=== PATIENT | male | born 1950 | race Caucasian/White ===

== ENCOUNTER 2016-06-14 17:30 | Emergency (ER) | payer OTHER, MEDICARE ==
[~2016-06-14] VITALS: Ht 185.4 cm; Wt 118.6 kg
[~2016-06-14 17:30] MED LIST: ALLO100T PO; AMIO200T7 PO; CARV6.252 PO; CETI10TA10 PO; CLC100X PO; CLC6 PO; ERGO1CAP35 PO; FLUT0.0529 NAE; FOLI1TAB7 PO; INSU1INJ15 SQ; INSU1INJ2 SC; LISI10TA PO; MAGN400T25 PO; NVLGI/PEN SC; NYST100016 TOP; PRAV40TA2 PO; SPIR50TA2 PO; SYN137 PO; TAMS0.4C59 PO; TORS20TA2 PO; VENL150T33 PO; WARF-281 PO
[2016-06-14 17:47] VITALS: Ht 185.4 cm; Wt 118.6 kg
[2016-06-14] MEDS ORDERED: SODIUM CHLORIDE 0.9% 1000ML 1,000 ML IV STA (18:00)
[2016-06-14 18:03] VITALS: O2SAT 97
[2016-06-14] MEDS ORDERED: WARF10TA4 PO (18:04)
[2016-06-14] MEDS ORDERED: POTA10CA28 PO (18:04)
[2016-06-14] MEDS ORDERED: NRV/5 PO (18:04)
[2016-06-14] MEDS ORDERED: RIFA300C34 PO (18:04)
[2016-06-14] MEDS ORDERED: FERR1TAB13 PO (18:04)
[2016-06-14] MEDS ORDERED: DOXY-300 PO (18:04)
[2016-06-14] MEDS ORDERED: APR50 PO (18:04)
[2016-06-14] MEDS ORDERED: NRN100 PO (18:04)
[2016-06-14] MEDS ORDERED: OMEP20CA9 PO (18:04)
[2016-06-14] MEDS ORDERED: MoRPHine SULFATE 4 MG/ML 1 ML CARP\\VIAL IV STA ×2 (18:13→20:55)
--- NOTE | 2016-06-14 18:34 | DIAGNOSTIC IMAGING REPORT ---
SINGLE VIEW CHEST CLINICAL HISTORY: Fever. Sepsis. FINDINGS: An AP, portable, upright chest radiograph is compared to study dated 01/09/2016. The examination is degraded by portable technique and patient rotation. A left ventricular assist device is noted. A 3-lead cardiac AICD is unchanged in position and partially obscures the left upper chest. The patient is status post midline sternotomy. The heart is enlarged. The pulmonary vasculature is noncongested. There is no airspace consolidation, large pleural effusion, or pneumothorax. The skeletal structures appear osteopenic. The bony thorax is grossly intact. IMPRESSION: 1. The lungs are clear. 2. Cardiomegaly with AICD and left ventricular assist device is above. There is no radiographic evidence of congestive failure. Electronically signed by: Juaquin Neff M.D. 06/14/2016 6:33 PM Dictated Date/Time: 06/14/2016 6:31 PM
[2016-06-14 19:34] LABS: BASO % 0.3 %; BASO ABS # 0.03 K/uL (0-0.2); COMPLETE YES; EOS % 2.7 %; HEMATOCRIT 39.8 % (42-52); IG% 0.3 %; LYMPH % 19.9 %; LYMPH ABS # 1.74 K/uL (1.2-3.4); MEAN CELL VOLUME 91.1 fL (80-100); MEAN CORPUSCULAR HEMOGLOBIN 31.6 pg (25-34); MEAN CORPUSCULAR HGB CONC 34.7 g/dl (32-36); MEAN PLATELET VOLUME 10.9 fL (7.4-10.4); MONO % 7.9 %; NEUT % 68.9 %; PLATELET COUNT 173 K/uL (130-400); RED BLOOD COUNT 4.37 M/uL (4.7-6.1); WHITE BLOOD COUNT 8.76 K/uL (4.8-10.8)
[2016-06-14] MEDS ORDERED: MoRPHine SULFATE 2 MG/ML CARP ONE (19:46)
[2016-06-14 19:52] LABS: INR 1.6 (0.9-1.1); PARTIAL THROMBOPLASTIN RATIO 1.5; PROTHROMBIN TIME (PATIENT) 17.4 SECONDS (9.0-12.0)
[2016-06-14 19:55] LABS: BUN/CREATININE RATIO 16.4 (10-20); CALCIUM 8.8 mg/dl (8.5-10.1); CREATININE 1.3 mg/dl (0.60-1.40); POTASSIUM 3.4 mmol/L (3.5-5.1); URIC ACID 6.1 mg/dl (2.6-7.2)
[2016-06-14 19:56] LABS: C-REACTIVE PROTEIN 2.67 mg/dl (0-0.29)
[2016-06-14 20:01] LABS: CKMB/CK RATIO 2.4 (0-3.0)
--- NOTE | 2016-06-14 20:18 | DIAGNOSTIC IMAGING REPORT ---
CT SCAN OF THE BRAIN WITHOUT IV CONTRAST CLINICAL HISTORY: Change in mental status. Lethargy. COMPARISON STUDY: CT of the brain dated 06/11/2014. TECHNIQUE: Unenhanced axial CT scan of the brain is performed from the vertex to the skull base. FINDINGS: Brain parenchyma: There are age-related involutional changes noting mild subcortical and periventricular microangiopathic change. There is no hemorrhage, mass effect, or evidence of acute territorial ischemia by CT criteria. White-white matter is preserved. No extra-axial fluid collection is seen. Ventricles, sulci, cisterns: Prominent secondary to involutional change. Intracranial vasculature: There is atherosclerotic calcification of the cavernous carotid arteries. Calvarium: Unremarkable. Soft tissues: There is a large lipoma partially imaged in the right upper neck. Sinuses and mastoids: The visualized paranasal sinuses are clear. The mastoid air cells are well pneumatized. Orbits: The bony orbits are grossly intact. IMPRESSION: There is no hemorrhage, mass effect, or evidence of acute territorial ischemia by CT criteria. Electronically signed by: Juaquin Neff M.D. 06/14/2016 8:17 PM Dictated Date/Time: 06/14/2016 8:11 PM
[2016-06-14] MEDS ORDERED: PIPERACILLIN/TAZOBACTAM 3.375 GM/100ML D5W IV STA (20:40)
--- NOTE | 2016-06-14 20:47 | DIAGNOSTIC IMAGING REPORT ---
CT SCAN OF THE ABDOMEN AND PELVIS WITHOUT IV CONTRAST CLINICAL HISTORY: Generalized abdominal pain. Abdominal wall infection. Fever. COMPARISON STUDY: Abdominal CT dated 06/11/2014. TECHNIQUE: CT scan of the abdomen and pelvis is performed from the lung bases to the proximal femora. Images are reviewed in the axial, sagittal, and coronal planes. IV contrast was not administered for this examination as per the front clinician. Note that the examination was performed in suboptimal fashion for the reported clinical history without IV contrast. Automated dose control exposure was utilized. CT DOSE: 2795.65 mGy.cm FINDINGS: Lung bases: The heart is enlarged and without pericardial effusion. A left ventricular assist device is in place. Pacemaker leads are noted. The coronary arteries are densely calcified. The lung bases are clear noting dependent atelectasis. There is a small hiatal hernia. Liver: The unenhanced liver is enlarged, measuring 21.2 cm in length. The liver is otherwise normal in contour and attenuation. There is no intrahepatic biliary ductal dilatation. Gallbladder: Unremarkable. Spleen: Normal in size and attenuation. A 3.6 cm cyst is identified in the spleen. This has increased in size as compared to 2015. Pancreas: Moderately atrophic and grossly unremarkable. Adrenal glands: A 1.8 cm left adrenal nodule is unchanged and meets CT criteria for a fat-containing adenoma. The right adrenal gland is unremarkable. Kidneys: The unenhanced kidneys demonstrate cortical atrophy and are without hydronephrosis. There are no renal calculi identified. There is no evidence of contour deforming renal mass lesion. Abdominal vasculature: The abdominal aorta is normal in course and caliber noting moderate atherosclerotic calcification. Bowel: The small bowel and colon are normal in course and caliber. There is mild to moderate colonic fecal retention. A metallic foreign body is present within the cecum, best seen on axial image #270. The appendix is well-visualized and normal. Peritoneum: There is no intraperitoneal free air or abdominal ascites. Lymphadenopathy: None. Pelvic viscera: There is a posteriorly oriented bladder diverticulum seen near the dome. The bladder wall is mildly thickened and trabeculated suggesting chronic outlet obstruction. The prostate gland is mildly enlarged and heterogeneous. There is a fat-containing left inguinal hernia. Skeletal structures: The skeletal structures are osteopenic. No lytic or blastic lesions are seen. There are bilateral pars defects at L5 with 10 mm of anterolisthesis as well as advanced degenerative disc disease narrowing and endplate sclerosis seen at L5-S1. There is an acute appearing oblique fracture seen through the right posterior body and pedicle of L5. This is best seen on axial image #321. Fracture does not extend through the posterior elements. Fracture extends to the superior endplate and to the posterior cortex. No additional fracture is identified. Soft tissues: There is mild induration of the ventral abdominal wall, likely related to subcutaneous injections. IMPRESSION: 1. Suboptimal examination without oral and IV contrast. 2. There are no acute infectious or inflammatory findings in the abdomen or pelvis. 3. Cardiomegaly and left ventricular cyst device. 4. There is an acute appearing oblique fracture through the right body of L5 as detailed above. Clinical correlation will be required. No additional fracture is seen. 5. Hepatomegaly. 6. There is evidence of chronic bladder outlet obstruction. 7. Additional findings as above. Electronically signed by: Juaquin Neff M.D. 06/14/2016 8:46 PM Dictated Date/Time: 06/14/2016 8:28 PM
--- NOTE | 2016-06-14 20:59 | EMERGENCY ROOM VISIT NOTE ---
History Report prepared by Spencer: Mirela Joe Under the Supervision of: Dr. Adeel Acevedo D.O. First contact with patient: 17:52 Chief Complaint: FEVER Stated Complaint: FEVER, GENERALIZED PAIN History of Present Illness The patient is a 65 year old male who presents to the Emergency Room with complaints of a persistent fever that began yesterday. He currently rates his discomfort as an 8/10 in severity. Per nursing staff the patient was recently discharged from [facility]. They note that the patient has an LVAD. The patient states that he has the LVAD because his heart stopped functioning. The patient states that he was referred to the emergency department by his Infectious Disease due to a possible worsening infection in his LVAD. Today the patient complains of a headache, fever, and generalized body aches. Nursing staff reports that the patient has also been intermittently lethargic. Per the patient's , the patient has an infection in his LVAD that has been followed by infectious disease. She states that the patient is on Coumadin. Source of History: patient, nursing staff Onset: yesterday Position: other (global) Symptom Intensity: 8/10 Quality: other (fever) Timing: other (persistent) Associated Symptoms: + headache Note: Associated Symptoms: generalized body aches, intermittently lethargic. Review of Systems See HPI for pertinent positives & negatives. A total of 10 systems reviewed and were otherwise negative. 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 (2) Benign hypertension (3) Cardiomyopathy (4) CHRONIC SYSTOLIC HRT FAILURE (5) Diabetes mellitus (6) Diabetes mellitus type 2 (7) Elevated cardiac enzymes (8) Gout (9) Heart disease (10) Heart failure (11) Hyperlipidemia (12) Hypothyroidism (13) Pneumonia (14) Prolonged QT interval (15) TIA (transient ischemic attack) Surgical Problems: (1) Implantation of automatic cardioverter/defibrillator, total system (2) Implantation of cardiac pacemaker (3) LVAD placement Family History Diabetes mellitus FH: heart disease Stroke Social History Smoking Status: Unknown if Ever Smoked Alcohol Use: none Drug Use: none Marital Status: Housing Status: lives with family Occupation Status: disabled Current/Historical Medications Scheduled Allopurinol (Zyloprim), 100 MG PO DAILY Amiodarone Hcl (Pacerone), 200 MG PO DAILY Amlodipine Besylate (Amlodipine Besylate), 5 MG PO DAILY Carvedilol (Coreg), 12.5 MG PO QD@0900 Carvedilol (Coreg), 12.5 MG PO QD@1700 Cetirizine Hcl (Zyrtec), 10 MG PO HS Docusate Sodium (Colace), 100 MG PO BID Doxycycline (Monohydrate) (Doxycycline), 100 MG PO BID Ergocalciferol (Vitamin D Cap), 50,000 INTER.UNIT PO 2xmonthly Ferrous Sulfate (Kp Ferrous Sulfate), 325 MG PO DAILY Folic Acid (Folvite), 1 MG PO DAILY Gabapentin (Gabapentin), 200 MG PO TID Hydralazine HCl (Hydralazine HCl), 50 MG PO QID Insulin Aspart (Novolog Flexpen), 7 UNITS SC WM Insulin Detemir (Levemir), 35 UNITS SQ BID Levothyroxine Sodium (Levothyroxine Sodium), 137 MCG PO DAILY Lisinopril (Prinivil), 40 MG PO QAM Magnesium Oxide (Magnesium-Oxide), 400 MG PO TID Omeprazole (Prilosec), 20 MG PO DAILY Potassium Chloride (Micro-K Ext Rel), 20 MEQ PO BID Pravastatin Sodium (Pravastatin Sodium), 40 MG PO HS Rifampin (Rifadin), 300 MG PO BID Spironolactone (Aldactone), 50 MG PO QAM Tamsulosin Hcl (Flomax), 0.4 MG PO HS Torsemide (Demadex), 50 MG PO DAILY Venlafaxine Hcl (Venlafaxine Hcl Er), 150 MG PO HS Warfarin Sod (Jantoven), 30 MG PO DIRECTED Warfarin Sodium (Warfarin Sodium), 40 MG PO DIRECTED Scheduled PRN Colchicine (Colcrys), 0.6 MG PO DAILY PRN for Gout Fluticasone Propionate (Nasal) (Flonase), 2 SPRAYS SULEMA HS PRN for Allergies Insulin Aspart (Novolog Penfill), SC WM PRN for hyperglycemia Nystatin (Topical) (Nyamyc), 1 APPLN TOP UD PRN for Affected Skin Folds Allergies Coded Allergies: Heparin (Verified Adverse Reaction, Severe, HIT, 06/14/16) Physical Exam Vital Signs Date Time Temp Pulse Resp B/P Pulse Ox O2 Delivery O2 Flow Rate FiO2 06/14/16 19:44 74 16 96 Room Air 06/14/16 18:03 97 Nasal Cannula 2.0 06/14/16 17:50 70 06/14/16 17:47 36.8 73 18 93 Room Air Physical Exam CONSTITUTIONAL/VITAL SIGNS: Reviewed / noted above. GENERAL: Non-toxic in appearance. INTEGUMENTARY: Warm, dry, and [place]. HEAD: Normocephalic. EYES: without scleral icterus or trauma. ENT/OROPHARYNX: clear and moist. LYMPHADENOPATHY/NECK: Is supple without lymphadenopathy or meningismus. RESPIRATORY: Lungs clear and equal. CARDIOVASCULAR: Continuous function of LVAD preventing adequate auscultation of heart sounds. GI/ABDOMEN: Mild erythema over superior aspect of the LVAD incision site. Soft and nontender. No organomegaly or pulsatile mass. No rebound or guarding. Normal bowel sounds. EXTREMITIES: Warm and well perfused. BACK: No CVA tenderness. NEUROLOGICAL: Intact without focal deficits. PSYCHIATRIC: normal affect. MUSCULOSKELETAL: Normally developed with good muscle tone. Medical Decision & Procedures ER Provider Diagnostic Interpretation: Radiology results as stated below per my review and radiologist interpretation: CT SCAN OF THE BRAIN WITHOUT IV CONTRAST CLINICAL HISTORY: Change in mental status. Lethargy. COMPARISON STUDY: CT of the brain dated 06/11/2014. TECHNIQUE: Unenhanced axial CT scan of the brain is performed from the vertex to the skull base. FINDINGS: Brain parenchyma: There are age-related involutional changes noting mild subcortical and periventricular microangiopathic change. There is no hemorrhage, mass effect, or evidence of acute territorial ischemia by CT criteria. White-white matter is preserved. No extra-axial fluid collection is seen. Ventricles, sulci, cisterns: Prominent secondary to involutional change. Intracranial vasculature: There is atherosclerotic calcification of the cavernous carotid arteries. Calvarium: Unremarkable. Soft tissues: There is a large lipoma partially imaged in the right upper neck. Sinuses and mastoids: The visualized paranasal sinuses are clear. The mastoid air cells are well pneumatized. Orbits: The bony orbits are grossly intact. IMPRESSION: There is no hemorrhage, mass effect, or evidence of acute territorial ischemia by CT criteria. Electronically signed by: Juaquin Neff M.D. 06/14/2016 8:17 PM Dictated Date/Time: 06/14/2016 8:11 PM SINGLE VIEW CHEST CLINICAL HISTORY: Fever. Sepsis. FINDINGS: An AP, portable, upright chest radiograph is compared to study dated 01/09/2016. The examination is degraded by portable technique and patient rotation. A left ventricular assist device is noted. A 3-lead cardiac AICD is unchanged in position and partially obscures the left upper chest. The patient is status post midline sternotomy. The heart is enlarged. The pulmonary vasculature is noncongested. There is no airspace consolidation, large pleural effusion, or pneumothorax. The skeletal structures appear osteopenic. The bony thorax is grossly intact. IMPRESSION: 1. The lungs are clear. 2. Cardiomegaly with AICD and left ventricular assist device is above. There is no radiographic evidence of congestive failure. Electronically signed by: Juaquin Neff M.D. 06/14/2016 6:33 PM Dictated Date/Time: 06/14/2016 6:31 PM Laboratory Results 06/14/16 19:15 Red Blood Count 4.37, Mean Corpuscular Volume 91.1, Mean Corpuscular Hemoglobin 31.6, Mean Corpuscular Hemoglobin Concent 34.7, Mean Platelet Volume 10.9, Neutrophils (%) (Auto) 68.9, Lymphocytes (%) (Auto) 19.9, Monocytes (%) (Auto) 7.9, Eosinophils (%) (Auto) 2.7, Basophils (%) (Auto) 0.3, Neutrophils # (Auto) 6.03, Lymphocytes # (Auto) 1.74, Monocytes # (Auto) 0.69, Eosinophils # (Auto) 0.24, Basophils # (Auto) 0.03 06/14/16 19:15 Test 06/14/16 18:30 06/14/16 19:15 Influenza Type A Antigen Neg for Influ A (NEG) Influenza Type B Antigen Neg for Influ B (NEG) White Blood Count 8.76 K/uL (4.8-10.8) Red Blood Count 4.37 M/uL (4.7-6.1) Hemoglobin 13.8 g/dL (14.0-18.0) Hematocrit 39.8 % (42-52) Mean Corpuscular Volume 91.1 fL (80-100) Mean Corpuscular Hemoglobin 31.6 pg (25-34) Mean Corpuscular Hemoglobin Concent 34.7 g/dl (32-36) Platelet Count 173 K/uL (130-400) Mean Platelet Volume 10.9 fL (7.4-10.4) Neutrophils (%) (Auto) 68.9 % Lymphocytes (%) (Auto) 19.9 % Monocytes (%) (Auto) 7.9 % Eosinophils (%) (Auto) 2.7 % Basophils (%) (Auto) 0.3 % Neutrophils # (Auto) 6.03 K/uL (1.4-6.5) Lymphocytes # (Auto) 1.74 K/uL (1.2-3.4) Monocytes # (Auto) 0.69 K/uL (0.11-0.59) Eosinophils # (Auto) 0.24 K/uL (0-0.5) Basophils # (Auto) 0.03 K/uL (0-0.2) RDW Standard Deviation 53.0 fL (36.4-46.3) RDW Coefficient of Variation 16.0 % (11.5-14.5) Immature Granulocyte % (Auto) 0.3 % Immature Granulocyte # (Auto) 0.03 K/uL (0.00-0.02) Erythrocyte Sedimentation Rate 22 mm/hr (0-14) Prothrombin Time 17.4 SECONDS (9.0-12.0) Prothromb Time International Ratio 1.6 (0.9-1.1) Activated Partial Thromboplast Time 37.9 SECONDS (21.0-31.0) Partial Thromboplastin Ratio 1.5 Anion Gap 6.0 mmol/L (3-11) Est Creatinine Clear Calc Drug Dose 75.4 ml/min Estimated GFR () 65.9 Estimated GFR (Non- 56.9 BUN/Creatinine Ratio 16.4 (10-20) Uric Acid 6.1 mg/dl (2.6-7.2) Calcium Level 8.8 mg/dl (8.5-10.1) Total Bilirubin 0.4 mg/dl (0.2-1) Direct Bilirubin 0.1 mg/dl (0-0.2) Aspartate Amino Transf (AST/SGOT) 22 U/L (15-37) Alanine Aminotransferase (ALT/SGPT) 23 U/L (12-78) Alkaline Phosphatase 78 U/L (45-117) Total Creatine Kinase 99 U/L (39-308) Creatine Kinase MB 2.4 ng/ml (0.5-3.6) Creatine Kinase MB Ratio 2.4 (0-3.0) Troponin I 0.078 ng/ml (0-0.045) C-Reactive Protein 2.67 mg/dl (0-0.29) Total Protein 7.7 gm/dl (6.4-8.2) Albumin 3.6 gm/dl (3.4-5.0) Lipase 260 U/L (73-393) Laboratory results as stated above per my review. Medications Administered Medications (Trade) Dose Ordered Sig/Jose Route Start Time Stop Time Status Last Admin Dose Admin Sodium Chloride (Nss 1000ml) 1,000 ml @ 200 mls/hr Q5H STAT IV 06/14/16 18:00 06/14/16 22:59 06/14/16 19:43 200 MLS/HR Morphine Sulfate (MoRPHine SULFATE INJ) 2 mg STK-MED ONCE .ROUTE 06/14/16 19:46 06/14/16 19:47 DC 06/14/16 19:42 2 MG ECG Indication: other (history of LVAD) Rate (beats per minute): 66 Rhythm: other (ventricular paced) Findings: no acute ischemic change, paced rhythm, no ectopy ED Course 1753: Previous medical records were reviewed. The patient was evaluated in room B12B. A complete history and physical examination was performed. 1800: Ordered Sodium Chloride 1000 ml @ 200 mls/hr IV. 1812: Ordered Morphine Sulfate 2 mg IV. 2015: I reevaluated the patient and he is resting comfortably. I discussed the exam findings with the patient and his and I discussed the treatment plan. They verbalized complete understanding and agreement. The patient will be transferred to [facility] for further treatment. 2030: I discussed the patients case with Dr. Manzano, Cardiovascular Disease. She accepted the patient for transfer to their facility. 2100: IV Zosyn. Medical Decision Differential diagnosis: Etiologies such as sepsis, UTI, pneumonia, metabolic, electrolyte abnormalities , cardiac sources, intracerebral event, toxicologic, neurologic, as well as others were entertained. This is a 65-year-old male who presents to the ED with a chief complaint of the above. The patient was sent here by the infectious disease specialist for evaluation. History of LVAD. The patient's blood work includes a unremarkable CBC. Sedimentation rate was 22, CRP is 2.67. INR is 1.6. Troponin is slightly elevated at 0.078. Flu swab was negative. A chest x-ray was negative for acute disease. Complete metabolic panel was unremarkable. Lipase is negative. The patient's exam reveals some mild erythema overlying the incision site of the LVAD. EKG showed a paced rhythm. The patient was given IV Zosyn. He was given some IV morphine for discomfort. Blood cultures have been taken. I [place] Manz[place] [facility] [place] patient has been accepted at [facility]. IV Zosyn given. There is a bed available. The patient be transported by ambulance. Consults Time Called: 2021 Consulting Physician: Dr. Manzano, Cardiovascular Disease Returned Call: 2030 I discussed the patients case with Dr. Manzano, Cardiovascular Disease. She accepted the patient for transfer to their facility. Impression Primary Impression: Elevated troponin Additional Impression: Abdominal wall cellulitis Scribe Attestation The scribe's documentation has been prepared under my direction and personally reviewed by me in its entirety. I confirm that the note above accurately reflects all work, treatment, procedures, and medical decision making performed by me. Departure Information Dispostion Transfer Acute Care Facility Referrals Graham Rojas MD (PCP) Problem Qualifiers
[2016-06-14 22:31] VITALS: PULSE 78; TEMP 36.8; O2SAT 98
[2016-07-31] MEDS ORDERED: ERGO1CAP41 PO (18:26)
[2016-08-24] MEDS ORDERED: OXYC-164 PO (16:45)
[2016-08-24] MEDS ORDERED: TEDI1TAB PO (16:45)
[2016-08-24] MEDS ORDERED: LEVO150T PO (16:45)
[2016-11-18] MEDS ORDERED: CLIN300C2 PO (08:38)
== END 2016-06-14 22:33 | disposition short-term general hospital (02) ==
LOC: EDBD 17:30 → C.EDB 17:31
DX: L03.311 Cellulitis of abdominal wall (principal); G51.0 Bell's palsy; I10 Essential (primary) hypertension; I50.22 Chronic systolic (congestive) heart failure; E11.9 Type 2 diabetes mellitus without complications; M10.9 Gout, unspecified; E03.9 Hypothyroidism, unspecified; E78.5 Hyperlipidemia, unspecified; Z86.73 Personal history of transient ischemic attack (TIA), and cerebral infarction without residual deficits; Z95.810 Presence of automatic (implantable) cardiac defibrillator; Z82.49 Family history of ischemic heart disease and other diseases of the circulatory system; Z83.3 Family history of diabetes mellitus; Z82.0 Family history of epilepsy and other diseases of the nervous system; Z79.899 Other long term (current) drug therapy; Z79.01 Long term (current) use of anticoagulants; Z79.4 Long term (current) use of insulin

== ENCOUNTER 2016-07-11 16:59 | Emergency (ER) | payer OTHER, MEDICARE ==
[~2016-07-11] VITALS: Ht 185.4 cm; Wt 119.7 kg
[~2016-07-11 16:59] MED LIST changes: +APR50 PO; +DOXY-300 PO; +FERR1TAB13 PO; +NRN100 PO; +NRV/5 PO; +OMEP20CA9 PO; +POTA10CA28 PO; +RIFA300C34 PO; +WARF10TA4 PO
[2016-07-11 17:03] VITALS: TEMP 36.7; Ht 185.4 cm; Wt 119.7 kg
--- NOTE | 2016-07-11 17:12 | EMERGENCY ROOM VISIT NOTE ---
History Report prepared by Spencer: Rey Leon Under the Supervision of: Dr. Russ Jones M.D. First contact with patient: 17:01 Chief Complaint: ILLNESS Stated Complaint: CHEST PAIN History of Present Illness The patient is a 65 year old male who presents to the Emergency Room with complaints of constant fatigue for the past few days. The EMS states that the patient has not been feeling well the past few days, and has been fatigued and unable to eat or drink. The patient states that his legs have been swollen for the past 10 days, and he is currently on antibiotics. He states that he has been fighting an infection for the past year. The patient has been additionally having low back pain due to the bumps on the road. The patient has chronic lumbar issues, and he was given 8mg of Morphine en route Source of History: patient, EMS Onset: past few days Position: other (global) Quality: other (fatigue) Timing: constant Associated Symptoms: + back pain Note: Associated symptoms: Back pain Review of Systems See HPI for pertinent positives & negatives. A total of 10 systems reviewed and were otherwise negative. 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 (2) Benign hypertension (3) Cardiomyopathy (4) CHRONIC SYSTOLIC HRT FAILURE (5) Diabetes mellitus (6) Diabetes mellitus type 2 (7) Elevated cardiac enzymes (8) Gout (9) Heart disease (10) Heart failure (11) Hyperlipidemia (12) Hypothyroidism (13) Pneumonia (14) Prolonged QT interval (15) TIA (transient ischemic attack) Surgical Problems: (1) Implantation of automatic cardioverter/defibrillator, total system (2) Implantation of cardiac pacemaker (3) LVAD placement Family History Diabetes mellitus FH: heart disease Stroke Social History Smoking Status: Never Smoker Alcohol Use: none Drug Use: none Marital Status: Housing Status: lives with family Occupation Status: disabled Current/Historical Medications Scheduled Allopurinol (Zyloprim), 100 MG PO DAILY Amiodarone Hcl (Pacerone), 200 MG PO DAILY Amlodipine Besylate (Amlodipine Besylate), 5 MG PO DAILY Carvedilol (Coreg), 12.5 MG PO QD@0900 Carvedilol (Coreg), 12.5 MG PO QD@1700 Cetirizine Hcl (Zyrtec), 10 MG PO HS Docusate Sodium (Docusate Sodium), 100 MG PO BID Ergocalciferol (Vitamin D), 50,000 INTERUNIT PO UD Ferrous Sulfate (Kp Ferrous Sulfate), 325 MG PO DAILY Folic Acid (Folvite), 1 MG PO DAILY Gabapentin (Gabapentin), 600 MG PO TID Hydralazine HCl (Hydralazine HCl), 50 MG PO QID Insulin Aspart (Novolog Flexpen), 7 UNITS SC AC Insulin Detemir (Levemir), 35 UNITS SC BID Levothyroxine Sodium (Synthroid), 150 MCG PO QAM Linezolid (Zyvox), 600 MG PO BID Lisinopril (Prinivil), 40 MG PO QAM Magnesium Oxide (mg Supplement (Magnesium Oxide), 400 MG PO TID Potassium Chloride (Micro-K Ext Rel), 20 MEQ PO BID Pravastatin Sodium (Pravastatin Sodium), 40 MG PO HS Spironolactone (Aldactone), 50 MG PO QAM Tamsulosin HCl (Tamsulosin HCl), 0.4 MG PO HS Torsemide (Demadex), 50 MG PO DAILY Warfarin Sod (Jantoven), MG PO DIRECTED Scheduled PRN Colchicine (Colcrys), 0.6 MG PO DAILY PRN for Gout Insulin Aspart (Novolog Penfill), SC AC PRN for hyperglycemia Nystatin (Topical) ([facility]), 1 APPLN TOP UD PRN for Affected Skin Folds Allergies Coded Allergies: Heparin (Verified Adverse Reaction, Severe, HIT, 07/11/16) Physical Exam Vital Signs Date Time Temp Pulse Resp B/P Pulse Ox O2 Delivery O2 Flow Rate FiO2 07/11/16 19:44 74 20 90 Room Air 07/11/16 19:06 77 18 96 Room Air 07/11/16 17:19 70 07/11/16 17:03 36.7 70 20 97 Room Air Physical Exam GENERAL: Patient is uncomfortable appearing and in mild distress. HEENT: No acute trauma, normocephalic atraumatic, mucous membranes moist, no nasal congestion, no scleral icterus. NECK: No stridor, no adenopathy, no meningismus, trachea is midline. LUNGS: No dyspnea. Clear to auscultation and equal bilaterally. No wheeze, no rhonchi. HEART: There is a continuous hum ABDOMEN: LVAD entry point in the right upper abdomen. Soft, nontender, bowel sounds positive, no masses appreciated, no peritonitis. BACK: No midline tenderness, no CVA tenderness EXTREMITIES: Weak pulses in all extremities. Normal motion all extremities, no cyanosis, no edema. NEUROLOGIC: Alert and oriented, no acute motor or sensory deficits, no focal weakness, cranial nerves grossly intact. SKIN: No rash, no jaundice, no diaphoresis. Medical Decision & Procedures ER Provider Diagnostic Interpretation: Radiology results and stated below per my review and radiologist interpretation: CHEST ONE VIEW PORTABLE HISTORY: fatigue COMPARISON: Chest 06/14/2016. FINDINGS: The lungs remain clear. Mild cardiomegaly, unchanged. Poststernotomy changes and a left-sided pacemaker/defibrillator. No pleural effusions. No pneumothorax. A left ventricular assist device is partially visualized. IMPRESSION: No significant change compared to the prior study. No acute process. Electronically signed by: Adolfo Brown M.D. 07/11/2016 5:18 PM Dictated Date/Time: 07/11/2016 5:17 PM Laboratory Results 07/11/16 16:24 Red Blood Count 3.83, Mean Corpuscular Volume 90.3, Mean Corpuscular Hemoglobin 30.0, Mean Corpuscular Hemoglobin Concent 33.2, Mean Platelet Volume 11.1, Neutrophils (%) (Auto) 72.5, Lymphocytes (%) (Auto) 16.4, Monocytes (%) (Auto) 8.0, Eosinophils (%) (Auto) 2.6, Basophils (%) (Auto) 0.4, Neutrophils # (Auto) 4.97, Lymphocytes # (Auto) 1.13, Monocytes # (Auto) 0.55, Eosinophils # (Auto) 0.18, Basophils # (Auto) 0.03 07/11/16 16:24 Test 07/11/16 16:24 07/11/16 17:19 White Blood Count 6.87 K/uL (4.8-10.8) Red Blood Count 3.83 M/uL (4.7-6.1) Hemoglobin 11.5 g/dL (14.0-18.0) Hematocrit 34.6 % (42-52) Mean Corpuscular Volume 90.3 fL (80-100) Mean Corpuscular Hemoglobin 30.0 pg (25-34) Mean Corpuscular Hemoglobin Concent 33.2 g/dl (32-36) Platelet Count 93 K/uL (130-400) Mean Platelet Volume 11.1 fL (7.4-10.4) Neutrophils (%) (Auto) 72.5 % Lymphocytes (%) (Auto) 16.4 % Monocytes (%) (Auto) 8.0 % Eosinophils (%) (Auto) 2.6 % Basophils (%) (Auto) 0.4 % Neutrophils # (Auto) 4.97 K/uL (1.4-6.5) Lymphocytes # (Auto) 1.13 K/uL (1.2-3.4) Monocytes # (Auto) 0.55 K/uL (0.11-0.59) Eosinophils # (Auto) 0.18 K/uL (0-0.5) Basophils # (Auto) 0.03 K/uL (0-0.2) RDW Standard Deviation 46.6 fL (36.4-46.3) RDW Coefficient of Variation 14.2 % (11.5-14.5) Immature Granulocyte % (Auto) 0.1 % Immature Granulocyte # (Auto) 0.01 K/uL (0.00-0.02) Platelet Estimate DECREASED Prothrombin Time 28.2 SECONDS (9.0-12.0) Prothromb Time International Ratio 2.5 (0.9-1.1) Activated Partial Thromboplast Time 40.2 SECONDS (21.0-31.0) Partial Thromboplastin Ratio 1.5 Anion Gap 4.0 mmol/L (3-11) Est Creatinine Clear Calc Drug Dose 70.3 ml/min Estimated GFR () 60.3 Estimated GFR (Non- 52.0 BUN/Creatinine Ratio 19.8 (10-20) Calcium Level 8.3 mg/dl (8.5-10.1) Magnesium Level 2.4 mg/dl (1.8-2.4) Total Bilirubin 0.4 mg/dl (0.2-1) Direct Bilirubin 0.1 mg/dl (0-0.2) Aspartate Amino Transf (AST/SGOT) 21 U/L (15-37) Alanine Aminotransferase (ALT/SGPT) 30 U/L (12-78) Alkaline Phosphatase 65 U/L (45-117) Troponin I 0.027 ng/ml (0-0.045) C-Reactive Protein 0.54 mg/dl (0-0.29) Total Protein 6.8 gm/dl (6.4-8.2) Albumin 3.3 gm/dl (3.4-5.0) Procalcitonin < 0.05 ng/ml (0-0.5) Bedside Lactic Acid Venous 2.87 mmol/L (0.90-1.70) Laboratory results as reviewed by me. Medications Administered Medications (Trade) Dose Ordered Sig/Jose Route Start Time Stop Time Status Last Admin Dose Admin Vancomycin HCl/ Sodium Chloride (Vancomycin Inj/ Nss 500ml) 556 ml @ 200 mls/hr ONE STAT IV 07/11/16 18:06 07/11/16 20:52 DC 07/11/16 18:06 200 MLS/HR Morphine Sulfate (MoRPHine SULFATE INJ) 6 mg NOW STAT IV 07/11/16 18:17 07/11/16 18:18 DC 07/11/16 18:17 6 MG ECG Indication: other (fatigue) Rate (beats per minute): 70 Rhythm: other (AV paced) Findings: no acute ischemic change, no ectopy ED Course 1700: The patient was evaluated in room A1. A complete history and physical exam was performed. 1801: I discussed the patient's case with Dr. Barillas, Cardiology [facility], and Dr. Acuna, Emergency Physician [facility], and they are going to evaluate the patient for further treatment. 180: Vancomycin HCl 2800mg/ Sodium Chloride IV 556 @ 200mls/hr 1816: Morphine Sulfate 6mg IV 1920: I reevaluated the patient, and he states that he was still having some discomfort. Medical Decision Differential: Sepsis, Infectious (UTI/Pneumonia/Meningitis/etc), Metabolic/ Electrolyte Abnormality, Cardiac, Hepatic, Endocrine, Toxicologic, Neurologic, amongst other pathologies entertained. 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 Arrives via EMS for evaluation of fatigue, weakness, sweats and concern of bacteremia which is similar to previous episodes of bacteremia. Sat-ing OK with light pulse. Mild lactic acidosis of uncertain etiology though he has negative procalcitonin, minimal elevated CRP and normal WBC. Of concern is his acute thrombocytopenia which could be Zyvox related or sepsis. He is stable for transfer. Will transfer to [place] as this is where his cardiac team is and we do not have capabilities to care for him. With assumption there is underlying Bacteremia will given IV Vanco. Given this is large volume of fluid will avoid further resus for lactic acid as it could easily send him in to pulm edema. Morphine for chronic back pain which he notes has already been ruled out as source of infection by MRI. Stable throughout ED stay. Consults Time Called: 1800 Consulting Physician: Dr. Barillas, Cardiology [facility], and Dr. Acuna, Emergency Phy Returned Call: 1802 I discussed the patient's case with Dr. Barillas, Cardiology [facility], and Dr. Acuna, Emergency Physician [facility], and they are going to evaluate the patient for further treatment. Impression Primary Impression: Bacteremia Additional Impressions: Lactic acidosis Acute exacerbation of chronic low back pain Thrombocytopenia Scribe Attestation The scribe's documentation has been prepared under my direction and personally reviewed by me in its entirety. I confirm that the note above accurately reflects all work, treatment, procedures, and medical decision making performed by me. Departure Information Dispostion Transfer Acute Care Facility Referrals Graham Rojas MD (PCP) Problem Qualifiers
[2016-07-11 17:14] LABS: HEMATOCRIT 34.6 % (42-52); MEAN CELL VOLUME 90.3 fL (80-100); MEAN CORPUSCULAR HGB CONC 33.2 g/dl (32-36); RED BLOOD COUNT 3.83 M/uL (4.7-6.1); WHITE BLOOD COUNT 6.87 K/uL (4.8-10.8)
--- NOTE | 2016-07-11 17:20 | DIAGNOSTIC IMAGING REPORT ---
CHEST ONE VIEW PORTABLE HISTORY: fatigue COMPARISON: Chest 06/14/2016. FINDINGS: The lungs remain clear. Mild cardiomegaly, unchanged. Poststernotomy changes and a left-sided pacemaker/defibrillator. No pleural effusions. No pneumothorax. A left ventricular assist device is partially visualized. IMPRESSION: No significant change compared to the prior study. No acute process. Electronically signed by: Adolfo Brown M.D. 07/11/2016 5:18 PM Dictated Date/Time: 07/11/2016 5:17 PM
[2016-07-11 17:35] LABS: MEAN PLATELET VOLUME 11.1 fL (7.4-10.4); PLATELET COUNT 93 K/uL (130-400)
[2016-07-11 17:36] LABS: BASO % 0.4 %; BASO ABS # 0.03 K/uL (0-0.2); COMPLETE YES; EOS % 2.6 %; IG% 0.1 %; LYMPH % 16.4 %; LYMPH ABS # 1.13 K/uL (1.2-3.4); NEUT % 72.5 %; PLT ESTIMATE DECREASED
[2016-07-11 17:39] LABS: BUN/CREATININE RATIO 19.8 (10-20); CALCIUM 8.3 mg/dl (8.5-10.1); CREATININE 1.4 mg/dl (0.60-1.40); MAGNESIUM 2.4 mg/dl (1.8-2.4); POTASSIUM 4.3 mmol/L (3.5-5.1)
[2016-07-11 17:43] LABS: C-REACTIVE PROTEIN 0.54 mg/dl (0-0.29)
[2016-07-11] MEDS ORDERED: VANCOMYCIN INJ 2,800 MG in SODIUM CHLORIDE 0.9% 500ML 500 ML IV STA (18:06)
[2016-07-11 18:08] LABS: INR 2.5 (0.9-1.1); PARTIAL THROMBOPLASTIN RATIO 1.5; PROTHROMBIN TIME (PATIENT) 28.2 SECONDS (9.0-12.0)
[2016-07-11] MEDS ORDERED: MoRPHine SULFATE 10 MG/ML CARP/VIAL IV STA (18:17)
[2016-07-11] MEDS ORDERED: LVMI SC (18:36)
[2016-07-11] MEDS ORDERED: NRN600 PO (18:36)
[2016-07-11] MEDS ORDERED: SYN150 PO (18:36)
[2016-07-11] MEDS ORDERED: LINE1TAB6 PO (18:36)
[2016-07-11] MEDS ORDERED: CLC100 PO (18:36)
[2016-07-11] MEDS ORDERED: VTMD PO (18:36)
[2016-07-11] MEDS ORDERED: MAGN400C3 PO (18:36)
[2016-07-11] MEDS ORDERED: FLM4 PO (18:36)
[2016-07-11 19:44] VITALS: PULSE 74; O2SAT 90
[2016-08-24] MEDS ORDERED: OXYC-164 PO (16:45)
[2016-08-24] MEDS ORDERED: TEDI1TAB PO (16:45)
[2016-08-24] MEDS ORDERED: LEVO150T PO (16:45)
[2016-11-18] MEDS ORDERED: CLIN300C2 PO (08:38)
[2017-01-31] MEDS ORDERED: ASPI81TA28 PO (08:20)
== END 2016-07-11 20:10 | disposition short-term general hospital (02) ==
LOC: EDBD 16:59 → C.ED 17:02
DX: R78.81 Bacteremia (principal); E87.2 Acidosis; G89.29 Other chronic pain; M54.5 Low back pain; D69.6 Thrombocytopenia, unspecified; R53.83 Other fatigue; M79.89 Other specified soft tissue disorders; G51.0 Bell's palsy; E11.9 Type 2 diabetes mellitus without complications; I10 Essential (primary) hypertension; E78.5 Hyperlipidemia, unspecified; E03.9 Hypothyroidism, unspecified; Z95.810 Presence of automatic (implantable) cardiac defibrillator; Z86.79 Personal history of other diseases of the circulatory system; Z86.73 Personal history of transient ischemic attack (TIA), and cerebral infarction without residual deficits; Z79.01 Long term (current) use of anticoagulants; Z79.4 Long term (current) use of insulin; Z79.899 Other long term (current) drug therapy

== ENCOUNTER 2016-07-31 17:00 | Emergency (ER) | payer OTHER, MEDICARE ==
[~2016-07-31] VITALS: Ht 185.4 cm; Wt 114.5 kg
[~2016-07-31 17:00] MED LIST changes: +CLC100 PO; -CLC100X PO; -DOXY-300 PO; -ERGO1CAP35 PO; +FLM4 PO; -FLUT0.0529 NAE; -INSU1INJ15 SQ; +LINE1TAB6 PO; +LVMI SC; +MAGN400C3 PO; -MAGN400T25 PO; -NRN100 PO; +NRN600 PO; -OMEP20CA9 PO; -RIFA300C34 PO; -SYN137 PO; +SYN150 PO; -TAMS0.4C59 PO; -VENL150T33 PO; +VTMD PO; -WARF-281 PO
[2016-07-31 17:10] VITALS: Ht 185.4 cm; Wt 114.5 kg
[2016-07-31 17:18] VITALS: O2SAT 92
[2016-07-31 18:01] LABS: BASO % 0.3 %; BASO ABS # 0.03 K/uL (0-0.2); COMPLETE YES; EOS % 1.7 %; HEMATOCRIT 40.5 % (42-52); IG% 0.4 %; LYMPH % 10.8 %; LYMPH ABS # 1.23 K/uL (1.2-3.4); MEAN CELL VOLUME 94.2 fL (80-100); MEAN CORPUSCULAR HEMOGLOBIN 31.4 pg (25-34); MEAN CORPUSCULAR HGB CONC 33.3 g/dl (32-36); MEAN PLATELET VOLUME 11.2 fL (7.4-10.4); MONO % 6.6 %; NEUT % 80.2 %; PLATELET COUNT 243 K/uL (130-400); WHITE BLOOD COUNT 11.35 K/uL (4.8-10.8)
[2016-07-31] MEDS: MoRPHine SULFATE 4 MG/ML 1 ML CARP\\VIAL IV PRN ×2 (18:02→21:16)
[2016-07-31 18:15] LABS: INR 2.5 (0.9-1.1); PARTIAL THROMBOPLASTIN RATIO 1.4; PROTHROMBIN TIME (PATIENT) 27.6 SECONDS (9.0-12.0)
[2016-07-31 18:19] LABS: BUN/CREATININE RATIO 14.2 (10-20); CALCIUM 8.6 mg/dl (8.5-10.1); CREATININE 1.8 mg/dl (0.60-1.40); POTASSIUM 4.4 mmol/L (3.5-5.1)
[2016-07-31 18:24] LABS: CKMB/CK RATIO 2.8 (0-3.0)
[2016-07-31] MEDS ORDERED: ERGO500011 PO (18:26)
[2016-07-31] MEDS ORDERED: EFFSR150 PO (18:26)
[2016-07-31] MEDS ORDERED: LEVO137T3 PO (18:26)
--- NOTE | 2016-07-31 19:29 | DIAGNOSTIC IMAGING REPORT ---
CHEST 1 VW FRONT-NOT PORTABLE HISTORY: EVALUATE FEVER/ SEPSIS, FALL COMPARISON: Chest 07/11/2016. FINDINGS: The lungs are clear. The heart remains mildly enlarged. Poststernotomy changes and a left-sided pacemaker/defibrillator. No pleural effusions. No pneumothorax. A left ventricular assist device is again noted. IMPRESSION: No significant change compared to the prior study. No acute process. Electronically signed by: Adolfo Brown M.D. 07/31/2016 7:27 PM Dictated Date/Time: 07/31/2016 7:26 PM
--- NOTE | 2016-07-31 19:30 | DIAGNOSTIC IMAGING REPORT ---
RIGHT KNEE 2 VIEWS HISTORY: Right knee pain after fall Right COMPARISON: None. FINDINGS: There is no fracture or dislocation. Moderate knee effusion. No radiopaque foreign bodies. IMPRESSION: No fractures. Moderate knee effusion. Electronically signed by: Adolfo Brown M.D. 07/31/2016 7:28 PM Dictated Date/Time: 07/31/2016 7:28 PM
--- NOTE | 2016-07-31 19:31 | DIAGNOSTIC IMAGING REPORT ---
RIGHT ANKLE 3 VIEWS HISTORY: Right ankle pain. fall Right COMPARISON: None. FINDINGS: There is no fracture or dislocation. Soft tissues are unremarkable. No radiopaque foreign bodies. IMPRESSION: No fractures. Electronically signed by: Adolfo Brown M.D. 07/31/2016 7:30 PM Dictated Date/Time: 07/31/2016 7:28 PM
--- NOTE | 2016-07-31 19:32 | DIAGNOSTIC IMAGING REPORT ---
PELVIS ONE VIEW HISTORY: Fall with right-sided hip pain. COMPARISON: None. FINDINGS: There is no fracture or dislocation. Soft tissues are unremarkable. The sacrum is intact. There is a surgical clip within the right lower quadrant. IMPRESSION: No fracture or dislocation within the pelvis or hips. Electronically signed by: Adolfo Brown M.D. 07/31/2016 7:31 PM Dictated Date/Time: 07/31/2016 7:30 PM
--- NOTE | 2016-07-31 19:42 | DIAGNOSTIC IMAGING REPORT ---
HEAD CT NONCONTRAST CT DOSE: 712.55 mGy.cm HISTORY: Weakness. fall on coumadin TECHNIQUE: Multiaxial CT images of the head were performed without the use of intravenous contrast. Automated exposure control was utilized for this study. Comparison: Head CT 06/14/2016. Findings: The paranasal sinuses and mastoid air cells are clear. The calvarium and skull base are intact. The ventricles and sulci are within normal limits. There is no mass, hematoma, midline shift, or acute infarct. 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 Impression: No significant change compared to the prior study. No acute intracranial abnormality. Electronically signed by: Adolfo Brown M.D. 07/31/2016 7:41 PM Dictated Date/Time: 07/31/2016 7:36 PM
--- NOTE | 2016-07-31 20:10 | EMERGENCY ROOM VISIT NOTE ---
History Report prepared by Spencer: Mirela Joe Under the Supervision of: Dr. Adeel Acevedo D.O. First contact with patient: 17:29 Chief Complaint: WEAKNESS Stated Complaint: LETHARGIC/KNEE PAIN/POSS. INFECTION W/LVAD History of Present Illness The patient is a 65 year old male who presents to the Emergency Room with complaints of persistent weakness for the past week. He currently rates his discomfort as a 5/10 in severity. The patient's states that the patient has had a persistent infection to his LVAD. She states that originally the patient was on Doxycycline, but states that the infection became resistant to the antibiotic. The patient's states that the patient was on Rifampin for 3 weeks, but notes that the infection became resistant. She states that the patient was then switched to Zyvox and was again on that for three weeks, but again the infection became resistant. The patient's states that for the past nine days the patient has been placed on a new antibiotic called Tedizolid. She notes that the patient came home one week ago and since then has appeared lethargic. The patient's notes that the patient has had low energy, dizziness, and lightheadedness. She notes that today the patient had a 30 minute loss of consciousness at home. The patient's states that the patient fell onto the hardwood floor. The patient notes right knee pain and right hip pain. The patient's states that she called infectious disease at [facility] and LVAD team and was told to have the patient transferred to [facility] for further evaluation and treatment. She notes that the patient's typical body temperature is 97.7, but had a fever of 99 degrees Fahrenheit. Source of History: patient, spouse/significant other () Onset: past week Position: other (global) Symptom Intensity: 5/10 Quality: other (weakness) Timing: other (persistent) Associated Symptoms: + LOC, + fevers Note: Associated Symptoms: dizzy, lightheadedness, low energy, lethargic Review of Systems See HPI for pertinent positives & negatives. A total of 10 systems reviewed and were otherwise negative. 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 (2) Benign hypertension (3) Cardiomyopathy (4) CHRONIC SYSTOLIC HRT FAILURE (5) Diabetes mellitus (6) Diabetes mellitus type 2 (7) Elevated cardiac enzymes (8) Gout (9) Heart disease (10) Heart failure (11) Hyperlipidemia (12) Hypothyroidism (13) Pneumonia (14) Prolonged QT interval (15) TIA (transient ischemic attack) Surgical Problems: (1) Implantation of automatic cardioverter/defibrillator, total system (2) Implantation of cardiac pacemaker (3) LVAD placement Family History Diabetes mellitus FH: heart disease Stroke Social History Smoking Status: Former Smoker Alcohol Use: none Drug Use: none Marital Status: Housing Status: lives with family Occupation Status: disabled Current/Historical Medications Scheduled Allopurinol (Zyloprim), 100 MG PO DAILY Amiodarone Hcl (Pacerone), 200 MG PO DAILY Amlodipine Besylate (Amlodipine Besylate), 5 MG PO DAILY Carvedilol (Coreg), 12.5 MG PO QD@0900 Carvedilol (Coreg), 12.5 MG PO QD@1700 Cetirizine Hcl (Zyrtec), 10 MG PO HS Docusate Sodium (Docusate Sodium), 100 MG PO BID Ergocalciferol (Vitamin D 66668 Unit), 1 TAB PO [id number] Ferrous Sulfate (Kp Ferrous Sulfate), 325 MG PO BID Folic Acid (Folvite), 1 MG PO DAILY Gabapentin (Gabapentin), 600 MG PO TID Hydralazine HCl (Hydralazine HCl), 50 MG PO QID Insulin Aspart (Novolog Flexpen), 7 UNITS SC AC Insulin Detemir (Levemir), 35 UNITS SC BID Levothyroxine Sodium (Levothyroxine Sodium), 1 TAB PO DAILY Lisinopril (Prinivil), 40 MG PO QAM Magnesium Oxide (mg Supplement (Magnesium Oxide), 400 MG PO TID Potassium Chloride (Micro-K Ext Rel), 20 MEQ PO BID Pravastatin Sodium (Pravastatin Sodium), 40 MG PO HS Spironolactone (Aldactone), 50 MG PO QAM Tamsulosin HCl (Tamsulosin HCl), 0.4 MG PO HS Torsemide (Demadex), 50 MG PO DAILY Venlafaxine Hcl (Effexor Extended Rel), 1 CAP PO HS Warfarin Sod (Jantoven), MG PO DIRECTED Scheduled PRN Colchicine (Colcrys), 0.6 MG PO DAILY PRN for Gout Insulin Aspart (Novolog Penfill), SC AC PRN for hyperglycemia Nystatin (Topical) (Nyamyc), 1 APPLN TOP UD PRN for Affected Skin Folds Allergies Coded Allergies: Heparin (Verified Adverse Reaction, Severe, HIT, 07/31/16) Physical Exam Vital Signs Date Time Temp Pulse Resp B/P Pulse Ox O2 Delivery O2 Flow Rate FiO2 07/31/16 19:05 70 16 68/ 89 Room Air 07/31/16 17:18 92 Room Air 07/31/16 17:10 36.9 70 20 76/ 95 Room Air 07/31/16 17:08 70 Physical Exam CONSTITUTIONAL/VITAL SIGNS: Reviewed / noted above. GENERAL: Non-toxic in appearance. INTEGUMENTARY: Warm, dry, and [place]. HEAD: Normocephalic. EYES: without scleral icterus or trauma. ENT/OROPHARYNX: clear and moist. LYMPHADENOPATHY/NECK: Is supple without lymphadenopathy or meningismus. RESPIRATORY: Lungs clear and equal. CARDIOVASCULAR: Continuous hum of LVAD. GI/ABDOMEN: LVAD incision site without obvious erythema or infection. Feeding tube in place in the right abdomen. Soft and nontender. No organomegaly or pulsatile mass. No rebound or guarding. Normal bowel sounds. EXTREMITIES: Right knee is tender laterally without obvious bruising, minimall swelling. Mild discomfort of right hip with movement. Warm and well perfused. BACK: No CVA tenderness. NEUROLOGICAL: Intact without focal deficits. PSYCHIATRIC: normal affect. MUSCULOSKELETAL: Normally developed with good muscle tone. Medical Decision & Procedures ER Provider Diagnostic Interpretation: Radiology results as stated below per my review and radiologist interpretation: PELVIS ONE VIEW HISTORY: Fall with right-sided hip pain. COMPARISON: None. FINDINGS: There is no fracture or dislocation. Soft tissues are unremarkable. The sacrum is intact. There is a surgical clip within the right lower quadrant. IMPRESSION: No fracture or dislocation within the pelvis or hips. Electronically signed by: Adolfo Brown M.D. 07/31/2016 7:31 PM Dictated Date/Time: 07/31/2016 7:30 PM RIGHT KNEE 2 VIEWS HISTORY: Right knee pain after fall Right COMPARISON: None. FINDINGS: There is no fracture or dislocation. Moderate knee effusion. No radiopaque foreign bodies. IMPRESSION: No fractures. Moderate knee effusion. Electronically signed by: Adolfo Brown M.D. 07/31/2016 7:28 PM Dictated Date/Time: 07/31/2016 7:[address] NONCONTRAST CT DOSE: 712.55 mGy.cm HISTORY: Weakness. fall on coumadin TECHNIQUE: Multiaxial CT images of the head were performed without the use of intravenous contrast. Automated exposure control was utilized for this study. Comparison: Head CT 06/14/2016. Findings: The paranasal sinuses and mastoid air cells are clear. The calvarium and skull base are intact. The ventricles and sulci are within normal limits. There is no mass, hematoma, midline shift, or acute infarct. 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 Impression: No significant change compared to the prior study. No acute intracranial abnormality. Electronically signed by: Adolfo Brown M.D. 07/31/2016 7:41 PM Dictated Date/Time: 07/31/2016 7:36 PM RIGHT ANKLE 3 VIEWS HISTORY: Right ankle pain. fall Right COMPARISON: None. FINDINGS: There is no fracture or dislocation. Soft tissues are unremarkable. No radiopaque foreign bodies. IMPRESSION: No fractures. Electronically signed by: Adolfo Brown M.D. 07/31/2016 7:30 PM Dictated Date/Time: 07/31/2016 7:28 PM CHEST 1 VW FRONT-NOT PORTABLE HISTORY: EVALUATE FEVER/ SEPSIS, FALL COMPARISON: Chest 07/11/2016. FINDINGS: The lungs are clear. The heart remains mildly enlarged. Poststernotomy changes and a left-sided pacemaker/defibrillator. No pleural effusions. No pneumothorax. A left ventricular assist device is again noted. IMPRESSION: No significant change compared to the prior study. No acute process. Electronically signed by: Adolfo Brown M.D. 07/31/2016 7:27 PM Dictated Date/Time: 07/31/2016 7:26 PM Laboratory Results 07/31/16 17:36 Red Blood Count 4.30, Mean Corpuscular Volume 94.2, Mean Corpuscular Hemoglobin 31.4, Mean Corpuscular Hemoglobin Concent 33.3, Mean Platelet Volume 11.2, Neutrophils (%) (Auto) 80.2, Lymphocytes (%) (Auto) 10.8, Monocytes (%) (Auto) 6.6, Eosinophils (%) (Auto) 1.7, Basophils (%) (Auto) 0.3, Neutrophils # (Auto) 9.11, Lymphocytes # (Auto) 1.23, Monocytes # (Auto) 0.75, Eosinophils # (Auto) 0.19, Basophils # (Auto) 0.03 07/31/16 17:36 Test 07/31/16 17:36 07/31/16 17:46 White Blood Count 11.35 K/uL (4.8-10.8) Red Blood Count 4.30 M/uL (4.7-6.1) Hemoglobin 13.5 g/dL (14.0-18.0) Hematocrit 40.5 % (42-52) Mean Corpuscular Volume 94.2 fL (80-100) Mean Corpuscular Hemoglobin 31.4 pg (25-34) Mean Corpuscular Hemoglobin Concent 33.3 g/dl (32-36) Platelet Count 243 K/uL (130-400) Mean Platelet Volume 11.2 fL (7.4-10.4) Neutrophils (%) (Auto) 80.2 % Lymphocytes (%) (Auto) 10.8 % Monocytes (%) (Auto) 6.6 % Eosinophils (%) (Auto) 1.7 % Basophils (%) (Auto) 0.3 % Neutrophils # (Auto) 9.11 K/uL (1.4-6.5) Lymphocytes # (Auto) 1.23 K/uL (1.2-3.4) Monocytes # (Auto) 0.75 K/uL (0.11-0.59) Eosinophils # (Auto) 0.19 K/uL (0-0.5) Basophils # (Auto) 0.03 K/uL (0-0.2) RDW Standard Deviation 57.5 fL (36.4-46.3) RDW Coefficient of Variation 16.7 % (11.5-14.5) Immature Granulocyte % (Auto) 0.4 % Immature Granulocyte # (Auto) 0.04 K/uL (0.00-0.02) Prothrombin Time 27.6 SECONDS (9.0-12.0) Prothromb Time International Ratio 2.5 (0.9-1.1) Activated Partial Thromboplast Time 36.2 SECONDS (21.0-31.0) Partial Thromboplastin Ratio 1.4 Anion Gap 7.0 mmol/L (3-11) Est Creatinine Clear Calc Drug Dose 53.5 ml/min Estimated GFR () 44.5 Estimated GFR (Non- 38.4 BUN/Creatinine Ratio 14.2 (10-20) Calcium Level 8.6 mg/dl (8.5-10.1) Total Bilirubin 0.5 mg/dl (0.2-1) Direct Bilirubin 0.1 mg/dl (0-0.2) Aspartate Amino Transf (AST/SGOT) 33 U/L (15-37) Alanine Aminotransferase (ALT/SGPT) 44 U/L (12-78) Alkaline Phosphatase 78 U/L (45-117) Total Creatine Kinase 104 U/L (39-308) Creatine Kinase MB 2.9 ng/ml (0.5-3.6) Creatine Kinase MB Ratio 2.8 (0-3.0) Troponin I 0.036 ng/ml (0-0.045) Total Protein 7.5 gm/dl (6.4-8.2) Albumin 3.8 gm/dl (3.4-5.0) Lipase 271 U/L (73-393) Bedside Lactic Acid Venous 2.39 mmol/L (0.90-1.70) Laboratory results as stated above per my review. Medications Administered Medications (Trade) Dose Ordered Sig/Jose Route Start Time Stop Time Status Last Admin Dose Admin Morphine Sulfate (MoRPHine SULFATE INJ) 4 mg Q1H PRN IV 07/31/16 18:00 08/14/16 17:59 07/31/16 18:02 4 MG ECG Indication: weakness Rate (beats per minute): 70 Rhythm: other (paced ventricular rhythm) Findings: no acute ischemic change, paced rhythm, no ectopy ED Course 1730: Previous medical records were reviewed. The patient was evaluated in room C6. A complete history and physical examination was performed. 1800: Ordered Morphine Sulfate 4 mg IV. 8: I discussed the patients case with Dr. Mendoza, Cardiology. He accepted the patient as a transfer to [place] for further evaluation and treatment. 1944: I reevaluated the patient and he is resting. I discussed all the exam findings with him and his and I discussed the treatment plan. They verbalized complete understanding and agreement. The patient will be transferred to [place] for further treatment and evaluation. Medical Decision Differential includes acute coronary syndrome, myocardial infarction, CVA, TIA, anemia, infection, pneumonia, UTI, pyelonephritis, poor nutrition, dehydration, electrolyte disturbance,hypoglycemia. This is a 65-year-old male who presents to the ED with a chief complaint of possible syncope. The patient was alone and the found him on the floor. He had been on the floor for about 30 minutes. He thinks he may have passed out. He complains of pain in his right knee, right hip and right ankle. His states that he has been not very active for the last week. The patient had a temperature of 99 this past Monday. He is currently on antibiotics. His exam was noted above. No obvious injuries visually. There is some discomfort on exam is noted above. CT scan of brain did not show acute process. X-ray of the right ankle and right knee as well as pelvis were without fracture or dislocation. Chest x-ray was negative for acute disease. Blood work did not show significant anemia or electrolyte abnormality. Troponin was negative. EKG shows a paced rhythm. I spoke with Dr. Fernandez from [facility]. The patient will be sent down there for further evaluation of his LVAD. Ambulance transport will be arranged. Consults Time Called: 1923 Consulting Physician: Dr. Mendoza, Cardiology Returned Call: 1937 I discussed the patients case with Dr. Mendoza, Cardiology. He accepted the patient as a transfer to [place] for further evaluation and treatment. Impression Primary Impression: Syncope Additional Impressions: LVAD (left ventricular assist device) present Fall Multiple contusions Scribe Attestation The scribe's documentation has been prepared under my direction and personally reviewed by me in its entirety. I confirm that the note above accurately reflects all work, treatment, procedures, and medical decision making performed by me. Departure Information Dispostion Transfer Acute Care Facility Referrals Graham Rojas MD (PCP) Problem Qualifiers
[2016-07-31 21:44] VITALS: BP_SYST 68; PULSE 68; TEMP 36.4; O2SAT 94
[2016-08-01] MEDS ORDERED: MoRPHine SULFATE 10 MG/ML CARP/VIAL ONE (02:12)
[2016-08-24] MEDS ORDERED: OXYC-164 PO (16:45)
[2016-08-24] MEDS ORDERED: LEVO150T PO (16:45)
[2016-08-24] MEDS ORDERED: TEDI1TAB PO (16:45)
[2016-11-18] MEDS ORDERED: CLIN300C2 PO (08:38)
[2017-01-31] MEDS ORDERED: ASPI81TA28 PO (08:20)
== END 2016-07-31 20:30 | disposition short-term general hospital (02) ==
LOC: EDBD 17:00 → C.EDC 17:01
DX: R55 Syncope and collapse (principal); I10 Essential (primary) hypertension; E78.5 Hyperlipidemia, unspecified; E03.9 Hypothyroidism, unspecified; E11.9 Type 2 diabetes mellitus without complications; I50.20 Unspecified systolic (congestive) heart failure; M10.9 Gout, unspecified; G51.0 Bell's palsy; Z86.73 Personal history of transient ischemic attack (TIA), and cerebral infarction without residual deficits; Z95.0 Presence of cardiac pacemaker; Z79.01 Long term (current) use of anticoagulants; Z79.4 Long term (current) use of insulin; Z79.899 Other long term (current) drug therapy; Z88.8 Allergy status to other drugs, medicaments and biological substances

== ENCOUNTER 2016-08-25 19:33 | Emergency (ER) | payer OTHER, MEDICARE ==
[~2016-08-25] VITALS: Ht 185.4 cm; Wt 113.2 kg
[~2016-08-25 19:33] MED LIST changes: +EFFSR150 PO; +ERGO500011 PO; +LEVO150T PO; -LINE1TAB6 PO; +OXYC-164 PO; -SYN150 PO; +TEDI1TAB PO; -VTMD PO
[2016-08-25 19:49] LABS: BASO % 0.2 %; BASO ABS # 0.03 K/uL (0-0.2); COMPLETE YES; EOS % 0.6 %; HEMATOCRIT 36.5 % (42-52); IG% 0.3 %; LYMPH % 6.8 %; LYMPH ABS # 1.35 K/uL (1.2-3.4); MEAN CELL VOLUME 91.7 fL (80-100); MEAN CORPUSCULAR HEMOGLOBIN 29.9 pg (25-34); MEAN CORPUSCULAR HGB CONC 32.6 g/dl (32-36); MEAN PLATELET VOLUME 9.9 fL (7.4-10.4); MONO % 6.5 %; NEUT % 85.6 %; PLATELET COUNT 297 K/uL (130-400); RED BLOOD COUNT 3.98 M/uL (4.7-6.1); WHITE BLOOD COUNT 19.99 K/uL (4.8-10.8)
[2016-08-25 20:02] LABS: INR 2.3 (0.9-1.1); PARTIAL THROMBOPLASTIN RATIO 1.7; PROTHROMBIN TIME (PATIENT) 25.6 SECONDS (9.0-12.0)
[2016-08-25 20:03] VITALS: TEMP 37.1; Ht 185.4 cm; Wt 113.2 kg
[2016-08-25 20:07] LABS: ALT/SGPT 30 U/L (12-78); AST/SGOT 29 U/L (15-37); BLOOD UREA NITROGEN 21 mg/dl (7-18); BUN/CREATININE RATIO 14.8 (10-20); CALCIUM 8.4 mg/dl (8.5-10.1); CARBON DIOXIDE 29 mmol/L (21-32); CHLORIDE 99 mmol/L (98-107); GLUCOSE 134 mg/dl (70-99); POTASSIUM 4.6 mmol/L (3.5-5.1); SODIUM 137 mmol/L (136-145)
[2016-08-25 20:10] LABS: ALB/GLOB RATIO 0.9 (0.9-2); ALKALINE PHOSPHATASE 89 U/L (45-117)
[2016-08-25 20:14] VITALS: O2SAT 93
[2016-08-25] MEDS ORDERED: PIPERACILLIN/TAZOBACTAM 4.5 GM/100ML D5W IV STA (20:27)
[2016-08-25] MEDS ORDERED: VANCOMYCIN INJ 1,000 MG in SODIUM CHLORIDE 0.9% 250ML 250 ML IV STA (20:27)
--- NOTE | 2016-08-25 20:43 | DIAGNOSTIC IMAGING REPORT ---
CHEST ONE VIEW PORTABLE CLINICAL HISTORY: Sepsis dyspnea COMPARISON STUDY: 08/24/2016 FINDINGS: Moderate cardiomegaly. Mild increase in prominence of the pulmonary vasculature. Prior median sternotomy. IMPRESSION: Early and or developing congestive failure Electronically signed by: Chele Barreto M.D. 08/25/2016 8:42 PM Dictated Date/Time: 08/25/2016 8:41 PM
[2016-08-25 20:57] LABS: LYME DISEASE AB IGG NEG (NEG); LYME DISEASE AB IGM NEG (NEG)
[2016-08-25] MEDS ORDERED: MoRPHine SULFATE 2 MG/ML CARP IV STA (21:24)
[2016-08-25 21:39] LABS: URINE APPEARANCE CLEAR (CLEAR); URINE BILIRUBIN NEG (NEG); URINE COLOR YELLOW; URINE EPITHELIAL CELL AUTO 0-5 /lpf (0-5); URINE NITRITE NEG (NEG); URINE PH 5.5 (4.5-7.5); URINE SPECIFIC GRAVITY 1.016 (1.000-1.030); UROBILINOGEN NEG (NEG); ZZUR CULT IF INDIC CLEAN CATCH YES
[2016-08-25 21:56] LABS: MANUAL MICROSCOPIC REQUIRED? NO; REVIEW REQ? NO
[2016-08-25 22:02] VITALS: PULSE 83; O2SAT 93
--- NOTE | 2016-08-26 00:03 | EMERGENCY ROOM VISIT NOTE ---
History Report prepared by Spencer: Gloria Perez Under the Supervision of: Dr. Erwin James M.D. First contact with patient: 19:35 Stated Complaint: FEVER, History of Present Illness The patient is a 65 year old male who presents to the Emergency Room with complaints of worsening lethargy since yesterday. He is an LVAD patient that was evaluated in the ED yesterday for syncope. The patient fell and hit his head yesterday. He has been lethargic since then. His reports a fever today with a temperature of 101.8. He has had two episodes of copious watery, green diarrhea today. The patient states that he feels generally achy all over. He has not been eating or drinking much. The patient denies any LOC today. He denies chest pain, shortness of breath, cough, rhinorrhea, urinary symptoms, headache, and abdominal pain. He states that his LVAD has been functioning normally and he denies any drainage from the LVAD site. The patient was brought to the ED by ambulance and received a 500 ml bolus en route. He is on Coumadin. states that the patient is on Sivextro and has a prior history of MRSE. Source of History: patient Onset: yesterday Position: other (global) Symptom Intensity: temp of 101.8 Quality: other (lethargy) Timing: worsening Associated Symptoms: + fevers, + diarrhea, No LOC, No headache, No cough, No chest pain, No SOB, No abdominal pain, No urinary symptoms Note: Pt notes generalized body aches. Review of Systems See HPI for pertinent positives & negatives. A total of 10 systems reviewed and were otherwise negative. 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 (2) Benign hypertension (3) Cardiomyopathy (4) CHRONIC SYSTOLIC HRT FAILURE (5) Diabetes mellitus (6) Diabetes mellitus type 2 (7) Elevated cardiac enzymes (8) Gout (9) Heart disease (10) Heart failure (11) Hyperlipidemia (12) Hypothyroidism (13) Pneumonia (14) Prolonged QT interval (15) TIA (transient ischemic attack) Surgical Problems: (1) Implantation of automatic cardioverter/defibrillator, total system (2) Implantation of cardiac pacemaker (3) LVAD placement Family History Diabetes mellitus FH: heart disease Stroke Social History Smoking Status: Former Smoker Alcohol Use: none Drug Use: none Marital Status: Housing Status: lives with family Occupation Status: disabled Current/Historical Medications Scheduled Allopurinol (Zyloprim), 100 MG PO DAILY Amiodarone Hcl (Pacerone), 200 MG PO DAILY Amlodipine Besylate (Amlodipine Besylate), 5 MG PO DAILY Carvedilol (Coreg), 12.5 MG PO QD@0900 Carvedilol (Coreg), 12.5 MG PO QD@1700 Cetirizine Hcl (Zyrtec), 10 MG PO HS Docusate Sodium (Docusate Sodium), 100 MG PO BID Ergocalciferol (Vitamin D 53811 Unit), 1 TAB PO [id number] Ferrous Sulfate (Kp Ferrous Sulfate), 325 MG PO BID Folic Acid (Folvite), 1 MG PO DAILY Gabapentin (Gabapentin), 600 MG PO TID Hydralazine HCl (Hydralazine HCl), 50 MG PO QID Insulin Aspart (Novolog Flexpen), 7 UNITS SC AC Insulin Detemir (Levemir), 35 UNITS SC BID Levothyroxine Sodium (Synthroid), 150 MCG PO DAILY Lisinopril (Prinivil), 40 MG PO QAM Magnesium Oxide (mg Supplement (Magnesium Oxide), 400 MG PO TID Potassium Chloride (Micro-K Ext Rel), 20 MEQ PO BID Pravastatin Sodium (Pravastatin Sodium), 40 MG PO HS Spironolactone (Aldactone), 50 MG PO QAM Tamsulosin HCl (Tamsulosin HCl), 0.4 MG PO HS Tedizolid Phosphate (Sivextro), 1 TAB PO QAM Torsemide (Demadex), 1 TAB PO DAILY Venlafaxine Hcl (Effexor Extended Rel), 1 CAP PO HS Warfarin Sod (Jantoven), MG PO DIRECTED Scheduled PRN Colchicine (Colcrys), 0.6 MG PO DAILY PRN for Gout Insulin Aspart (Novolog Penfill), SC AC PRN for hyperglycemia Nystatin (Topical) (Nyamyc), 1 APPLN TOP UD PRN for Affected Skin Folds Oxycodone Hcl (Oxycodone Hcl), 1 TAB PO Q6H PRN for Pain Allergies Coded Allergies: Heparin (Verified Adverse Reaction, Severe, HIT, 08/24/16) Physical Exam Vital Signs Date Time Temp Pulse Resp B/P (MAP) Pulse Ox O2 Delivery O2 Flow Rate FiO2 08/25/16 22:02 83 22 93 08/25/16 21:33 165 23 86 Room Air 08/25/16 21:28 91 18 08/25/16 21:23 101 21 84 Room Air 08/25/16 21:18 91 19 93 Room Air 08/25/16 21:13 98 19 89 Room Air 08/25/16 21:08 88 19 91 08/25/16 21:03 99 20 92 08/25/16 20:58 88 18 93 08/25/16 20:53 79 19 95 08/25/16 20:48 84 18 92 08/25/16 20:43 177 23 86 08/25/16 20:38 123 17 91 08/25/16 20:33 96 14 87 08/25/16 20:28 83 10 08/25/16 20:23 108 18 87 08/25/16 20:18 108 16 91 08/25/16 20:14 93 Room Air 08/25/16 20:13 86 14 92 08/25/16 20:12 85 08/25/16 20:03 37.1 83 18 93 Room Air Physical Exam Constitutional: Vital signs reviewed. Head: Healing laceration above the left brow, no signs of infection. Eyes: Pupils are equal round reactive to light. Conjunctiva are noninjected. ENT: Pharynx is clear without erythema or exudate. Mucous membranes are moist. Neck supple without meningeal signs. Respiratory: Clear to auscultation bilaterally. Breath sounds are equal bilaterally. Cardiovascular: LVAD motor audible. GI: Soft, nondistended and nontender. Bowel sounds are present. LVAD insertion site right abdomen without drainage, tenderness, or erythema. Musculoskeletal: No peripheral edema. No lower extremity tenderness. Integumentary: No cyanosis. Neurological: The patient is awake and alert. No focal deficits. Psychiatric: Normal affect. Medical Decision & Procedures ER Provider Diagnostic Interpretation: Radiology results as stated below per my review and the radiologist's interpretation: CHEST ONE VIEW PORTABLE CLINICAL HISTORY: Sepsis dyspnea COMPARISON STUDY: 08/24/2016 FINDINGS: Moderate cardiomegaly. Mild increase in prominence of the pulmonary vasculature. Prior median sternotomy. IMPRESSION: Early and or developing congestive failure Electronically signed by: Chele Barreto M.D. 08/25/2016 8:42 PM Dictated Date/Time: 08/25/2016 8:41 PM Laboratory Results 08/25/16 19:10 Red Blood Count 3.98, Mean Corpuscular Volume 91.7, Mean Corpuscular Hemoglobin 29.9, Mean Corpuscular Hemoglobin Concent 32.6, Mean Platelet Volume 9.9, Neutrophils (%) (Auto) 85.6, Lymphocytes (%) (Auto) 6.8, Monocytes (%) (Auto) 6.5, Eosinophils (%) (Auto) 0.6, Basophils (%) (Auto) 0.2, Neutrophils # (Auto) 17.13, Lymphocytes # (Auto) 1.35, Monocytes # (Auto) 1.30, Eosinophils # (Auto) 0.12, Basophils # (Auto) 0.03 08/25/16 19:10 Test 08/25/16 19:10 08/25/16 20:13 08/25/16 20:15 08/25/16 21:25 White Blood Count 19.99 K/uL (4.8-10.8) Red Blood Count 3.98 M/uL (4.7-6.1) Hemoglobin 11.9 g/dL (14.0-18.0) Hematocrit 36.5 % (42-52) Mean Corpuscular Volume 91.7 fL (80-100) Mean Corpuscular Hemoglobin 29.9 pg (25-34) Mean Corpuscular Hemoglobin Concent 32.6 g/dl (32-36) Platelet Count 297 K/uL (130-400) Mean Platelet Volume 9.9 fL (7.4-10.4) Neutrophils (%) (Auto) 85.6 % Lymphocytes (%) (Auto) 6.8 % Monocytes (%) (Auto) 6.5 % Eosinophils (%) (Auto) 0.6 % Basophils (%) (Auto) 0.2 % Neutrophils # (Auto) 17.13 K/uL (1.4-6.5) Lymphocytes # (Auto) 1.35 K/uL (1.2-3.4) Monocytes # (Auto) 1.30 K/uL (0.11-0.59) Eosinophils # (Auto) 0.12 K/uL (0-0.5) Basophils # (Auto) 0.03 K/uL (0-0.2) RDW Standard Deviation 50.8 fL (36.4-46.3) RDW Coefficient of Variation 14.9 % (11.5-14.5) Immature Granulocyte % (Auto) 0.3 % Immature Granulocyte # (Auto) 0.06 K/uL (0.00-0.02) Prothrombin Time 25.6 SECONDS (9.0-12.0) Prothromb Time International Ratio 2.3 (0.9-1.1) Activated Partial Thromboplast Time 42.9 SECONDS (21.0-31.0) Partial Thromboplastin Ratio 1.7 Anion Gap 9.0 mmol/L (3-11) Estimated GFR () 60.3 Estimated GFR (Non- 52.0 BUN/Creatinine Ratio 14.8 (10-20) Calcium Level 8.4 mg/dl (8.5-10.1) Total Bilirubin 0.6 mg/dl (0.2-1) Aspartate Amino Transf (AST/SGOT) 29 U/L (15-37) Alanine Aminotransferase (ALT/SGPT) 30 U/L (12-78) Alkaline Phosphatase 89 U/L (45-117) Total Protein 7.5 gm/dl (6.4-8.2) Albumin 3.5 gm/dl (3.4-5.0) Globulin 4.0 gm/dl (2.5-4.0) Albumin/Globulin Ratio 0.9 (0.9-2) Lyme Disease IgG Antibody NEG (NEG) Lyme Disease IgM Antibody NEG (NEG) Bedside Lactic Acid Venous 0.83 mmol/L (0.90-1.70) Influenza Type A Antigen Neg for Influ A (NEG) Influenza Type B Antigen Neg for Influ B (NEG) Urine Color YELLOW Urine Appearance CLEAR (CLEAR) Urine pH 5.5 (4.5-7.5) Urine Specific [place] 1.016 (1.000-1.030) Urine Protein NEG (NEG) Urine Glucose (UA) NEG (NEG) Urine Ketones NEG (NEG) Urine Occult Blood NEG (NEG) Urine Nitrite NEG (NEG) Urine Bilirubin NEG (NEG) Urine Urobilinogen NEG (NEG) Urine Leukocyte Esterase MODERATE (NEG) Urine WBC (Auto) >30 /hpf (0-5) Urine RBC (Auto) 0-4 /hpf (0-4) Urine Hyaline Casts (Auto) 5-10 /lpf (0-5) Urine Epithelial Cells (Auto) 0-5 /lpf (0-5) Urine Bacteria (Auto) 4+ (NEG) Laboratory results as reviewed by me. Medications Administered Medications (Trade) Dose Ordered Sig/Jose Route Start Time Stop Time Status Last Admin Dose Admin Piperacillin Sod/ Tazobactam Sod (Zosyn Iv) 4.5 gm NOW STAT IV 08/25/16 20:27 08/25/16 20:28 DC 08/25/16 20:36 4.5 GM Vancomycin HCl 1000 mg/Sodium Chloride 270 ml @ 125 mls/hr NOW STAT IV 08/25/16 20:27 08/25/16 22:36 DC 08/25/16 20:51 125 MLS/HR Morphine Sulfate (MoRPHine SULFATE INJ) 2 mg NOW STAT IV 08/25/16 21:24 08/25/16 21:25 DC 08/25/16 21:37 2 MG ED Course 1934: The patient was evaluated in room A12B. A complete history and physical exam was performed. 1948: The patient's arrived in the ED and was at the patient's bedside. I obtained additional history from her. 2026: Vancomycin HCl 1000 mg/Sodium Chloride 270 ml @ 125 mls/hr IV, Zosyn 4.5 gm IV 2010: I spoke with Dr. Bhanu Tomlinson of cardiology at [facility]. We discussed the patient's case and he has accepted the patient for transfer to their facility. 2023: I reassessed the patient at this time. I discussed the results and treatment plan with the patient and his . I answered all pertaining questions that they had. They expressed understanding and verbalized agreement. The patient will be transferred by [facility] ground transportation. 2123: Morphine sulfate 2 mg IV Medical Decision This is a 65-year-old male who presents with fever. Differential diagnosis includes sepsis, pneumonia, UTI, SIRS, LVAD infection. I did perform a limited focused review of portions of the patient's old chart on the electronic medical record. The patient was here yesterday for syncope. He is on Coumadin. He had a head CT of the brain and a left knee x-ray and chest x-ray. He was given IV fluids here. The case was discussed with [place] and he was discharged home. His suture was repaired by the PA. Medication Reconciliation: I attest that I have personally reviewed the patient' s current medication list. Blood pressure screening: LVAD in place, normal pressure for patient. I did evaluate the patient as noted above. He is presenting with a fever today. He was given normal saline prior to arrival. I did continue to given normal saline here. He got a total of a liter. He does state that he is feeling better. His noted that he has not been drinking very much today. The patient was placed on a continuous case monitor. I did order and personally review the patient's chest x-ray as described above. I did order and review the patient's blood work as noted in the electronic medical record. His white blood cell count is almost 20,000. Blood cultures were obtained. Lactic acid was is not elevated. I did treat the patient with broad-spectrum antibiotics including Zosyn and vancomycin. He is currently on antibiotics and has a history of MSSE. I did discuss the case with Dr. Tomlinson at [facility] who accepted the patient for transfer. I did discuss the test results with the patient and his . He was given a dose of IV morphine prior to discharge transfer at the request of the patient who states that he has problems with his back in the transport give some pain. He was transferred via ALS ambulance. Consults Time Called: 2007 Consulting Physician: Dr. Bhanu Tomlinson Returned Call: [address] Bhanu Tomlinson of cardiology at [facility]. We discussed the patient's case and he has accepted the patient for transfer to their facility. Impression Primary Impression: Febrile illness Additional Impression: LVAD (left ventricular assist device) present Scribe Attestation The scribe's documentation has been prepared under my direct and personally reviewed by me in its entirety. I confirm that the note above accurately reflects all work, treatment, procedures, and medical decision making performed by me. Departure Information Dispostion Transfer Acute Care Facility Referrals Graham Rojas MD (PCP) Problem Qualifiers
[2016-11-18] MEDS ORDERED: CLIN300C2 PO (08:38)
[2017-01-31] MEDS ORDERED: ASPI81TA28 PO (08:20)
== END 2016-08-25 22:04 | disposition short-term general hospital (02) ==
LOC: EDBD 19:33 → C.EDA 19:33
DX: R50.9 Fever, unspecified (principal); Z95.811 Presence of heart assist device; R53.83 Other fatigue; R19.7 Diarrhea, unspecified; I10 Essential (primary) hypertension; E11.9 Type 2 diabetes mellitus without complications; E78.5 Hyperlipidemia, unspecified; E03.9 Hypothyroidism, unspecified; Z79.01 Long term (current) use of anticoagulants; Z79.4 Long term (current) use of insulin; Z79.899 Other long term (current) drug therapy; Z86.73 Personal history of transient ischemic attack (TIA), and cerebral infarction without residual deficits; Z86.79 Personal history of other diseases of the circulatory system; Z87.01 Personal history of pneumonia (recurrent); Z87.891 Personal history of nicotine dependence

== ENCOUNTER 2016-09-09 16:24 | Emergency (ER) | payer OTHER, MEDICARE ==
[~2016-09-09] VITALS: Ht 185.4 cm; Wt 117.3 kg
[2016-09-09 16:48] VITALS: O2SAT 95
[2016-09-09] MEDS ORDERED: SODIUM CHLORIDE 0.9% 1000ML 1,000 ML IV STA ×2 (16:51)
[2016-09-09] MEDS ORDERED: DAPTOmycin IV 600 MG in SODIUM CHLORIDE 0.9% 50ML 50 ML IV STA (16:51)
[2016-09-09] MEDS ORDERED: PIPERACILLIN/TAZOBACTAM 4.5 GM/100ML D5W IV STA (16:51)
[2016-09-09] MEDS ORDERED: ACETAMINOPHEN 500 MG TAB PO STA (16:51)
[2016-09-09 16:59] VITALS: Ht 185.4 cm; Wt 117.3 kg
[2016-09-09] MEDS ORDERED: CARV12.5 PO (17:06)
[2016-09-09] MEDS ORDERED: OXYC-609 PO (17:06)
--- NOTE | 2016-09-09 17:08 | DIAGNOSTIC IMAGING REPORT ---
CHEST ONE VIEW PORTABLE CLINICAL HISTORY: EVALUATE WEAKNESS weakness and dyspnea. COMPARISON STUDY: 08/25/2016 FINDINGS: Moderate stable cardiomegaly. Diaphragms smooth. Lungs are clear. IMPRESSION: Stable cardiomegaly. No acute process. Electronically signed by: Chele Barreto M.D. 09/09/2016 5:07 PM Dictated Date/Time: 09/09/2016 5:07 PM
[2016-09-09 17:13] LABS: HEMATOCRIT 36.8 % (42-52); MEAN CELL VOLUME 91.1 fL (80-100); MEAN CORPUSCULAR HEMOGLOBIN 30.7 pg (25-34); MEAN CORPUSCULAR HGB CONC 33.7 g/dl (32-36); MEAN PLATELET VOLUME 10.4 fL (7.4-10.4); PLATELET COUNT 224 K/uL (130-400); RED BLOOD COUNT 4.04 M/uL (4.7-6.1); WHITE BLOOD COUNT 33.74 K/uL (4.8-10.8)
[2016-09-09 17:19] LABS: BUN/CREATININE RATIO 15.2 (10-20); CALCIUM 8.3 mg/dl (8.5-10.1); CREATININE 1.6 mg/dl (0.60-1.40); MAGNESIUM 2.4 mg/dl (1.8-2.4); POTASSIUM 4.8 mmol/L (3.5-5.1)
[2016-09-09 17:21] LABS: INR 1.9 (0.9-1.1); PARTIAL THROMBOPLASTIN RATIO 1.6; PROTHROMBIN TIME (PATIENT) 20.7 SECONDS (9.0-12.0)
[2016-09-09 17:30] LABS: THYROID STIMULATING HORMONE 3.63 uIu/ml (0.300-4.500)
[2016-09-09 17:36] LABS: BASO % 0.1 %; BASO ABS # 0.04 K/uL (0-0.2); COMPLETE YES; EOS % 0.4 %; IG% 0.5 %; LYMPH % 4.7 %; LYMPH ABS # 1.59 K/uL (1.2-3.4); MONO % 6.5 %; NEUT % 87.8 %
[2016-09-09 18:05] VITALS: TEMP 37.7
[2016-09-09 18:54] VITALS: O2SAT 96
[2016-09-09] MEDS ORDERED: MoRPHine SULFATE 4 MG/ML 1 ML CARP\\VIAL IV STA (19:23)
[2016-09-09 19:32] VITALS: BP 66/41
[2016-09-09 19:39] VITALS: PULSE 78
[2016-09-09 20:19] LABS: URINE APPEARANCE CLOUDY (CLEAR); URINE BILIRUBIN NEG (NEG); URINE COLOR YELLOW; URINE EPITHELIAL CELL AUTO 0-5 /lpf (0-5); URINE NITRITE NEG (NEG); URINE PH 6.5 (4.5-7.5); URINE SPECIFIC GRAVITY 1.015 (1.000-1.030); UROBILINOGEN NEG (NEG)
[2016-09-09 20:21] LABS: MANUAL MICROSCOPIC REQUIRED? NO; REVIEW REQ? YES
--- NOTE | 2016-09-09 20:29 | EMERGENCY ROOM VISIT NOTE ---
History Report prepared by Spencer: Rodney Hale Under the Supervision of: Dr. Bhanu Luna M.D. First contact with patient: 16:32 Stated Complaint: SEPTIC History of Present Illness The patient is a 65 year old male who presents to the Emergency Room with complaints of a worsening infection that started last night. The patient has an LVAD device in his right upper quadrant. Per the patient's , the patient was recently hospitalized in [place] for an infection, and was getting better with Cipro. However, last night the patient got worse again. The patient's temperature normally runs around 97.5, but had a temperature of 99.4 last night , 100.4 this morning, and 100.5 when being seen by Dr. Rojas ([facility] administrative services coordinator) for a follow-up this morning. The patient was given Tylenol last night, but nothing this morning. Dr. Rojas felt that the patient was septic this morning, so he called [facility] infectious disease, and after talking to the patient's family, the patient was sent here for initiation of treatment. The patient states that he has been feeling tired with some generalized body aches. The patient takes Sivextro. Pt denies LOC, headache, chills, diaphoresis, visual changes, neck pain, chest pain, breathing difficulties, nausea, vomiting, abdominal pain, back pain, melena, hematochezia , urinary symptoms, numbness, lymphadenopathy, rash, or other complaints. Source of History: patient, spouse/significant other Onset: Last night Position: other (global - infection) Timing: worsening Associated Symptoms: + fevers, + fatigue Note: Associated symptoms: Generalized body aches. Review of Systems See HPI for pertinent positives and negatives. A total of ten systems were reviewed and were otherwise negative. 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 (2) Benign hypertension (3) Cardiomyopathy (4) CHRONIC SYSTOLIC HRT FAILURE (5) Diabetes mellitus (6) Diabetes mellitus type 2 (7) Elevated cardiac enzymes (8) Gout (9) Heart disease (10) Heart failure (11) Hyperlipidemia (12) Hypothyroidism (13) Pneumonia (14) Prolonged QT interval (15) TIA (transient ischemic attack) Surgical Problems: (1) Implantation of automatic cardioverter/defibrillator, total system (2) Implantation of cardiac pacemaker (3) LVAD placement Family History Diabetes mellitus FH: heart disease Stroke Social History Smoking Status: Former Smoker Alcohol Use: none Drug Use: none Marital Status: Housing Status: lives with family Occupation Status: disabled Current/Historical Medications Scheduled Allopurinol (Zyloprim), 100 MG PO DAILY Amlodipine Besylate (Amlodipine Besylate), 5 MG PO DAILY Carvedilol (Coreg), 12.5 MG PO BIDM Cetirizine Hcl (Zyrtec), 10 MG PO HS Docusate Sodium (Docusate Sodium), 100 MG PO BID Ergocalciferol (Vitamin D 77260 Unit), 1 TAB PO [id number] Ferrous Sulfate (Kp Ferrous Sulfate), 325 MG PO BID Folic Acid (Folvite), 1 MG PO DAILY Gabapentin (Gabapentin), 600 MG PO TID Insulin Aspart (Novolog Flexpen), 7 UNITS SC AC Insulin Detemir (Levemir), 20 UNITS SC BID Levothyroxine Sodium (Synthroid), 150 MCG PO DAILY Lisinopril (Prinivil), 40 MG PO QAM Magnesium Oxide (mg Supplement (Magnesium Oxide), 400 MG PO TID Potassium Chloride (Micro-K Ext Rel), 20 MEQ PO BID Pravastatin Sodium (Pravastatin Sodium), 40 MG PO HS Spironolactone (Aldactone), 50 MG PO QAM Tamsulosin HCl (Tamsulosin HCl), 0.4 MG PO HS Tedizolid Phosphate (Sivextro), 1 TAB PO QAM Torsemide (Demadex), 1 TAB PO DAILY Warfarin Sod (Jantoven), MG PO DIRECTED Scheduled PRN Colchicine (Colcrys), 0.6 MG PO DAILY PRN for Gout Insulin Aspart (Novolog Penfill), SC AC PRN for hyperglycemia Nystatin (Topical) (Nyamyc), 1 APPLN TOP UD PRN for Affected Skin Folds Oxycodone HCl (Oxycodone HCl), 5 MG PO Q4 PRN for Pain Allergies Coded Allergies: Heparin (Verified Adverse Reaction, Severe, HIT, 09/09/16) Physical Exam Vital Signs Date Time Temp Pulse Resp B/P (MAP) Pulse Ox O2 Delivery O2 Flow Rate FiO2 09/09/16 19:39 78 13 09/09/16 19:32 66/41 09/09/16 19:24 77 16 09/09/16 19:20 6/23/17 19:09 76 16 09/09/16 19:02 09/09/16 18:54 81 15 96 09/09/16 18:39 79 15 97 09/09/16 18:32 125/ 09/09/16 18:24 97 17 97 09/09/16 18:09 19 100 09/09/16 18:05 37.7 09/09/16 18:02 92/68 09/09/16 18:01 76 20 92/68 98 Nasal Cannula 3.0 09/09/16 18:00 91/63 09/09/16 17:54 78 18 97 09/09/16 17:39 78 17 98 09/09/16 17:31 74/60 09/09/16 17:30 78 18 74/60 97 Nasal Cannula 3.0 09/09/16 17:24 125 18 96 09/09/16 17:18 84/65 09/09/16 17:09 82 17 98 09/09/16 16:54 83 15 09/09/16 16:48 95 Nasal Cannula 3.0 09/09/16 16:47 95 Nasal Cannula 3.0 09/09/16 16:41 38.0 82 20 84/54 91 Room Air 09/09/16 16:40 82 09/09/16 16:33 84/74 Physical Exam GENERAL: Awake, alert, tired-appearing, in no distress HENT: Normocephalic, atraumatic. Oropharynx unremarkable. EYES: Normal conjunctiva. Sclera non-icteric. NECK: Supple. No nuchal rigidity. FROM. No JVD. RESPIRATORY: Clear to auscultation. CARDIAC: Regular rate. Extremities warm and well perfused. Pulses equal. Audible hum of LVAD device present. ABDOMEN: Soft, non-distended. LVAD site in right upper quadrant with no appearance of infection. No tenderness to palpation. No rebound or guarding. No masses. RECTAL: Deferred. MUSCULOSKELETAL: Chest examination reveals no tenderness. The back is symmetrical on inspection without obvious abnormality. There is no CVA tenderness to palpation. No joint edema. LOWER EXTREMITIES: Calves are equal size bilaterally and non-tender. No edema. No discoloration. NEURO: Normal sensorium. No sensory or motor deficits noted. SKIN: No rash or jaundice noted. Medical Decision & Procedures ER Provider Diagnostic Interpretation: X-ray: Per my interpretation, radiologist review. CHEST ONE VIEW PORTABLE CLINICAL HISTORY: EVALUATE WEAKNESS weakness and dyspnea. COMPARISON STUDY: 08/25/2016 FINDINGS: Moderate stable cardiomegaly. Diaphragms smooth. Lungs are clear. IMPRESSION: Stable cardiomegaly. No acute process. Electronically signed by: Chele Barreto M.D. 09/09/2016 5:07 PM Dictated Date/Time: 09/09/2016 5:07 PM Laboratory Results 09/09/16 16:45 Red Blood Count 4.04, Mean Corpuscular Volume 91.1, Mean Corpuscular Hemoglobin 30.7, Mean Corpuscular Hemoglobin Concent 33.7, Mean Platelet Volume 10.4, Neutrophils (%) (Auto) 87.8, Lymphocytes (%) (Auto) 4.7, Monocytes (%) (Auto) 6.5, Eosinophils (%) (Auto) 0.4, Basophils (%) (Auto) 0.1, Neutrophils # (Auto) 29.64, Lymphocytes # (Auto) 1.59, Monocytes # (Auto) 2.18, Eosinophils # (Auto) 0.12, Basophils # (Auto) 0.04 09/09/16 16:45 Test 09/09/16 00:00 09/09/16 16:45 09/09/16 16:56 Urine Color YELLOW Urine Appearance CLOUDY (CLEAR) Urine pH 6.5 (4.5-7.5) Urine Specific [place] 1.015 (1.000-1.030) Urine Protein NEG (NEG) Urine Glucose (UA) NEG (NEG) Urine Ketones NEG (NEG) Urine Occult Blood NEG (NEG) Urine Nitrite NEG (NEG) Urine Bilirubin NEG (NEG) Urine Urobilinogen NEG (NEG) Urine Leukocyte Esterase MODERATE (NEG) White Blood Count 33.74 K/uL (4.8-10.8) Red Blood Count 4.04 M/uL (4.7-6.1) Hemoglobin 12.4 g/dL (14.0-18.0) Hematocrit 36.8 % (42-52) Mean Corpuscular Volume 91.1 fL (80-100) Mean Corpuscular Hemoglobin 30.7 pg (25-34) Mean Corpuscular Hemoglobin Concent 33.7 g/dl (32-36) Platelet Count 224 K/uL (130-400) Mean Platelet Volume 10.4 fL (7.4-10.4) Neutrophils (%) (Auto) 87.8 % Lymphocytes (%) (Auto) 4.7 % Monocytes (%) (Auto) 6.5 % Eosinophils (%) (Auto) 0.4 % Basophils (%) (Auto) 0.1 % Neutrophils # (Auto) 29.64 K/uL (1.4-6.5) Lymphocytes # (Auto) 1.59 K/uL (1.2-3.4) Monocytes # (Auto) 2.18 K/uL (0.11-0.59) Eosinophils # (Auto) 0.12 K/uL (0-0.5) Basophils # (Auto) 0.04 K/uL (0-0.2) RDW Standard Deviation 51.7 fL (36.4-46.3) RDW Coefficient of Variation 15.5 % (11.5-14.5) Immature Granulocyte % (Auto) 0.5 % Immature Granulocyte # (Auto) 0.17 K/uL (0.00-0.02) Prothrombin Time 20.7 SECONDS (9.0-12.0) Prothromb Time International Ratio 1.9 (0.9-1.1) Activated Partial Thromboplast Time 42.5 SECONDS (21.0-31.0) Partial Thromboplastin Ratio 1.6 Anion Gap 9.0 mmol/L (3-11) Est Creatinine Clear Calc Drug Dose 60.9 ml/min Estimated GFR () 51.3 Estimated GFR (Non- 44.2 BUN/Creatinine Ratio 15.2 (10-20) Calcium Level 8.3 mg/dl (8.5-10.1) Magnesium Level 2.4 mg/dl (1.8-2.4) Total Bilirubin 0.7 mg/dl (0.2-1) Direct Bilirubin 0.2 mg/dl (0-0.2) Aspartate Amino Transf (AST/SGOT) 27 U/L (15-37) Alanine Aminotransferase (ALT/SGPT) 36 U/L (12-78) Alkaline Phosphatase 80 U/L (45-117) Total Protein 7.5 gm/dl (6.4-8.2) Albumin 3.3 gm/dl (3.4-5.0) Lipase 118 U/L (73-393) Thyroid Stimulating Hormone (TSH) 3.630 uIu/ml (0.300-4.500) Bedside Lactic Acid Venous 1.10 mmol/L (0.90-1.70) Laboratory results reviewed by me Medications Administered Medications (Trade) Dose Ordered Sig/Jose Route Start Time Stop Time Status Last Admin Dose Admin Sodium Chloride 1,000 ml @ 125 mls/hr Q8H STAT IV 09/09/16 16:51 09/10/16 00:50 09/09/16 17:57 125 MLS/HR Sodium Chloride 1,000 ml @ 999 mls/hr Q1H1M STAT IV 09/09/16 16:51 09/09/16 17:51 DC 09/09/16 17:10 999 MLS/HR Daptomycin 600 mg/ Sodium Chloride 62 ml @ 100 mls/hr NOW STAT IV 09/09/16 16:51 09/09/16 17:28 DC 09/09/16 17:58 100 MLS/HR Piperacillin Sod/ Tazobactam Sod (Zosyn Iv) 4.5 gm NOW STAT IV 09/09/16 16:51 09/09/16 16:55 DC 09/09/16 17:09 4.5 GM Acetaminophen (Tylenol Tab) 1,000 mg NOW STAT PO 09/09/16 16:51 09/09/16 16:55 DC 09/09/16 17:09 1,000 MG Morphine Sulfate (MoRPHine SULFATE INJ) 4 mg NOW STAT IV 09/09/16 19:23 09/09/16 19:24 DC 09/09/16 19:39 4 MG ED Course 1642: The patient was evaluated in room C5. A complete history and physical exam was performed. 1651: Ordered Tylenol Tab 1000 mg PO, Zosyn Iv 4.5 gm IV, Daptomycin 600 mg/ Sodium Chloride 62 ml @ 100 mls/hr IV, NSS 1000 ml @ 999 mls/hr IV, NSS 1000 ml @ 125 mls/hr IV. 1705: I discussed the patient with Dr. Duffy of [place] [facility] - he says that he will accept the patient in transfer to [facility]. 1755: I reevaluated the patient and he is stable. The patient verbally expressed understanding and agreement of the treatment plan. The patient will be transferred to [facility]. 1922: Ordered Morphine Sulfate Inj 4 mg IV. 1925: I reevaluated the patient before he leaves for transfer. Medical Decision Medication Reconciliation: I attest that I have personally reviewed the patient' s current medication list Patient was found to have a low blood pressure. I do not believe that the patient requires hypotension monitoring. Triage Nursing notes reviewed. The patient's presentation and history were concerning for fever and possible sepsis. Etiologies such as sepsis, bacteremia, viral syndrome, otitis, pharyngitis, pneumonia, urinary tract infection, meningitis, as well as others were entertained. The patient was evaluated. He was uncomfortable appearing but stable. He did have a temperature. IVs were established. The patient had cultures obtained. Cath urinalysis was performed. He was given Tylenol. Fluid hydration was performed. He was started on Zosyn and daptomycin. He has significant leukocytosis of 33,000 on CBC. Hemoglobin was relatively stable. INR was slightly subtherapeutic at 1.9. Creatinine 1.6. Lactate was unremarkable. LFTs, lipase and TSH were unremarkable. Chest imaging did not reveal any abnormalities. Leukocyte esterase is noted on cath urinalysis. Microscopy is pending. I did discuss the case with [place] [facility]. The patient was accepted in transfer. Medical command was done by me. Patient and his felt comfortable. The patient was given a dose of morphine for pain control. He is reassessed prior to transfer and was doing well. Patient was transferred. Consults Time Called: 1700 Consulting Physician: Dr. Duffy of [place] [facility] Returned Call: 1705 I discussed the patient with Dr. Duffy of [place] [facility] - he says that he will accept the patient in transfer to [facility]. Impression Primary Impression: Sepsis Scribe Attestation The scribe's documentation has been prepared under my direction and personally reviewed by me in its entirety. I confirm that the note above accurately reflects all work, treatment, procedures, and medical decision making performed by me. Departure Information Dispostion Transfer Acute Care Facility (to [facility]) Referrals Graham Rojas MD (PCP)
[2016-11-18] MEDS ORDERED: CLIN300C2 PO (08:38)
[2017-01-31] MEDS ORDERED: ASPI81TA28 PO (08:20)
== END 2016-09-09 19:45 | disposition short-term general hospital (02) ==
LOC: EDBD 16:24 → C.EDC 16:25
DX: A41.9 Sepsis, unspecified organism (principal); I10 Essential (primary) hypertension; I42.9 Cardiomyopathy, unspecified; E11.9 Type 2 diabetes mellitus without complications; I50.22 Chronic systolic (congestive) heart failure; M10.9 Gout, unspecified; E03.9 Hypothyroidism, unspecified; E78.5 Hyperlipidemia, unspecified; Z86.73 Personal history of transient ischemic attack (TIA), and cerebral infarction without residual deficits; Z87.01 Personal history of pneumonia (recurrent); Z95.810 Presence of automatic (implantable) cardiac defibrillator; Z95.818 Presence of other cardiac implants and grafts; Z83.3 Family history of diabetes mellitus; Z82.3 Family history of stroke; Z79.01 Long term (current) use of anticoagulants; Z79.4 Long term (current) use of insulin; Z79.899 Other long term (current) drug therapy

== ENCOUNTER 2016-11-20 09:11 | Emergency (ER) | payer OTHER, MEDICARE ==
[~2016-11-20 09:11] MED LIST changes: -AMIO200T7 PO; -APR50 PO; +CARV12.5 PO; -CARV6.252 PO; +CLIN300C2 PO; -EFFSR150 PO; +ERGO1CAP41 PO; -ERGO500011 PO; -OXYC-164 PO; +OXYC-609 PO
[2016-11-20 09:15] VITALS: TEMP 36.6; Ht 185.4 cm
[2016-11-20] MEDS ORDERED: EFFSR150 PO (09:44)
[2016-11-20] MEDS ORDERED: NRV/10 PO (09:44)
--- NOTE | 2016-11-20 09:47 | EMERGENCY ROOM VISIT NOTE ---
History Report prepared by Spencer: Kim Samuel Under the Supervision of: Dr. Adam Nash M.D. First contact with patient: 09:31 Chief Complaint: REFERRED BY DOCTOR Stated Complaint: PACER/DEFIB. BEEPING-SENT BY 'S OFFICE History of Present Illness The patient is a 66 year old white male with a past medical history of LVAD, diabetes, CAD, and HTN who presents to the ED with a cc of defibrillator malfunction beginning 2 weeks ago. The patient states that he was seen at [place] at the end of September and since he got home he has been having intermittent issues with his defibrillator. He reports that the defibrillator beeps about once a week and he notes that he has been seen by his cardiovascular surgeon who told them not to worry about it. He reports that he has been changing his site daily and has not had any drainage from the site. Negative chest pain, SOB, fever, chills, cough, and shocks from the defibrillator. The patient's states that the patient has been getting Ceftriaxone and Daptomycin daily. She notes that he is on Coumadin and his levels are good. Source of History: patient, spouse/significant other Onset: 2 weeks ago Position: other (defibrillator) Quality: other (beeping) Timing: intermittent Associated Symptoms: No fevers, No chills, No cough, No SOB Note: Pt denies drainage from the site and shocks. Review of Systems See HPI for pertinent positives and negatives. A total of ten systems were reviewed and were otherwise negative. 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 (2) Benign hypertension (3) Cardiomyopathy (4) CHRONIC SYSTOLIC HRT FAILURE (5) Diabetes mellitus (6) Diabetes mellitus type 2 (7) Elevated cardiac enzymes (8) Gout (9) Heart disease (10) Heart failure (11) Hyperlipidemia (12) Hypothyroidism (13) Pneumonia (14) Prolonged QT interval (15) TIA (transient ischemic attack) Surgical Problems: (1) Implantation of automatic cardioverter/defibrillator, total system (2) Implantation of cardiac pacemaker (3) LVAD placement Family History Diabetes mellitus FH: heart disease Stroke Social History Smoking Status: Never Smoker Alcohol Use: none Drug Use: none Marital Status: Housing Status: lives with family Occupation Status: disabled Current/Historical Medications Scheduled Allopurinol (Zyloprim), 100 MG PO DAILY Amlodipine Besylate (Amlodipine Besylate), 10 MG PO DAILY Carvedilol (Coreg), 12.5 MG PO BIDM Ceftriaxone Sod (Rocephin), 2 GM IV QAM Cetirizine Hcl (Zyrtec), 10 MG PO HS Clindamycin Hcl (Cleocin), 1 CAP PO TID Daptomycin (Daptomycin), 1,000 MG IV QAM Docusate Sodium (Docusate Sodium), 100 MG PO BID Ergocalciferol (Vitamin D 64059 Unit), 1 TAB PO [id number] Ferrous Sulfate (Kp Ferrous Sulfate), 325 MG PO BID Folic Acid (Folvite), 1 MG PO DAILY Gabapentin (Gabapentin), 600 MG PO TID Insulin Aspart (Novolog Flexpen), 10 UNITS SC AC Insulin Detemir (Levemir), 30 UNITS SC BID Levothyroxine Sodium (Synthroid), 150 MCG PO DAILY Lisinopril (Prinivil), 40 MG PO QAM Magnesium Oxide (mg Supplement (Magnesium Oxide), 400 MG PO TID Potassium Chloride (Micro-K Ext Rel), 20 MEQ PO BID Pravastatin Sodium (Pravastatin Sodium), 40 MG PO HS Spironolactone (Aldactone), 50 MG PO QAM Tamsulosin HCl (Tamsulosin HCl), 0.4 MG PO HS Torsemide (Demadex), 1 TAB PO DAILY Venlafaxine Hcl (Effexor Extended Rel), 150 MG PO DAILY Warfarin Sod (Jantoven), 5 MG PO 2XWK Warfarin Sod (Jantoven), 10 MG PO [id number] Scheduled PRN Colchicine (Colcrys), 0.6 MG PO DAILY PRN for Gout Insulin Aspart (Novolog Penfill), SC AC PRN for hyperglycemia Nystatin (Topical) (Nyamyc), 1 APPLN TOP UD PRN for Affected Skin Folds Oxycodone HCl (Oxycodone HCl), 5 MG PO Q4 PRN for Pain Allergies Coded Allergies: Heparin (Verified Adverse Reaction, Severe, HIT, 11/20/16) Physical Exam Vital Signs Date Time Temp Pulse Resp B/P (MAP) Pulse Ox O2 Delivery O2 Flow Rate FiO2 11/20/16 11:08 70 16 94 Room Air 11/20/16 09:15 36.6 90 20 92 Room Air Physical Exam GENERAL: Awake, alert, well-appearing, NAD HENT: Normocephalic, atraumatic. EYES: Normal conjunctiva. Sclera non-icteric. NECK: Supple. No nuchal rigidity. FROM. RESPIRATORY: CTAB, no rhonchi, wheezing, crackles CHEST: Constant whirring over anterior chest, left chest AICD in place. CARDIAC: RRR, no MRG ABDOMEN: Soft, NTND, BS+, over the right abdomen he has a drive line in place with dressing, no erythema, drainage, or calor. MSK: No chest wall TTP, no LE edema, RUE picc line with catheter in place without any swelling, tenderness, or erythema. NEURO: GCS 15, CN 2-12 intact, moves all 4s on command SKIN: No rash or jaundice noted. Medical Decision & Procedures ER Provider Diagnostic Interpretation: X-ray: Per my interpretation, radiologist review. CHEST ONE VIEW PORTABLE FINDINGS: A left ventricular assist device and left ventricular pacer/AICD are in place. A right PICC is noted. Tip is within the SVC. Moderate cardiomegaly is unchanged. There is no evidence of pulmonary edema. No consolidation is identified to suggest pneumonia. The appearance of the chest is unchanged. IMPRESSION: No acute findings. Stable cardiomegaly. Electronically signed by: Gary Almeida M.D. 11/20/2016 10:13 AM Dictated Date/Time: 11/20/2016 10:13 AM Laboratory Results 11/20/16 10:25 Red Blood Count 4.24, Mean Corpuscular Volume 90.8, Mean Corpuscular Hemoglobin 30.9, Mean Corpuscular Hemoglobin Concent 34.0, Mean Platelet Volume 10.7, Neutrophils (%) (Auto) 66.8, Lymphocytes (%) (Auto) 18.6, Monocytes (%) (Auto) 10.2, Eosinophils (%) (Auto) 3.4, Basophils (%) (Auto) 0.5, Neutrophils # (Auto ) 6.07, Lymphocytes # (Auto) 1.69, Monocytes # (Auto) 0.93, Eosinophils # (Auto ) 0.31, Basophils # (Auto) 0.05 11/20/16 10:25 Test 11/20/16 10:25 White Blood Count 9.10 K/uL (4.8-10.8) Red Blood Count 4.24 M/uL (4.7-6.1) Hemoglobin 13.1 g/dL (14.0-18.0) Hematocrit 38.5 % (42-52) Mean Corpuscular Volume 90.8 fL (80-100) Mean Corpuscular Hemoglobin 30.9 pg (25-34) Mean Corpuscular Hemoglobin Concent 34.0 g/dl (32-36) Platelet Count 260 K/uL (130-400) Mean Platelet Volume 10.7 fL (7.4-10.4) Neutrophils (%) (Auto) 66.8 % Lymphocytes (%) (Auto) 18.6 % Monocytes (%) (Auto) 10.2 % Eosinophils (%) (Auto) 3.4 % Basophils (%) (Auto) 0.5 % Neutrophils # (Auto) 6.07 K/uL (1.4-6.5) Lymphocytes # (Auto) 1.69 K/uL (1.2-3.4) Monocytes # (Auto) 0.93 K/uL (0.11-0.59) Eosinophils # (Auto) 0.31 K/uL (0-0.5) Basophils # (Auto) 0.05 K/uL (0-0.2) RDW Standard Deviation 50.1 fL (36.4-46.3) RDW Coefficient of Variation 15.1 % (11.5-14.5) Immature Granulocyte % (Auto) 0.5 % Immature Granulocyte # (Auto) 0.05 K/uL (0.00-0.02) Prothrombin Time 25.9 SECONDS (9.0-12.0) Prothromb Time International Ratio 2.3 (0.9-1.1) Activated Partial Thromboplast Time 42.9 SECONDS (21.0-31.0) Partial Thromboplastin Ratio 1.7 Anion Gap 7.0 mmol/L (3-11) Estimated GFR () 80.1 Estimated GFR (Non- 69.1 BUN/Creatinine Ratio 16.9 (10-20) Calcium Level 8.9 mg/dl (8.5-10.1) Laboratory results reviewed by me ECG Indication: other Rate (beats per minute): 70 Rhythm: other (ventricular rate, AV paced) Findings: LBBB, Q waves, other (Widened QRS, no scgarbossa criteria) Comparison ECG Date: August 2016 Change: no significant change ED Course 0931: The patient was evaluated in room B11. A complete history and physical exam was performed. 0950: I spoke to [employer]. They note that the report says that everything is fine but he needs the device replaced due to battery. He will have the report sent and will call Dr. Izaguirre office on Monday. 1033: I reevaluated the patient and updated him. 1056: I reevaluated the patient. 1132: Discussed the patient's case with Dr. Alvarado of Cardiology. He agrees that the patient should follow up with him and he will coordinate care for battery replacement. 1147: I reevaluated the patient. Discussed results and discharge instructions: He verbalized understanding and agreement. The patient is ready for discharge. Medical Decision The patient is a 66 year old white male with a past medical history of LVAD, diabetes, CAD, and HTN who presents to the ED with a cc of defibrillator malfunction beginning 2 weeks ago. Differential diagnosis includes AICD interrogation, AICD malfunction. Patient was seen and evaluated at the bedside. Patient's AICD was interrogated. I spoke with the [employer] rep who stated that the patient's device needed to be replaced secondary to battery. Patient did not have any chest pain. Patient had an EKG that showed he was atrially and ventricularly paced and had no changes on EKG. Patient was therapeutic with his INR. Patient 's junk chest pain or shortness of breath. Patient had a negative chest x-ray. I spoke with cardiology who agreed the patient could follow-up. I spoke with the patient and his and stated that the patient must also contact his director of cardiopulmonary services at [place] in order to coordinate care. Patient was given strict follow-up discharge, and return precautions. Patient's family agreed with plan of care patient was safely discharged home. Medication Reconcilliation Current Medication List: was personally reviewed by me Consults Time Called: 941 Consulting Physician: [employer] Returned Call: 0950 I spoke to [employer]. They note that the report says that everything is fine but he needs the device replaced due to battery. He will have the report sent and will call Dr. Izaguirre office on Monday. Additional Consults: Time Called: 1129 Consulted Physician: Dr. Alvarado - Cardiology Returned Call: 1132 Additional Comments: Discussed the patient's case with Dr. Alvarado of Cardiology. He agrees that the patient should follow up with him and he will coordinate care for battery replacement. Impression Primary Impression: Anticoagulated on Coumadin Additional Impression: AICD problem Scribe Attestation The scribe's documentation has been prepared under my direction and personally reviewed by me in its entirety. I confirm that the note above accurately reflects all work, treatment, procedures, and medical decision making performed by me. Departure Information Dispostion Home / Self-Care Referrals Og Villalobos M.D. (PCP) Forms HOME CARE DOCUMENTATION FORM, IMPORTANT VISIT INFORMATION, WORK / SCHOOL INSTRUCTIONS Patient Instructions Coumadin, My [email or web address] Additional Instructions Please return to the emergency department if you have worsening or recurrent symptoms not amenable to at-home treatment. Please call for a follow-up appointment with her primary care physician. Please take your medications as prescribed. If you have other concerns and/or complaints please feel free to also call your primary care physician's office or return the ED for further evaluation, management, and treatment. Please call your primary director of cardiopulmonary services at [place] and at [facility] to ensure good follow up care and plan for AICD replacement. Problem Qualifiers
[2016-11-20] MEDS ORDERED: WARF5TAB7 PO (09:50)
[2016-11-20] MEDS ORDERED: CEFT1INJ57 IV (09:50)
[2016-11-20] MEDS ORDERED: WARF10TA4 PO (09:50)
[2016-11-20] MEDS ORDERED: DAPT500I IV (09:50)
--- NOTE | 2016-11-20 10:15 | DIAGNOSTIC IMAGING REPORT ---
CHEST ONE VIEW PORTABLE CLINICAL HISTORY: LVAD COMPARISON STUDY: Chest radiograph September 09, 2016. FINDINGS: A left ventricular assist device and left ventricular pacer/AICD are in place. A right PICC is noted. Tip is within the SVC. Moderate cardiomegaly is unchanged. There is no evidence of pulmonary edema. No consolidation is identified to suggest pneumonia. The appearance of the chest is unchanged. IMPRESSION: No acute findings. Stable cardiomegaly. Electronically signed by: Gary Almeida M.D. 11/20/2016 10:13 AM Dictated Date/Time: 11/20/2016 10:13 AM
[2016-11-20 10:44] LABS: BASO % 0.5 %; BASO ABS # 0.05 K/uL (0-0.2); COMPLETE YES; EOS % 3.4 %; HEMATOCRIT 38.5 % (42-52); IG% 0.5 %; LYMPH % 18.6 %; LYMPH ABS # 1.69 K/uL (1.2-3.4); MEAN CELL VOLUME 90.8 fL (80-100); MEAN CORPUSCULAR HEMOGLOBIN 30.9 pg (25-34); MEAN PLATELET VOLUME 10.7 fL (7.4-10.4); MONO % 10.2 %; NEUT % 66.8 %; PLATELET COUNT 260 K/uL (130-400); RED BLOOD COUNT 4.24 M/uL (4.7-6.1)
[2016-11-20 11:02] LABS: INR 2.3 (0.9-1.1); PARTIAL THROMBOPLASTIN RATIO 1.7; PROTHROMBIN TIME (PATIENT) 25.9 SECONDS (9.0-12.0)
[2016-11-20 11:08] VITALS: PULSE 70; O2SAT 94
[2016-11-20 11:10] LABS: BLOOD UREA NITROGEN 19 mg/dl (7-18); BUN/CREATININE RATIO 16.9 (10-20); CALCIUM 8.9 mg/dl (8.5-10.1); CARBON DIOXIDE 28 mmol/L (21-32); CHLORIDE 103 mmol/L (98-107); GLUCOSE 170 mg/dl (70-99); POTASSIUM 4.7 mmol/L (3.5-5.1); SODIUM 138 mmol/L (136-145)
== END 2016-11-20 12:12 | disposition home or self-care (01) ==
LOC: C.EDB 09:12
DX: T82.198A Other mechanical complication of other cardiac electronic device, initial encounter (principal); Y83.1 Surgical operation with implant of artificial internal device as the cause of abnormal reaction of the patient, or of later complication, without mention of misadventure at the time of the procedure; E11.9 Type 2 diabetes mellitus without complications; I25.10 Atherosclerotic heart disease of native coronary artery without angina pectoris; I11.0 Hypertensive heart disease with heart failure; Z79.01 Long term (current) use of anticoagulants; Z79.2 Long term (current) use of antibiotics; I42.9 Cardiomyopathy, unspecified; I50.22 Chronic systolic (congestive) heart failure; M10.9 Gout, unspecified; E78.5 Hyperlipidemia, unspecified; E03.9 Hypothyroidism, unspecified; Z87.01 Personal history of pneumonia (recurrent); Z86.73 Personal history of transient ischemic attack (TIA), and cerebral infarction without residual deficits; Z83.3 Family history of diabetes mellitus; Z82.3 Family history of stroke; Z79.899 Other long term (current) drug therapy; M00.9 Pyogenic arthritis, unspecified

== ENCOUNTER 2016-12-25 09:58 | Emergency (ER) | payer OTHER, MEDICARE ==
[~2016-12-25] VITALS: Ht 185.4 cm; Wt 115.0 kg
[~2016-12-25 09:58] MED LIST changes: +CEFT1INJ57 IV; -CLIN300C2 PO; +DAPT500I IV; +EFFSR150 PO; +NRV/10 PO; -NRV/5 PO; -TEDI1TAB PO; +WARF5TAB7 PO
[2016-12-25 10:13] VITALS: TEMP 36.9; Ht 185.4 cm; Wt 115.0 kg
--- NOTE | 2016-12-25 10:51 | EMERGENCY ROOM VISIT NOTE ---
ED Visit Note First contact with patient: 10:21 Chief Complaint: "Cut on right hand from wheelchair, here in same-day surgery". History of Present Illness: This patient is a 66-year-old male who presents to the Emergency Department via private vehicle for evaluation of their right hand laceration. Patient sustained the laceration while operating a wheelchair at the same-day surgery clinic. They report a minimal amount of bleeding initially. They deny any numbness or tingling into the distal extremity. The patient points to 3 small superficial abrasions to the right palm. He is concerned because of his underlying comorbidities that should be washed out thoroughly. Patient's Tetanus status is currently up-to-date. Medications: As noted below Allergies: Heparin PMH: ECMO, LVAD, diabetes, heart disease, high blood pressure, blood clots SHx: Patient lives locally with spouse. ROS: All pertinent positive and negative review of systems are appropriately documented in the History of Present Illness. Physical Exam: VITAL SIGNS - Vital signs and nursing notes were reviewed. Stable. GENERAL -66-year-old male appearing his stated age who is in no acute distress. Communicates well with provider and answers questions appropriately. SKIN - There are 3, subcentimeter superficial abrasions to the patient's right palm. The edges do not gape apart with traction. No foreign bodies appreciated. Upon further examination there are no deep structures including vessel, tendon, or bony structures appreciated. There is no active bleeding noted. MUSCULOSKELETAL -full range of motion of the right hand. NEUROLOGIC - Spinothalamic tract was found to be intact with ability to discriminate sharp versus dull sensation. No sensory defects of the dorsal column were appreciated utilizing light touch for evaluation. VASCULAR - Capillary refill was brisk. ED Course: Patient was seen and evaluated by myself. Risks and benefits of performing primary wound closure versus no repair were discussed with the patient who verbalizes understanding. Verbal consent was obtained prior to performing the procedure. The abrasions are superficial, and do not require closure. These were thoroughly irrigated with Betadine, normal saline and dressed with a bacitracin dressing and gauze. He was educated upon management. He is oriented on antibiotics. He is to return if worsening. He was discharged home in good condition. In evaluation treatment this patient following differential diagnoses were entertained: Laceration, abrasion, among others. Problem List Medical Problems: (1) SHAW'S PALSY Status: Resolved (2) Benign hypertension Status: Chronic (3) Cardiomyopathy Status: Chronic (4) CHRONIC SYSTOLIC HRT FAILURE Status: Chronic (5) Diabetes mellitus Status: Chronic (6) Diabetes mellitus type 2 Status: Chronic (7) Gout Status: Chronic (8) Heart disease Status: Chronic (9) Heart failure Status: Chronic (10) Hyperlipidemia Status: Chronic (11) Hypothyroidism Status: Chronic (12) Pneumonia Status: Chronic (13) Prolonged QT interval Status: Chronic (14) TIA (transient ischemic attack) Status: Resolved Surgical Problems: (1) Implantation of automatic cardioverter/defibrillator, total system Status: Resolved (2) Implantation of cardiac pacemaker Status: Resolved (3) LVAD placement Status: Resolved Current/Historical Medications Scheduled Allopurinol (Zyloprim), 100 MG PO DAILY Amiodarone HCl (Amiodarone HCl), 200 MG PO DAILY Amlodipine Besylate (Amlodipine Besylate), 10 MG PO DAILY Carvedilol (Coreg), 12.5 MG PO BIDM Ceftriaxone Sod (Rocephin), 2 GM IV QAM Cetirizine Hcl (Zyrtec), 10 MG PO HS Daptomycin (Daptomycin), 1,000 MG IV QAM Ergocalciferol (Vitamin D 77428 Unit), 1 TAB PO [id number] Ferrous Sulfate (Kp Ferrous Sulfate), 325 MG PO BID Folic Acid (Folvite), 1 MG PO DAILY Gabapentin (Gabapentin), 600 MG PO TID Insulin Aspart (Novolog Flexpen), 10 UNITS SC AC Insulin Detemir (Levemir), 30 UNITS SC BID Levothyroxine Sodium (Synthroid), 150 MCG PO DAILY Magnesium Oxide (mg Supplement (Magnesium Oxide), 400 MG PO TID Potassium Chloride (Micro-K Ext Rel), 20 MEQ PO BID Pravastatin Sodium (Pravastatin Sodium), 40 MG PO HS Spironolactone (Aldactone), 50 MG PO QAM Tamsulosin HCl (Tamsulosin HCl), 0.4 MG PO HS Venlafaxine Hcl (Effexor Extended Rel), 150 MG PO DAILY Warfarin Sod (Jantoven), 10 MG PO DAILY Scheduled PRN Colchicine (Colcrys), 0.6 MG PO DAILY PRN for Gout Insulin Aspart (Novolog Penfill), SC AC PRN for hyperglycemia Nystatin (Topical) (Nyamy), 1 APPLN TOP UD PRN for Affected Skin Folds Oxycodone HCl (Oxycodone HCl), 5 MG PO Q4 PRN for Pain Torsemide (Demadex), 20 MG PO DAILY PRN for Allergies Coded Allergies: Heparin (Verified Adverse Reaction, Severe, HIT, 12/25/16) Vital Signs Date Time Temp Pulse Resp B/P (MAP) Pulse Ox O2 Delivery O2 Flow Rate FiO2 12/25/16 11:10 62 18 111/69 98 12/25/16 10:13 36.9 64 18 104/67 97 Room Air Departure Information Impression Primary Impression: Laceration Dispostion Home / Self-Care Condition GOOD Referrals Graham Rojas MD (PCP) Patient Instructions My [facility] Additional Instructions Proper wound care is essential for adequate wound healing and infection prevention. You can shower and clean the wound with soap and water. Do not scour over the wound, pat dry with a towel. You can use an antibiotic ointment with a dressing over the wound for the next 3-4 days. After this time you may leave the wound dry and open to the air. If crust develops over the wound you can use a Q-tip to apply a 1:1 peroxide:water solution to clean the wound. Look for signs of infection of the wound including: increased pain, swelling, foul discharge, streaking, or increased temperature. If any of these are noticed you should return to the Emergency Department for further assessment and treatment. As with any laceration you may have received nerve damage to the surrounding tissues. This damage may or may not be permanent. You should keep the area covered with sunscreen for the first 6 months to 1 year when at risk for exposure to help minimize scarring. Return to the emergency department if your symptoms worsen despite treatment course outlined above.
[2016-12-25] MEDS ORDERED: CRD200 PO (11:05)
[2016-12-25 11:10] VITALS: BP 111/69; PULSE 62; O2SAT 98
== END 2016-12-25 11:11 | disposition home or self-care (01) ==
LOC: C.EDB 10:00
DX: S61.411A Laceration without foreign body of right hand, initial encounter (principal); W45.8XXA Other foreign body or object entering through skin, initial encounter; Y92.89 Other specified places as the place of occurrence of the external cause; I10 Essential (primary) hypertension; E78.5 Hyperlipidemia, unspecified; E11.9 Type 2 diabetes mellitus without complications; E03.9 Hypothyroidism, unspecified; I50.22 Chronic systolic (congestive) heart failure; M10.9 Gout, unspecified; Z86.2 Personal history of diseases of the blood and blood-forming organs and certain disorders involving the immune mechanism; Z86.73 Personal history of transient ischemic attack (TIA), and cerebral infarction without residual deficits; Z95.810 Presence of automatic (implantable) cardiac defibrillator; Z79.01 Long term (current) use of anticoagulants; Z79.4 Long term (current) use of insulin; Z79.899 Other long term (current) drug therapy; Z88.8 Allergy status to other drugs, medicaments and biological substances

== ENCOUNTER → 2017-02-17 | Outpatient (CLI) | payer OTHER, MEDICARE ==
[~2017-02-17] MED LIST changes: +ASPI81TA28 PO; -CLC100 PO; +CRD200 PO; -ERGO1CAP41 PO; +ERGO500011 PO; -LISI10TA PO; -WARF5TAB7 PO
== END | disposition home or self-care (01) ==
LOC: C.LAB 08:21
PROVIDERS: ATTEND Internal Medicine
DX: E55.9 Vitamin D deficiency, unspecified (principal)

== ENCOUNTER → 2017-03-24 | Outpatient (CLI) | payer OTHER, MEDICARE ==
[~2017-03-24] MED LIST changes: -FOLI1TAB7 PO; +FOLI1TAB8 PO
[2017-03-24 09:50] LABS: HEMOGLOBIN A1C 6.9 % (4.5-5.6)
--- NOTE | 2017-04-11 09:14 | CODING QUERY NO DIAGNOSIS ---
: 1950 (TREATMENT RENDERED WITHOUT A DIAGNOSIS To promote full compliance with coding requirements relating to patient care, physician participation is requested in all cases of cuff setter overlock uncertainty. Please assist us with providing a diagnosis/symptom for the test(s) below: A diagnosis/symptom was not documented on your Order. A valid diagnosis/symptom is required to bill all insurances. Please remember that we are unable to code a diagnosis of rule out, probable, possible, questionable, or suspected. Please provide original physician order. Tests that require a diagnosis: Date of Service: 03/24/17 * Hemoglobin A1C DIAGNOSIS: Provider Signature: Date: Thank you Daisy Hilliard Health Information Management Once completed, please kindly fax back to [phone] For questions please call [phone]
== END | disposition home or self-care (01) ==
LOC: C.LAB 10:30
PROVIDERS: ATTEND Internal Medicine
DX: E11.9 Type 2 diabetes mellitus without complications (principal)

== ENCOUNTER → 2017-05-23 | Outpatient (CLI) | payer OTHER, MEDICARE ==
--- NOTE | 2017-05-23 11:32 | DIAGNOSTIC IMAGING REPORT ---
R VENOUS DOPPLER UPR EXT UNIL HISTORY: 66 years-old Male 729.2,M79.2 acute pain and swelling of the right upper extremity COMPARISON: Chest radiograph 04/21/2017 TECHNIQUE: Multiple real-time sonogram images of the right upper extremity deep venous structures were obtained assessing grayscale appearance, color and spectral flow. FINDINGS: PICC within the right upper extremity is noted within the basilic, subclavian and axillary veins. The distal portion of the subclavian vein is not well seen secondary to patient respirations. There is normal flow, phasicity and compressibility of the right upper extremity deep venous structures without evidence of thrombus. IMPRESSION: No sonographic evidence of deep venous thrombosis. The above report was generated using voice recognition software. It may contain grammatical, syntax or spelling errors. Electronically signed by: Johnathan Pastor M.D. 05/23/2017 11:31 AM Dictated Date/Time: 05/23/2017 11:27 AM
== END | disposition home or self-care (01) ==
LOC: C.ULTR 10:32
PROVIDERS: ATTEND Internal Medicine Infectious Disease
DX: M79.2 Neuralgia and neuritis, unspecified (principal)

== ENCOUNTER 2017-06-06 23:57 | Inpatient (IN) | payer OTHER, MEDICARE ==
[~2017-06-06] VITALS: Ht 182.9 cm; Wt 119.8 kg
--- NOTE | 2017-06-06 23:56 | EMERGENCY ROOM VISIT NOTE ---
History Report prepared by Spencer: Ryan Castañeda Under the Supervision of: Dr. Aminta Pearson D.O. First contact with patient: 23:55 Chief Complaint: FEVER Stated Complaint: FEVER/BACK PAIN History of Present Illness The patient is a 66 year old male who presents to the Emergency Room with complaints of a constant, fever beginning this evening. EMS states the patient has a history of a chronic staph infection, and he receives antibiotics daily. They report the patient developed a fever and AMS prior to arrival. EMS notes the patient was complaining of back discomfort from the stretcher. They state the patient's O2Sat was in the low 90s, and his temperature was 97 degrees which is considered high for him per his . The patient reports he is being treated for his staph infection in his blood stream. He notes is right leg is experiencing discomfort. The patient denies coughing, trouble defecating, and trouble urinating. The patient's states he has a history of sciatica. She reports he has been receiving daptomycin and Rocephin for the past 9 months for bacteremia. The notes the patient has not had a fever before while being treated, and his last WBC was taken yesterday. She states he has been having trouble voiding, right lower tooth pain beginning the morning, and a wet cough that began 24 hours ago. Source of History: patient, spouse/significant other, EMS Onset: this evening Symptom Intensity: 97 degrees Quality: other (fever) Timing: constant Associated Symptoms: + cough (wet for 24 hours - per ), + back pain, + urinary symptoms (trouble voiding - per ) Note: Associated symptoms: AMS, right lower tooth pain Denies: trouble defecating Review of Systems See HPI for pertinent positives & negatives. A total of 10 systems reviewed and were otherwise negative. 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 (2) Benign hypertension (3) Cardiomyopathy (4) CHRONIC SYSTOLIC HRT FAILURE (5) Diabetes mellitus (6) Diabetes mellitus type 2 (7) Elevated cardiac enzymes (8) Gout (9) Heart disease (10) Heart failure (11) Hyperlipidemia (12) Hypothyroidism (13) Pneumonia (14) Prolonged QT interval (15) TIA (transient ischemic attack) Surgical Problems: (1) Implantation of automatic cardioverter/defibrillator, total system (2) Implantation of cardiac pacemaker (3) LVAD placement Family History Cancer Diabetes mellitus FH: heart disease Seizures Stroke Social History Marital Status: Housing Status: lives with significant other Occupation Status: retired Current/Historical Medications Scheduled Allopurinol (Zyloprim), 100 MG PO DAILY Amiodarone HCl (Amiodarone HCl), 200 MG PO DAILY Amlodipine Besylate (Amlodipine Besylate), 10 MG PO DAILY Aspirin (Aspirin Ec), 81 MG PO DAILY Carvedilol (Coreg), 12.5 MG PO BIDM Ceftriaxone Sod (Rocephin), 2 GM IV QAM Cetirizine Hcl (Zyrtec), 10 MG PO HS Daptomycin (Daptomycin), 1,000 MG IV QAM Ergocalciferol (Vitamin D 92622 Unit), 1 TAB PO [id number] Ferrous Sulfate (Kp Ferrous Sulfate), 325 MG PO BID Folic Acid (Folvite), 1 MG PO DAILY Gabapentin (Gabapentin), 600 MG PO TID Insulin Aspart (Novolog Flexpen), 7 UNITS SC AC Insulin Detemir (Levemir), 30 UNITS SC BID Levothyroxine Sodium (Synthroid), 150 MCG PO DAILY Magnesium Oxide (mg Supplement (Magnesium Oxide), 400 MG PO TID Potassium Chloride (Micro-K Ext Rel), 20 MEQ PO BID Pravastatin Sodium (Pravastatin Sodium), 40 MG PO HS Spironolactone (Aldactone), 50 MG PO QAM Tamsulosin HCl (Tamsulosin HCl), 0.4 MG PO HS Venlafaxine Hcl (Effexor Extended Rel), 150 MG PO DAILY Warfarin Sod (Jantoven), 10 MG PO DAILY Scheduled PRN Colchicine (Colcrys), 0.6 MG PO DAILY PRN for Gout Insulin Aspart (Novolog Penfill), SC AC PRN for hyperglycemia Nystatin (Topical) (Nyamyc), 1 APPLN TOP UD PRN for Affected Skin Folds Oxycodone HCl (Oxycodone HCl), 5 MG PO Q4 PRN for Pain Torsemide (Demadex), 20 MG PO DAILY PRN for Allergies Coded Allergies: Heparin (Verified Adverse Reaction, Severe, HIT, 06/07/17) Physical Exam Vital Signs Date Time Temp Pulse Resp B/P (MAP) Pulse Ox O2 Delivery O2 Flow Rate FiO2 06/07/17 03:45 84 17 95 06/07/17 03:15 86 16 95 Nasal Cannula 2.0 06/07/17 02:45 87 19 96 06/07/17 02:35 37.0 89 18 94 Nasal Cannula 2.0 06/07/17 02:20 37.0 06/07/17 00:14 38.9 94 15 85 Room Air 06/07/17 00:03 94 06/07/17 00:00 85 Room Air Physical Exam HEENT: Head - normocephalic and atraumatic Pupils are equal, round, and reactive to light. Extraocular eye muscles are intact, and sclera are anicteric. Nose - moist nasal mucosa without discharge. Mouth - moist buccal mucosa. Extremely poor dentition with a fracture right lower tooth that appears to be abscessed. Oropharynx is nonerythematous and there is no tonsillar exudate or edema noted. Neck: Supple; no JVD, nuchal rigidity, cervical lymphadenopathy. Lungs: Clear to auscultation bilaterally with no wheezes, rales, or rhonchi. Abdomen: Soft, completely nontender, nondistended, with good bowel sounds. There are no palpable pulsatile masses or hepatosplenomegaly. There is no guarding, rigidity, or rebound noted. Extremities: No evidence of cyanosis or clubbing. Trace edema. There are easily palpable peripheral pulses. Skin: warm and dry with good turgor and no rashes. Medical Decision & Procedures ER Provider Diagnostic Interpretation: X-ray results as stated below per interpretation by me: Portable Chest x-ray One View per my interpretation: cardiomegaly, mild pulmonary vascular congestion, concerning for early right lower lobe pneumonia. Laboratory Results 06/07/17 00:05 Red Blood Count 4.08, Mean Corpuscular Volume 94.4, Mean Corpuscular Hemoglobin 32.8, Mean Corpuscular Hemoglobin Concent 34.8, Mean Platelet Volume 11.3, Neutrophils (%) (Auto) 84.0, Lymphocytes (%) (Auto) 7.5, Monocytes (%) (Auto) 6.7, Eosinophils (%) (Auto) 1.1, Basophils (%) (Auto) 0.3, Neutrophils # (Auto) 11.00, Lymphocytes # (Auto) 0.98, Monocytes # (Auto) 0.88, Eosinophils # (Auto) 0.14, Basophils # (Auto) 0.04 06/07/17 00:05 Test 06/07/17 00:05 06/07/17 00:09 06/07/17 00:46 White Blood Count 13.09 K/uL (4.8-10.8) Red Blood Count 4.08 M/uL (4.7-6.1) Hemoglobin 13.4 g/dL (14.0-18.0) Hematocrit 38.5 % (42-52) Mean Corpuscular Volume 94.4 fL (80-100) Mean Corpuscular Hemoglobin 32.8 pg (25-34) Mean Corpuscular Hemoglobin Concent 34.8 g/dl (32-36) Platelet Count 175 K/uL (130-400) Mean Platelet Volume 11.3 fL (7.4-10.4) Neutrophils (%) (Auto) 84.0 % Lymphocytes (%) (Auto) 7.5 % Monocytes (%) (Auto) 6.7 % Eosinophils (%) (Auto) 1.1 % Basophils (%) (Auto) 0.3 % Neutrophils # (Auto) 11.00 K/uL (1.4-6.5) Lymphocytes # (Auto) 0.98 K/uL (1.2-3.4) Monocytes # (Auto) 0.88 K/uL (0.11-0.59) Eosinophils # (Auto) 0.14 K/uL (0-0.5) Basophils # (Auto) 0.04 K/uL (0-0.2) RDW Standard Deviation 49.9 fL (36.4-46.3) RDW Coefficient of Variation 14.7 % (11.5-14.5) Immature Granulocyte % (Auto) 0.4 % Immature Granulocyte # (Auto) 0.05 K/uL (0.00-0.02) Erythrocyte Sedimentation Rate 15 mm/hr (0-14) Prothrombin Time 22.2 SECONDS (9.0-12.0) Prothromb Time International Ratio 2.1 (0.9-1.1) Activated Partial Thromboplast Time 39.9 SECONDS (21.0-31.0) Partial Thromboplastin Ratio 1.5 Anion Gap 7.0 mmol/L (3-11) Est Creatinine Clear Calc Drug Dose 84.5 ml/min Estimated GFR () 72.8 Estimated GFR (Non- 62.8 BUN/Creatinine Ratio 12.7 (10-20) Calcium Level 8.3 mg/dl (8.5-10.1) Total Bilirubin 0.9 mg/dl (0.2-1) Aspartate Amino Transf (AST/SGOT) 34 U/L (15-37) Alanine Aminotransferase (ALT/SGPT) 38 U/L (12-78) Alkaline Phosphatase 55 U/L (45-117) Total Protein 7.4 gm/dl (6.4-8.2) Albumin 3.6 gm/dl (3.4-5.0) Globulin 3.8 gm/dl (2.5-4.0) Albumin/Globulin Ratio 0.9 (0.9-2) Bedside Lactic Acid Venous 0.70 mmol/L (0.90-1.70) Urine Color YELLOW Urine Appearance CLEAR (CLEAR) Urine pH 5.0 (4.5-7.5) Urine Specific [place] 1.018 (1.000-1.030) Urine Protein NEG (NEG) Urine Glucose (UA) 2+ (NEG) Urine Ketones 1+ (NEG) Urine Occult Blood NEG (NEG) Urine Nitrite NEG (NEG) Urine Bilirubin NEG (NEG) Urine Urobilinogen NEG (NEG) Urine Leukocyte Esterase NEG (NEG) Urine WBC (Auto) 0 /hpf (0-5) Urine RBC (Auto) 0-4 /hpf (0-4) Urine Hyaline Casts (Auto) 0 /lpf (0-5) Urine Epithelial Cells (Auto) 5-10 /lpf (0-5) Urine Bacteria (Auto) NEG (NEG) Laboratory results per my review. Medications Administered Medications (Trade) Dose Ordered Sig/Jose Route Start Time Stop Time Status Last Admin Dose Admin Acetaminophen (Tylenol Tab) 1,000 mg STK-MED ONCE PO 06/07/17 02:17 06/07/17 02:18 DC 06/07/17 02:20 1,000 MG Procedure 0217: Ordered Acetaminophen 1000mg PO ECG Per My Interpretation Indication: other (sepsis) Rate (beats per minute): 96 Rhythm: other (Paced rhythm) Findings: no acute ischemic change, no ectopy ED Course 2356: Past medical records reviewed. The patient was evaluated in room A02. A complete history and physical exam was performed. EMR states the patient's WBC was 6.9 on 06/05/2017. 0024: Reviewed EMR from [facility]. The patient has had LVAD since 2012. He developed bacteremia in December 2015. This was thought to be a pump infection. The patient also has a history of urosepsis. 0134: I reevaluated the patient and discussed his laboratory findings. The patient's states he started complaining of right lower tooth pain today and a wet cough for the past 24 hours. 0201: I discussed the patient's case with Dr. Barillas, [facility]. He suggests the patient's antibiotics should not be changed. His situation is not curable. Dr. Barillas recommends giving the patient Tylenol and send him to [facility]. 0212: Upon reevaluation, I discussed findings, consult, and results with the patient and his . They verbalized agreement of the treatment plan. The patient will be evaluated for further management and care. 0217: Ordered Acetaminophen 1000mg PO 0249: I [facility] the [facility] The patient will be evaluated for further management and care. Medical Decision The patient is a 66 year old male who presents to the ED with a fever. Differential diagnosis includes sepsis, bacteremia, drive line infection, pump pock infection, pneumonia, UTI. Lab results show: WBC of 13 with 84% neutrophils, stable H&H, SED rate of 15, lactic acid of 0.7, glucose of 242, normal renal function and LFTs, INR is 2.1, urine has 1+ ketones. This is a 66-year-old male patient with a history of LVAD on a daily antibiotics through a PICC line in the [facility]. He is receiving Rocephin and daptomycin. Patient suddenly developed a fever tonight. Possible source obviously is the LVAD as well as his lungs and his poor dentition. The patient has had multiple drug-resistant bacteria. Dr. Barillas is quite familiar with this patient and recommended that his bacteremia is not curable and suggested no additional antibiotics, given the patient some Tylenol and transferring him to [facility] when possible. Medication Reconcilliation Current Medication List: was personally reviewed by me Blood Pressure Screening Unable to obtain a blood pressure secondary to the patient's LVAD. Consults Time Called: 015 Consulting Physician: Dr. Shabnam Barillas [facility] Returned Call: 0201 I discussed the patient's case with Shabnam [facility]. He suggests the patient's antibiotics should not be changed. His situation is not curable. Dr. Barillas recommends giving the patient Tylenol and send him to [facility]. Additional Consults: Time Called: 0247 Consulted Physician: Ramirez Concepcion Hospitalist Returned Call: 0249 Additional Comments: I discussed the patient's case with [facility]. The patient will be evaluated for further management and care. Impression Primary Impression: Fever Scribe Attestation The scribe's documentation has been prepared under my direction and personally reviewed by me in its entirety. I confirm that the note above accurately reflects all work, treatment, procedures, and medical decision making performed by me. Departure Information Dispostion Being Evaluated By Hospitalist Patient Instructions My [facility] Problem Qualifiers Primary Impression: Fever Fever type: unspecified Qualified Codes: R50.9 - Fever, unspecified
[2017-06-07] VITALS (13 sets, daily range): BP systolic 85–112; BP diastolic 68–84; PULSE 70–75; TEMP 36.4–37.2; O2SAT 90–99; Ht 182.9 cm; Wt 119.8 kg
[2017-06-07 00:29] LABS: BASO % 0.3 %; BASO ABS # 0.04 K/uL (0-0.2); EOS % 1.1 %; EOS ABS # 0.14 K/uL (0-0.5); HEMATOCRIT 38.5 % (42-52); HEMOGLOBIN 13.4 g/dL (14.0-18.0); IG# 0.05 K/uL (0.00-0.02); LYMPH % 7.5 %; LYMPH ABS # 0.98 K/uL (1.2-3.4); MEAN CELL VOLUME 94.4 fL (80-100); MEAN CORPUSCULAR HEMOGLOBIN 32.8 pg (25-34); MEAN CORPUSCULAR HGB CONC 34.8 g/dl (32-36); MEAN PLATELET VOLUME 11.3 fL (7.4-10.4); MONO % 6.7 %; MONO ABS # 0.88 K/uL (0.11-0.59); PLATELET COUNT 175 K/uL (130-400); RED CELL DISTRIBUTION WIDTH CV 14.7 % (11.5-14.5); RED CELL DISTRIBUTION WIDTH SD 49.9 fL (36.4-46.3); WHITE BLOOD COUNT 13.09 K/uL (4.8-10.8)
[2017-06-07 00:38] LABS: INR 2.1 (0.9-1.1); PTT PATIENT 39.9 SECONDS (21.0-31.0)
[2017-06-07 00:48] LABS: ALBUMIN 3.6 gm/dl (3.4-5.0); CALCIUM 8.3 mg/dl (8.5-10.1); CREATININE 1.19 mg/dl (0.60-1.40); POTASSIUM 4.7 mmol/L (3.5-5.1)
[2017-06-07 00:51] LABS: TOTAL PROTEIN 7.4 gm/dl (6.4-8.2)
[2017-06-07] MEDS ORDERED: ACETAMINOPHEN 500 MG TAB PO ONE (02:17)
[2017-06-07] MEDS ORDERED: COLCHICINE 0.6 MG TAB PO PRN (04:15)
--- NOTE | 2017-06-07 05:20 | History and Physical ---
History & Physical Date & Time of Service: Jun 07, 2017 at 05:20 Chief Complaint: Fever/Back Pain Primary Care Physician: Graham Rojas MD History of Present Illness This is a 66 year old M with complicated cardiovascular history including the presence of Left Ventricular Assist Device for which patient follows primarily with [facility] and has been on 9 months of chronic antibiotics of daptomycin and ceftriaxone since September 2016 because of 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 Patient's symptoms appears to coincide with recent tooth pain of right lower jaw which started to be present several days ago. 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 Barillas about having patient transferred there for further evaluation given history of LVAD care at [facility] however patient could not be transferred there due to inclement weather Patient admitted to hospitalist service at [facility] for fever workup and treatment Past Medical/Surgical History Medical Problems: (1) Abdominal wall cellulitis (2) Acute exacerbation of chronic low back pain (3) Acute exacerbation of chronic low back pain (4) Acute prostatitis (5) AICD problem (6) Anemia (7) Anemia (8) Anemia (9) Anemia (10) Anticoagulated on Coumadin (11) Bacteremia (12) Bacteremia (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 (14) Benign hypertension (15) Cardiomyopathy (16) Chest pain (17) CHRONIC SYSTOLIC HRT FAILURE (18) Dehydration (19) Diabetes mellitus (20) Diabetes mellitus type 2 (21) Elevated cardiac enzymes (22) Elevated troponin (23) Eyelid laceration, left (24) Fall (25) Febrile illness (26) Fever (27) Gout (28) Heart disease (29) Heart failure (30) Hyperkalemia (31) Hyperlipidemia (32) Hypothyroidism (33) Laceration (34) Lactic acidosis (35) Lactic acidosis (36) LVAD (left ventricular assist device) present (37) LVAD (left ventricular assist device) present (38) LVAD (left ventricular assist device) present (39) LVAD (left ventricular assist device) present (40) Multiple contusions (41) Pneumonia (42) Prolonged QT interval (43) Sepsis (44) SHORTNESS OF BREATH (45) Stroke (46) Stroke (47) Syncope (48) Syncope (49) Thrombocytopenia (50) TIA (transient ischemic attack) (51) TIA (transient ischemic attack) (52) Upper GI bleed (53) UTI (urinary tract infection) (54) Weakness Surgical Problems: (1) Implantation of automatic cardioverter/defibrillator, total system (2) Implantation of cardiac pacemaker (3) LVAD placement Family History Cancer Diabetes mellitus FH: heart disease Seizures Stroke Social History Smoking Status: Never Smoker Drug Use: none Marital Status: Housing status: lives with family Occupational Status: retired Immunizations History of Influenza Vaccine: Yes Influenza Vaccine Date: Dec 17, 2011 History of Tetanus Vaccine?: Yes Tetanus Immunization Date: Dec 17, 2011 History of Pneumococcal: Yes Pneumococcal Date: Dec 16, 2009 History of Hepatitis B Vaccine: Yes Allergies Coded Allergies: Heparin (Verified Adverse Reaction, Severe, HIT, 06/07/17) Home Medications Scheduled Allopurinol (Zyloprim), 100 MG PO DAILY Amiodarone HCl (Amiodarone HCl), 200 MG PO DAILY Amlodipine Besylate (Amlodipine Besylate), 10 MG PO DAILY Aspirin (Aspirin Ec), 81 MG PO DAILY Carvedilol (Coreg), 12.5 MG PO BIDM Ceftriaxone Sod (Rocephin), 2 GM IV QAM Cetirizine Hcl (Zyrtec), 10 MG PO HS Daptomycin (Daptomycin), 1,000 MG IV QAM Ergocalciferol (Vitamin D 63096 Unit), 1 TAB PO [id number] Ferrous Sulfate (Kp Ferrous Sulfate), 325 MG PO BID Folic Acid (Folvite), 1 MG PO DAILY Gabapentin (Gabapentin), 600 MG PO TID Insulin Aspart (Novolog Flexpen), 7 UNITS SC AC Insulin Detemir (Levemir), 30 UNITS SC BID Levothyroxine Sodium (Synthroid), 150 MCG PO DAILY Magnesium Oxide (mg Supplement (Magnesium Oxide), 400 MG PO TID Potassium Chloride (Micro-K Ext Rel), 20 MEQ PO BID Pravastatin Sodium (Pravastatin Sodium), 40 MG PO HS Spironolactone (Aldactone), 50 MG PO QAM Tamsulosin HCl (Tamsulosin HCl), 0.4 MG PO HS Venlafaxine Hcl (Effexor Extended Rel), 150 MG PO DAILY Warfarin Sod (Jantoven), 10 MG PO DAILY Scheduled PRN Colchicine (Colcrys), 0.6 MG PO DAILY PRN for Gout Insulin Aspart (Novolog Penfill), SC AC PRN for hyperglycemia Nystatin (Topical) (Nyamyc), 1 APPLN TOP UD PRN for Affected Skin Folds Oxycodone HCl (Oxycodone HCl), 5 MG PO Q4 PRN for Pain Torsemide (Demadex), 20 MG PO DAILY PRN for Review of Systems Constitutional: + fever Eyes: No worsening of vision ENT: No hearing loss Respiratory: No cough, No sputum, No shortness of breath Cardiovascular: No chest pain, No palpitations Abdomen: No pain Musculoskeletal: No joint pain Genitourinary - Male: No dysuria Neurologic: No numbness/tingling Psychiatric: No substance abuse Hematologic / Lymphatic: No abnormal bleeding/bruising Integumentary: No rash Physical Exam Vital Signs Date Time Temp Pulse Resp B/P (MAP) Pulse Ox O2 Delivery O2 Flow Rate FiO2 06/07/17 04:46 37.0 80 16 95 06/07/17 04:15 80 16 95 Nasal Cannula 2.0 06/07/17 04:15 81 06/07/17 03:45 84 17 95 06/07/17 03:15 86 16 95 Nasal Cannula 2.0 06/07/17 02:45 87 19 96 06/07/17 02:35 37.0 89 18 94 Nasal Cannula 2.0 06/07/17 02:20 37.0 06/07/17 00:14 38.9 94 15 85 Room Air 06/07/17 00:03 94 06/07/17 00:00 85 Room Air General Appearance: no apparent distress Head: normocephalic, atraumatic Eyes: normal inspection, EOMI, sclerae normal ENT: hearing grossly normal, + pertinent finding (poor dentition with multiple missing teeth and cavities in remaining teeth) Neck: supple, no JVD, trachea midline Respiratory/Chest: chest non-tender, lungs clear, normal breath sounds, no respiratory distress, no accessory muscle use Cardiovascular: no JVD, normal peripheral pulses, + pertinent finding (paced rate, has pacemaker/defibrillator, LVAD) Abdomen/GI: normal bowel sounds, non tender, soft, no organomegaly, + pertinent finding (presence of LVAD) Back: normal inspection, no CVA tenderness, no muscle spasm, normal range of motion Extremities/Musculoskelatal: normal inspection, no calf tenderness, no pedal edema, normal range of motion Neurologic/Psych: supervisor chemical II-XII nml as tested, alert, + pertinent finding (a) Skin: normal color, warm/dry Diagnostics Laboratory Results Results Past 24 Hours Test 06/07/17 00:05 06/07/17 00:09 06/07/17 00:46 Range/Units White Blood Count 13.09 4.8-10.8 K/uL Red Blood Count 4.08 4.7-6.1 M/uL Hemoglobin 13.4 14.0-18.0 g/dL Hematocrit 38.5 42-52 % Mean Corpuscular Volume 94.4 80-100 fL Mean Corpuscular Hemoglobin 32.8 25-34 pg Mean Corpuscular Hemoglobin Concent 34.8 32-36 g/dl Platelet Count 175 130-400 K/uL Mean Platelet Volume 11.3 7.4-10.4 fL Neutrophils (%) (Auto) 84.0 % Lymphocytes (%) (Auto) 7.5 % Monocytes (%) (Auto) 6.7 % Eosinophils (%) (Auto) 1.1 % Basophils (%) (Auto) 0.3 % Neutrophils # (Auto) 11.00 1.4-6.5 K/uL Lymphocytes # (Auto) 0.98 1.2-3.4 K/uL Monocytes # (Auto) 0.88 0.11-0.59 K/uL Eosinophils # (Auto) 0.14 0-0.5 K/uL Basophils # (Auto) 0.04 0-0.2 K/uL RDW Standard Deviation 49.9 36.4-46.3 fL RDW Coefficient of Variation 14.7 11.5-14.5 % Immature Granulocyte % (Auto) 0.4 % Immature Granulocyte # (Auto) 0.05 0.00-0.02 K/uL Erythrocyte Sedimentation Rate 15 0-14 mm/hr Prothrombin Time 22.2 9.0-12.0 SECONDS Prothromb Time International Ratio 2.1 0.9-1.1 Activated Partial Thromboplast Time 39.9 21.0-31.0 SECONDS Partial Thromboplastin Ratio 1.5 Sodium Level 134 136-145 mmol/L Potassium Level 4.7 3.5-5.1 mmol/L Chloride Level 99 98-107 mmol/L Carbon Dioxide Level 28 21-32 mmol/L Anion Gap 7.0 3-11 mmol/L Blood Urea Nitrogen 15 7-18 mg/dl Creatinine 1.19 0.60-1.40 mg/dl Est Creatinine Clear Calc Drug Dose 84.5 ml/min Estimated GFR () 72.8 Estimated GFR (Non- 62.8 BUN/Creatinine Ratio 12.7 10-20 Random Glucose 242 70-99 mg/dl Calcium Level 8.3 8.5-10.1 mg/dl Total Bilirubin 0.9 0.2-1 mg/dl Aspartate Amino Transf (AST/SGOT) 34 15-37 U/L Alanine Aminotransferase (ALT/SGPT) 38 12-78 U/L Alkaline Phosphatase 55 45-117 U/L Total Protein 7.4 6.4-8.2 gm/dl Albumin 3.6 3.4-5.0 gm/dl Globulin 3.8 2.5-4.0 gm/dl Albumin/Globulin Ratio 0.9 0.9-2 Bedside Lactic Acid Venous 0.70 0.90-1.70 mmol/L Urine Color YELLOW Urine Appearance CLEAR CLEAR Urine pH 5.0 4.5-7.5 Urine Specific [place] 1.018 1.000-1.030 Urine Protein NEG NEG Urine Glucose (UA) 2+ NEG Urine Ketones 1+ NEG Urine Occult Blood NEG NEG Urine Nitrite NEG NEG Urine Bilirubin NEG NEG Urine Urobilinogen NEG NEG Urine Leukocyte Esterase NEG NEG Urine WBC (Auto) 0 0-5 /hpf Urine RBC (Auto) 0-4 0-4 /hpf Urine Hyaline Casts (Auto) 0 0-5 /lpf Urine Epithelial Cells (Auto) 5-10 0-5 /lpf Urine Bacteria (Auto) NEG NEG Microbiology Results 06/07/17 Blood Culture, Received Pending 06/07/17 Blood Culture, Received Pending Impression Assessment and Plan Fever in the context of Left Ventricular Assist Device -On presentation to [facility] emergency room, the emergency room provider contacted [facility] with coal crusher operator Dr. Barillas about having patient transferred there for further evaluation given history of LVAD care at [facility] however patient could not be transferred there due to inclement weather -As per patient's , patient had LVAD initially placed in 2012 at [facility] and then replaced in 2015 by [facility] and then subsequently had staph infection and has been on chronic antibiotic therapy of daptomycin and ceftriaxone since September 2016 because of subsequent coag negative staph bacteremia with multi drug resistance -While patient is currently at [facility] while awaiting possible transfer to [facility], will have [facility] evaluate patient since he used to see Dr. Villalobos as per patient's and also ask Infectious Disease consult physician on antibiotic recommendations -Blood cultures 06/07/17 drawn in the ED, follow results -Will Continue daily Daptomycin 1000 mg IV daily and Ceftriaxone 2 gram IV daily for now Presences of Pacemaker/Defibrillator -monitor cardiac rhythm on telemetry -defer to [facility] group whether any further need for device interrogation -Chest X ray does not appear to show any fluid around pacemaker but this is an alternative hardware besides the LVAD Medical management for chronic CHF and cardiomyopathy and blood pressure -continue aspirin, statin, coumadin, amiodarone, amlodipine, carvedilol -patient receives torsemide 20 mg when fluid overloaded but only takes torsemide several days out of a week and this is not a daily medication; will need diuretic needs to be re-evaluated -continue potassium and magnesium supplements - avoid deficiencies or excess, monitor with labs Poor dentition and recent lower jaw/tooth pain -possible infectious source -consider starting clindamycin, will defer to Infectious Disease consult whether this is appropriate given already broad spectrum coverage with daptomycin and ceftriaxone -Pain control Presence of PICC line Diabetes on insulin -will use sliding scale insulin after fingerstick glucose and when patient has meals will continue 7 units aspart TID -however given uncertainty of possible future cardiology interventions, will keep NPO except ice/sips/meds and hold long acting insulin for now (Patient usually takes Levemir 35 units BID at home with the TID Novolog and sliding scale) Hypothyroidism -Continue home dose levothyroxine No gout flare - hold allopurinol and colchicine DVT ppx: History of HIT in 2011 - no heparin SCDs for DVT ppx Full Code Patient's [phone] Resuscitation Status VTE Prophylaxis Will order VTE Prophylaxis: Yes
[2017-06-07] MEDS: LEVOTHYROXINE 150 MCG TAB PO SCH (06:34)
[2017-06-07] MEDS ORDERED: DEXTROSE 50% 50 ML SYR IV PRN ×2 (06:45→12:45)
[2017-06-07] MEDS ORDERED: GLUCAGON FOR INJ 1 MG VIAL SQ PRN ×2 (06:45→12:45)
[2017-06-07] MEDS ORDERED: GLUCOSE 40% GEL 15 GM TUBE PO PRN ×2 (06:45→12:45)
[2017-06-07] MEDS ORDERED: GLUCOSE 10 TABS/TUBE PO PRN ×2 (06:45→12:45)
--- NOTE | 2017-06-07 06:57 | DIAGNOSTIC IMAGING REPORT ---
CHEST ONE VIEW PORTABLE CLINICAL HISTORY: Sepsis dyspnea COMPARISON STUDY: 04/21/2017 FINDINGS: Moderate cardiomegaly. Increased pulmonary vasculature. Diaphragms smooth. Permanent bipolar cardiac pacemaker/the bladder. Prior median sternotomy. PICC catheter ends. Cava. IMPRESSION: Mild congestive heart failure. The above report was generated using voice recognition software. It may contain grammatical, syntax or spelling errors. Electronically signed by: Chele Barreto M.D. 06/07/2017 6:56 AM Dictated Date/Time: 06/07/2017 6:55 AM
[2017-06-07] MEDS ORDERED: INSULIN ASPART 100 UNITS/ML 3 ML PEN SC SCH (07:00)
[2017-06-07] MEDS: AMLODIPINE BESYLATE 5 MG TAB PO SCH (08:15)
[2017-06-07] MEDS: MAGNESIUM OXIDE 400 MG TAB PO SCH ×3 (08:15→20:52)
[2017-06-07] MEDS: ASPIRIN 81 MG ECTAB PO SCH (08:16)
[2017-06-07] MEDS: AMIODARONE 200 MG TAB PO SCH (08:17)
[2017-06-07] MEDS: FERROUS SULFATE 325 MG TAB PO SCH ×2 (08:17→17:33)
[2017-06-07] MEDS: CARVEDILOL 12.5 MG TAB PO SCH ×2 (08:17→16:45)
[2017-06-07] MEDS: SPIRONOLACTONE 25 MG TAB PO SCH (08:17)
[2017-06-07] MEDS: POTASSIUM CHLORIDE 20 MEQ TABCR PO SCH ×2 (08:18→20:52)
[2017-06-07] MEDS: VENLAFAXINE HCL XR 150 MG CAPXR PO SCH (08:18)
[2017-06-07] MEDS: WARFARIN SOD 10 MG TAB PO SCH (08:19)
[2017-06-07] MEDS ORDERED: CEFTRIAXONE SOD INJ 2000 MG in DEXTROSE 5% 50ML IV SCH (09:00)
[2017-06-07] MEDS ORDERED: CEFTRIAXONE SOD 1 GM VIAL IV SCH (09:00)
[2017-06-07] MEDS ORDERED: DAPTOmycin 500 MG VIAL IV SCH (09:00)
[2017-06-07] MEDS: DAPTOMYCIN IV SCH (09:35)
[2017-06-07 10:10] LABS: INFLUENZA A PCR Neg for Influ A (NEG); INFLUENZA B PCR Neg for Influ B (NEG)
[2017-06-07 10:17] LABS: BASO % 0.3 %; BASO ABS # 0.03 K/uL (0-0.2); EOS % 1.1 %; EOS ABS # 0.11 K/uL (0-0.5); HEMATOCRIT 37.9 % (42-52); HEMOGLOBIN 12.5 g/dL (14.0-18.0); IG# 0.04 K/uL (0.00-0.02); LYMPH % 8.4 %; LYMPH ABS # 0.83 K/uL (1.2-3.4); MEAN CELL VOLUME 94.3 fL (80-100); MEAN CORPUSCULAR HEMOGLOBIN 31.1 pg (25-34); MEAN PLATELET VOLUME 10.8 fL (7.4-10.4); MONO ABS # 0.99 K/uL (0.11-0.59); NEUT % 79.8 %; NEUT ABS # 7.87 K/uL (1.4-6.5); PLATELET COUNT 160 K/uL (130-400); RED CELL DISTRIBUTION WIDTH CV 14.7 % (11.5-14.5); WHITE BLOOD COUNT 9.87 K/uL (4.8-10.8)
--- NOTE | 2017-06-07 10:36 | CARDIOLOGY CONSULTATION REPORT ---
DATE OF CONSULTATION: 06/07/2017 REASON FOR CONSULTATION: 1. Nonischemic Dilated Cardiomyopathy s/p LVAD. 2. History of Bi-V AICD. 3. Chronic Systolic CHF. HISTORY OF PRESENT ILLNESS: Mr. Claros is a 66-year-old white male with a history of a longstanding Nonischemic, Dilated Cardiomyopathy s/p LVAD in 2012, Chronic LBBB, s/p Bi-V AICD (implanted on 05/24/2011), Chronic Systolic CHF, Mitral Regurgitation, Hypertension, Dyslipidemia, Hypothyroidism, insulin- requiring Type 2 Diabetes Mellitus, Obstructive Sleep Apnea, obesity, Cerebral Atherosclerosis, history of Paroxysmal Ventricular Tachycardia, and Gout -- who is followed by Dr. Barillas at [facility]. Please note that the patient is on chronic IV Ceftriaxone and IV Daptomycin since September 2016 for a coag-negative Staph bacteremia. The patient presented to the ER last evening at approximately midnight-- with complaints of feeling very shaky, tremulous, febrile, and some mental status changes leading up to presentation. His temperature was 101 degrees Fahrenheit at home and when arrived at the Emergency Room, his temperature was up to 102 degrees Fahrenheit. The patient has recently developed a right lower molar toothache, but he also has several bad teeth at his right upper teeth as well. His dentition is in very poor repair. The patient is waiting to be transferred to [facility] at the present time. He has not been seen by infectious diseases yet. The patient states that he has been relatively stable from the cardiac standpoint. His body weight may be up slightly over baseline, but his breathing status is at baseline. He has not had any shortness of breath, unusual dyspnea on exertion, orthopnea, or PND. He still has intermittent leg swelling, although they are not swollen at the present time. The patient denies any chest pain, heaviness, tightness, pressure, or discomfort. He denies any neck, jaw, arm, or shoulder pain. He denies any palpitations, tachypalpitations, syncope, or near syncope. He has not had any discharges from the defibrillator. The patient did complain of some back pain while lying on the stretcher in the ER, but that does not seem to be an issue at the present time. He denies any urinary frequency, urgency, or dysuria. He denies any abdominal pain, nausea, vomiting, or diarrhea. He denies any headache or stiff neck. MEDICATIONS: 1. Pravachol 40 mg at bedtime. 2. Flomax 0.4 mg at bedtime. 3. Daptomycin 1 g IV daily. 4. Amiodarone 200 mg daily. 5. Aspirin 81 mg daily. 6. Folic acid 1 mg daily. 7. Potassium chloride 20 mEq b.i.d. 8. Venlafaxine 150 mg daily. 9. Coumadin 10 mg daily. 10. Norvasc 10 mg q.a.m. 11. Mag ox 400 mg t.i.d. 12. Spironolactone 50 mg daily. 13. Ceftriaxone 2 g IV daily. 14. Coreg 12.5 mg b.i.d. 15. Feosol 325 mg b.i.d. 16. Levothyroxine 150 mcg daily. 17. Colchicine 0.6 mg daily as needed. ALLERGIES: HEPARIN. PAST MEDICAL HISTORY: 1. Dilated, nonischemic cardiomyopathy, status post LVAD in 2012. 2. History of cardiogenic shock prior to LVAD placement. 3. Status post Bi-V AICD in 2011. 4. Chronic systolic CHF. 5. Paroxysmal ventricular tachycardia. 6. Chronic LBBB. 7. Hypertension. 8. Dyslipidemia. 9. Type 2 diabetes mellitus. 10. Mitral regurgitation. 11. History of coag-negative Staph bacteremia in September 2016. 12. History of an abdominal wall cellulitis. 13. History of gout. 14. History of depression, on chronic treatment. 15. Hypothyroidism. 16. Obstructive sleep apnea. 17. History of Aguilera's palsy. SOCIAL HISTORY: The patient is and lives with his . 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 He has been disability for at least the past 5 years. The patient does not use tobacco or tobacco products. FAMILY HISTORY: Noncontributory. PHYSICAL EXAMINATION: VITAL SIGNS: Temperature 36.9. Pulse 70 beats per minute on telemetry. Respiratory rate is 15 and nonlabored. Systolic blood pressure is 101 mmHg per Doppler. SpO2 is 99% on 2 L oxygen via nasal cannula. I's and O's -350 mL total. GENERAL: The patient is in no acute distress. HEAD, EYES, EARS, NOSE, AND THROAT: Head is atraumatic and normocephalic. EOMs intact. Sclera anicteric. Faces symmetric. Mucous membranes moist. Dentition is in very poor repair. Multiple missing and broken teeth. There is tenderness to palpation in the right submaxillary lymph node. NECK: No cervical adenopathy. Neck is without JVD. Jugular venous pressure is just above the clavicle lying at a 30-degree angle. CHEST AND LUNGS: Clear to auscultation throughout all lung raya. No wheezes, rales, or rhonchi. CARDIOVASCULAR SYSTEM: S1 and S2 are regular. No obvious murmur, gallop, or rub. Continuous whirr of LVAD is audible across the entire precordium. PMI is nonpalpable. No abdominal aortic or renal bruits. ABDOMINAL EXAMINATION: Significant for the presence of a LVAD. Bowel sounds are present. No masses, organomegaly, or tenderness. EXTREMITIES: Without clubbing, cyanosis, or edema. NEUROLOGIC EXAMINATION: The patient is awake, alert and oriented. Pleasant and cooperative. Answers questions appropriately. Speech is clear. Normal movement in all 4 extremities. Gait pattern not assessed. Telemetry monitoring reveals a sinus rhythm with biventricular pacing for the most part. LABORATORY DATA: White blood cell count is 13.09, hemoglobin 13.4 g/dL, hematocrit 38.5%, and platelet count is 175,000. Sedimentation rate is slightly elevated at 15 mmHg. INR is therapeutic at 2.1. Sodium is 134 mmol/L, potassium 4.3 mmol/L, BUN 15 mg/dL, creatinine 1.19 mg/dL and random glucose 169 mg/dL. LFTs are unremarkable. Urine is significant for +2 glucose, +1 ketone, and 5-10 urine epithelial cells per high powered field. Influenza A and influenza B are pending. Blood cultures x 2 pending. ASSESSMENT: 1. Fevers and chills, currently with a right lower molar toothache and submaxillary adenopathy. Suspect this might be the source of his infection. 2. History of multi-drug resistant coag-negative Staphylococcus bacteremia in September 2016, on chronic IV daptomycin and ceftriaxone. 3. Dilated, nonischemic Cardiomyopathy s/p LVAD. 4. History of paroxysmal ventricular tachycardia. 5. Status post Bi-V AICD. 6. Chronic systolic congestive heart failure. 7. Hypertension. 8. Hypothyroidism. 9. Dyslipidemia. 10. Insulin-requiring type 2 diabetes mellitus. 11. Obstructive sleep apnea. 12. Depression. 13. Diagnoses as mentioned above. PLAN: 1. The patient appears to be stable from the cardiac standpoint. He does not have any overt evidence of CHF nor has he experienced any angina or anginal equivalent symptoms. 2. Continue to closely monitor daily I and O's and body weights. 3. Continue Amiodarone 200 mg daily. 4. Continue Aspirin 81 mg daily. 5. Continue Coumadin with a goal INR of 2.0 to 3.0. 6. Continue Amlodipine 10 mg daily. 7. Continue Spironolactone 50 mg daily. 8. Continue Coreg 12.5 mg b.i.d. 9. If any loop diuretics are necessary, recommend Torsemide orally or if necessary - IV. 10. Await blood culture results. 11. Consider getting an oral surgeon involved if his source of infection is indeed his right lower molar. He will likely need to have his tooth or several teeth extracted. 12. Continue to follow daily INRs, PRP, and blood count. 13. The patient is awaiting transfer to [facility]. He is stable for transfer from a cardiac standpoint. The patient was seen and examined by me this morning. The above assessment and recommendations were discussed by me with Mr. Brito. The patient has a severe cardiomyopathy and severe left ventricular systolic dysfunction which is now successfully managed with an LVAD. He also has a biventricular pacemaker AICD. From a cardiac standpoint the patient has recently been doing very well. He currently has no evidence of pulmonary vascular congestion on exam. No evidence of any significant arrhythmias at this time. However, he is now receiving long-term daily intravenous antibiotic treatment for a history of bacteremia. He was admitted with a fever. Since admission to the telemetry unit his temperature is normal. His only current localizing symptom of an infection is dental pain. He has very poor dentition. From a cardiac standpoint agree of above recommendations. Continue his usual cardiac medications. Management of his infectious disease process by ID erp consultant here and by his infectious disease consultants at [facility]. gO Villalobos MD [facility]
[2017-06-07 10:54] LABS: CALCIUM 8.2 mg/dl (8.5-10.1); CREATININE 1.11 mg/dl (0.60-1.40); POTASSIUM 4.3 mmol/L (3.5-5.1)
--- NOTE | 2017-06-07 10:58 | Medical Consult ---
Consultation Date of Consultation: Jun 07, 2017. Attending Physician: Edu Kaplan MD Reason for Consultation: History of chronic antibiotics, LVAD, fever History of Present Illness 66-year-old male with complicated medical history including diabetes mellitus, dilated cardiomyopathy, status post left ventricular assist device 2012, status post AICD 2015, history of recurrent staphylococcal infections, currently on long-term antibiotic therapy with daptomycin and ceftriaxone with indwelling right upper extremity PICC line. He now presents with 1 day history of fever to 102 degrees, shakes and tremors, and pain in the right molar area. Patient also has been complaining of chronic low back pain which has worsened more recently. Currently now 1/10 in intensity. He has been continued on daptomycin and ceftriaxone, cultures are pending. Chest x-ray shows no evidence [place] [address]+, [place] down to 9000+ Past Medical/Surgical History Medical Problems: (1) Abdominal wall cellulitis Status: Acute (2) Acute exacerbation of chronic low back pain Status: Acute (3) AICD problem Status: Acute (4) Anticoagulated on Coumadin Status: Acute (5) Bacteremia Status: Acute (6) Dehydration Status: Acute (7) Elevated troponin Status: Acute (8) Eyelid laceration, left Status: Acute (9) Fall Status: Acute (10) Fever Status: Acute (11) Fever Status: Acute (12) Laceration Status: Acute (13) Lactic acidosis Status: Acute (14) Multiple contusions Status: Acute (15) Stroke Status: Acute (16) Syncope Status: Acute (17) Syncope Status: Acute Medical Problems: (1) [place]S [place] (2) Benign hypertension (3) Cardiomyopathy (4) CHRONIC SYSTOLIC HRT FAILURE (5) Diabetes mellitus (6) Diabetes mellitus type 2 (7) Elevated cardiac enzymes (8) Gout (9) Heart disease (10) Heart failure (11) Hyperlipidemia (12) Hypothyroidism (13) Pneumonia (14) Prolonged QT interval (15) TIA (transient ischemic attack) Surgical Problems: (1) Implantation of automatic cardioverter/defibrillator, total system (2) Implantation of cardiac pacemaker (3) LVAD placement Family History Cancer Diabetes mellitus FH: heart disease Seizures Stroke Social History Smoking Status: Unknown if Ever Smoked Drug Use: none Marital Status: Housing Status: lives with significant other Occupation Status: retired Allergies Coded Allergies: Heparin (Verified Adverse Reaction, Severe, HIT, 06/07/17) Current Inpatient Medications Current Inpatient Medications Medications (Trade) Dose Ordered Sig/Jose Route Start Time Stop Time Status Last Admin Dose Admin Amiodarone HCl (Cordarone Tab) 200 mg DAILY PO 06/07/17 09:00 07/07/17 08:59 06/07/17 08:17 200 MG Aspirin (Ecotrin Tab) 81 mg DAILY PO 06/07/17 09:00 07/07/17 08:59 06/07/17 08:16 81 MG Carvedilol (Coreg Tab) 12.5 mg BIDM PO 06/07/17 07:30 07/07/17 07:59 06/07/17 08:17 12.5 MG Colchicine (Colchicine Tab) 0.6 mg DAILY PRN PO 06/07/17 04:15 07/07/17 04:14 Folic Acid (Folvite Tab) 1 mg DAILY PO 06/07/17 09:00 07/07/17 08:59 06/07/17 08:18 1 MG Levothyroxine Sodium (Synthroid Tab) 150 mcg DAILYBB PO 06/07/17 06:00 07/07/17 05:59 Potassium Chloride (Klor-Con Tab) 20 meq BID PO 06/07/17 09:00 07/07/17 08:59 06/07/17 08:18 20 MEQ Pravastatin Sodium (Pravachol Tab) 40 mg HS PO 06/07/17 21:00 07/07/17 20:59 Tamsulosin HCl (Flomax Cap) 0.4 mg HS PO 06/07/17 21:00 07/07/17 20:59 Venlafaxine HCl (effeXOR EXTENDED REL CAP) 150 mg DAILY PO 06/07/17 09:00 07/07/17 08:59 06/07/17 08:18 150 MG Warfarin Sodium (Coumadin Tab) 10 mg DAILY PO 06/07/17 09:00 07/07/17 08:59 06/07/17 08:19 10 MG Amlodipine Besylate (Norvasc Tab) 10 mg QAM PO 06/07/17 09:00 07/07/17 08:59 06/07/17 08:15 10 MG Ferrous Sulfate (Feosol Tab) 325 mg BIDM PO 06/07/17 07:30 07/07/17 07:29 06/07/17 08:17 325 MG Magnesium Oxide (Mag-Ox Tab) 400 mg TID PO 06/07/17 09:00 07/07/17 08:59 06/07/17 08:15 400 MG Spironolactone (Aldactone Tab) 50 mg DAILY PO 06/07/17 09:00 07/07/17 08:59 06/07/17 08:17 50 MG Daptomycin 1000 mg/Syringe 20 ml @ 10 mls/min DAILY@1000 IV 06/07/17 10:00 06/21/17 09:59 06/07/17 09:35 10 MLS/MIN Glucose (Glucose 40% Gel) 15-30 GRAMS 15 GRAMS... UD PRN PO 06/07/17 06:45 07/07/17 06:44 Glucose (Glucose Chew Tab) 4-8 Tablets 4 Tabl... UD PRN PO 06/07/17 06:45 07/07/17 06:44 Dextrose (Dextrose 50% 50ML Syringe) 25-50ML OF 50% DW IV FOR... UD PRN IV 06/07/17 06:45 07/07/17 06:44 Glucagon (Glucagon Inj) 1 mg UD PRN SQ 06/07/17 06:45 07/07/17 06:44 Miscellaneous Information (Pharmacy Consult) 1 ea NOW STAT N/A 06/07/17 10:48 06/07/17 10:49 UNV Review of Systems Constitutional: + fever, + chills, + sweats, + weakness, + fatigue Eyes: No problem reported ENT: + problem reported (Right molar pain) Respiratory: No problem reported Cardiovascular: No problem reported Abdomen: No problem reported Musculoskeletal: + problem reported (Low back pain) Genitourinary - Male: No problem reported Neurologic: + weakness, + problem reported (Tremors) Psychiatric: No problem reported Endocrine: No problem reported Hematologic / Lymphatic: No problem reported Integumentary: No problem reported Allergic / Immunologic: No problem reported Physical Exam Date Time Temp Pulse Resp B/P (MAP) Pulse Ox O2 Delivery O2 Flow Rate FiO2 06/07/17 08:10 101/ (33) 06/07/17 08:00 99 Nasal Cannula 2.0 06/07/17 07:21 36.9 71 16 99 2.0 06/07/17 05:39 37.2 70 15 94 Nasal Cannula 2.0 06/07/17 05:09 96 Nasal Cannula 2.0 06/07/17 04:46 37.0 80 16 95 06/07/17 04:15 80 16 95 Nasal Cannula 2.0 06/07/17 04:15 81 06/07/17 03:45 84 17 95 06/07/17 03:15 86 16 95 Nasal Cannula 2.0 06/07/17 02:45 87 19 96 06/07/17 02:35 37.0 89 18 94 Nasal Cannula 2.0 06/07/17 02:20 37.0 06/07/17 00:14 38.9 94 15 85 Room Air 06/07/17 00:03 94 06/07/17 00:00 85 Room Air General Appearance: WD/WN, no apparent distress, + obese Head: normocephalic, atraumatic Eyes: normal inspection, EOMI, sclerae normal ENT: hearing grossly normal, pharynx normal, + pertinent finding (Poor dentition) Neck: supple, no adenopathy, thyroid normal, trachea midline Respiratory/Chest: chest non-tender, lungs clear, normal breath sounds, no respiratory distress Cardiovascular: regular rate, rhythm, no gallop, no murmur, + pertinent finding (Lab sounds from LVAD) Abdomen/GI: normal bowel sounds, non tender, soft, no organomegaly Back: normal inspection, no CVA tenderness Extremities/Musculoskelatal: normal inspection, no calf tenderness, non-tender Neurologic/Psych: alert, normal mood/affect, oriented x 3 Skin: normal color, warm/dry, no rash Lymphatic: no adenopathy Laboratory Results Date/Time Source Procedure Growth Status 06/07/17 10:48 Blood Blood Culture Pending Ordered 06/07/17 10:48 Blood Blood Culture Pending Ordered 06/07/17 00:09 Blood Blood Culture Pending Received 06/07/17 00:05 Blood Blood Culture Pending Received Last 24 Hours Test 06/07/17 00:05 06/07/17 00:08 06/07/17 00:09 06/07/17 00:46 White Blood Count 13.09 K/uL Red Blood Count 4.08 M/uL Hemoglobin 13.4 g/dL Hematocrit 38.5 % Mean Corpuscular Volume 94.4 fL Mean Corpuscular Hemoglobin 32.8 pg Mean Corpuscular Hemoglobin Concent 34.8 g/dl Platelet Count 175 K/uL Mean Platelet Volume 11.3 fL Neutrophils (%) (Auto) 84.0 % Lymphocytes (%) (Auto) 7.5 % Monocytes (%) (Auto) 6.7 % Eosinophils (%) (Auto) 1.1 % Basophils (%) (Auto) 0.3 % Neutrophils # (Auto) 11.00 K/uL Lymphocytes # (Auto) 0.98 K/uL Monocytes # (Auto) 0.88 K/uL Eosinophils # (Auto) 0.14 K/uL Basophils # (Auto) 0.04 K/uL RDW Standard Deviation 49.9 fL RDW Coefficient of Variation 14.7 % Immature Granulocyte % (Auto) 0.4 % Immature Granulocyte # (Auto) 0.05 K/uL Erythrocyte Sedimentation Rate 15 mm/hr Prothrombin Time 22.2 SECONDS Prothromb Time International Ratio 2.1 Activated Partial Thromboplast Time 39.9 SECONDS Partial Thromboplastin Ratio 1.5 Sodium Level 134 mmol/L Potassium Level 4.7 mmol/L Chloride Level 99 mmol/L Carbon Dioxide Level 28 mmol/L Anion Gap 7.0 mmol/L Blood Urea Nitrogen 15 mg/dl Creatinine 1.19 mg/dl Est Creatinine Clear Calc Drug Dose 84.5 ml/min Estimated GFR () 72.8 Estimated GFR (Non- 62.8 BUN/Creatinine Ratio 12.7 Random Glucose 242 mg/dl Calcium Level 8.3 mg/dl Total Bilirubin 0.9 mg/dl Aspartate Amino Transf (AST/SGOT) 34 U/L Alanine Aminotransferase (ALT/SGPT) 38 U/L Alkaline Phosphatase 55 U/L Total Protein 7.4 gm/dl Albumin 3.6 gm/dl Globulin 3.8 gm/dl Albumin/Globulin Ratio 0.9 Influenza Type A (RT-PCR) Neg for Influ A Influenza Type B (RT-PCR) Neg for Influ B Bedside Lactic Acid Venous 0.70 mmol/L Urine Color YELLOW Urine Appearance CLEAR Urine pH 5.0 Urine Specific [place] 1.018 Urine Protein NEG Urine Glucose (UA) 2+ Urine Ketones 1+ Urine Occult Blood NEG Urine Nitrite NEG Urine Bilirubin NEG Urine Urobilinogen NEG Urine Leukocyte Esterase NEG Urine WBC (Auto) 0 /hpf Urine RBC (Auto) 0-4 /hpf Urine Hyaline Casts (Auto) 0 /lpf Urine Epithelial Cells (Auto) 5-10 /lpf Urine Bacteria (Auto) NEG Test 06/07/17 06:33 06/07/17 10:06 Bedside Glucose 169 mg/dl White Blood Count 9.87 K/uL Red Blood Count 4.02 M/uL Hemoglobin 12.5 g/dL Hematocrit 37.9 % Mean Corpuscular Volume 94.3 fL Mean Corpuscular Hemoglobin 31.1 pg Mean Corpuscular Hemoglobin Concent 33.0 g/dl Platelet Count 160 K/uL Mean Platelet Volume 10.8 fL Neutrophils (%) (Auto) 79.8 % Lymphocytes (%) (Auto) 8.4 % Monocytes (%) (Auto) 10.0 % Eosinophils (%) (Auto) 1.1 % Basophils (%) (Auto) 0.3 % Neutrophils # (Auto) 7.87 K/uL Lymphocytes # (Auto) 0.83 K/uL Monocytes # (Auto) 0.99 K/uL Eosinophils # (Auto) 0.11 K/uL Basophils # (Auto) 0.03 K/uL RDW Standard Deviation 50.0 fL RDW Coefficient of Variation 14.7 % Immature Granulocyte % (Auto) 0.4 % Immature Granulocyte # (Auto) 0.04 K/uL [~ rep ct add3]] CHEST ONE VIEW PORTABLE CLINICAL HISTORY: Sepsis dyspnea COMPARISON STUDY: 04/21/2017 FINDINGS: Moderate cardiomegaly. Increased pulmonary vasculature. Diaphragms smooth. Permanent bipolar cardiac pacemaker/the bladder. Prior median sternotomy. PICC catheter ends. Cava. IMPRESSION: Mild congestive heart failure. The above report was generated using voice recognition software. It may contain grammatical, syntax or spelling errors. Electronically signed by: Chele Barreto M.D. 06/07/2017 6:56 AM Dictated Date/Time: 06/07/2017 6:55 AM The status of this report is Signed. Draft = Not yet reviewed or approved by Radiologist Assessment & Plan 66-year-old diabetic male with dilated cardiomyopathy with left ventricular assist device and AICD, on chronic antibiotic therapy for recurrent staphylococcal infection, now with 1 day of fever without other obvious localizing findings other than potential for dental infection. However must be concerned about possibility of PICC line infection, endovascular infection, and given chronic back pain would also worry about possibility of lumbar diskitis/ osteomyelitis. I will substitute imipenem for ceftriaxone to provide broader gram-negative coverage as well as coverage versus anaerobic pathogens pending further culture results. Patient likely to be transferred to [place] once inclement weather clears. Will follow.
[2017-06-07] MEDS ORDERED: PIPERACILL/TAZOBAC CONSULT ACTIVE PRN (11:00)
[2017-06-07] MEDS ORDERED: PIPERACILL/TAZOBAC IV 4.5 GM in DEXTROSE 5% 100ML IV ONE (11:15)
--- NOTE | 2017-06-07 12:34 | Progress Note ---
Medicine Progress Note Date & Time of Visit: Jun 07, 2017 at 12:20. Subjective seen resting in bed, watching TV comfortable alert, oriented x 3 states he feels better compared to admission less pain on the right jaw/right molar region denies shortness of breath, cough, chest pain no abdominal pain, changes with urination or BM denies other symptoms Objective Last 8 Hrs Date Time Temp Pulse Resp B/P (MAP) Pulse Ox O2 Delivery O2 Flow Rate FiO2 06/07/17 11:35 37.0 70 18 96 2.0 06/07/17 08:10 101/ (33) 06/07/17 08:00 99 Nasal Cannula 2.0 06/07/17 07:21 36.9 71 16 99 2.0 06/07/17 05:39 37.2 70 15 94 Nasal Cannula 2.0 06/07/17 05:09 96 Nasal Cannula 2.0 06/07/17 04:46 37.0 80 16 95 Physical Exam: General- oriented x 3, not in distress, speaks in sentences with no effort Head- atraumatic Eyes- PERRL, EOMI, anicteric ENT- oropharynx clear no swelling/bleeding on the right lower jaw/teeth/gums Neck- supple, no JVD, no adenopathy, no thyromegaly; carotids +2/2 Lungs- clear breath sounds bilaterally, no rales/wheezes Heart- regular rhythm; no murmur, normal rate Abdomen- normal bowel sounds, soft, nontender Extremities- no pretibial edema, no calf tenderness Neuro- alert, oriented x 3; no gross focal deficits Skin- warm & dry Laboratory Results: Last 24 Hours Test 06/07/17 00:05 06/07/17 00:08 06/07/17 00:09 06/07/17 00:46 White Blood Count 13.09 K/uL Red Blood Count 4.08 M/uL Hemoglobin 13.4 g/dL Hematocrit 38.5 % Mean Corpuscular Volume 94.4 fL Mean Corpuscular Hemoglobin 32.8 pg Mean Corpuscular Hemoglobin Concent 34.8 g/dl Platelet Count 175 K/uL Mean Platelet Volume 11.3 fL Neutrophils (%) (Auto) 84.0 % Lymphocytes (%) (Auto) 7.5 % Monocytes (%) (Auto) 6.7 % Eosinophils (%) (Auto) 1.1 % Basophils (%) (Auto) 0.3 % Neutrophils # (Auto) 11.00 K/uL Lymphocytes # (Auto) 0.98 K/uL Monocytes # (Auto) 0.88 K/uL Eosinophils # (Auto) 0.14 K/uL Basophils # (Auto) 0.04 K/uL RDW Standard Deviation 49.9 fL RDW Coefficient of Variation 14.7 % Immature Granulocyte % (Auto) 0.4 % Immature Granulocyte # (Auto) 0.05 K/uL Erythrocyte Sedimentation Rate 15 mm/hr Prothrombin Time 22.2 SECONDS Prothromb Time International Ratio 2.1 Activated Partial Thromboplast Time 39.9 SECONDS Partial Thromboplastin Ratio 1.5 Sodium Level 134 mmol/L Potassium Level 4.7 mmol/L Chloride Level 99 mmol/L Carbon Dioxide Level 28 mmol/L Anion Gap 7.0 mmol/L Blood Urea Nitrogen 15 mg/dl Creatinine 1.19 mg/dl Est Creatinine Clear Calc Drug Dose 84.5 ml/min Estimated GFR () 72.8 Estimated GFR (Non- 62.8 BUN/Creatinine Ratio 12.7 Random Glucose 242 mg/dl Calcium Level 8.3 mg/dl Total Bilirubin 0.9 mg/dl Aspartate Amino Transf (AST/SGOT) 34 U/L Alanine Aminotransferase (ALT/SGPT) 38 U/L Alkaline Phosphatase 55 U/L Total Protein 7.4 gm/dl Albumin 3.6 gm/dl Globulin 3.8 gm/dl Albumin/Globulin Ratio 0.9 Influenza Type A (RT-PCR) Neg for Influ A Influenza Type B (RT-PCR) Neg for Influ B Bedside Lactic Acid Venous 0.70 mmol/L Urine Color YELLOW Urine Appearance CLEAR Urine pH 5.0 Urine Specific [place] 1.018 Urine Protein NEG Urine Glucose (UA) 2+ Urine Ketones 1+ Urine Occult Blood NEG Urine Nitrite NEG Urine Bilirubin NEG Urine Urobilinogen NEG Urine Leukocyte Esterase NEG Urine WBC (Auto) 0 /hpf Urine RBC (Auto) 0-4 /hpf Urine Hyaline Casts (Auto) 0 /lpf Urine Epithelial Cells (Auto) 5-10 /lpf Urine Bacteria (Auto) NEG Test 06/07/17 06:33 06/07/17 10:06 06/07/17 11:25 Bedside Glucose 169 mg/dl 198 mg/dl White Blood Count 9.87 K/uL Red Blood Count 4.02 M/uL Hemoglobin 12.5 g/dL Hematocrit 37.9 % Mean Corpuscular Volume 94.3 fL Mean Corpuscular Hemoglobin 31.1 pg Mean Corpuscular Hemoglobin Concent 33.0 g/dl Platelet Count 160 K/uL Mean Platelet Volume 10.8 fL Neutrophils (%) (Auto) 79.8 % Lymphocytes (%) (Auto) 8.4 % Monocytes (%) (Auto) 10.0 % Eosinophils (%) (Auto) 1.1 % Basophils (%) (Auto) 0.3 % Neutrophils # (Auto) 7.87 K/uL Lymphocytes # (Auto) 0.83 K/uL Monocytes # (Auto) 0.99 K/uL Eosinophils # (Auto) 0.11 K/uL Basophils # (Auto) 0.03 K/uL RDW Standard Deviation 50.0 fL RDW Coefficient of Variation 14.7 % Immature Granulocyte % (Auto) 0.4 % Immature Granulocyte # (Auto) 0.04 K/uL Sodium Level 136 mmol/L Potassium Level 4.3 mmol/L Chloride Level 101 mmol/L Carbon Dioxide Level 30 mmol/L Anion Gap 5.0 mmol/L Blood Urea Nitrogen 13 mg/dl Creatinine 1.11 mg/dl Est Creatinine Clear Calc Drug Dose 89.3 ml/min Estimated GFR () 79.2 Estimated GFR (Non- 68.3 BUN/Creatinine Ratio 11.7 Random Glucose 190 mg/dl Calcium Level 8.2 mg/dl Date/Time Source Procedure Growth Status 06/07/17 11:24 Blood Blood Culture Pending Received 06/07/17 11:10 Blood Blood Culture Pending Received 06/07/17 00:09 Blood Blood Culture Pending Received 06/07/17 00:05 Blood Blood Culture Pending Received Assessment & Plan FEVER IN THE SETTING OF CHRONIC BACTEREMIA, LVAD/PACEMAKER IN PLACE -On presentation to [facility] emergency room, the emergency room provider contacted [facility] with skein dyer Dr. 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 Aguilera recommend Imipenem, in place of Ceftriaxone continue Daptomycin discussed with patient's , she requests that antibiotic regimen be discussed with Dr. Ray in [place] discussed with Dr. Ray, she agrees with regimen of Dapto + Imipenem for now, if patient mary another fever, consider adding Ceftaroline 600mg IV q8- will need pharm consult - possible device infection, PICC line infection? antibiotic coverage noted above possible spine infection? patient reporting back pain as per Dr. Aguilera, may need imaging of the spine if persistent Poor dentition and recent lower jaw/tooth pain -possible infectious source - recommend referral to Oral Surgeon Presence of Pacemaker/Defibrillator Chronic CHF and Cardiomyopathy - evaluated by Cardiology Services no further interventions at this time -continue aspirin, statin, coumadin, amiodarone, amlodipine, carvedilol continue spironolactinone, PRN Torsemide Diabetes on insulin - Pharmacy consulted - patient will resume AHA, DM diet today Hypothyroidism -Continue home dose levothyroxine Gout - continue Allopurinol DVT ppx: History of HIT in 2011 - no heparin SCDs for DVT ppx Full Code Disposition transfer to [facility] Current Inpatient Medications: Current Inpatient Medications Medications (Trade) Dose Ordered Sig/Jose Route Start Time Stop Time Status Last Admin Dose Admin Amiodarone HCl (Cordarone Tab) 200 mg DAILY PO 06/07/17 09:00 07/07/17 08:59 06/07/17 08:17 200 MG Aspirin (Ecotrin Tab) 81 mg DAILY PO 06/07/17 09:00 07/07/17 08:59 06/07/17 08:16 81 MG Carvedilol (Coreg Tab) 12.5 mg BIDM PO 06/07/17 07:30 07/07/17 07:59 06/07/17 08:17 12.5 MG Colchicine (Colchicine Tab) 0.6 mg DAILY PRN PO 06/07/17 04:15 07/07/17 04:14 Folic Acid (Folvite Tab) 1 mg DAILY PO 06/07/17 09:00 07/07/17 08:59 06/07/17 08:18 1 MG Levothyroxine Sodium (Synthroid Tab) 150 mcg DAILYBB PO 06/07/17 06:00 07/07/17 05:59 Potassium Chloride (Klor-Con Tab) 20 meq BID PO 06/07/17 09:00 07/07/17 08:59 06/07/17 08:18 20 MEQ Pravastatin Sodium (Pravachol Tab) 40 mg HS PO 06/07/17 21:00 07/07/17 20:59 Tamsulosin HCl (Flomax Cap) 0.4 mg HS PO 06/07/17 21:00 07/07/17 20:59 Venlafaxine HCl (effeXOR EXTENDED REL CAP) 150 mg DAILY PO 06/07/17 09:00 07/07/17 08:59 06/07/17 08:18 150 MG Warfarin Sodium (Coumadin Tab) 10 mg DAILY PO 06/07/17 09:00 07/07/17 08:59 06/07/17 08:19 10 MG Amlodipine Besylate (Norvasc Tab) 10 mg QAM PO 06/07/17 09:00 07/07/17 08:59 06/07/17 08:15 10 MG Ferrous Sulfate (Feosol Tab) 325 mg BIDM PO 06/07/17 07:30 07/07/17 07:29 06/07/17 08:17 325 MG Magnesium Oxide (Mag-Ox Tab) 400 mg TID PO 06/07/17 09:00 07/07/17 08:59 06/07/17 08:15 400 MG Spironolactone (Aldactone Tab) 50 mg DAILY PO 06/07/17 09:00 07/07/17 08:59 06/07/17 08:17 50 MG Daptomycin 1000 mg/Syringe 20 ml @ 10 mls/min DAILY@1000 IV 06/07/17 10:00 06/21/17 09:59 06/07/17 09:35 10 MLS/MIN Glucose (Glucose 40% Gel) 15-30 GRAMS 15 GRAMS... UD PRN PO 06/07/17 06:45 07/07/17 06:44 Glucose (Glucose Chew Tab) 4-8 Tablets 4 Tabl... UD PRN PO 3/21/18 06:45 07/07/17 06:44 Dextrose (Dextrose 50% 50ML Syringe) 25-50ML OF 50% DW IV FOR... UD PRN IV 06/07/17 06:45 07/07/17 06:44 Glucagon (Glucagon Inj) 1 mg UD PRN SQ 06/07/17 06:45 07/07/17 06:44 Imipenem/ Cilastatin Sodium 500 mg/Dextrose 110 ml @ 100 mls/hr Q6H IV 06/07/17 12:00 06/17/17 11:59
[2017-06-07] MEDS ORDERED: OXYCODONE HCL IR 5 MG TAB (IMMEDIATE RELEASE) PO PRN (12:45)
[2017-06-07] MEDS ORDERED: TORSEMIDE 20 MG TAB PO PRN (12:45)
[2017-06-07] MEDS ORDERED: PHARMACY GLYCEMIC MGMT CONSULT PRN (12:45)
[2017-06-07] MEDS: IMIPENEM/CILASTATIN IV 500 MG in DEXTROSE 5% 100ML 100 ML IV SCH ×2 (12:49→17:38)
[2017-06-07] MEDS ORDERED: NVLGI/PEN SC (12:56)
--- NOTE | 2017-06-07 13:04 | Pharmacy Progress Note ---
Glycemic Control Intl Consult Date of Service Jun 07, 2017. Scope Glycemic Pharmacist consulted by Dr Kaplan on 06/07/17 for glycemic control and to write orders per [facility] inpatient glycemic control protocol Objective Weight (Kilograms): 128.000 Accuchecks BSG (last 24hrs): Test 06/07/17 00:05 06/07/17 06:33 06/07/17 10:06 06/07/17 11:25 Random Glucose 242 mg/dl (70-99) 190 mg/dl (70-99) Bedside Glucose 169 mg/dl (70-99) 198 mg/dl (70-99) Laboratory Data (last 24hrs) Test 06/07/17 00:05 06/07/17 10:06 Anion Gap 7.0 mmol/L 5.0 mmol/L BUN/Creatinine Ratio 12.7 11.7 Blood Urea Nitrogen 15 mg/dl 13 mg/dl Creatinine 1.19 mg/dl 1.11 mg/dl Potassium Level 4.7 mmol/L 4.3 mmol/L Sodium Level 134 mmol/L 136 mmol/L White Blood Count 13.09 K/uL 9.87 K/uL Red Blood Count 4.08 M/uL 4.02 M/uL Hemoglobin 13.4 g/dL 12.5 g/dL Hematocrit 38.5 % 37.9 % Mean Corpuscular Volume 94.4 fL 94.3 fL Mean Corpuscular Hemoglobin 32.8 pg 31.1 pg Mean Corpuscular Hemoglobin Concent 34.8 g/dl 33.0 g/dl Platelet Count 175 K/uL 160 K/uL Mean Platelet Volume 11.3 fL 10.8 fL Neutrophils (%) (Auto) 84.0 % 79.8 % Lymphocytes (%) (Auto) 7.5 % 8.4 % Monocytes (%) (Auto) 6.7 % 10.0 % Eosinophils (%) (Auto) 1.1 % 1.1 % Basophils (%) (Auto) 0.3 % 0.3 % Neutrophils # (Auto) 11.00 K/uL 7.87 K/uL Lymphocytes # (Auto) 0.98 K/uL 0.83 K/uL Monocytes # (Auto) 0.88 K/uL 0.99 K/uL Eosinophils # (Auto) 0.14 K/uL 0.11 K/uL Basophils # (Auto) 0.04 K/uL 0.03 K/uL HbA1c 6.9% 03/24/17 Recent Pertinent Medications Outpatient Anti-diabetic Regimen: * Levemir 30 units BID * Novolog 7 units SQ w/ meals + sliding scale * A1c = 6.9 % 03/24/17 Risk Factors for Insulin Resistance: * Infection: fever, chills, in setting or recurrent staph bacteremia; concern for device infxn vs PICC line infxn vs dental infxn vs diskitis vs osteomyelitis * Diet: ordered T2DM / AHA diet; pt was eating lunch at time consult received Assessment & Plan ASSESSMENT: 06/07/17 * Type 2 diabetic admitted for fever, chills, molar pain - in the setting of recurrent staph bacteremia, LVAD/AICD * There is concern for possible device infxn vs PICC line infxn, vs dental infxn vs diskitis/osteomyelitis * He presented around midnight, and the original plan was to have him transferred to [facility] however weather conditions prevented transfer * He has not received any basal insulin since admission; will begin Levemir STAT and continue BID. Dose will be ~80% of home dose. * Will base Novolog CF and CR upon an anticipated total daily insulin requirement of ~80units/day when tolerating a diet. He may receive slightly higher prandial insulin doses as a result, but again his basal insulin dose was reduced to give a basal/bolus split closer to 50:50 PLAN FOR INPATIENT GLYCEMIC CONTROL: * Levemir 24 units SQ BID - 1st dose STAT * Novolog SQ ACHS and at 0200 tonight * Correction factor 20 mg/dl/unit * Carb ratio 1 unit per 6 grams CHO consumed * Goal range Low 110 mg/dL - High 140 mg/dL * Please note that the plan above was derived based on current level of insulin resistance and hospital stress. These recommendations are appropriate for inpatient admission only. Plan of care upon discharge will need to be reassessed to avoid potential outpatient hypo/hyperglycemia. Thank you.
[2017-06-07] MEDS: GABAPENTIN 600 MG TAB PO SCH ×2 (14:31→20:53)
[2017-06-07] MEDS: INSULIN ASPART 100 UNITS/ML 3 ML PEN SC SCH ×3 (14:32→20:54)
[2017-06-07] MEDS: INSULIN DETEMIR FLEXPEN/FLEX TOUCH 100 UNITS/ML 3ML SC SCH ×2 (14:32→20:57)
[2017-06-07] MEDS ORDERED: NURSING VERBAL MED ORDER ONE (15:30)
[2017-06-07] MEDS ORDERED: PIPERACILL/TAZOBAC IV 4.5 GM in DEXTROSE 5% 100ML IV SCH (16:00)
[2017-06-07] MEDS: HYDROmorphone INJ 0.5 MG/0.5 ML SYR IV PRN ×2 (16:13→21:00)
--- NOTE | 2017-06-07 19:26 | Discharge Instructions ---
Discharge Instructions Date of Service Jun 07, 2017. Admission Reason for Admission: Fever, Lvad Present Discharge Discharge Diagnosis / Problem: FEVER, IN THE SETTING OF CHRONIC BACTEREMIA, LVAD Discharge Goals Goal(s): Diagnostic testing, Therapeutic intervention Activity Recommendations Activity Level: Assistance Required Therapies: Physical Therapy, Occupational Therapy . Additional Information Patient informed of condition: Yes Advance Directives: No (UNKNOWN) DNR: No (PATIENT IS A FULL CODE) Level of Care: Other ([facility]) Communicable Disease: No Prognosis: Stable Instructions / Follow-Up Instructions / Follow-Up PLEASE REFER TO SEPARATE MEDICAL RECONCILIATION SHEET FOR UPDATE MEDICATION LIST. PLEASE REFER TO ACCOMPANYING HOSPITAL DISCHARGE SUMMARY. Current Hospital Diet Patient's current hospital diet: AHA Diet (Heart Healthy), Diabetes Type 2 Diet Discharge Diet Recommended Diet: AHA Diet (Heart Healthy), Diabetes Type 2 Diet Pending Studies Studies pending at discharge: yes List of pending studies: PLEASE REFER TO SEPARATE MEDICAL RECONCILIATION SHEET FOR UPDATE MEDICATION LIST. PLEASE REFER TO ACCOMPANYING HOSPITAL DISCHARGE SUMMARY. Physician Orders On Transfer Special Precautions: PLEASE REFER TO SEPARATE MEDICAL RECONCILIATION SHEET FOR UPDATE MEDICATION LIST. PLEASE REFER TO ACCOMPANYING HOSPITAL DISCHARGE SUMMARY. Laboratory Results Hemoglobin A1c Test 03/24/17 08:47 Range/Units Estimated Average Glucose 151 mg/dl Hemoglobin A1c 6.9 H 4.5-5.6 % Medical Emergencies . Who to Call and When: Medical Emergencies: If at any time you feel your situation is an emergency, please call 911 immediately. . Non-Emergent Contact Non-Emergency issues call your: Primary Care Provider, Pearl Restorer Call Non-Emergent contact if: you have a fever, your pain is not controlled, your pain is worsening, you have any medication questions . . "Provider Documentation" section prepared by Edu Kaplan. . Core Measure Problem Core Measures: None
--- NOTE | 2017-06-07 19:29 | Discharge Summary ---
Discharge Summary Date of Service Jun 07, 2017. Discharge Summary Admission Date: Jun 07, 2017 at 04:04 Discharge Date: Jun 08, 2017 Discharge Disposition: Acute care facility Principal Diagnosis: FEVER IN THE SETTING OF CHRONIC BACTEREMIA, LVAD/PACEMAKER IN PLACE Secondary Diagnoses/Problems: PLEASE REFER TO HOSPITAL COURSE BELOW. Procedures: CHEST ONE VIEW PORTABLE CLINICAL HISTORY: Sepsis dyspnea COMPARISON STUDY: 04/21/2017 FINDINGS: Moderate cardiomegaly. Increased pulmonary vasculature. Diaphragms smooth. Permanent bipolar cardiac pacemaker/the bladder. Prior median sternotomy. PICC catheter ends. Cava. IMPRESSION: Mild congestive heart failure. The above report was generated using voice recognition software. It may contain grammatical, syntax or spelling errors. Electronically signed by: Chele Barreto M.D. 06/07/2017 6:56 AM Dictated Date/Time: 06/07/2017 6:55 AM Consultations: CARDIOLOGY, INFECTIOUS DISEASE Pending Studies/Follow-Up: PLEASE REFER TO SEPARATE MEDICAL RECONCILIATION SHEET FOR UPDATE MEDICATION LIST. PLEASE REFER TO HOSPITAL COURSE BELOW. Medication Reconciliation Continued Medications: Allopurinol (Zyloprim) 100 Mg Tab 100 MG PO DAILY, TAB Amiodarone HCl (Amiodarone HCl) 200 Mg Tab 200 MG PO DAILY Amlodipine Besylate (Amlodipine Besylate) 10 Mg Tab 10 MG PO DAILY, #90 Aspirin (Aspirin Ec) 81 Mg Tab 81 MG PO DAILY Carvedilol (Coreg) 12.5 Mg Tab 12.5 MG PO BIDM, TAB Cetirizine Hcl (Zyrtec) 10 Mg Tab 10 MG PO HS, TAB Colchicine (Colcrys) 0.6 Mg Tab 0.6 MG PO DAILY PRN for Gout Daptomycin (Daptomycin) 500 Mg Inj 1000 MG IV QAM Ergocalciferol (Vitamin D 18004 Unit) 50,000 Unit Cap 1 TAB PO [id number], CAP Ferrous Sulfate (Kp Ferrous Sulfate) 325 Mg Tab 325 MG PO BID, TAB 3 Refills Folic Acid (Folvite) 1 Mg Tab 1 MG PO DAILY, TAB Gabapentin (Gabapentin) 600 Mg Tab 600 MG PO TID Insulin Aspart (Novolog Flexpen) 100 Units/Ml Inj 7 UNITS SC AC, #30 Insulin Detemir (Levemir) 100 Units/Ml Inj 30 UNITS SC BID Levothyroxine Sodium (Synthroid) 150 Mcg Tab 150 MCG PO DAILY, TAB Magnesium Oxide (mg Supplement (Magnesium Oxide) 400 Mg Cap 400 MG PO TID Nystatin (Topical) (Nyamyc) 100,000 Unit/Gm Pow 1 APPLN TOP UD PRN for Affected Skin Folds Oxycodone HCl (Oxycodone HCl) 5 Mg Tab 5 MG PO Q4 PRN for Pain, #28 Potassium Chloride (Micro-K Ext Rel) 10 Meq Capcr 20 MEQ PO BID, CAP Pravastatin Sodium (Pravastatin Sodium) 40 Mg Tab 40 MG PO HS Spironolactone (Aldactone) 50 Mg Tab 50 MG PO QAM, TAB Tamsulosin HCl (Tamsulosin HCl) 0.4 Mg Cap 0.4 MG PO HS Torsemide (Demadex) 20 Mg Tab 20 MG PO DAILY PRN for , TAB Venlafaxine Hcl (Effexor Extended Rel) 150 Mg Capcr 150 MG PO DAILY, #30 Warfarin Sod (Jantoven) 10 Mg Tab 10 MG PO DAILY, TAB Discontinued Medications: Ceftriaxone Sod (Rocephin) 1 Gm Inj 2 GM IV QAM, VIAL Admission Information HPI (per Admitting provider): This is a 66 year old M with complicated cardiovascular history including the presence of Left Ventricular Assist Device for which patient follows primarily with [facility] and has been on 9 months of chronic antibiotics of daptomycin and ceftriaxone since September 2016 because of 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 Patient's symptoms appears to coincide with recent tooth pain of right lower jaw which started to be present several days ago. No recent dental procedures The emergency room provider contacted [facility] with corporate technical recruiter Dr. Barillas about having patient transferred there for further evaluation given history of LVAD care at [facility] however patient could not be transferred there due to inclement weather Patient admitted to hospitalist service at [facility] for fever workup and treatment Physical Exam (per Admitting): General Appearance: no apparent distress Head: normocephalic, atraumatic Eyes: normal inspection, EOMI, sclerae normal ENT: hearing grossly normal, + pertinent finding (poor dentition with multiple missing teeth and cavities in remaining teeth) Neck: supple, no JVD, trachea midline Respiratory/Chest: chest non-tender, lungs clear, normal breath sounds, no respiratory distress, no accessory muscle use Cardiovascular: no JVD, normal peripheral pulses, + pertinent finding ( paced rate, has pacemaker/defibrillator, LVAD) Abdomen/GI: normal bowel sounds, non tender, soft, no organomegaly, + pertinent finding (presence of LVAD) Back: normal inspection, no CVA tenderness, no muscle spasm, normal range of motion Extremities/Musculoskelatal: normal inspection, no calf tenderness, no pedal edema, normal range of motion Neurologic/Psych: disability coordinator II-XII nml as tested, alert, + pertinent finding (a) Skin: normal color, warm/dry Hospital Course FEVER IN THE SETTING OF CHRONIC BACTEREMIA, LVAD/PACEMAKER IN PLACE -On presentation to [facility] emergency room, the emergency room provider contacted [facility] with corporate technical recruiter Dr. 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 Aguilera recommend Imipenem, in place of Ceftriaxone continue Daptomycin discussed with patient's , she requests that antibiotic regimen be discussed with Dr. Ray in [place] discussed with Dr. Ray, she agrees with regimen of Dapto + Imipenem for now, if patient mary another fever, consider adding Ceftaroline 600mg IV q8- will need pharm consult - possible device infection, PICC line infection? antibiotic coverage noted above possible spine infection? patient reporting back pain as per Dr. Aguilera, may need imaging of the spine if persistent Poor dentition and recent lower jaw/tooth pain - possible infectious source - recommend possible referral to Oral Surgeon Presence of Pacemaker/Defibrillator Chronic CHF and Cardiomyopathy - evaluated by Cardiology Services remained euvolemic, no cardiac symptoims no further interventions at this time -continue aspirin, statin, coumadin, amiodarone, amlodipine, carvedilol continue spironolactinone, PRN Torsemide Diabetes on insulin - Pharmacy consulted - Levemir 24 units BID and ISS placed A fib - inr 2.1 - continue coumadin Hypothyroidism -Continue home dose levothyroxine Gout - continue Allopurinol 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 Discharge Instructions Discharge Instructions Date of Service Jun 07, 2017. Admission Reason for Admission: Fever, Lvad Present Discharge Discharge Diagnosis / Problem: FEVER, IN THE SETTING OF CHRONIC BACTEREMIA, LVAD Discharge Goals Goal(s): Diagnostic testing, Therapeutic intervention Activity Recommendations Activity Level: Assistance Required Therapies: Physical Therapy, Occupational Therapy . Additional Information Patient informed of condition: Yes Advance Directives: No (UNKNOWN) DNR: No (PATIENT IS A FULL CODE) Level of Care: Other ([facility]) Communicable Disease: No Prognosis: Stable Instructions / Follow-Up Instructions / Follow-Up PLEASE REFER TO SEPARATE MEDICAL RECONCILIATION SHEET FOR UPDATE MEDICATION LIST. PLEASE REFER TO ACCOMPANYING HOSPITAL DISCHARGE SUMMARY. Current Hospital Diet Patient's current hospital diet: AHA Diet (Heart Healthy), Diabetes Type 2 Diet Discharge Diet Recommended Diet: AHA Diet (Heart Healthy), Diabetes Type 2 Diet Pending Studies Studies pending at discharge: yes List of pending studies: PLEASE REFER TO SEPARATE MEDICAL RECONCILIATION SHEET FOR UPDATE MEDICATION LIST. PLEASE REFER TO ACCOMPANYING HOSPITAL DISCHARGE SUMMARY. Physician Orders On Transfer Special Precautions: PLEASE REFER TO SEPARATE MEDICAL RECONCILIATION SHEET FOR UPDATE MEDICATION LIST. PLEASE REFER TO ACCOMPANYING HOSPITAL DISCHARGE SUMMARY. Laboratory Results Hemoglobin A1c Test 03/24/17 08:47 Range/Units Estimated Average Glucose 151 mg/dl Hemoglobin A1c 6.9 H 4.5-5.6 % Medical Emergencies . Who to Call and When: Medical Emergencies: If at any time you feel your situation is an emergency, please call 911 immediately. . Non-Emergent Contact Non-Emergency issues call your: Primary Care Provider, Wire Stitcher Operator Call Non-Emergent contact if: you have a fever, your pain is not controlled, your pain is worsening, you have any medication questions . . "Provider Documentation" section prepared by Edu Kaplan. . Core Measure Problem Core Measures: None
[2017-06-07] MEDS ORDERED: PRAVASTATIN SOD 40 MG TAB PO SCH (21:00)
[2017-06-07] MEDS ORDERED: CETIRIZINE HCL 10 MG TAB PO SCH (21:00)
[2017-06-07] MEDS ORDERED: TAMSULOSIN HCL 0.4 MG CAP PO SCH (21:00)
[2017-06-08] MEDS: IMIPENEM/CILASTATIN IV 500 MG in DEXTROSE 5% 100ML 100 ML IV SCH ×3 (00:04→11:48)
[2017-06-08] MEDS ORDERED: INSULIN ASPART 100 UNITS/ML 3 ML PEN SC ONE (02:00)
[2017-06-08 04:00] VITALS: BP_SYST 102; PULSE 70; TEMP 36.5; O2SAT 97
[2017-06-08] MEDS: LEVOTHYROXINE 150 MCG TAB PO SCH (05:47)
[2017-06-08 07:51] LABS: BASO % 0.3 %; BASO ABS # 0.02 K/uL (0-0.2); EOS % 1.9 %; EOS ABS # 0.15 K/uL (0-0.5); HEMATOCRIT 39.3 % (42-52); HEMOGLOBIN 13.1 g/dL (14.0-18.0); IG# 0.03 K/uL (0.00-0.02); LYMPH % 12.8 %; LYMPH ABS # 0.99 K/uL (1.2-3.4); MEAN CELL VOLUME 94.7 fL (80-100); MEAN CORPUSCULAR HEMOGLOBIN 31.6 pg (25-34); MEAN CORPUSCULAR HGB CONC 33.3 g/dl (32-36); MEAN PLATELET VOLUME 10.6 fL (7.4-10.4); MONO % 8.8 %; MONO ABS # 0.68 K/uL (0.11-0.59); NEUT % 75.8 %; NEUT ABS # 5.89 K/uL (1.4-6.5); PLATELET COUNT 167 K/uL (130-400); RED CELL DISTRIBUTION WIDTH CV 14.8 % (11.5-14.5); RED CELL DISTRIBUTION WIDTH SD 51.4 fL (36.4-46.3); WHITE BLOOD COUNT 7.76 K/uL (4.8-10.8)
[2017-06-08 08:01] LABS: INR 2.1 (0.9-1.1)
[2017-06-08 08:03] VITALS: BP_SYST 101; PULSE 70; TEMP 36.3; O2SAT 96
[2017-06-08] MEDS: INSULIN DETEMIR FLEXPEN/FLEX TOUCH 100 UNITS/ML 3ML SC SCH (08:10)
[2017-06-08] MEDS: INSULIN ASPART 100 UNITS/ML 3 ML PEN SC SCH ×2 (08:12→11:53)
[2017-06-08] MEDS: MAGNESIUM OXIDE 400 MG TAB PO SCH ×2 (08:12→14:13)
[2017-06-08] MEDS: CARVEDILOL 12.5 MG TAB PO SCH (08:13)
[2017-06-08] MEDS: GABAPENTIN 600 MG TAB PO SCH ×2 (08:13→14:13)
[2017-06-08] MEDS: AMIODARONE 200 MG TAB PO SCH (08:13)
[2017-06-08] MEDS: VENLAFAXINE HCL XR 150 MG CAPXR PO SCH (08:14)
[2017-06-08] MEDS: FERROUS SULFATE 325 MG TAB PO SCH (08:14)
[2017-06-08] MEDS: SPIRONOLACTONE 25 MG TAB PO SCH (08:14)
[2017-06-08] MEDS: POTASSIUM CHLORIDE 20 MEQ TABCR PO SCH (08:15)
[2017-06-08] MEDS: ASPIRIN 81 MG ECTAB PO SCH (08:16)
[2017-06-08] MEDS: AMLODIPINE BESYLATE 5 MG TAB PO SCH (08:17)
[2017-06-08] MEDS: WARFARIN SOD 10 MG TAB PO SCH (08:17)
[2017-06-08 08:28] LABS: CALCIUM 8.3 mg/dl (8.5-10.1); CREATININE 1.07 mg/dl (0.60-1.40); POTASSIUM 4.2 mmol/L (3.5-5.1)
[2017-06-08] MEDS ORDERED: ALLOPURINOL 100 MG TAB PO SCH (09:00)
[2017-06-08] MEDS: DAPTOMYCIN IV SCH (09:51)
[2017-06-08 11:58] VITALS: BP_SYST 84; PULSE 70; TEMP 36.5; O2SAT 93
[2017-06-08] MEDS ORDERED: ACETAMINOPHEN 325 MG TAB PO PRN (14:30)
--- NOTE | 2017-06-08 15:45 | Progress Note ---
Medicine Progress Note Date & Time of Visit: Jun 08, 2017 at 15:31. Subjective seen resting in bed, comfortable, sleeping but easily rousable states he feels better than yesterday right tooth pain is better has mild frontal headache, no neck pain no chest pain, dyspnea, palpitations, dizziness no other symptoms Objective Last 8 Hrs Date Time Temp Pulse Resp B/P (MAP) Pulse Ox O2 Delivery O2 Flow Rate FiO2 06/08/17 12:00 Room Air 06/08/17 11:58 36.5 70 14 84/ (28) 93 Room Air 06/08/17 08:03 36.3 70 12 101/ (33) 96 Nasal Cannula 2.0 06/08/17 08:00 Nasal Cannula 2.0 Physical Exam: General- oriented x 3, not in distress, speaks in sentences with no effort Eyes- anicteric ENT- oropharynx clear still with no swelling/bleeding on the right lower jaw/teeth/gums Neck- supple, no JVD Lungs- clear breath sounds bilaterally, no rales, no wheezing Heart- regular rhythm; no murmur, normal rate Abdomen- normal bowel sounds, soft, nontender Extremities- no pretibial edema, no calf tenderness Neuro- alert, oriented x 3; no gross focal deficits Skin- warm & dry Laboratory Results: Last 24 Hours Test 06/07/17 16:27 06/07/17 20:47 06/08/17 02:07 06/08/17 07:08 Bedside Glucose 193 mg/dl 133 mg/dl 145 mg/dl 159 mg/dl Test 06/08/17 07:39 06/08/17 11:25 White Blood Count 7.76 K/uL Red Blood Count 4.15 M/uL Hemoglobin 13.1 g/dL Hematocrit 39.3 % Mean Corpuscular Volume 94.7 fL Mean Corpuscular Hemoglobin 31.6 pg Mean Corpuscular Hemoglobin Concent 33.3 g/dl Platelet Count 167 K/uL Mean Platelet Volume 10.6 fL Neutrophils (%) (Auto) 75.8 % Lymphocytes (%) (Auto) 12.8 % Monocytes (%) (Auto) 8.8 % Eosinophils (%) (Auto) 1.9 % Basophils (%) (Auto) 0.3 % Neutrophils # (Auto) 5.89 K/uL Lymphocytes # (Auto) 0.99 K/uL Monocytes # (Auto) 0.68 K/uL Eosinophils # (Auto) 0.15 K/uL Basophils # (Auto) 0.02 K/uL RDW Standard Deviation 51.4 fL RDW Coefficient of Variation 14.8 % Immature Granulocyte % (Auto) 0.4 % Immature Granulocyte # (Auto) 0.03 K/uL Prothrombin Time 22.2 SECONDS Prothromb Time International Ratio 2.1 Sodium Level 137 mmol/L Potassium Level 4.2 mmol/L Chloride Level 100 mmol/L Carbon Dioxide Level 33 mmol/L Anion Gap 4.0 mmol/L Blood Urea Nitrogen 13 mg/dl Creatinine 1.07 mg/dl Est Creatinine Clear Calc Drug Dose 89.5 ml/min Estimated GFR () 82.8 Estimated GFR (Non- 71.5 BUN/Creatinine Ratio 12.2 Random Glucose 160 mg/dl Calcium Level 8.3 mg/dl Bedside Glucose 211 mg/dl Assessment & Plan FEVER IN THE SETTING OF CHRONIC BACTEREMIA, LVAD/PACEMAKER IN PLACE -On presentation to [facility] emergency room, the emergency room provider contacted [facility] with die maker bench stamping Dr. 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 Aguilera recommend Imipenem, in place of Ceftriaxone continue Daptomycin discussed with patient's , she requests that antibiotic regimen be discussed with Dr. Ray in [place] discussed with Dr. Ray, she agrees with regimen of Dapto + Imipenem for now, if patient mary another fever, consider adding Ceftaroline 600mg IV q8- will need pharm consult - possible device infection, PICC line infection? antibiotic coverage noted above possible spine infection? patient reporting back pain as per Dr. Aguilera, may need imaging of the spine if persistent Poor dentition and recent lower jaw/tooth pain - possible infectious source - recommend possible referral to Oral Surgeon Presence of Pacemaker/Defibrillator Chronic CHF and Cardiomyopathy - evaluated by Cardiology Services remained euvolemic, no cardiac symptoims no further interventions at this time -continue aspirin, statin, coumadin, amiodarone, amlodipine, carvedilol continue spironolactinone, PRN Torsemide Diabetes on insulin - Pharmacy consulted - Levemir 24 units BID and ISS placed A fib - inr 2.1 - continue coumadin Hypothyroidism -Continue home dose levothyroxine Gout - continue Allopurinol 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 Increased pulmonary vasculature. Diaphragms smooth. Permanent bipolar cardiac pacemaker/the bladder. Prior median sternotomy. PICC catheter ends. Cava. IMPRESSION: Mild congestive heart failure. The above report was generated using voice recognition software. It may contain grammatical, syntax or spelling errors. Electronically signed by: Chele Barreto M.D. 06/07/2017 6:56 AM Dictated Date/Time: 06/07/2017 6:55 AM Current Inpatient Medications: Current Inpatient Medications Medications (Trade) Dose Ordered Sig/Jose Route Start Time Stop Time Status Last Admin Dose Admin Amiodarone HCl (Cordarone Tab) 200 mg DAILY PO 06/07/17 09:00 07/07/17 08:59 06/08/17 08:13 200 MG Aspirin (Ecotrin Tab) 81 mg DAILY PO 06/07/17 09:00 07/07/17 08:59 06/08/17 08:16 81 MG Carvedilol (Coreg Tab) 12.5 mg BIDM PO 06/07/17 07:30 07/07/17 07:59 06/08/17 08:13 12.5 MG Colchicine (Colchicine Tab) 0.6 mg DAILY PRN PO 06/07/17 04:15 07/07/17 04:14 Folic Acid (Folvite Tab) 1 mg DAILY PO 06/07/17 09:00 07/07/17 08:59 06/08/17 08:16 1 MG Levothyroxine Sodium (Synthroid Tab) 150 mcg DAILYBB PO 06/07/17 06:00 07/07/17 05:59 06/08/17 05:47 150 MCG Potassium Chloride (Klor-Con Tab) 20 meq BID PO 06/07/17 09:00 07/07/17 08:59 06/08/17 08:15 20 MEQ Pravastatin Sodium (Pravachol Tab) 40 mg HS PO 06/07/17 21:00 07/07/17 20:59 06/07/17 20:53 40 MG Tamsulosin HCl (Flomax Cap) 0.4 mg HS PO 06/07/17 21:00 07/07/17 20:59 06/07/17 20:52 0.4 MG Venlafaxine HCl (effeXOR EXTENDED REL CAP) 150 mg DAILY PO 06/07/17 09:00 07/07/17 08:59 06/08/17 08:14 150 MG Warfarin Sodium (Coumadin Tab) 10 mg DAILY PO 06/07/17 09:00 07/07/17 08:59 06/08/17 08:17 10 MG Amlodipine Besylate (Norvasc Tab) 10 mg QAM PO 06/07/17 09:00 07/07/17 08:59 06/08/17 08:17 10 MG Ferrous Sulfate (Feosol Tab) 325 mg BIDM PO 06/07/17 07:30 07/07/17 07:29 06/08/17 08:14 325 MG Magnesium Oxide (Mag-Ox Tab) 400 mg TID PO 06/07/17 09:00 07/07/17 08:59 06/08/17 14:13 400 MG Spironolactone (Aldactone Tab) 50 mg DAILY PO 06/07/17 09:00 07/07/17 08:59 06/08/17 08:14 50 MG Daptomycin 1000 mg/Syringe 20 ml @ 10 mls/min DAILY@1000 IV 06/07/17 10:00 06/21/17 09:59 06/08/17 09:51 10 MLS/MIN Glucose (Glucose 40% Gel) 15-30 GRAMS 15 GRAMS... UD PRN PO 06/07/17 06:45 07/07/17 06:44 Glucose (Glucose Chew Tab) 4-8 Tablets 4 Tabl... UD PRN PO 06/07/17 06:45 07/07/17 06:44 Dextrose (Dextrose 50% 50ML Syringe) 25-50ML OF 50% DW IV FOR... UD PRN IV 06/07/17 06:45 07/07/17 06:44 Glucagon (Glucagon Inj) 1 mg UD PRN SQ 06/07/17 06:45 07/07/17 06:44 Imipenem/ Cilastatin Sodium 500 mg/Dextrose 110 ml @ 100 mls/hr Q6H IV 06/07/17 12:00 06/17/17 11:59 06/08/17 11:48 100 MLS/HR Miscellaneous Information (Consult Glycemic Management Pharmacy) 1 ea UD PRN N/A 06/07/17 12:45 07/07/17 12:44 Insulin Aspart (novoLOG ASPART) SLIDING SCALE If C... ACHS SC 06/07/17 12:45 07/07/17 12:44 06/08/17 11:53 10 UNITS Glucose (Glucose 40% Gel) 15-30 GRAMS 15 GRAMS... UD PRN PO 06/07/17 12:45 07/07/17 12:44 Glucose (Glucose Chew Tab) 4-8 Tablets 4 Tabl... UD PRN PO 06/07/17 12:45 07/07/17 12:44 Dextrose (Dextrose 50% 50ML Syringe) 25-50ML OF 50% DW IV FOR... UD PRN IV 06/07/17 12:45 07/07/17 12:44 Glucagon (Glucagon Inj) 1 mg UD PRN SQ 06/07/17 12:45 07/07/17 12:44 Allopurinol (Zyloprim Tab) 100 mg DAILY PO 06/08/17 09:00 07/08/17 08:59 06/08/17 08:15 100 MG Cetirizine HCl (zyrTEC TAB) 10 mg HS PO 06/07/17 21:00 07/07/17 20:59 06/07/17 20:54 10 MG Gabapentin (Neurontin Tab) 600 mg TID PO 06/07/17 14:00 07/07/17 13:59 06/08/17 14:13 600 MG Torsemide (Demadex Tab) 20 mg DAILY PRN PO 06/07/17 12:45 4/20/18 12:44 Oxycodone HCl (Roxicodone Immediate Rel Tab) 5 mg Q4H PRN PO 06/07/17 12:45 06/21/17 12:44 06/07/17 13:25 5 MG Insulin Detemir (Levemir Flexpen/ FlexTouch) 24 units BID SC 06/07/17 13:00 07/07/17 12:59 06/08/17 08:10 24 UNITS Hydromorphone HCl (Dilaudid Inj) 0.5 mg Q4H PRN IV 06/07/17 15:30 06/21/17 15:29 06/07/17 21:00 0.5 MG Acetaminophen (Tylenol Tab) 650 mg Q4H PRN PO 06/08/17 14:30 07/08/17 14:29 06/08/17 15:12 650 MG
[2017-06-08 16:06] VITALS: BP_SYST 90; PULSE 76; TEMP 36.8; O2SAT 92
[2017-06-08] MEDS: HYDROmorphone INJ 0.5 MG/0.5 ML SYR IV PRN (16:55)
== END 2017-06-08 17:08 | disposition short-term general hospital (02) | DRG 872 ==
LOC: EDBD 23:57 → C.EDA 06-07 00:01 → C.2E 06-07 04:04 → ENRESERV 06-07 04:22
PROVIDERS: ADMIT Hospitalist; ATTEND Internal Medicine
DX: R78.81 Bacteremia (principal); I50.22 Chronic systolic (congestive) heart failure; I42.0 Dilated cardiomyopathy; Z95.811 Presence of heart assist device; R50.81 Fever presenting with conditions classified elsewhere; B95.8 Unspecified staphylococcus as the cause of diseases classified elsewhere; K08.89 Other specified disorders of teeth and supporting structures; R59.0 Localized enlarged lymph nodes; I34.0 Nonrheumatic mitral (valve) insufficiency; I11.0 Hypertensive heart disease with heart failure; E11.9 Type 2 diabetes mellitus without complications; I48.91 Unspecified atrial fibrillation; E03.9 Hypothyroidism, unspecified; E87.5 Hyperkalemia; M10.9 Gout, unspecified; G89.29 Other chronic pain; M54.9 Dorsalgia, unspecified; F32.9 Major depressive disorder, single episode, unspecified; G47.33 Obstructive sleep apnea (adult) (pediatric); E66.9 Obesity, unspecified; Z68.35 Body mass index [BMI] 35.0-35.9, adult; Z16.24 Resistance to multiple antibiotics; Z95.810 Presence of automatic (implantable) cardiac defibrillator; Z79.2 Long term (current) use of antibiotics; Z79.4 Long term (current) use of insulin; Z79.01 Long term (current) use of anticoagulants; Z79.82 Long term (current) use of aspirin; Z79.899 Other long term (current) drug therapy

== ENCOUNTER 2017-07-23 13:04 | Emergency (ER) | payer OTHER, MEDICARE ==
[~2017-07-23] VITALS: Ht 154.9 cm; Wt 97.6 kg
[~2017-07-23 13:04] MED LIST changes: -INSU1INJ2 SC
[2017-07-23 13:08] VITALS: TEMP 37.1; Ht 154.9 cm; Wt 97.6 kg
[2017-07-23] MEDS ORDERED: VANCOMYCIN IV STA (13:25)
[2017-07-23] MEDS ORDERED: SODIUM CHLORIDE 0.9% IV STA (13:25)
[2017-07-23] MEDS ORDERED: VANCOMYCIN CONSULT ACTIVE PRN (13:30)
[2017-07-23] MEDS ORDERED: HYDROmorphone INJ 0.5 MG/0.5 ML SYR IV STA ×2 (13:32→14:59)
--- NOTE | 2017-07-23 13:50 | EMERGENCY ROOM VISIT NOTE ---
ED Visit Note First contact with patient: 13:07 CHIEF COMPLAINT: Positive blood cultures HISTORY OF PRESENTING ILLNESS: This is a 66-year-old male with past medical history significant for LVAD placement secondary to cardiomyopathy and heart failure, pacemaker and AICD, hypertension, diabetes, who presents to the emergency department with complaint of positive blood cultures. Patient states that he was called today by his physician noting blood cultures from 07/19 that are positive for coagulase-negative staph. The patient has been having an ongoing LVAD driveline infection since 2015, he has been in and out of the hospital on IV antibiotics ceftriaxone and daptomycin through a PICC line. He was most recently admitted to [facility] last month, where he did get off of the IV antibiotics and was switched to oral Tedizolid, had his PICC line removed, and was discharged on 07/02. Patient was doing well at home until the past few days when he started to have decreased energy and fatigue, and some low-grade fevers. Patient did also recently have dental surgery for removal of all of his teeth secondary to dental abscesses the end of May into the beginning of June. Patient is followed by the heart failure service at [facility] for his LVAD and is also followed by Dr. Ray with ID at [facility]. Patient and his state that they were sent in to get started on IV antibiotics and that he should be transferred back to [facility] for further management. Patient is on Coumadin, states his most recent INR on 07/19 was therapeutic. He does complain of some low back and buttock pain which he states seems to flare up when he has an infection, he is requesting something for pain. Patient denies any headaches, neck pain or stiffness, chest pain, shortness of breath, abdominal pain, nausea or vomiting, diarrhea or constipation, blood in the stool, blood in the urine, dysuria or urinary frequency, or unusual rash. He denies any unusual bruising or bleeding. REVIEW OF SYSTEMS: A complete 10 point review of systems was reviewed with the patient with pertinent positives and negatives as per history of present illness. All else were negative. PAST MEDICAL HISTORY: Reviewed in chart. SOCIAL HISTORY: Lives at home with his . Denies tobacco use. ALLERGIES: Reviewed in chart. PHYSICAL EXAM: CONSTITUTIONAL: Pleasant and cooperative. No acute distress, but appears uncomfortable. Slightly pale. Well-hydrated and well-nourished. HEENT: Normocephalic, atraumatic. Pupils equal, round and reactive to light, EOMI. TMs normal. Pharynx normal. Moist mucous membranes. NECK: Supple, full active range of motion without discomfort. 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 No cervical adenopathy. LUNGS: Clear to auscultation bilaterally with no wheezing, crackles, rhonchi or stridor. Equal expansion bilaterally. CARDIOVASCULAR: Significantly diminished heart sounds. LVAD hum. No murmurs, rubs or gallops. Normal peripheral perfusion. No edema. ABDOMEN: Soft, nontender, nondistended. No palpable masses or HSM. Bowel sounds present in all quadrants. LVAD driveline site on the right mid abdomen appears intact, no erythema, swelling, or drainage noted. Driveline dressing changed today at 11 AM. MUSCULOSKELETAL: Full range of motion of all joints without discomfort. INTEGUMENTARY: No rash or other significant dermatologic conditions noted. NEUROLOGIC: Alert and oriented X 4 with normal affect. Normal strength and sensation in all 4 extremities. No focal neurologic deficits noted. Normal speech. Normal gait observed. ED COURSE AND MEDICAL DECISION MAKING: CC: Patient presenting with complaint of positive blood cultures DIFFERENTIAL DIAGNOSIS: Includes, but not limited to sepsis/bacteremia, driveline infection, congestive heart failure, pneumonia, among others. INTERPRETATION OF LABS: No leukocytosis, anemia, hyperglycemia, no other significant electrolyte abnormalities, normal renal function, normal liver enzymes. Coagulation factors therapeutic. Lactic acid within normal limits. VBG within normal limits. Blood cultures 2 pending. IMAGIN view chest x-ray reviewed by myself and radiologist and shows stable cardiomegaly with no evidence of pneumonia, pleural effusion, or significant pulmonary edema by my interpretation. EKG: Shows an AV paced rhythm at 70 bpm, no acute ischemic changes noted, and no significant changes when compared to previous EKG from 06/07/2017 by my interpretation. MEDICATION RECONCILIATION: I attest that I have personally reviewed the patient 's current medication list. INITIAL VITAL SIGNS REVIEW: I reviewed the patient's initial vital signs and interpret them as follows: T: Afebrile; BP: Normotensive; HR: Within normal limits; RR: Within normal limits; Pulse Ox: Within normal limits on room. Blood pressure screening: The patient was found to have normal blood pressure on screening and does not require follow-up for repeat blood pressure check. SUMMARY: Patient was evaluated at bedside, history and physical exam performed. Patient is alert and oriented, in no acute distress but does appear uncomfortable, resting calmly in the stretcher. No obvious signs of infection at the LVAD driveline site. EKG reviewed at bedside, shows an AV paced rhythm. Orders were placed at bedside for labs, blood cultures 2, lactic acid, IV placement, chest x-ray to evaluate for cardiopulmonary disease. IV vancomycin was ordered to cover for the positive blood cultures. IV Dilaudid ordered for patient's complaint of lower back and buttock pain. Patient discussed with Dr. Guardado, who agrees with my assessment and plan. Labs and imaging reviewed as above. I spoke on the phone with Dr. Manzano, senior integration developer with the heart failure service at [facility], who agrees to accept the patient as a transfer for direct admission. Patient reassessed multiple times throughout ED stay, he remained stable and without complaint. He states his pain is improved after the IV Dilaudid. Patient and his were updated on all results and plan for transfer to [facility], they verbalized understanding and were in agreement to this plan. Patient was transferred in stable condition. Problem List Medical Problems: (1) SHAW'S PALSY Status: Resolved (2) Benign hypertension Status: Chronic (3) Cardiomyopathy Status: Chronic (4) CHRONIC SYSTOLIC HRT FAILURE Status: Chronic (5) Diabetes mellitus Status: Chronic (6) Diabetes mellitus type 2 Status: Chronic (7) Gout Status: Chronic (8) Heart disease Status: Chronic (9) Heart failure Status: Chronic (10) Hyperlipidemia Status: Chronic (11) Hypothyroidism Status: Chronic (12) Pneumonia Status: Chronic (13) Prolonged QT interval Status: Chronic (14) TIA (transient ischemic attack) Status: Resolved Surgical Problems: (1) Implantation of automatic cardioverter/defibrillator, total system Status: Resolved (2) Implantation of cardiac pacemaker Status: Resolved (3) LVAD placement Status: Resolved Current/Historical Medications Scheduled Allopurinol (Zyloprim), 100 MG PO DAILY Amiodarone HCl (Amiodarone HCl), 200 MG PO DAILY Amlodipine Besylate (Amlodipine Besylate), 10 MG PO DAILY Aspirin (Aspirin Ec), 81 MG PO DAILY Carvedilol (Coreg), 12.5 MG PO BIDM Cetirizine Hcl (Zyrtec), 10 MG PO HS Docusate Sodium (Docusate Sodium), 1 CAP PO DAILY Ergocalciferol (Vitamin D 24704 Unit), 1 TAB PO [id number] Ferrous Sulfate (Kp Ferrous Sulfate), 325 MG PO BID Folic Acid (Folvite), 1 MG PO DAILY Gabapentin (Gabapentin), 600 MG PO TID Insulin Aspart (Novolog Flexpen), 7 UNITS SC AC Insulin Detemir (Levemir), 24 UNITS SC BID Levothyroxine Sodium (Synthroid), 150 MCG PO DAILY Magnesium Oxide (mg Supplement (Magnesium Oxide), 400 MG PO TID Potassium Chloride (Micro-K Ext Rel), 20 MEQ PO BID Pravastatin Sodium (Pravastatin Sodium), 40 MG PO HS Spironolactone (Aldactone), 50 MG PO QAM Tamsulosin HCl (Tamsulosin HCl), 0.4 MG PO HS Venlafaxine Hcl (Effexor Extended Rel), 150 MG PO DAILY Warfarin Sod (Jantoven), 10 MG PO DAILY Scheduled PRN Colchicine (Colcrys), 0.6 MG PO DAILY PRN for Gout Nystatin (Topical) (Nyamyc), 1 APPLN TOP UD PRN for Affected Skin Folds Oxycodone HCl (Oxycodone HCl), 5 MG PO Q4 PRN for Pain Torsemide (Demadex), 20 MG PO DAILY PRN for Allergies Coded Allergies: Heparin (Verified Adverse Reaction, Severe, HIT, 06/07/17) Vital Signs Date Time Temp Pulse Resp B/P (MAP) Pulse Ox O2 Delivery O2 Flow Rate FiO2 07/23/17 15:40 71 16 121/91 94 07/23/17 15:21 71 16 121/91 95 Room Air 07/23/17 14:34 68 21 96 07/23/17 14:04 70 16 95 07/23/17 13:58 133/91 07/23/17 13:34 70 16 95 07/23/17 13:09 70 07/23/17 13:08 37.1 70 19 123/83 95 Room Air 07/23/17 13:07 123/83 Laboratory Results 07/23/17 13:45 Red Blood Count 3.75, Mean Corpuscular Volume 87.2, Mean Corpuscular Hemoglobin 28.3, Mean Corpuscular Hemoglobin Concent 32.4, Mean Platelet Volume 10.2, Neutrophils (%) (Auto) 77.7, Lymphocytes (%) (Auto) 9.3, Monocytes (%) (Auto) 10.2, Eosinophils (%) (Auto) 2.0, Basophils (%) (Auto) 0.4, Neutrophils # (Auto ) 8.23, Lymphocytes # (Auto) 0.99, Monocytes # (Auto) 1.08, Eosinophils # (Auto ) 0.21, Basophils # (Auto) 0.04 07/23/17 13:45 Test 07/23/17 13:45 07/23/17 14:05 White Blood Count 10.59 K/uL (4.8-10.8) Red Blood Count 3.75 M/uL (4.7-6.1) Hemoglobin 10.6 g/dL (14.0-18.0) Hematocrit 32.7 % (42-52) Mean Corpuscular Volume 87.2 fL (80-100) Mean Corpuscular Hemoglobin 28.3 pg (25-34) Mean Corpuscular Hemoglobin Concent 32.4 g/dl (32-36) Platelet Count 256 K/uL (130-400) Mean Platelet Volume 10.2 fL (7.4-10.4) Neutrophils (%) (Auto) 77.7 % Lymphocytes (%) (Auto) 9.3 % Monocytes (%) (Auto) 10.2 % Eosinophils (%) (Auto) 2.0 % Basophils (%) (Auto) 0.4 % Neutrophils # (Auto) 8.23 K/uL (1.4-6.5) Lymphocytes # (Auto) 0.99 K/uL (1.2-3.4) Monocytes # (Auto) 1.08 K/uL (0.11-0.59) Eosinophils # (Auto) 0.21 K/uL (0-0.5) Basophils # (Auto) 0.04 K/uL (0-0.2) RDW Standard Deviation 46.3 fL (36.4-46.3) RDW Coefficient of Variation 14.6 % (11.5-14.5) Immature Granulocyte % (Auto) 0.4 % Immature Granulocyte # (Auto) 0.04 K/uL (0.00-0.02) Prothrombin Time 22.1 SECONDS (9.0-12.0) Prothromb Time International Ratio 2.1 (0.9-1.1) Activated Partial Thromboplast Time 36.4 SECONDS (21.0-31.0) Partial Thromboplastin Ratio 1.4 Anion Gap 6.0 mmol/L (3-11) Est Creatinine Clear Calc Drug Dose 82.5 ml/min Estimated GFR () 82.8 Estimated GFR (Non- 71.5 BUN/Creatinine Ratio 16.4 (10-20) Lactic Acid Level 1.3 mmol/L (0.4-2.0) Calcium Level 8.3 mg/dl (8.5-10.1) Total Bilirubin 0.3 mg/dl (0.2-1) Direct Bilirubin < 0.1 mg/dl (0-0.2) Aspartate Amino Transf (AST/SGOT) 29 U/L (15-37) Alanine Aminotransferase (ALT/SGPT) 37 U/L (12-78) Alkaline Phosphatase 70 U/L (45-117) Total Protein 7.4 gm/dl (6.4-8.2) Albumin 3.6 gm/dl (3.4-5.0) Venous Blood pH 7.43 (7.36-7.41) Venous Blood Partial Pressure CO2 43 mmHg (38.0-50.0) Venous Blood Partial Pressure O2 55 mmHg Venous Blood HCO3 28 mmol/L Venous Blood Oxygen Saturation 86.9 % Venous Blood Base Excess 3.0 mEq/L Medications Administered Medications (Trade) Dose Ordered Sig/Jose Route Start Time Stop Time Status Last Admin Dose Admin Vancomycin HCl 2400 mg/Sodium Chloride 548 ml @ 200 mls/hr ONE STAT IV 07/23/17 13:25 07/23/17 16:09 DC 07/23/17 14:00 200 MLS/HR Hydromorphone HCl (Dilaudid Inj) 0.5 mg NOW STAT IV 07/23/17 13:32 07/23/17 13:33 DC 07/23/17 14:07 0.5 MG Sodium Chloride 250 ml @ 10 mls/hr Q24H ONCE IV 07/23/17 15:00 07/23/17 16:58 DC 07/23/17 15:16 10 MLS/HR Hydromorphone HCl (Dilaudid Inj) 0.5 mg NOW STAT IV 07/23/17 14:59 07/23/17 15:00 DC 07/23/17 15:13 0.5 MG Departure Information Impression Primary Impression: Positive blood cultures Additional Impression: Left ventricular assist device (LVAD) complication Dispostion Transfer Acute Care Facility Condition [facility] Referrals Graham Rojas MD (PCP) Patient Instructions My [facility] Problem Qualifiers Additional Impression: Left ventricular assist device (LVAD) complication Encounter type: subsequent encounter Qualified Codes: T82.9XXD - Unspecified complication of cardiac and vascular prosthetic device, implant and graft, subsequent encounter
--- NOTE | 2017-07-23 13:59 | DIAGNOSTIC IMAGING REPORT ---
CHEST ONE VIEW PORTABLE HISTORY: 66 years-old Male Evaluate Fever/Sepsis acute fever and sepsis COMPARISON: Chest radiograph 06/07/2017 TECHNIQUE: Portable AP view of the chest FINDINGS: Cardiac silhouette is again enlarged. Prior median sternotomy with left subclavian pacer/AICD and left ventricular assist device appear unchanged. Status post removal of the right-sided PICC. No pneumothorax, pleural effusion, focal airspace consolidation or overt pulmonary edema. Degenerative changes of the shoulders and spine. IMPRESSION: Cardiomegaly without acute process. The above report was generated using voice recognition software. It may contain grammatical, syntax or spelling errors. Electronically signed by: Johnathan Pastor M.D. 07/23/2017 1:58 PM Dictated Date/Time: 07/23/2017 1:56 PM
[2017-07-23 14:03] LABS: BASO % 0.4 %; BASO ABS # 0.04 K/uL (0-0.2); EOS ABS # 0.21 K/uL (0-0.5); HEMATOCRIT 32.7 % (42-52); HEMOGLOBIN 10.6 g/dL (14.0-18.0); IG# 0.04 K/uL (0.00-0.02); LYMPH % 9.3 %; LYMPH ABS # 0.99 K/uL (1.2-3.4); MEAN CELL VOLUME 87.2 fL (80-100); MEAN CORPUSCULAR HEMOGLOBIN 28.3 pg (25-34); MEAN CORPUSCULAR HGB CONC 32.4 g/dl (32-36); MEAN PLATELET VOLUME 10.2 fL (7.4-10.4); MONO % 10.2 %; MONO ABS # 1.08 K/uL (0.11-0.59); NEUT % 77.7 %; NEUT ABS # 8.23 K/uL (1.4-6.5); PLATELET COUNT 256 K/uL (130-400); RED CELL DISTRIBUTION WIDTH CV 14.6 % (11.5-14.5); RED CELL DISTRIBUTION WIDTH SD 46.3 fL (36.4-46.3); WHITE BLOOD COUNT 10.59 K/uL (4.8-10.8)
[2017-07-23 14:15] LABS: INR 2.1 (0.9-1.1); PTT PATIENT 36.4 SECONDS (21.0-31.0)
[2017-07-23 14:30] LABS: ALBUMIN 3.6 gm/dl (3.4-5.0); ALT/SGPT 37 U/L (12-78); AST/SGOT 29 U/L (15-37); BLOOD UREA NITROGEN 18 mg/dl (7-18); CALCIUM 8.3 mg/dl (8.5-10.1); CARBON DIOXIDE 28 mmol/L (21-32); CREATININE 1.07 mg/dl (0.60-1.40); GLUCOSE 232 mg/dl (70-99); POTASSIUM 4.1 mmol/L (3.5-5.1); SODIUM 137 mmol/L (136-145)
[2017-07-23 14:33] LABS: ALKALINE PHOSPHATASE 70 U/L (45-117); TOTAL PROTEIN 7.4 gm/dl (6.4-8.2)
[2017-07-23] MEDS ORDERED: DOCU100C31 PO (14:46)
[2017-07-23] MEDS ORDERED: SODIUM CHLORIDE 0.9% 250ML 250 ML IV ONE (15:00)
[2017-07-23 15:40] VITALS: BP 121/91; PULSE 71; O2SAT 94
--- NOTE | 2017-07-23 21:03 | EMERGENCY ROOM VISIT NOTE ---
ED Visit Note First contact with patient: 13:07 I have personally evaluated this patient examined her and reviewed the pertinent labs and data. I have discussed the case with ALICIA Amador and agree with the plan. Please refer to the PA note. This patient was sent over from his doctor's office after having positive blood cultures. He has a very complicated medical history and has an LVAD. He has had problems with driveline infections. We did start him on IV vancomycin here and have talked to [place] and he will be transferred to [place] for further inpatient treatment and evaluation. He is afebrile here and his white count is not significant elevated. On my exam, he appears comfortable. The driveline is not red and there is no pus drainage. He has no abdominal tenderness. He was transferred to [facility] for further inpatient treatment and evaluation of his infection.
== END 2017-07-23 15:40 | disposition short-term general hospital (02) ==
LOC: EDBD 13:04 → C.EDA 13:05
DX: T82.9XXD Unspecified complication of cardiac and vascular prosthetic device, implant and graft, subsequent encounter (principal); Y83.1 Surgical operation with implant of artificial internal device as the cause of abnormal reaction of the patient, or of later complication, without mention of misadventure at the time of the procedure; I11.0 Hypertensive heart disease with heart failure; E11.9 Type 2 diabetes mellitus without complications; Z79.01 Long term (current) use of anticoagulants; I50.22 Chronic systolic (congestive) heart failure; E03.9 Hypothyroidism, unspecified; M10.9 Gout, unspecified; Z95.810 Presence of automatic (implantable) cardiac defibrillator; Z79.4 Long term (current) use of insulin; Z79.899 Other long term (current) drug therapy; E78.5 Hyperlipidemia, unspecified; Z88.8 Allergy status to other drugs, medicaments and biological substances

== ENCOUNTER → 2017-10-26 | Outpatient (CLI) | payer OTHER, MEDICARE ==
[~2017-10-26] MED LIST changes: +AMIO200T4 PO; +AMLO10TA3 PO; -CARV12.5 PO; +CARV12.52 PO; -CEFT1INJ57 IV; -CETI10TA10 PO; -CRD200 PO; -DAPT500I IV; +DOCU-94 PO; -EFFSR150 PO; -ERGO500011 PO; +ERGO500037 PO; -FERR1TAB13 PO; +FERR1TAB23 PO; +FLUT1SPR12 NAE; +HYDR-4717 PO; -LEVO150T PO; +LEVO150T9 PO; -MAGN400C3 PO; +MAGN400T6 PO; -NRV/10 PO; +NVLG SC; -NVLGI/PEN SC; -NYST100016 TOP; +NYST100033 TOP; -OXYC-609 PO; -POTA10CA28 PO; +POTA20TA13 PO; -PRAV40TA2 PO; +PRVC40 PO; +RXC/5 PO; -TORS20TA2 PO; +TORS20TA3 PO; +VENL150C56 PO; +WARF-246 PO; +WARF-281 PO; -WARF10TA4 PO
[2017-10-26 11:07] LABS: BLOOD UREA NITROGEN 17 mg/dl (7-18); CALCIUM 7.8 mg/dl (8.5-10.1); CARBON DIOXIDE 38 mmol/L (21-32); CREATININE 1.24 mg/dl (0.60-1.40); GLUCOSE 226 mg/dl (70-99); POTASSIUM 2.8 mmol/L (3.5-5.1); SODIUM 139 mmol/L (136-145)
== END | disposition home or self-care (01) ==
LOC: C.MTU 09:25
PROVIDERS: ATTEND Internal Medicine
DX: E87.6 Hypokalemia (principal)

== ENCOUNTER 2018-05-08 10:12 | Inpatient (IN) ==
--- NOTE | 2018-05-08 11:16 | XRay Report ---
XR chest 1V portable HISTORY: 67 years-old Male weakness acute weakness COMPARISON: Chest radiograph 04/23/2017, chest CT 01/27/2018 TECHNIQUE: Portable AP view of the chest FINDINGS: Cardiac silhouette is enlarged, unchanged. Stable positioning of left subclavian pacer/AICD. Prior me emma sternotomy. The superior most sternotomy wire is fractured, unchanged. Left ventricular assist d evice redemonstrated. Right internal jugular catheter redemonstrated, distal tip within the region of the right atrium. There is no pneumothorax, large pleural effusion, focal airspace consolidation or overt pulmonary edema. Mild blunting of the left costophrenic angle suggestive of atelectasis or trac e effusion. The bones of the chest appear grossly intact. IMPRESSION: No acute process. The above report was generated using voice recognition software. It may contain grammatical, syntax o r spelling errors. Electronically signed by: Johnathan Pastor M.D. 05/08/2018 11:15 AM
[2018-05-08 11:34] LABS: Basophils # (auto) 0.04 K/uL (0-0.2); Basophils % (auto) 0.6 %; Eosinophils # (auto) 0.23 K/uL (0-0.5); Eosinophils % (auto) 3.5 %; Hematocrit (blood only) 25.3 % (42-52); Hemoglobin 8.2 g/dL (14.0-18.0); Immature Granulocytes # (auto) 0.04 K/uL (0.00-0.02); Immature Granulocytes % (auto) 0.6 %; Lymphocytes % (auto) 15.3 %; Mean Corpuscular Hgb Conc 32.4 g/dL (32-36); Mean Corpuscular Volume 105.9 fL (80-100); Mean Platelet Volume 10.2 fL (7.4-10.4); Monocytes # (auto) 0.43 K/uL (0.11-0.59); Monocytes % (auto) 6.6 %; Neutrophils # (auto) 4.79 K/uL (1.4-6.5); Neutrophils % (auto) 73.4 %; Platelet Count 190 K/uL (130-400); RDW Coefficient of Variation 17.4 % (11.5-14.5); RDW Standard Deviation 67.1 fL (36.4-46.3); Red Blood Count 2.39 M/uL (4.7-6.1); White Blood Count 6.53 K/uL (4.8-10.8)
[2018-05-08 11:43] LABS: Albumin Level 3.3 gm/dl (3.4-5.0); BUN Creatinine Ratio 16.9 (10-20); Calcium 8.1 mg/dl (8.5-10.1); Creatinine Clr Calc Pharmacy 77.4 ml/min; Est GFR (African American) 74.6; Est GFR (Non-African American) 64.3
[2018-05-08 11:52] LABS: INR 2.3 (0.9-1.1); Prothrombin Time 22.4 Seconds (9.0-12.0)
[2018-05-08 11:53] LABS: Albumin Globulin Ratio 1.1 (0.9-2); Bilirubin,Total 0.3 mg/dl (0.2-1); Total Protein 6.3 gm/dl (6.4-8.2)
[2018-05-08 12:07] LABS: Anisocytosis Present; Polychromasia 1+; Toxic Granulation 1+
--- NOTE | 2018-05-08 14:21 | Emergency Department Note ---
Entered by Priscilla Davison acting as a scribe for Adeel Acevedo DO History of Present Illness General Chief complaint: Vertigo Time Seen by Provider: 05/08/18 10:33 Source: patient History of Present Illness Provider complaint: dizziness Onset (ago): day(s) (this morning) Location: head Pain Consistency: + other (episode) Quality: + other (dizziness) Associated symptoms: + other (Denies: chest pain, shortness of breath, fevers, any pain) The patient is a 67 year old male who presents to the Emergency Room with complaints of an episode of dizziness beginning this morning. He notes his dizziness began while getting out of the car, and has since resolved. The patient denies chest pain, shortness of breath, fevers, or any pain. He denies recent illness. The patient states he is receiving antibiotics for an infection. Home Medications Home Medications Medication Instructions Recorded Confirmed Type allopurinol 100 m PO DAILY 01/27/18 05/08/18 History amiodarone 200 mg PO DAILY 01/27/18 05/08/18 History amlodipine 10 mg PO DAILY 01/27/18 05/08/18 History aspirin 81 mg PO DAILY 01/27/18 05/08/18 History carvedilol 12.5 mg PO BID 01/27/18 05/08/18 History ceftriaxone 1 g IV DAILY 01/27/18 05/08/18 History colchicine 0.6 mg PO DAILY PRN 01/27/18 05/08/18 History daptomycin 1,200 mg IV DAILY 01/27/18 05/08/18 History ergocalciferol (vitamin D2) 0 unit PO DAILY 01/27/18 05/08/18 History ferrous sulfate 325 mg PO BID 01/27/18 05/08/18 History fluticasone [Flonase Allergy 2 spray INTRANASAL DAILY PRN 01/27/18 05/08/18 History Relief] folic acid 1 mg PO DAILY 01/27/18 05/08/18 History gabapentin 600 mg PO TID 01/27/18 05/08/18 History hydralazine 50 mg PO BID 01/27/18 05/08/18 History insulin aspart U-100 [Novolog 0 units SUBCUT UD 01/27/18 05/08/18 History Flexpen U-100 Insulin] insulin detemir U-100 [Levemir 25 units SUBCUT BID 01/27/18 05/08/18 History FlexTouch U-100 Insuln] levothyroxine 150 mcg PO DAILY 01/27/18 05/08/18 History magnesium oxide 400 mg PO TID 01/27/18 05/08/18 History nystatin 400,000 units PO QID PRN 01/27/18 05/08/18 History potassium chloride 20 meq PO BID 01/27/18 05/08/18 History pravastatin 40 mg PO QPM 01/27/18 05/08/18 History spironolactone 50 mg PO DAILY 01/27/18 05/08/18 History tamsulosin 0.4 mg PO QPM 01/27/18 05/08/18 History venlafaxine 150 mg PO HS 01/27/18 05/08/18 History warfarin 5 mg PO 2XWK 01/27/18 05/08/18 History warfarin 10 mg PO 5XWK 01/27/18 05/08/18 History Allergies Allergy/AdvReac Type Severity Reaction Status Date / Time heparin Allergy Severe Heparin Verified 05/08/18 11:06 Induced Thrombocytopenia Past Med/Surg History Medical History LVAD (left ventricular assist device) present (Acute) hx cardiomyopathy and heart failure Hx of acute myocardial infarction (Acute) denies - states he has never had Male genitourinary symptoms (Acute) enlarged prostate Blood dyscrasia (Acute) vitamin d deficiency Hypercholesteremia (Acute) CHF (congestive heart failure) (Acute) Heart disease (Acute) Thrombophlebitis (Acute) currently has one in right subclavian vein Diabetes mellitus, type 2 (Acute) uses insulin Anemia (Acute) Blood clotting disorder (Acute) Hypothyroidism (Acute) Prostatitis (Acute) denies Coag negative Staphylococcus bacteremia Currently is being treated daily with IV antibiotics Gout Hx of Aguilera's palsy Hx of TIA (transient ischemic attack) and stroke 01/16/2017 Seen in [facility] and [place] [facility] [place]: UTI (urinary tract infection) 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 and A total of 10 systems reviewed and were otherwise negative Physical Exam Vital Signs Vital Signs - 24 hr 05/08/18 10:19 05/08/18 10:20 05/08/18 10:21 Temperature Temperature Source Sepsis Recent Fever Within 48 Hours Sepsis Action Taken by Nursing Pulse Rate 70 70 70 Pulse Rate [Apical] Pulse Rate from SpO2 Sensor 69 70 70 Pulse Rhythm Pulse Rhythm [Apical] Pulse Strength [Apical] Respiratory Rate 16 24 11 L Respiratory Effort / Characteristics Respiratory Depth Blood Pressure 81/55 L Blood Pressure Mean 63 Pulse Oximetry 94 94 94 Oxygen Delivery Method 05/08/18 10:28 05/08/18 10:30 05/08/18 10:40 Temperature 36.7 C Temperature Source Oral Sepsis Recent Fever Within 48 Hours No Sepsis Action Taken by Nursing No Action Required Pulse Rate 70 70 70 Pulse Rate [Apical] Pulse Rate from SpO2 Sensor 69 70 Pulse Rhythm Pulse Rhythm [Apical] Pulse Strength [Apical] Respiratory Rate 20 20 13 Respiratory Effort / Characteristics Respiratory Depth Normal Blood Pressure 81/55 L Blood Pressure Mean 63 Pulse Oximetry 95 94 95 Oxygen Delivery Method Room Air 05/08/18 10:50 05/08/18 11:00 05/08/18 11:10 Temperature Temperature Source Sepsis Recent Fever Within 48 Hours Sepsis Action Taken by Nursing Pulse Rate 70 70 69 Pulse Rate [Apical] Pulse Rate from SpO2 Sensor 70 73 71 Pulse Rhythm Pulse Rhythm [Apical] Pulse Strength [Apical] Respiratory Rate 21 14 15 Respiratory Effort / Characteristics Respiratory Depth Blood Pressure Blood Pressure Mean 60 Pulse Oximetry 95 94 93 Oxygen Delivery Method 05/08/18 11:11 05/08/18 11:12 05/08/18 11:15 Temperature Temperature Source Sepsis Recent Fever Within 48 Hours Sepsis Action Taken by Nursing Pulse Rate 70 70 Pulse Rate [Apical] 70 Pulse Rate from SpO2 Sensor 70 Pulse Rhythm Regular Pulse Rhythm [Apical] Regular Pulse Strength [Apical] Normal Respiratory Rate 18 18 16 Respiratory Effort / Characteristics Non-Labored Respiratory Depth Normal Blood Pressure Blood Pressure Mean Pulse Oximetry 91 97 95 Oxygen Delivery Method Room Air Room Air 05/08/18 11:18 05/08/18 11:20 05/08/18 11:30 Temperature Temperature Source Sepsis Recent Fever Within 48 Hours Sepsis Action Taken by Nursing Pulse Rate 70 70 70 Pulse Rate [Apical] Pulse Rate from SpO2 Sensor 71 71 70 Pulse Rhythm Pulse Rhythm [Apical] Pulse Strength [Apical] Respiratory Rate 17 16 16 Respiratory Effort / Characteristics Respiratory Depth Blood Pressure 111/88 Blood Pressure Mean 95 Pulse Oximetry 94 95 94 Oxygen Delivery Method 05/08/18 11:31 05/08/18 11:35 05/08/18 11:40 Temperature Temperature Source Sepsis Recent Fever Within 48 Hours Sepsis Action Taken by Nursing Pulse Rate 70 70 69 Pulse Rate [Apical] Pulse Rate from SpO2 Sensor 70 70 70 Pulse Rhythm Pulse Rhythm [Apical] Pulse Strength [Apical] Respiratory Rate 15 17 17 Respiratory Effort / Characteristics Respiratory Depth Blood Pressure 120/90 120/90 Blood Pressure Mean 100 100 Pulse Oximetry 94 93 95 Oxygen Delivery Method 05/08/18 11:50 Temperature Temperature Source Sepsis Recent Fever Within 48 Hours Sepsis Action Taken by Nursing Pulse Rate 69 Pulse Rate [Apical] Pulse Rate from SpO2 Sensor 70 Pulse Rhythm Pulse Rhythm [Apical] Pulse Strength [Apical] Respiratory Rate 16 Respiratory Effort / Characteristics Respiratory Depth Blood Pressure Blood Pressure Mean Pulse Oximetry 95 Oxygen Delivery Method CONSTITUTIONAL/VITAL SIGNS: Reviewed / noted above. GENERAL: Non-toxic in appearance. INTEGUMENTARY: Warm, dry, and [place]. HEAD: Normocephalic. EYES: without scleral icterus or trauma. ENT/OROPHARYNX: clear and moist. LYMPHADENOPATHY/NECK: Is supple without lymphadenopathy or meningismus. RESPIRATORY: Lungs clear and equal. CARDIOVASCULAR: No peripheral pulses palpable. Continuous hum of LVAD present. GI/ABDOMEN: Soft and nontender. No organomegaly or pulsatile mass. No rebound or guarding. Normal bowel sounds. RECTAL: Guaiac positive black stools. EXTREMITIES: Warm and well perfused. BACK: No CVA tenderness. NEUROLOGICAL: Intact without focal deficits. PSYCHIATRIC: normal affect. MUSCULOSKELETAL: Normally developed with good muscle tone. Course 1035: Past medical records reviewed. The patient was evaluated in room B7, and a complete history and physical examination were performed. 1239: I reevaluated the patient and discussed his test results. 1253: Discussed the case with Dr. Mendoza, [facility]. He notes there are no beds for the patient at their facility. 1309: Reviewed the case with NERY Dumont, [facility] hospitalist. She will evaluate the patient, pending transfer to [facility]. Consultations Consultation #1: Dr. Mendoza, [facility] Time: 12:53 Consultation #2: [facility] Time: 13:09 Administered Medications Discontinued Medications Daptomycin 1,200 mg/ Syringe 24 mls @ 0 mls/min IV Q24H CAMILA; Protocol Stop: 05/10/18 10:59 Last Admin: 05/08/18 11:47 Dose: 12 mls/min Ceftriaxone Sodium 2,000 mg/ (Dextrose) 70 mls @ 100 mls/hr IV NOW STA Stop: 05/08/18 11:34 Last Admin: 05/08/18 11:50 Dose: 100 mls/hr Pantoprazole Sodium 80 mg/ (Dextrose) 120 mls @ 400 mls/hr IV NOW ONE Stop: 05/08/18 13:34 Last Admin: 05/08/18 13:58 Dose: 400 mls/hr Medical Decision Making Differential Diagnosis Etiologies such as benign positional vertigo, labrynthitis, dehydration, hypovolemia, anemia, tumor, infection, hypoglycemia, electrolyte abnormalities, cardiac sources, toxicological sources, central neurologic process, as well as others were entertained. Medical Records Attestation: I reviewed the patient's medical records. Home Medications Current Medication List: was personally reviewed by me Laboratory Data Attestation: I reviewed the patient's lab results. Result diagrams: 05/08/18 10:54 05/08/18 11:02 Lab Results 05/08/18 05/08/18 05/08/18 Range/Units 10:54 10:54 10:54 WBC 6.53 (4.8-10.8) K/uL RBC 2.39 L (4.7-6.1) M/uL Hgb 8.2 L (14.0-18.0) g/dL Hct 25.3 L (42-52) % MCV 105.9 H (80-100) fL MCH 34.3 H (25-34) pg MCHC 32.4 (32-36) g/dL RDW Std Deviation 67.1 H (36.4-46.3) fL RDW Coeff of [place] 17.4 H (11.5-14.5) % Plt Count 190 (130-400) K/uL MPV 10.2 (7.4-10.4) fL Immature Gran % (Auto) 0.6 % Neut % (Auto) 73.4 % Lymph % (Auto) 15.3 % [place] % (Auto) 6.6 % Eos % (Auto) 3.5 % Baso % (Auto) 0.6 % Immature Gran # (Auto) 0.04 H (0.00-0.02) K/uL Neut # (Auto) 4.79 (1.4-6.5) K/uL Lymph # (Auto) 1.00 L (1.2-3.4) K/uL [place] # (Auto) 0.43 (0.11-0.59) K/uL Eos # (Auto) 0.23 (0-0.5) K/uL Baso # (Auto) 0.04 (0-0.2) K/uL Toxic Granulation 1+ Polychromasia 1+ Anisocytosis Present PT 22.4 H (9.0-12.0) Seconds INR 2.3 H (0.9-1.1) Sodium (136-145) mmol/L Potassium (3.5-5.1) mmol/L Chloride (98-107) mmol/L Carbon Dioxide (21-32) mmol/L Anion Gap (3-11) BUN (7-18) mg/dl Creatinine (0.6-1.4) mg/dl Est Cr Clr Drug Dosing ml/min Est GFR ( Amer) Est GFR (Non-Af Amer) BUN/Creatinine Ratio (10-20) Glucose (70-99) mg/dl Lactate 1.1 (0.4-2.0) mmol/L Calcium (8.5-10.1) mg/dl Total Bilirubin (0.2-1) mg/dl AST (15-37) U/L ALT (12-78) U/L Alkaline Phosphatase (45-117) U/L Total Creatine Kinase (39-308) U/L Total Protein (6.4-8.2) gm/dl Albumin (3.4-5.0) gm/dl Globulin (2.5-4.0) gm/dl Albumin/Globulin Ratio (0.9-2) TSH (0.300-4.500) uIu/ml Blood Type Antibody Screen Crossmatch 05/08/18 05/08/18 Range/Units 11:02 13:17 WBC (4.8-10.8) K/uL RBC (4.7-6.1) M/uL Hgb (14.0-18.0) g/dL Hct (42-52) % MCV (80-100) fL MCH (25-34) pg MCHC (32-36) g/dL RDW Std Deviation (36.4-46.3) fL RDW Coeff of [place] (11.5-14.5) % Plt Count (130-400) K/uL MPV (7.4-10.4) fL Immature Gran % (Auto) % Neut % (Auto) % Lymph % (Auto) % [place] % (Auto) % Eos % (Auto) % Baso % (Auto) % Immature Gran # (Auto) (0.00-0.02) K/uL Neut # (Auto) (1.4-6.5) K/uL Lymph # (Auto) (1.2-3.4) K/uL [place] # (Auto) (0.11-0.59) K/uL Eos # (Auto) (0-0.5) K/uL Baso # (Auto) (0-0.2) K/uL Toxic Granulation Polychromasia Anisocytosis PT (9.0-12.0) Seconds INR (0.9-1.1) Sodium 140 (136-145) mmol/L Potassium 4.0 (3.5-5.1) mmol/L Chloride 104 (98-107) mmol/L Carbon Dioxide 32 (21-32) mmol/L Anion Gap 4.0 (3-11) BUN 20 H (7-18) mg/dl Creatinine 1.16 (0.6-1.4) mg/dl Est Cr Clr Drug Dosing 77.4 ml/min Est GFR ( Amer) 74.6 Est GFR (Non-Af Amer) 64.3 BUN/Creatinine Ratio 16.9 (10-20) Glucose 144 H (70-99) mg/dl Lactate (0.4-2.0) mmol/L Calcium 8.1 L (8.5-10.1) mg/dl Total Bilirubin 0.3 (0.2-1) mg/dl AST 35 (15-37) U/L ALT 41 (12-78) U/L Alkaline Phosphatase 44 L (45-117) U/L Total Creatine Kinase 117 (39-308) U/L Total Protein 6.3 L (6.4-8.2) gm/dl Albumin 3.3 L (3.4-5.0) gm/dl Globulin 3.0 (2.5-4.0) gm/dl Albumin/Globulin Ratio 1.1 (0.9-2) TSH 3.450 (0.300-4.500) uIu/ml Blood Type O Positive Antibody Screen NEGATIVE Crossmatch See Detail Imaging Data Radiologist's Impression: Radiology results as stated below per my review and the radiologist's interpretation: XR chest 1V portable HISTORY: 67 years-old Male weakness acute weakness COMPARISON: Chest radiograph 04/23/2017, chest CT 01/27/2018 TECHNIQUE: Portable AP view of the chest FINDINGS: Cardiac silhouette is enlarged, unchanged. Stable positioning of left subclavian pacer/AICD. Prior median sternotomy. The superior most sternotomy wire is fractured, unchanged. Left ventricular assist device redemonstrated. Right internal jugular catheter redemonstrated, distal tip within the region of the right atrium. There is no pneumothorax, large pleural effusion, focal airspace consolidation or overt pulmonary edema. Mild blunting of the left costophrenic angle suggestive of atelectasis or trace effusion. The bones of the chest appear grossly intact. IMPRESSION: No acute process. The above report was generated using voice recognition software. It may contain grammatical, syntax or spelling errors. Electronically signed by: Johnathan Pastor M.D. 05/08/2018 11:15 AM ECG Data Attestation: I personally reviewed and interpreted this ECG as follows: Indication: other (dizziness) Rate (beats per minute): 70 Rhythm: other (paced ventricular rhythm) Findings: no PAC, no PVC and no ST elevation Blood Pressure Blood Pressure Findings: Normal blood pressure Blood Pressure Disposition: did not require urgent referral MDM Narrative Is a 67-year-old male who presents to the ED with a planes of lightheadedness and some shortness of breath when he was going to the M to you to get antibiotics this morning. The patient is currently on IV antibiotics for a infection related to his LVAD. The patient, on exam denies any specific complaints. Denies any chest pains, shortness of breath or lightheadedness while sitting in the bed. He does appear slightly pale. The patient is noted to have a hemoglobin of 8.2 today. His stool is black and guaiac positive. His hemoglobin 8 days ago was 10.0. His INR is 2.3. He is on Coumadin. Complete metabolic panel was unremarkable and a chest x-ray was negative for acute disease. Lactic acid level was normal. I spoke with Dr. Fernandez from [facility]. At this time, they are unable to accept the patient as the are over capacity and the emergency department has at least 25 patients waiting for beds in the hospital. They state that it could be up to a day or more. Because of this, I spoke with the hospitalist here who will see the patient for further inpatient evaluation and care. Impression & Plan GI bleed, Anemia Discharge Plan Visit Data Chief Complaint: Vertigo ED Provider: Adeel Acevedo Discharge Problem: GI bleed, Anemia Patient Disposition: Being Evaluated by Hospitalist Condition: Good Forms Stand Alone Forms: My [facility] Prescriptions Prescriptions: No Action carvedilol 12.5 mg tablet 12.5 mg PO BID RF: 0 amiodarone 200 mg tablet 200 mg PO DAILY RF: 0 allopurinol 100 mg tablet 100 m PO DAILY RF: 0 ceftriaxone 1 gram Recon Soln 1 g IV DAILY RF: 0 aspirin 81 mg Tablet,Delayed Release (Dr/Ec) 81 mg PO DAILY RF: 0 amlodipine 10 mg tablet 10 mg PO DAILY RF: 0 ferrous sulfate 325 mg (65 mg iron) Tablet 325 mg PO BID RF: 0 colchicine 0.6 mg tablet 0.6 mg PO DAILY PRN (Reason: GOUT) RF: 0 fluticasone [Flonase Allergy Relief] 50 mcg/actuation Coin,Suspension 2 spray INTRANASAL DAILY PRN (Reason: Allergic Symptoms) RF: 0 daptomycin 500 mg Recon Soln 1,200 mg IV DAILY RF: 0 ergocalciferol (vitamin D2) 2,000 unit Tablet PO DAILY RF: 0 nystatin 100,000 unit/mL suspension 400,000 units PO QID PRN (Reason: Other) RF: 0 gabapentin 600 mg tablet 600 mg PO TID RF: 0 pravastatin 40 mg tablet 40 mg PO QPM RF: 0 venlafaxine 150 mg capsule,extended release 24hr 150 mg PO HS RF: 0 potassium chloride 10 mEq tablet extended release 20 meq PO BID RF: 0 tamsulosin 0.4 mg capsule 0.4 mg PO QPM RF: 0 warfarin 5 mg tablet 10 mg PO 5XWK RF: 0 warfarin 5 mg tablet 5 mg PO 2XWK RF: 0 levothyroxine 150 mcg tablet 150 mcg PO DAILY RF: 0 folic acid 1 mg Tablet 1 mg PO DAILY RF: 0 hydralazine 50 mg tablet 50 mg PO BID RF: 0 spironolactone 50 mg tablet 50 mg PO DAILY RF: 0 insulin aspart U-100 [Novolog Flexpen U-100 Insulin] 100 unit/mL insulin pen subcut UD RF: 0 insulin detemir U-100 [Levemir FlexTouch U-100 Insuln] 100 unit/mL (3 mL) insulin pen 25 units subcut BID RF: 0 magnesium oxide 400 mg magnesium Tablet 400 mg PO TID RF: 0 Referrals Referrals: Graham Rojas MD [Primary Care Provider] - The scribe's documentation has been prepared under my direction and personally reviewed by me in its entirety. I confirm that the note above accurately reflects all work, treatment, procedures, and medical decision making performed by me.
--- NOTE | 2018-05-08 16:50 | History & Physical Report ---
Date of Service May 08, 2018 Assessment & Plan (1) GI bleed: -Admit to telemetry -Patient presenting with generalized weakness and dark stools x 1 week -In the ED, hemoglobin found to be 8.2 (seems to have been slowly drifting down from 13.2 since beginning of the year) -INR 2.3, anticoagulated due to LVAD (patient follows closely with cardiology at [facility]) -History of GI bleed in the past however treated at [facility], details unavailable at this time -records request placed -ED physician contacted [facility] who accepted the patient in transfer however there are no beds available at this time - patient is on the wait list and we will be notified once bed is available -Case was discussed with Dr. Mendoza, cardiology at [facility] who advises holding Coumadin and once the patient's INR drops below 1.8, we are to start argatroban given patient's history of HIT and high risk of clotting with LVAD in place -serial H/H, transfuse for hgb < 8.0 (2) LVAD (left ventricular assist device) present: (3) Dilated cardiomyopathy: (4) Chronic systolic CHF (congestive heart failure): -EF 30% -Appears euvolemic, continue home diuretics (torsemide and spironolactone) -will give Lasix 40 mg IV with blood transfusion if needed -Continue beta-brandon and amiodarone -Anticoagulation as above (5) 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: -History of recurrent pump pocket infections with MDRO -Receives ceftriaxone 2 g and daptomycin 1200 mg IV daily at [facility] -Continue both (7) HTN (hypertension): -Continue amlodipine, hydralazine, carvedilol (8) DM type 2 (diabetes mellitus, type 2): -Hgb A1c 5.6 03/2018 -Lantus and NovoLog per protocol while hospitalized (9) CVA (cerebral vascular accident): -Holding aspirin due to GI bleed -Continue statin (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): -Noted history of (11) CKD (chronic kidney disease), stage III: - baseline creat runs in the low 1's - creat noted to be 1.1 today - continue to monitor, avoid nephrotoxic agents when able (12) Depression: -Continue venlafaxine (13) BPH (benign prostatic hyperplasia): -Continue tamsulosin (14) GERD (gastroesophageal reflux disease): -On PPI drip (15) Hypothyroidism: -Continue levothyroxine (16) Gout: -Continue allopurinol (17) DVT prophylaxis: -INR 2.3, anticoagulation as above History of Present Illness Chief Complaint: Weakness, near syncope Primary Care Provider: Graham Rojas MD 67-year-old male who presents the ED with generalized weakness and near syncope. Patient reports he has felt generally weak over the past 1 week. Reports one day his legs gave out from under him due to the weakness. He denies any syncopal events, lightheadedness, dizziness. No unilateral weakness , numbness, tingling, slurred speech, facial droop. He has chronic exertional shortness of breath which is unchanged from baseline. He denies chest pain palpitations. He reports dark tarry stools over the past 1 week. No abdominal pain, nausea, vomiting. He denies fevers and chills. No urinary symptoms. In the ED, hemoglobin is found to be 8.2 (seems to be slowly drifting down from 13.2 from beginning of the year). INR 2.3 (anticoagulated on Coumadin due to LVAD). Patient is hemodynamically stable. Was started on Protonix drip. Patient has complex history noted for dilated cardiomyopathy status post LVAD placement and on lifelong IV antibiotics secondary to recurrent pump pocket infection. Patient follows closely with cardiology at [facility] who was contacted by the ED for potential transfer however there are no beds available at this time and patient has been placed on a wait list. Allergies Allergy/AdvReac Type Severity Reaction Status Date / Time heparin Allergy Severe Heparin Verified 05/08/18 11:06 Induced Thrombocytopenia Home Medications Home Medications Medication Instructions Recorded Confirmed Type allopurinol 100 m PO DAILY 01/27/18 05/08/18 History amiodarone 200 mg PO DAILY 01/27/18 05/08/18 History amlodipine 10 mg PO DAILY 01/27/18 05/08/18 History aspirin 81 mg PO DAILY 01/27/18 05/08/18 History carvedilol 12.5 mg PO BID 01/27/18 05/08/18 History ceftriaxone 2 g IV DAILY 01/27/18 05/08/18 History daptomycin 1,200 mg IV DAILY 01/27/18 05/08/18 History ferrous sulfate 325 mg PO BID 01/27/18 05/08/18 History fluticasone [Flonase Allergy 2 spray INTRANASAL DAILY PRN 01/27/18 05/08/18 History Relief] folic acid 1 mg PO DAILY 01/27/18 05/08/18 History gabapentin 600 mg PO TID 01/27/18 05/08/18 History hydralazine 50 mg PO BID 01/27/18 05/08/18 History insulin aspart U-100 [Novolog 15 units SUBCUT TIDM 01/27/18 05/08/18 History Flexpen U-100 Insulin] insulin detemir U-100 [Levemir 25 units SUBCUT BID 01/27/18 05/08/18 History FlexTouch U-100 Insuln] levothyroxine 150 mcg PO DAILY 01/27/18 05/08/18 History magnesium oxide 400 mg PO TID 01/27/18 05/08/18 History potassium chloride 20 meq PO TID 01/27/18 05/08/18 History pravastatin 40 mg PO QPM 01/27/18 05/08/18 History spironolactone 50 mg PO DAILY 01/27/18 05/08/18 History tamsulosin 0.4 mg PO QPM 01/27/18 05/08/18 History venlafaxine 150 mg PO HS 01/27/18 05/08/18 History warfarin 5 mg PO 2XWK 01/27/18 05/08/18 History warfarin 10 mg PO 5XWK 01/27/18 05/08/18 History torsemide 20 mg PO DAILY 05/08/18 05/08/18 History Past Med/Surg History Medical History HTN (hypertension) (Chronic) Presence of combination internal cardiac defibrillator (ICD) and pacemaker ( Chronic) inserted 05/2011 - [facility] H/O tooth extraction (Chronic) complete tooth extraction due to recurrent LVAD infections DVT (deep venous thrombosis) (Chronic) Depression (Chronic) 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) ( Chronic) recurrent pump pocket infections with MRDO, on life-long IV antibiotics 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) CVA (cerebral vascular accident) (Chronic) 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) BPH (benign prostatic hyperplasia) (Chronic) Jejunal ulcer (Chronic) GERD (gastroesophageal reflux disease) (Chronic) LVAD (left ventricular assist device) present (Chronic) Dilated cardiomyopathy (Chronic) Chronic systolic CHF (congestive heart failure) (Chronic) Hypothyroidism (Chronic) Gout (Chronic) Hyperlipidemia (Chronic) CKD (chronic kidney disease), stage III (Chronic) DM type 2 (diabetes mellitus, type 2) (Chronic) Anemia (Inactive) Blood clotting disorder (Inactive) Blood dyscrasia (Inactive) vitamin d deficiency CHF (congestive heart failure) (Inactive) Coag negative Staphylococcus bacteremia (Inactive) Currently is being treated daily with IV antibiotics Diabetes mellitus, type 2 (Inactive) uses insulin Gout (Inactive) Heart disease (Inactive) Hx of Aguilera's palsy (Inactive) Hx of TIA (transient ischemic attack) and stroke (Inactive) 01/16/2017 Seen in [facility] and transfered to [facility] Hx of acute myocardial infarction (Inactive) denies - states he has never had Hx: UTI (urinary tract infection) (Inactive) Hypercholesteremia (Inactive) Hypothyroidism (Inactive) LVAD (left ventricular assist device) present (Inactive) hx cardiomyopathy and heart failure Male genitourinary symptoms (Inactive) enlarged prostate Prostatitis (Inactive) denies Seasonal allergies (Inactive) Thrombophlebitis (Inactive) currently has one in right subclavian vein UTI (urinary tract infection) (Inactive) Surgical History History of left ventricular assist device (Inactive) History of tooth extraction (Inactive) Hx of colonoscopy (Inactive) Family History Father HTN (hypertension) Stroke Social History Current Living Situation: Spouse Other Information That Helps Us Care for You: No Feels Safe at Home: Yes Safety Concerns: Feels Safe At This Time Smoking Status: Former smoker Smoking End Date: 87 Hx Alcohol Use: No Hx Substance Use: No Beliefs That Will Affect Care: Tenriism Tenriism Beliefs: Jainism Preferred Language: Micronesian Communication Ability: Effective 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 Review of Systems ROS per HPI, all other systems reviewed and negative Physical Exam 2 Vital Signs (Past 24 Hours): Last Vital Signs Temp 36.7 C 05/08/18 10:28 Pulse 70 05/08/18 15:48 Resp 18 05/08/18 15:48 BP 121/72 05/08/18 15:48 Pulse Ox 95 05/08/18 15:48 Constitutional: WD/WN, vitals as above Eyes: PERRL, conjunctivae normal, anicteric sclerae ENMT: external ear and nose normal, oropharynx normal Respiratory: normal respiratory effort, lungs clear to auscultation Cardiovascular: Vessels: normal peripheral pulses Extremities: + edema (+1 edema BLLE) has LVAD in place - humming sound noted, no pulse Chest (Breasts): Chest: + vascular access device or port (Crain noted to right chest - no surrounding erythema or drainage noted ) Gastrointestinal (Abdomen): normal bowel sounds, soft, nontender, no hepatosplenomegaly LVAD entry site noted to RLQ Musculoskeletal: no cyanosis or clubbing, extremities motor strength 5/5 Skin: no rashes, warm and dry Neurologic: PERRL, EOMI, accommodation nl, no face palsy, no dysarthria Psychiatric: A+Ox3, euthymic affect Results & Data Laboratory Results Laboratory Last Values WBC 6.53 K/uL (4.8-10.8) 05/08/18 10:54 RBC 2.39 M/uL (4.7-6.1) L 05/08/18 10:54 Hgb 7.9 g/dL (14.0-18.0) L 05/08/18 16:53 Hct 25.0 % (42-52) L 05/08/18 16:53 MCV 105.9 fL (80-100) H 05/08/18 10:54 MCH 34.3 pg (25-34) H 05/08/18 10:54 MCHC 32.4 g/dL (32-36) 05/08/18 10:54 RDW Std Deviation 67.1 fL (36.4-46.3) H 05/08/18 10:54 RDW Coeff of [place] 17.4 % (11.5-14.5) H 05/08/18 10:54 Plt Count 190 K/uL (130-400) 05/08/18 10:54 MPV 10.2 fL (7.4-10.4) 05/08/18 10:54 Immature Gran % (Auto) 0.6 % 05/08/18 10:54 Neut % (Auto) 73.4 % 05/08/18 10:54 Lymph % (Auto) 15.3 % 05/08/18 10:54 [place] % (Auto) 6.6 % 05/08/18 10:54 Eos % (Auto) 3.5 % 05/08/18 10:54 Baso % (Auto) 0.6 % 05/08/18 10:54 Immature Gran # (Auto) 0.04 K/uL (0.00-0.02) H 05/08/18 10:54 Neut # (Auto) 4.79 K/uL (1.4-6.5) 05/08/18 10:54 Lymph # (Auto) 1.00 K/uL (1.2-3.4) L 05/08/18 10:54 [place] # (Auto) 0.43 K/uL (0.11-0.59) 05/08/18 10:54 Eos # (Auto) 0.23 K/uL (0-0.5) 05/08/18 10:54 Baso # (Auto) 0.04 K/uL (0-0.2) 05/08/18 10:54 Toxic Granulation 1+ 05/08/18 10:54 Polychromasia 1+ 05/08/18 10:54 Anisocytosis Present 05/08/18 10:54 PT 22.4 Seconds (9.0-12.0) H 05/08/18 10:54 INR 2.3 (0.9-1.1) H 05/08/18 10:54 Sodium 140 mmol/L (136-145) 05/08/18 11:02 Potassium 4.0 mmol/L (3.5-5.1) 05/08/18 11:02 Chloride 104 mmol/L (98-107) 05/08/18 11:02 Carbon Dioxide 32 mmol/L (21-32) 05/08/18 11:02 Anion Gap 4.0 (3-11) 05/08/18 11:02 BUN 20 mg/dl (7-18) H 05/08/18 11:02 Creatinine 1.16 mg/dl (0.6-1.4) 05/08/18 11:02 Est Cr Clr Drug Dosing 77.4 ml/min 05/08/18 11:02 Est GFR ( Amer) 74.6 05/08/18 11:02 Est GFR (Non-Af Amer) 64.3 05/08/18 11:02 BUN/Creatinine Ratio 16.9 (10-20) 05/08/18 11:02 Glucose 144 mg/dl (70-99) H 05/08/18 11:02 POC Glucose 156 (70-99) H 05/08/18 16:21 Lactate 1.1 mmol/L (0.4-2.0) 05/08/18 10:54 Calcium 8.1 mg/dl (8.5-10.1) L 05/08/18 11:02 Total Bilirubin 0.3 mg/dl (0.2-1) 05/08/18 11:02 AST 35 U/L (15-37) 05/08/18 11:02 ALT 41 U/L (12-78) 05/08/18 11:02 Alkaline Phosphatase 44 U/L (45-117) L 05/08/18 11:02 Total Creatine Kinase 117 U/L (39-308) 05/08/18 11:02 Total Protein 6.3 gm/dl (6.4-8.2) L 05/08/18 11:02 Albumin 3.3 gm/dl (3.4-5.0) L 05/08/18 11:02 Globulin 3.0 gm/dl (2.5-4.0) 05/08/18 11:02 Albumin/Globulin Ratio 1.1 (0.9-2) 05/08/18 11:02 TSH 3.450 uIu/ml (0.300-4.500) 05/08/18 11:02 Blood Type O Positive 05/08/18 13:17 Antibody Screen NEGATIVE 05/08/18 13:17 Crossmatch See Detail 05/08/18 13:17 Diagnostic Findings CXR IMPRESSION: No acute process. Code Status & VTE Plan VTE Prophylaxis Plan VTE Prophylaxis will be ordered: Yes Supervising Physician Co-Signing Physician Notes Pt was seen and examined. Agreed with Margaret GABRIEL exam, assessment and plan. 67- year-old male with PMH HIT, GI bleed, DVT, CVA, ICD, LVAD infection, CHF, CKD presents the ED with generalized weakness. Pt said that this morning he developed dizziness when he tried to stand up. He said that he has been feeling very weak. CXR done in the ER showed no acute process. ER physician tried to transfer patient to [facility] but there was no bed available, pt is on the waiting list for transferring. Case discussed with his cardiology Dr Mendoza at [facility] recommended to hold Coumadin and once the patient's INR drops below 1.8 to start argatroban given patient's history of HIT and high risk of clotting with LVAD in place. Will monitor H/H and transfuse if H/H drops below 8. Continue monitor PT/INR. MD Christy
[2018-05-08 17:00] LABS: Hemoglobin 7.9 g/dL (14.0-18.0)
[2018-05-08 19:03] LABS: Appearance Urine Clear (Clear); Bilirubin Urine Negative (Negative); Blood Urine Negative (Negative); Color Urine Yellow; Glucose Urine UA Negative (Negative); Ketones Urine Negative (Negative); Leukocyte Esterase Urine Negative (Negative); Nitrite Urine Negative (Negative); Protein Urine Negative (Negative); Specific Gravity Urine 1.015 (1.000-1.030); Urobilinogen Urine Negative (Negative)
[2018-05-09 02:07] LABS: Hematocrit (blood only) 29.4 % (42-52); Hemoglobin 9.2 g/dL (14.0-18.0)
[2018-05-09 05:22] LABS: Hematocrit (blood only) 28.5 % (42-52); Hemoglobin 8.9 g/dL (14.0-18.0); Mean Corpuscular Hgb Conc 31.2 g/dL (32-36); Mean Corpuscular Volume 102.9 fL (80-100); Mean Platelet Volume 9.8 fL (7.4-10.4); Nucleated RBC # (auto) 0.02 K/uL (0-0); Nucleated RBC % (auto) 0.3 %; Platelet Count 176 K/uL (130-400); RDW Coefficient of Variation 18.9 % (11.5-14.5); RDW Standard Deviation 70.8 fL (36.4-46.3); Red Blood Count 2.77 M/uL (4.7-6.1); White Blood Count 5.59 K/uL (4.8-10.8)
[2018-05-09 05:39] LABS: INR 1.9 (0.9-1.1); Prothrombin Time 18.8 Seconds (9.0-12.0)
[2018-05-09 05:55] LABS: BUN Creatinine Ratio 13.9 (10-20); Calcium 7.3 mg/dl (8.5-10.1); Creatinine Clr Calc Pharmacy 79.6 ml/min; Est GFR (African American) 76.2; Est GFR (Non-African American) 65.7; Potassium 3.5 mmol/L (3.5-5.1)
[2018-05-09 11:27] LABS: Hematocrit (blood only) 31.4 % (42-52)
[2018-05-09 11:41] LABS: INR 1.6 (0.9-1.1); Prothrombin Time 16.1 Seconds (9.0-12.0)
[2018-05-09 12:44] LABS: Partial Thromboplastin Ratio 1.1; Partial Thromboplastin Time 28.8 Seconds (21.0-31.0)
--- NOTE | 2018-05-09 13:32 | Pharmacy Report ---
Pharmacy Argatroban Consult - Date of Service May 09, 2018 - Pharmacy Dosing Scope Pharmacy is consulted to initiate the use of Argatroban-IV dosing therapy in the setting of HIT/GRAZYNA, order appropriate labs and adjust drug dose/frequency. - Subjective The patient is a 67 year old M admitted on 05/08/18 14:08for GI BLEED. Patient was receiving warfarin at home but this is held in light of GI bleed. Per cardiology at [place], patient at extremely high risk of clotting so wish to start argatroban once INR less than 1.6. D/C warfarin & start Argatroban-IV for LVAD with high risk of clotting. Goal PTT Ratio as determined by physician : 2.0-- 3.0 (Range is 1.5-3). Pertinent PMH: CHF and history of GI bleed - Objective Height: 71 ft Weight: 114 kg Laboratory Results:: Last 24 Hours 05/08/18 05/09/18 05/09/18 16:53 01:41 05:05 Hgb 7.9 L 9.2 L Hct 25.0 L 29.4 L Plt Count APTT PTT Ratio BUN 16 Creatinine 1.14 05/09/18 05/09/18 05/09/18 05:06 11:09 11:09 Hgb 8.9 L 10.0 L Hct 28.5 L 31.4 L Plt Count 176 APTT 28.8 PTT Ratio 1.1 BUN Creatinine Last 72 Hours 05/08/18 05/08/18 05/08/18 10:54 10:54 11:02 Plt Count 190 INR 2.3 H Total Bilirubin 0.3 AST 35 ALT 41 05/09/18 05/09/18 05/09/18 05:05 05:06 11:09 Plt Count 176 INR 1.9 H 1.6 H Total Bilirubin AST ALT - Recent Anticoagulant Meds warfarin at home - Assessment & Plan Regarding THERAPEUTIC Argatroban-IV for LVAD with high risk of clotting: * D/C all heparin & low molecular weight heparin (LMWH) products. * Start Argatroban-IV infusion at 1 mcg/kg/min. * Goal PTT Ratio as determined by physician: 2.0 -- 3.0 (Range is 1.5-3). * Monitoring: Steady state achieved in 1-3 hours in most patients without hepatic dysfunction. Clearance is reduced up to 4-fold in patient�s with hepatic impairment (i.e., steady-state may not be achieved for 4-12hrs). * start monitoring at q2 hours per P&T approved direct thrombin inhibitor policy. � - Further dosage adjustments per Clinical Pharmacy & P&T Approved Direct Thrombin Inhibitor Usage Guidelines. * Adverse Effects: As there is no specific antidote for DTIs or DTI therapy, careful attention is paid to the achievement of optimal dosing without overdosing. Any DTI therapy should be discontinued should a major clinical bleeding episode take place. * Contraindications to DTI Therapy: Overt, major bleeding, hypersensitivity to the medication or any component. Labs: * Baseline Labs (P&T Approved): PTT, PT/INR, CBC, LFTs, serum creat * Ongoing Labs (P&T Approved): CBC dailly. Serum creat daily, LFTs q 2 days We will continue to monitor this patient and make adjustments as needed. Thank you.
[2018-05-09 15:30] LABS: Partial Thromboplastin Ratio 2.5
[2018-05-09 15:32] LABS: Partial Thromboplastin Time 68.9 Seconds (21.0-31.0)
--- NOTE | 2018-05-09 18:33 | Hospitalist Progress Note ---
Date of Service May 09, 2018 Assessment & Plan (1) GI bleed: -Patient presenting with generalized weakness and dark stools x 1 week -In the ED, hemoglobin found to be 8.2 (seems to have been slowly drifting down from 13.2 since beginning of the year) -INR 2.3, anticoagulated due to LVAD (patient follows with cardiology at [place] ) -History of GI bleed in the past and treated at [facility] -05/09/18 ED physician contacted [facility] who accepted the patient in transfer however there are no beds available at this time. -Case was discussed with Dr. Mendoza, cardiology at [facility] who advised to holdCoumadin and once the patient's INR drops below 1.8, then to start argatroban given patient's history of HIT and high risk of clotting with LVAD in place -05/10/18 INR is 1.6 and IV Argatroban started. 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: -History of recurrent pump pocket infections with MDRO -Receives ceftriaxone 2 g and daptomycin 1200 mg IV daily at [facility] as outpatient -Continue ceftriaxone and daptomycin as inpatient (7) HTN (hypertension): -Continue amlodipine, hydralazine, carvedilol -continue home diuretics (torsemide and spironolactone) -holding gabapentin for now (8) DM type 2 (diabetes mellitus, type 2): -Hgb A1c 5.6 03/2018 -Lantus and NovoLog per protocol while hospitalized (9) CVA (cerebral vascular accident): -Holding aspirin due to concern for GI bleed -Continue statin (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): -history of heparin induced thrombocytopenia -holding coumadin as explained above and currently on argatroban (11) CKD (chronic kidney disease), stage III: - continue to monitor, avoid nephrotoxic agents when able (12) Depression: -Continue venlafaxine (13) BPH (benign prostatic hyperplasia): -Continue tamsulosin (14) GERD (gastroesophageal reflux disease): -On PPI drip (15) Hypothyroidism: -Continue levothyroxine (16) Gout: -Continue allopurinol (17) DVT prophylaxis: IV Argatroban Disposition: on IV Argatroban and still awaiting for the hospital bed to [facility] Subjective Patient denies acute blood loss from orifices. denies acute chest pain or shortness of breath. denies vomiting. denies abdominal pain Physical Exam 2 Vital Signs (Past 24 Hours): Last Vital Signs Temp 36.5 C 05/09/18 16:00 Pulse 82 05/09/18 16:00 Resp 20 05/09/18 16:00 BP 106/75 05/09/18 10:55 Pulse Ox 92 05/09/18 16:00 Constitutional: WD/WN, vitals as above Eyes: PERRL, conjunctivae normal, anicteric sclerae EOM intact bilaterally ENMT: external ear and nose normal, oropharynx normal Neck: normal visual inspection and trachea midline Respiratory: normal respiratory effort, lungs clear to auscultation Cardiovascular: Rate/Rhythm: regular rate LVAD in place Gastrointestinal (Abdomen): Percussion/Palpation: abdomen soft bowel sounds present, no erythema from LVAD site Musculoskeletal: no cyanosis or clubbing, extremities motor strength 5/5 Head/Neck/Chest: normocephalic and head atraumatic Neurologic: PERRL, EOMI, accommodation nl, no face palsy, no dysarthria CN' s II-XI intact bilaterally Psychiatric: A+Ox3, euthymic affect
[2018-05-09 19:42] LABS: Partial Thromboplastin Ratio 2.7; Partial Thromboplastin Time 72.8 Seconds (21.0-31.0)
[2018-05-10 00:58] LABS: Partial Thromboplastin Ratio 2.4
[2018-05-10 01:01] LABS: Partial Thromboplastin Time 65.2 Seconds (21.0-31.0)
[2018-05-10 04:53] LABS: Basophils # (auto) 0.01 K/uL (0-0.2); Basophils % (auto) 0.2 %; Eosinophils # (auto) 0.27 K/uL (0-0.5); Eosinophils % (auto) 5.4 %; Hematocrit (blood only) 29.5 % (42-52); Hemoglobin 9.5 g/dL (14.0-18.0); Immature Granulocytes # (auto) 0.02 K/uL (0.00-0.02); Immature Granulocytes % (auto) 0.4 %; Lymphocytes # (auto) 0.81 K/uL (1.2-3.4); Lymphocytes % (auto) 16.3 %; Mean Corpuscular Hgb Conc 32.2 g/dL (32-36); Mean Corpuscular Volume 100.7 fL (80-100); Monocytes # (auto) 0.38 K/uL (0.11-0.59); Monocytes % (auto) 7.7 %; Neutrophils # (auto) 3.47 K/uL (1.4-6.5); Platelet Count 177 K/uL (130-400); RDW Coefficient of Variation 17.8 % (11.5-14.5); RDW Standard Deviation 64.8 fL (36.4-46.3); Red Blood Count 2.93 M/uL (4.7-6.1); White Blood Count 4.96 K/uL (4.8-10.8)
[2018-05-10 05:14] LABS: Partial Thromboplastin Ratio 2.2
[2018-05-10 05:23] LABS: Partial Thromboplastin Time 58.4 Seconds (21.0-31.0)
[2018-05-10 10:14] LABS: Partial Thromboplastin Ratio 2.6
[2018-05-10 10:16] LABS: Partial Thromboplastin Time 70.9 Seconds (21.0-31.0)
--- NOTE | 2018-05-10 14:11 | Hospitalist Progress Note ---
Date of Service May 10, 2018 Assessment & Plan (1) GI bleed: possible gastrointestinal bleed -Patient presenting with generalized weakness and dark stools x 1 week -In the ED, hemoglobin found to be 8.2 (seems to have been slowly drifting down from 13.2 since beginning of the year) -INR 2.3, anticoagulated due to LVAD (patient follows with cardiology at [place] [facility] ) -History of GI bleed in the past and treated at [facility] -patient was transfused 2 units of PRBC on 05/08/18 -05/09/18 ED physician contacted [facility] who accepted the patient in transfer however there are no beds available at this time. Case was discussed with Dr. Mendoza, cardiology at [facility] who advised to holdCoumadin and once the patient's INR drops below 1.8, then to start argatroban given patient's history of HIT and high risk of clotting with LVAD in place -05/09/18 INR is 1.6 and IV Argatroban started. Hemoglobin appears stable after the 05/08/18 blood transfusion -05/10/18, continues to be on IV Argatroban (2) LVAD (left ventricular assist device) present: patient follows with cardiology at [place] while patient does not appear to have acute bleeding in the recent 2 days while at [facility], he prefers to go to [place] for adjustments to Left Ventricular assist device (3) Dilated cardiomyopathy: (4) Chronic systolic CHF (congestive heart failure): -EF 30% -Appears euvolemic, continue home diuretics (torsemide and spironolactone) -Continue beta-brandon and amiodarone -Anticoagulation as above (5) 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: -History of recurrent pump pocket infections with MDRO -Receives ceftriaxone 2 g and daptomycin 1200 mg IV daily at [facility] as outpatient -Continue ceftriaxone and daptomycin as inpatient (7) HTN (hypertension): -Continue amlodipine, hydralazine, carvedilol -continue home diuretics (torsemide and spironolactone) -holding gabapentin for now (8) DM type 2 (diabetes mellitus, type 2): -Hgb A1c 5.6 03/2018 -Lantus and NovoLog per protocol while hospitalized (9) CVA (cerebral vascular accident): -Holding aspirin due to concern for GI bleed -Continue statin (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): -history of heparin induced thrombocytopenia -holding coumadin as explained above and currently on argatroban (11) CKD (chronic kidney disease), stage III: - continue to monitor, avoid nephrotoxic agents when able (12) Depression: -Continue venlafaxine (13) BPH (benign prostatic hyperplasia): -Continue tamsulosin (14) GERD (gastroesophageal reflux disease): -On PPI drip (15) Hypothyroidism: -Continue levothyroxine (16) Gout: -Continue allopurinol (17) DVT prophylaxis: IV Argatroban Disposition: Patient has bed available hospital bed to [facility] as of 05/10/18 Transfer to [facility] while on IV Argatroban [facility] Discharge Diagnosis possible gastrointestinal bleed, Left ventricular assist device present, History of heparin induced thrombocytopenia, Anticoagulated by anticoagulation therapy Subjective Patient denies acute blood loss from orifices. denies acute chest pain or shortness of breath. denies vomiting. denies abdominal pain Physical Exam 2 Vital Signs (Past 24 Hours): Last Vital Signs Temp 36.3 C L 05/10/18 08:54 Pulse 73 05/10/18 08:54 Resp 16 05/10/18 08:54 BP 106/75 05/09/18 10:55 Pulse Ox 97 05/10/18 08:54 Constitutional: WD/WN, vitals as above Eyes: PERRL, conjunctivae normal, anicteric sclerae EOM intact bilaterally ENMT: external ear and nose normal, oropharynx normal Neck: normal visual inspection and trachea midline Respiratory: normal respiratory effort, lungs clear to auscultation Cardiovascular: Rate/Rhythm: regular rate (presence of Left Ventricular Assist Device) Gastrointestinal (Abdomen): Percussion/Palpation: abdomen soft Musculoskeletal: no cyanosis or clubbing, extremities motor strength 5/5 Head/Neck/Chest: normocephalic and head atraumatic Neurologic: PERRL, EOMI, accommodation nl, no face palsy, no dysarthria CN' s II-XI intact bilaterally Psychiatric: A+Ox3, euthymic affect
--- NOTE | 2018-05-10 14:17 | Discharge Summary ---
Date of Service May 10, 2018 Admission HPI Per Admitting Provider 67-year-old male who presents the ED with generalized weakness and near syncope. Patient reports he has felt generally weak over the past 1 week. Reports one day his legs gave out from under him due to the weakness. He denies any syncopal events, lightheadedness, dizziness. No unilateral weakness , numbness, tingling, slurred speech, facial droop. He has chronic exertional shortness of breath which is unchanged from baseline. He denies chest pain palpitations. He reports dark tarry stools over the past 1 week. No abdominal pain, nausea, vomiting. He denies fevers and chills. No urinary symptoms. In the ED, hemoglobin is found to be 8.2 (seems to be slowly drifting down from 13.2 from beginning of the year). INR 2.3 (anticoagulated on Coumadin due to LVAD). Patient is hemodynamically stable. Was started on Protonix drip. Patient has complex history noted for dilated cardiomyopathy status post LVAD placement and on lifelong IV antibiotics secondary to recurrent pump pocket infection. Patient follows closely with cardiology at [facility] who was contacted by the ED for potential transfer however there are no beds available at this time and patient has been placed on a wait list. Admission Exam Per Admitting Provider Constitutional: WD/WN, vitals as above Eyes: PERRL, conjunctivae normal, anicteric sclerae ENMT: external ear and nose normal, oropharynx normal Respiratory: normal respiratory effort, lungs clear to auscultation Cardiovascular: Vessels: normal peripheral pulses Extremities: + edema (+1 edema BLLE) has LVAD in place - humming sound noted, no pulse Chest (Breasts): Chest: + vascular access device or port (Crain noted to right chest - no surrounding erythema or drainage noted ) Gastrointestinal (Abdomen): normal bowel sounds, soft, nontender, no hepatosplenomegaly LVAD entry site noted to RLQ Musculoskeletal: no cyanosis or clubbing, extremities motor strength 5/5 Skin: no rashes, warm and dry Neurologic: PERRL, EOMI, accommodation nl, no face palsy, no dysarthria Psychiatric: A+Ox3, euthymic affect Principal Diagnosis possible gastrointestinal bleed, Left ventricular assist device present, History of heparin induced thrombocytopenia, Anticoagulated by anticoagulation therapy Discharge Exam Constitutional WD/WN, vitals as above Eyes PERRL, conjunctivae normal, anicteric sclerae EOM intact bilaterally ENMT external ear and nose normal, oropharynx normal Neck normal visual inspection and trachea midline Respiratory normal respiratory effort, lungs clear to auscultation Cardiovascular Rate/Rhythm: regular rate (presence of Left Ventricular Assist Device) Gastrointestinal (Abdomen) Percussion/Palpation: abdomen soft Musculoskeletal no cyanosis or clubbing, extremities motor strength 5/5 Head/Neck/Chest: normocephalic and head atraumatic Neurologic PERRL, EOMI, accommodation nl, no face palsy, no dysarthria CN's II-XI intact bilaterally Psychiatric A+Ox3, euthymic affect Discharge Data Allergies Allergy/AdvReac Type Severity Reaction Status Date / Time heparin Allergy Severe Heparin Verified 05/08/18 11:06 Induced Thrombocytopenia Consultations 05/08/18 14:22 ED Decision to Admit Stat 05/08/18 16:39 Consult Health Information Management Routine Hospital Course (1) GI bleed: possible gastrointestinal bleed -Patient presenting with generalized weakness and dark stools x 1 week -In the ED, hemoglobin found to be 8.2 (seems to have been slowly drifting down from 13.2 since beginning of the year) -INR 2.3, anticoagulated due to LVAD (patient follows with cardiology at [facility] ) -History of GI bleed in the past and treated at [facility] -patient was transfused 2 units of PRBC on 05/08/18 -05/09/18 ED physician contacted [facility] who accepted the patient in transfer however there are no beds available at this time. Case was discussed with Dr. Mendoza, cardiology at [facility] who advised to holdCoumadin and once the patient's INR drops below 1.8, then to start argatroban given patient's history of HIT and high risk of clotting with LVAD in place -05/09/18 INR is 1.6 and IV Argatroban started. Hemoglobin appears stable after the 05/08/18 blood transfusion -05/10/18, continues to be on IV Argatroban (2) LVAD (left ventricular assist device) present: patient follows with cardiology at [facility] while patient does not appear to have acute bleeding in the recent 2 days while at [facility], he prefers to go to [facility] for adjustments to Left Ventricular assist device (3) Dilated cardiomyopathy: (4) Chronic systolic CHF (congestive heart failure): -EF 30% -Appears euvolemic, continue home diuretics (torsemide and spironolactone) -Continue beta-brandon and amiodarone -Anticoagulation as above (5) 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: -History of recurrent pump pocket infections with MDRO -Receives ceftriaxone 2 g and daptomycin 1200 mg IV daily at [facility] as outpatient -Continue ceftriaxone and daptomycin as inpatient (7) HTN (hypertension): -Continue amlodipine, hydralazine, carvedilol -continue home diuretics (torsemide and spironolactone) -holding gabapentin for now (8) DM type 2 (diabetes mellitus, type 2): -Hgb A1c 5.6 03/2018 -Lantus and NovoLog per protocol while hospitalized (9) CVA (cerebral vascular accident): -Holding aspirin due to concern for GI bleed -Continue statin (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): -history of heparin induced thrombocytopenia -holding coumadin as explained above and currently on argatroban (11) CKD (chronic kidney disease), stage III: - continue to monitor, avoid nephrotoxic agents when able (12) Depression: -Continue venlafaxine (13) BPH (benign prostatic hyperplasia): -Continue tamsulosin (14) GERD (gastroesophageal reflux disease): -On PPI drip (15) Hypothyroidism: -Continue levothyroxine (16) Gout: -Continue allopurinol (17) DVT prophylaxis: IV Argatroban Disposition: Patient has bed available hospital bed to [facility] as of 05/10/18 Transfer to [facility] while on IV Argatroban ([facility] Discharge Diagnosis possible gastrointestinal bleed, Left ventricular assist device present, History of heparin induced thrombocytopenia, Anticoagulated by anticoagulation therapy Total Time Total Time Spent Total Time Spent (In Minutes): 40 minutes Total Time Includes: Examination of the Patient, Discharge Planning and Medication Reconciliation Discharge Plan Discharge Items Patient Disposition: Transfer Acute Care Hospital Reason For Visit: GI BLEED Discharge Diagnosis: possible gastrointestinal bleed, Left ventricular assist devicepresent, History of heparin induced thrombocytopenia, Anticoagulated by anticoagulation therapy Condition: Fair Discharge Goals: Improve disease control Activity: Per 'Additional Instructions' section Non-emergency contact: Primary Care Provider Call non-emergency contact if: you have any medication questions Diet: Clear liquid Addtl Provider Instructions: Transfer to [facility] while on IV Argatroban ([facility] Patient also has been on IV pantoprazole drip while at [facility] Prescriptions: Continue torsemide 20 mg tablet 20 mg PO DAILY RF: 0 carvedilol 12.5 mg tablet 12.5 mg PO BID RF: 0 amiodarone 200 mg tablet 200 mg PO DAILY RF: 0 allopurinol 100 mg tablet 100 m PO DAILY RF: 0 ceftriaxone 1 gram Recon Soln 2 g IV DAILY RF: 0 aspirin 81 mg Tablet,Delayed Release (Dr/Ec) 81 mg PO DAILY RF: 0 amlodipine 10 mg tablet 10 mg PO DAILY RF: 0 ferrous sulfate 325 mg (65 mg iron) Tablet 325 mg PO BID RF: 0 fluticasone [Flonase Allergy Relief] 50 mcg/actuation [place],Suspension 2 spray INTRANASAL DAILY PRN (Reason: Allergic Symptoms) RF: 0 daptomycin 500 mg Recon Soln 1,200 mg IV DAILY RF: 0 gabapentin 600 mg tablet 600 mg PO TID RF: 0 pravastatin 40 mg tablet 40 mg PO QPM RF: 0 venlafaxine 150 mg capsule,extended release 24hr 150 mg PO HS RF: 0 potassium chloride 10 mEq tablet extended release 20 meq PO TID RF: 0 tamsulosin 0.4 mg capsule 0.4 mg PO QPM RF: 0 levothyroxine 150 mcg tablet 150 mcg PO DAILY RF: 0 folic acid 1 mg Tablet 1 mg PO DAILY RF: 0 hydralazine 50 mg tablet 50 mg PO BID RF: 0 spironolactone 50 mg tablet 50 mg PO DAILY RF: 0 insulin aspart U-100 [Novolog Flexpen U-100 Insulin] 100 unit/mL insulin pen 15 units subcut TIDM RF: 0 insulin detemir U-100 [Levemir FlexTouch U-100 Insuln] 100 unit/mL (3 mL) insulin pen 25 units subcut BID RF: 0 magnesium oxide 400 mg magnesium Tablet 400 mg PO TID RF: 0 Discontinued warfarin 5 mg tablet 10 mg PO 5XWK RF: 0 warfarin 5 mg tablet 5 mg PO 2XWK RF: 0 Stand-Alone Forms: Counts Include 234 Beds At [facility] Discharge Orders: Discharge Order (Routine); Ordered 05/10/18 Ordered By: Nathan Soto Admission Data Admit Date/Time: 05/08/18 14:08 Attending Provider: Nathan Soto Admit Provider: Estrellita Harrison Primary Care Provider: Graham Rojas Other Providers: Bhanu Jiménez Service: Telemetry
--- NOTE | 2018-05-11 13:24 | Coding Query ---
ANEMIA To promote full compliance with coding requirements relating to patient care, physician participation is requested in all cases of global account executive uncertainty. Please assist us with the question(s) below: Coding Question(s): The record reflects the following clinical findings: Hemoglobin 8.2, transfused 2 units of PRBC on 05/08/18 If these findings are indicative of anemia, please specify the known or suspected type by placing an "X" within the parenthesis (x). If other, please document type. Examples are: ( ) Acute blood loss anemia ( ) Acute Postoperative blood loss anemia ( ) Acute postoperative anemia due to dilutional fluids ( ) Chronic blood loss anemia ( ) Anemia of chronic disease ( ) Aplastic anemia ( ) Anemia due to renal disease ( ) Anemia in neoplastic disease ( ) Iron deficient anemia ( ) Anemia, unspecified or other ( ) Other: (please specify) (x ) Unable to determine Thank you Vaishnavi SOLIS
--- NOTE | 2018-05-11 13:27 | Coding Query ---
CODING QUERY To promote full compliance with coding requirements relating to patient care, provider participation is requested in all cases of corporate treasurer uncertainty. Please assist us with the question(s) below: Coding Question(s): Patient presented with suspected GI bleed with an INR 2.3 on chronic warfarin. Warfarin held on admission. In your clinical opinion what is the cause of the patient's GI bleed? Physician's Response(s): ( ) GI bleed due to chronic anticoagulation on warfarin ( ) GI bleed due to other reason (please specify) ( x ) Clinically unable to determine Thank you Vaishnavi Knapp Principal Diagnosis: "�that condition established after study, to be chiefly responsible for occasioning the admission of the patient to the hospital for care." Co-Existing Principal Diagnosis: "�when two or more diagnoses equally meet the criteria for principal diagnosis as determined by the circumstances of admission , diagnostic work up, and/or therapy provided, and the Alphabetic Index, Tabular List, or another coding guideline does not provide sequencing direction , any one of the diagnoses may be sequenced first." "When the physician has documented what appears to be a current diagnosis in the body of the record, but has not included the diagnosis in the final diagnostic statement, the physician should be asked whether the diagnosis should be added." (Source Coding [facility] 2 QTR90. p3-4) IRMA
== END 2018-05-10 15:00 | disposition short-term general hospital (02) | DRG 378 ==
LOC: ED 10:12 → 2S 14:08 → SUATTDRO 14:08 → 2S 15:48
DX: Z87.891 Personal history of nicotine dependence; Z86.19 Personal history of other infectious and parasitic diseases; K92.2 Gastrointestinal hemorrhage, unspecified; Z79.01 Long term (current) use of anticoagulants; Z86.2 Personal history of diseases of the blood and blood-forming organs and certain disorders involving the immune mechanism; Z79.899 Other long term (current) drug therapy; E11.22 Type 2 diabetes mellitus with diabetic chronic kidney disease; Z86.718 Personal history of other venous thrombosis and embolism; I50.22 Chronic systolic (congestive) heart failure; Z88.8 Allergy status to other drugs, medicaments and biological substances; Z95.810 Presence of automatic (implantable) cardiac defibrillator; Z86.73 Personal history of transient ischemic attack (TIA), and cerebral infarction without residual deficits; R22.2 Localized swelling, mass and lump, trunk; I13.0 Hypertensive heart and chronic kidney disease with heart failure and stage 1 through stage 4 chronic kidney disease, or unspecified chronic kidney disease; I25.2 Old myocardial infarction; N18.3 Chronic kidney disease, stage 3 (moderate); F32.9 Major depressive disorder, single episode, unspecified; Z87.19 Personal history of other diseases of the digestive system; Y83.8 Other surgical procedures as the cause of abnormal reaction of the patient, or of later complication, without mention of misadventure at the time of the procedure; I42.0 Dilated cardiomyopathy; N40.0 Benign prostatic hyperplasia without lower urinary tract symptoms; E78.00 Pure hypercholesterolemia, unspecified; Z79.82 Long term (current) use of aspirin; T82.9XXA Unspecified complication of cardiac and vascular prosthetic device, implant and graft, initial encounter; Z83.3 Family history of diabetes mellitus; Z79.2 Long term (current) use of antibiotics; Z95.811 Presence of heart assist device; E03.9 Hypothyroidism, unspecified; Z79.4 Long term (current) use of insulin; Z87.440 Personal history of urinary (tract) infections; M10.9 Gout, unspecified; K21.9 Gastro-esophageal reflux disease without esophagitis

== ENCOUNTER 2018-06-23 22:45 | Inpatient (IN) ==
[2018-06-23] MEDS ORDERED: ACETAMINOPHEN 325 MG TAB PO STA (22:57)
[2018-06-23] MEDS ORDERED: AZTREONAM 2,000 MG in DEXTROSE 5% 100 ML IV STA (23:19)
[2018-06-23 23:22] LABS: Basophils # (auto) 0.03 K/uL (0-0.2); Basophils % (auto) 0.2 %; Eosinophils # (auto) 0.12 K/uL (0-0.5); Hematocrit (blood only) 31.2 % (42-52); Immature Granulocytes # (auto) 0.02 K/uL (0.00-0.02); Immature Granulocytes % (auto) 0.2 %; Lymphocytes # (auto) 0.54 K/uL (1.2-3.4); Lymphocytes % (auto) 4.4 %; Mean Corpuscular Hgb Conc 32.1 g/dL (32-36); Mean Corpuscular Volume 94.8 fL (80-100); Mean Platelet Volume 11.1 fL (7.4-10.4); Monocytes # (auto) 1.09 K/uL (0.11-0.59); Neutrophils # (auto) 10.37 K/uL (1.4-6.5); Neutrophils % (auto) 85.2 %; Platelet Count 166 K/uL (130-400); RDW Standard Deviation 65.9 fL (36.4-46.3); Red Blood Count 3.29 M/uL (4.7-6.1); White Blood Count 12.17 K/uL (4.8-10.8)
[2018-06-23 23:35] LABS: INR 2.3 (0.9-1.1); Partial Thromboplastin Ratio 1.4; Partial Thromboplastin Time 38.2 Seconds (21.0-31.0); Prothrombin Time 21.8 Seconds (9.0-12.0)
[2018-06-23 23:40] LABS: Albumin Level 3.5 gm/dl (3.4-5.0); BUN Creatinine Ratio 14.1 (10-20); Calcium 7.9 mg/dl (8.5-10.1); Creatinine Clr Calc Pharmacy 90.5 ml/min; Est GFR (African American) 83.2; Est GFR (Non-African American) 71.8; Magnesium 2.1 mg/dl (1.8-2.4); Potassium 3.9 mmol/L (3.5-5.1)
[2018-06-23 23:43] LABS: Bilirubin,Total 0.9 mg/dl (0.2-1); C Reactive Protein 8.16 mg/dl (0-0.29); Creatine Kinase MB 2.2 ng/ml (0.5-3.6); Globulin 3.4 gm/dl (2.5-4.0); Total Protein 6.9 gm/dl (6.4-8.2); Troponin I 0.042 ng/ml (0-0.045)
[2018-06-24 00:14] LABS: Appearance Urine Clear (Clear); Bacteria Urine Automated Negative (Negative); Bilirubin Urine Negative (Negative); Blood Urine Negative (Negative); Cast Urine Automated 0 /lpf (0-5); Color Urine Yellow; Glucose Urine UA Trace (Negative); Ketones Urine 1+ (Negative); Leukocyte Esterase Urine Negative (Negative); Nitrite Urine Negative (Negative); Protein Urine Trace (Negative); RBC Urine Automated 0-4 /hpf (0-4); Specific Gravity Urine 1.017 (1.000-1.030); Urobilinogen Urine Negative (Negative)
[2018-06-24] MEDS ORDERED: HYDROmorphone INJ 1 MG/ML SYRINGE IV STA (00:14)
[2018-06-24] MEDS ORDERED: VANCOMYCIN CONSULT ACTIVE PRN (00:14)
[2018-06-24] MEDS ORDERED: VANCOMYCIN HCL 2,500 MG in SODIUM CHLORIDE 0.9% 500 ML IV ONE (00:14)
[2018-06-24 01:03] LABS: Influenza A virus by PCR Neg for Influ A (Neg); Influenza B virus by PCR Neg for Influ B (Neg)
[2018-06-24] MEDS ORDERED: ONDANSETRON INJ 2 MG/ML 2 ML VIAL IV PRN (02:15)
[2018-06-24] MEDS ORDERED: HYDROmorphone INJ 0.5 MG/0.5 ML SYR IV PRN (02:15)
[2018-06-24] MEDS ORDERED: ACETAMINOPHEN 325 MG TAB PO PRN (02:15)
[2018-06-24] MEDS ORDERED: NITROGLYCERIN SL 0.4 MG/TAB TAB SL PRN (02:15)
[2018-06-24] MEDS ORDERED: CARBOHYDRATES FOR HYPOGLYCEMIA PO PRN (02:45)
[2018-06-24] MEDS ORDERED: DEXTROSE 50% 50 ML SYRINGE IV PRN (02:45)
[2018-06-24] MEDS ORDERED: GLUCOSE 10 TABS/TUBE PO PRN (02:45)
[2018-06-24] MEDS ORDERED: GLUCAGON FOR INJ 1 MG VIAL SQ PRN (02:45)
[2018-06-24] MEDS ORDERED: GLUCOSE 40% GEL 15 GM TUBE PO PRN (02:45)
--- NOTE | 2018-06-24 03:28 | History and Physical Report ---
DATE OF ADMISSION: 06/24/2018 CHIEF COMPLAINT: Fever and weakness. HISTORY OF PRESENT ILLNESS: A 67-year-old male with past medical history significant for type 2 diabetes, chronic kidney disease stage III, hyperlipidemia, gout, hypothyroidism, dilated cardiomyopathy, systolic CHF with EF around 30%, and infection with LVAD chronically on daptomycin and Rocephin. GERD,jejunal ulcer, BPH, history of CVA, history of HIT, history of multiple drug-resistant organisms, methicillin-resistant Staphylococcus epidermidis infection, depression, history of DVT, history of ventricular tachycardia, history of GI bleed. Presents with fever and weakness. The patient gets IV daptomycin and IV Rocephin daily for his LVAD infection. He is on his antibiotics for a long time now. He was off of iv abx and on oral antibiotics for 17days couple of years ago and again his ID doctor, Dr. Pamella Ray of [facility] wanted to place him on oral antibiotics hopefully for 1-3 months, to give a break for his dapto and Rocephin in the next 1 or 2 days and was awaiting for his blood cultures to come back. Rosendo's daughter was recently down with fever and viral infection. Today, after he got his IV dapto and Rocephin, he was not feeling well and later developed fever and weakness. They called the EMS and brought him and on the way, he got 500 mL of fluids. Currently has sweating, had a temp spike in the ER. Mildly tachycardic. Blood pressure is okay. He has some shortness of breath but that is chronic. Denies any chest pain. Has some cough with whitish phlegm. Has a mild headache. No blurred visions, no ear ache, no runny nose, no sore throat, no difficulty swallowing. Appetite is okay. He is eating okay. No nausea, no abdominal pain. Normal bowel and bladder movements. No hematuria, no burning micturition. No melena or hematochezia. No rash, no swelling of the legs. Walks without any help at home. The and the patient think mostly this is a viral infection and they do not want to be transferred to [facility] for now, but apparently if anything changes, they are okay to go to the [facility], but right now they want to stay in the [place] and to be monitored and observed. ALLERGIES: HEPARIN AND LOVENOX. PAST MEDICAL HISTORY: As mentioned above. PAST SURGICAL HISTORY: AICD placement, LVAD program, LVAD Battery clips replacement,All teeth removed secondary to chronic infection with LVAD. MEDICATIONS: The patient is on vitamin D 50,000 units 1 capsule every 14 days, Demadex 20 mg p.o. daily, pravastatin 40 mg p.o. at bedtime, Coreg 12.5 mg p.o. b.i.d., folic acid 1 mg p.o. daily, NovoLog 15 units with each meal, allopurinol 100 mg p.o. daily, gabapentin 600 mg p.o. b.i.d., hydralazine 50 mg p.o. b.i.d., Levemir 25 units b.i.d., levothyroxine 150 mcg p.o. daily, magnesium 400 mg p.o. daily, nystatin topical to affected area, spironolactone 50 mg p.o. daily, Flomax 0.4 mg p.o. daily, Effexor XR 150 mg p.o. daily, Coumadin 10 mg alternating with 5 mg, amlodipine 10 mg p.o. daily, potassium chloride 20 mEq p.o. t.i.d., amiodarone 200 mg p.o. daily, daptomycin 1200 mg daily, Rocephin 2 grams daily, aspirin 81 mg p.o. daily, ferrous sulfate 325 mg p.o. b.i.d., Colace 100 mg p.o. b.i.d., fluticasone nasal spray, cetirizine 10 mg p.o. daily. FAMILY HISTORY: Significant for father has heart disorder, hypertension, stroke. Mother has heart disorder. Brother has neurological disorder. SOCIAL HISTORY: and lives with his . Quit smoking in 1987, smoked 1 pack a day for 20 years. No alcohol use, no drug use. REVIEW OF SYSTEMS: As per HPI. Rest of the rest of systems negative. PHYSICAL EXAMINATION: GENERAL: Patient is obese, not in acute distress. VITAL SIGNS: Temperature 38, pulse 94, blood pressure 121/71, oxygen 95% on 2 liters, respiratory rate 20. HEENT: No pallor, no icterus. Pupils equal, round, and reactive to light. NECK: No JVD, no neck masses. CARDIOVASCULAR: S1, S2 heard, regular rate and rhythm, no murmur, no gallop. RESPIRATORY SYSTEM: Normal AP diameter, no accessory muscle use. No wheezing, no crackles. ABDOMEN: Soft, bowel sounds present. Nontender. No distention. CENTRAL NERVOUS SYSTEM: Cranial nerves II-XII grossly intact, nonfocal. EXTREMITIES: Mild pedal edema, no erythema seen. LABORATORIES: WBC 12, hemoglobin 10, hematocrit 31.2, platelets 166. PT 21.8, INR 2.3, APTT 38.2. Sodium 138, potassium 3.9, chloride 102, bicarbonate 30, BUN 15, creatinine 1.06, serum glucose 189. Lactate 0.8, calcium 7.9, magnesium 2.1, total bilirubin 0.9, AST 72, ALT 51, alkaline phosphatase 50, total creatinine kinase 169, CK-MB 2.2, troponin I of 0.04. Procalcitonin less than 0.05. Urinalysis negative. Influenza A and B PCR negative. IMAGING DATA: Chest x-ray, mild congestion. EKG: Atrial sensed ventricular paced rhythm at rate of 93. ASSESSMENT AND PLAN: A 67-year-old male who presents with fever and weakness. 1. Fever and weakness, most likely viral infection. No obvious source of infection. Recently daughter was down with viral infection. He is chronically on IV daptomycin and IV Rocephin for his chronic LVAD infection, which will continue for now.Lactic acid, procalcitonin and flu negative, UA and CXR unremarkable. Received vanco and Azactam in the ER.But will continue his home abx Daptomycin and Rocephin. We will also follow the blood cultures. He is also following with ID with blood cultures. Supposed to change the daptomycin and Rocephin to oral antibiotic.But we will wait for now. We will consult ID Dr. Davison who knows the patient and closely monitor in the tele floor. 2. Chronic LVAD infection. Continue home daptomycin and Rocephin. CPK is okay and he has no diarrhea. 3. History of dilated cardiomyopathy.s/p LVAD History of chronic systolic CHF with EF of 30%. Received some fluids on the way to the ER in the ambulance. Chest x-ray showed mild congestion. Will continue his home diuretics and monitor. 4. History of hypertension. Continue amlodipine, Coreg, and diuretics and hold the hydralazine as blood pressure is on the lower side. Restart hydralazine when blood pressure rises up. 5. Diabetes, HbA1c 5.6 in March 2018. Continue his home Levemir and placed on insulin sliding scale. Follow HbA1c levels and follow the blood sugar. 6. History of CVA, on aspirin and statin and Coumadin. 7. History of heparin-induced thrombocytopenia, The patient is on anticoagulation due to the LVAD. INR therapeutic. Continue home Coumadin. Follow the PT/INR.IF INR becomes subtherapeutic- needs to be bridged with argatroban 9. Chronic kidney disease, stage III, stable. Follow the labs. 10. Depression. Continue venlafaxine. 11. Gastroesophageal reflux disease. 12. Hypothyroidism, continue Synthroid. 13. Gout, continue allopurinol. 14. Deep venous thrombosis prophylaxis, INR therapeutic. 15. Disposition. Closely monitor in telemetry floor. PT and OT prior to discharge. social worker health services to help with discharge planning. Level 1 full code. MTDD
--- NOTE | 2018-06-24 05:35 | XRay Report ---
XR chest 1V portable CLINICAL HISTORY: 67 years-old Male presenting with shortness of breath, fever. TECHNIQUE: Portable upright AP view of the chest was obtained. COMPARISON: 05/08/2018. FINDINGS: Left subclavian implanted cardiac defibrillator with leads to the right atrium and right ventricular apex. Coronary sinus lead may also be present. An abandoned right atrial pacer lead is also noted. Ri ght internal jugular tunneled central venous catheter terminates in the right atrium. The subcutaneou s tunnel component may be looped, configuration which is unchanged from prior. A left ventricular ass ist device remains in place. Median sternotomy wires noted with breakage of several wires as on prior exam. Cardiac silhouette moderately enlarged. Pulmonary vascular prominence increased from prior. Diffuse c oarsened lung markings with prominent interlobular septal thickening at the lung bases. Added density of the central lung bases. No focal opacity. No large effusion or pneumothorax. IMPRESSION: 1. Cardiomegaly with volume overload and congestive change. Early/developing pulmonary edema not exc luded. 2. Support devices including an LVAD unchanged. Electronically signed by: Carlin Marinelli M.D. 06/24/2018 5:34 AM
[2018-06-24 05:43] LABS: Basophils # (auto) 0.02 K/uL (0-0.2); Basophils % (auto) 0.2 %; Eosinophils # (auto) 0.11 K/uL (0-0.5); Eosinophils % (auto) 1.1 %; Hematocrit (blood only) 29.8 % (42-52); Hemoglobin 9.7 g/dL (14.0-18.0); Immature Granulocytes # (auto) 0.03 K/uL (0.00-0.02); Immature Granulocytes % (auto) 0.3 %; Lymphocytes # (auto) 0.65 K/uL (1.2-3.4); Lymphocytes % (auto) 6.6 %; Mean Corpuscular Hgb Conc 32.6 g/dL (32-36); Mean Corpuscular Volume 95.8 fL (80-100); Mean Platelet Volume 10.9 fL (7.4-10.4); Monocytes # (auto) 0.87 K/uL (0.11-0.59); Monocytes % (auto) 8.8 %; Neutrophils # (auto) 8.23 K/uL (1.4-6.5); Platelet Count 152 K/uL (130-400); RDW Coefficient of Variation 19.1 % (11.5-14.5); RDW Standard Deviation 66.4 fL (36.4-46.3); Red Blood Count 3.11 M/uL (4.7-6.1); White Blood Count 9.91 K/uL (4.8-10.8)
--- NOTE | 2018-06-24 05:53 | Emergency Department Note ---
Entered by Sandra Nuñez acting as a scribe for ED Provider Note Name: Giorgio Claros Age: 67 Arrives Via: EMS Informant: Patient and Nursing Staff CC: Illness HPI: The patient is a 67 year old male who presents to the Emergency Room with complaints of worsening illness starting this morning. The patient states that he has a Bowie Catheter and an LVAD. He states that this morning he started feeling ill. He reports that he has a fever and a slight cough. He states that he tried taking Tylenol with no relief. He notes that he last had it quite a whole ago. Per nursing staff, the patient was hypoxic at 72% on room air when EMS arrived. The patient denies vomiting, headache, chest pain, abdominal pain, urinary burning, diarrhea, any issues today with his LVAD, and using Oxygen at home. ROS: See above HPI for pertinent positives & negatives. A total of 10 systems reviewed and were otherwise negative. Past Medical History: HTN, GI bleed, ICD and pacemaker, DVT, Depression, Infection of LVAD, MDRO, CVA, HIT, BPH, Jejunal Ulcer, GERD, LVAD, Dilated Cardiomyopathy, CHF, Hypothyroidism, Gout, Hyperlipidemia, CKD, Diabetes Type 2, MA, Blood Dyscrasia, Hypercholesteremia, Heart Disease, Thrombophlebitis, Blood Clotting Disorder, Anemia, Prostatitis, Tia, [place] Palsy, Coag Negative Staph Bacteremia Past Surgical History: Tooth Extraction, Colonoscopy, LVAD Family History: HTN, Stroke Social History: The patient is and lives with his spouse. He is retired and is a former smoker. He denies alcohol and substance use. Home Medications: Allopurinol, Amiodarone, Amlodipine, Aspirin, Carvedilol, Ceftriaxone, Daptomycin, Ferrous Sulfate, Flonase Allergy Relief, Folic Acid, Gabapentin, Hydralazine, Insulin Aspart U-100, Insulin Detemir U-100, Levothyroxine, Magnesium Oxide, Potassium Chloride, Pravastatin, Spironolactone, Tamsulosin, Torsemide, Venlafaxine, Warfarin Allergies Heparin, Enoxaparin (from Lovenox) Physical: Vitals: Temperature: 38, Temperature Source: Oral, Pulse Rate: 94, Respiratory Rate: 22, O2 Saturation: 94% on 4L Nasal Cannula Exam: GENERAL: Patient is ill appearing, tired, and in no acute distress. EYES: No scleral icterus, unremarkable pupils. ENT: Mucous membranes moist, has a runny nose. NECK: No masses appreciated, no meningismus, trachea is midline. RESPIRATORY: Appears mildly breathless. Crackles in all lung raya. No wheeze, no rhonchi. CARDIOVASCULAR: Regular rate and rhythm. No murmurs, rubs, gallops appreciated. CHEST: Bowie catheter in right anterior chest wall. Device under the skin of the left upper chest. Mild overlying erythema. No fluctuance. GASTROINTESTINAL: LVAD entering the right mid abdomen. Abdomen soft, non-tender, no peritonitis. Bowel sounds positive. No masses appreciated. BACK: No midline tenderness, no CVA tenderness EXTREMITIES: Weak pulses in all 4 extremities. Normal motion all extremities, no cyanosis, no edema. NEUROLOGIC: Alert and oriented, no acute motor or sensory deficits, no focal weakness, cranial nerves grossly intact. SKIN: Very warm to touch. No rash, no jaundice, no diaphoresis. ED Course: Prior Medical Record, Triage/Nursing Notes, Medications, Allergies reviewed by Me Vital Signs: reviewed and remarkable for fever Labs: Reviewed and remarkable for Interventions: Saline Lock, Aztreonam 2gm IV, Vanco IV, dilaudid 1 mg IV Imaging: X ray results are stated below per my interpretation: Chest: 1 view: Diffuse congestive findings, no definitive infiltrate, no effusion, large cardiac boder. ICD left upper chest. Wires to heart. Right bowie port. EKG: Atrial senssed vent paced at 93 bpm with no extpoy no iscehmia. QTC 547. Similar to previous Consults: 2316: I spoke to the pharmacist at this time. They report that they patient did get Dapto today. 0028: I discussed the patient's case with Dr. Chung [facility] Hospitalist. He is going to come evaluate the patient and determine if he requires transfer or not. Reassessments/Times: 2303: The patient was evaluated in room A2, and a complete history and physical examination were performed. 2316: I spoke to the pharmacist at this time. They report that they patient did get Dapto today. 2328: I reevaluated the patient and he notes that his daughter has been sick the last few days. He notes that he has noticed he has been sleeping more and his whole body hurts. 2349: I reevaluated the patient and his blood pressure is 116/60. 0014: I reevaluated the patient and his is at bedside. I had a long discussion with them about the treatment plan. She requested that the patient receive Dilaudid for his pain. They agree to the treatment plan as it is for the moment. 0028: I discussed the patient's case with Dr. Vega- [facility] Hospitalist. He is going to come evaluate the patient and determine if he requires transfer or not. 0031: I reevaluated the patient and updated him and his on the plan with Dr. Vega. 0201: Dr. Vega took the patient upstairs. Blood pressure: Normal. No Referral necessary Disposition: hospitalization. Differentials: Differential: Viral, Pharyngitis, Cellulitis, Pneumonia, Influenza, Meningitis, Sepsis, Bacteremia, UTI/Pyelonephritis, Endocrine, Toxicologic, amongst other pathologies entertained. Medical Decision Makin yr old chronically unwell male with LVAD and known infection of LVAD on likely life-long abx per patient, and chart, though recently attempted to go off abx. Recent BlCx concern Coag Neg Staph and thus restarted dapto/rocephin. Daughter has been ill with viral like illness over last few days. Today patient with diffuse body aches, fevers, chills, and weakness. EMS gave 500ml IV fluids en route. He is mildly hypoxic on arrival, with runny nose and fever. Cultures and sepsis work-up initiated. Further fluids held as getting significant fluids from [facility] and he is already a bit hypoxic with CHF and got fluids [employer]. No clear infiltrate on CXR though is in mild failure. Labs with modestly elevated WBC for patient though normal Procalcitonin and only mildly elevated CRP. While abx are clearly indicated in this patient while awaiting cultures, it is just as likely he may have viral illness that his daughter has had. He furthermore was given pain medications for diffuse body aches. Hospitalist consulted who will monitor here for the time being. Impression: Fever Generalized Body Aches Weakness Russ Jones MD The scribe's documentation has been prepared under my direction and personally reviewed by me in its entirety. I confirm that the note above accurately ref lects all work, treatment, procedures, and medical decision making performed by me. 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) CVA (cerebral vascular accident) (Chronic) 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) BPH (benign prostatic hyperplasia) (Chronic) Jejunal ulcer (Chronic) GERD (gastroesophageal reflux disease) (Chronic) LVAD (left ventricular assist device) present (Chronic) Dilated cardiomyopathy (Chronic) Chronic systolic CHF (congestive heart failure) (Chronic) Hypothyroidism (Chronic) Gout (Chronic) Hyperlipidemia (Chronic) CKD (chronic kidney disease), stage III (Chronic) DM type 2 (diabetes mellitus, type 2) (Chronic) Anemia (Inactive) Blood clotting disorder (Inactive) Blood dyscrasia (Inactive) vitamin d deficiency CHF (congestive heart failure) (Inactive) Coag negative Staphylococcus bacteremia (Inactive) Currently is being treated daily with IV antibiotics Diabetes mellitus, type 2 (Inactive) uses insulin Gout (Inactive) Heart disease (Inactive) Hx of Aguilera's palsy (Inactive) Hx of TIA (transient ischemic attack) and stroke (Inactive) 01/16/2017 Seen in [facility] Ed and [place] [facility] [place]x of acute myocardial infarction (Inactive) denies - states he has never had Hx: UTI (urinary tract infection) (Inactive) Hypercholesteremia (Inactive) Hypothyroidism (Inactive) LVAD (left ventricular assist device) present (Inactive) hx cardiomyopathy and heart failure Male genitourinary symptoms (Inactive) enlarged prostate Prostatitis (Inactive) denies Seasonal allergies (Inactive) Thrombophlebitis (Inactive) currently has one in right subclavian vein UTI (urinary tract infection) (Inactive) Surgical History History of left ventricular assist device (Inactive) History of tooth extraction (Inactive) Hx of colonoscopy (Inactive) Family History Father Hypertension Stroke Social History Preferred Language: Samoan Communication Ability: Effective Beliefs That Will Affect Care: None marital status: Current Living Situation: Spouse current occupational status: retired Other Information That Helps Us Care for You: No Feels Safe at Home: Yes Safety Concerns: Feels Safe At This Time Smoking Status: Former smoker Hx Alcohol Use: No Hx Substance Use: No Results & Data Vital Signs Vital Signs - 24 hr 06/23/18 23:07 06/24/18 01:32 06/24/18 02:16 Temperature 38 C H 37.3 C Temperature Source Oral Oral Sepsis Recent Fever Within 48 Hours Yes Sepsis New/Unexplained Change in Mental Status Yes Sepsis Action Taken by Nursing Physician Notified Pulse Rate 94 H Pulse Rate [Finger] 90 86 Respiratory Rate 22 21 20 Respiratory Effort / Characteristics Non-Labored Spontaneous Non-Labored Spontaneous Respiratory Depth Normal Normal Respiratory Pattern Regular Blood Pressure [Left Arm] 121/71 Blood Pressure Mean [Left Arm] 87 Blood Pressure Position [Left Arm] Pulse Oximetry 94 95 83 L Oxygen Delivery Method Nasal Cannula Nasal Cannula Nasal Cannula Oxygen Flow Rate 4 2 3 06/24/18 03:24 06/24/18 03:54 06/24/18 04:15 Temperature 37.1 C Temperature Source Oral Sepsis Recent Fever Within 48 Hours Sepsis New/Unexplained Change in Mental Status Sepsis Action Taken by Nursing Pulse Rate Pulse Rate [Finger] 82 Respiratory Rate 16 Respiratory Effort / Characteristics Respiratory Depth Respiratory Pattern Blood Pressure [Left Arm] 106/79 Blood Pressure Mean [Left Arm] 88 Blood Pressure Position [Left Arm] Lying Pulse Oximetry 94 94 Oxygen Delivery Method Nasal Cannula Nasal Cannula Oxygen Flow Rate 3 3 Home Medications Current Medication List: was personally reviewed by me Laboratory Data Attestation: I reviewed the patient's lab results. Result diagrams: 06/24/18 05:26 06/23/18 23:00 Lab Results 06/23/18 06/23/18 06/23/18 Range/Units 23:00 23:00 23:00 WBC 12.17 H (4.8-10.8) K/uL RBC 3.29 L (4.7-6.1) M/uL Hgb 10.0 L (14.0-18.0) g/dL Hct 31.2 L (42-52) % MCV 94.8 (80-100) fL MCH 30.4 (25-34) pg MCHC 32.1 (32-36) g/dL RDW Std Deviation 65.9 H (36.4-46.3) fL RDW Coeff of [place] 19.0 H (11.5-14.5) % Plt Count 166 (130-400) K/uL MPV 11.1 H (7.4-10.4) fL Immature Gran % (Auto) 0.2 % Neut % (Auto) 85.2 % Lymph % (Auto) 4.4 % Garza % (Auto) 9.0 % Eos % (Auto) 1.0 % Baso % (Auto) 0.2 % Immature Gran # (Auto) 0.02 (0.00-0.02) K/uL Neut # (Auto) 10.37 H (1.4-6.5) K/uL Lymph # (Auto) 0.54 L (1.2-3.4) K/uL Garza # (Auto) 1.09 H (0.11-0.59) K/uL Eos # (Auto) 0.12 (0-0.5) K/uL Baso # (Auto) 0.03 (0-0.2) K/uL PT 21.8 H (9.0-12.0) Seconds INR 2.3 H (0.9-1.1) APTT 38.2 H (21.0-31.0) Seconds PTT Ratio 1.4 Sodium 138 (136-145) mmol/L Potassium 3.9 (3.5-5.1) mmol/L Chloride 102 (98-107) mmol/L Carbon Dioxide 30 (21-32) mmol/L Anion Gap 6.0 (3-11) BUN 15 (7-18) mg/dl Creatinine 1.06 (0.6-1.4) mg/dl Est Cr Clr Drug Dosing 90.5 ml/min Est GFR ( Amer) 83.2 Est GFR (Non-Af Amer) 71.8 BUN/Creatinine Ratio 14.1 (10-20) Glucose 189 H (70-99) mg/dl Lactate (0.4-2.0) mmol/L Calcium 7.9 L (8.5-10.1) mg/dl Magnesium 2.1 (1.8-2.4) mg/dl Total Bilirubin 0.9 (0.2-1) mg/dl AST 72 H (15-37) U/L ALT 51 (12-78) U/L Alkaline Phosphatase 50 (45-117) U/L Total Creatine Kinase 169 (39-308) U/L CK-MB (CK-2) 2.2 (0.5-3.6) ng/ml CK/CKMB % Calc 1.3 (0-3.0) Troponin I 0.042 (0-0.045) ng/ml C-Reactive Protein 8.16 H (0-0.29) mg/dl Total Protein 6.9 (6.4-8.2) gm/dl Albumin 3.5 (3.4-5.0) gm/dl Globulin 3.4 (2.5-4.0) gm/dl Albumin/Globulin Ratio 1.0 (0.9-2) Procalcitonin (0-0.5) ng/ml Urine Color Urine Appearance (Clear) Urine pH (4.5-7.5) Ur Specific Eure (1.000-1.030) Urine Protein (Negative) Urine Glucose (UA) (Negative) Urine Ketones (Negative) Urine Blood (Negative) Urine Nitrite (Negative) Urine Bilirubin (Negative) Urine Urobilinogen (Negative) Ur Leukocyte Esterase (Negative) Urine WBC (Auto) (0-5) /hpf Urine RBC (Auto) (0-4) /hpf U Hyaline Cast (Auto) (0-5) /lpf U Epithel Cells (Auto) (0-5) /lpf Urine Bacteria (Auto) (Negative) Influenza Type A (PCR) (Neg) Influenza Type B (PCR) (Neg) 06/23/18 06/23/18 06/23/18 Range/Units 23:00 23:12 23:12 WBC (4.8-10.8) K/uL RBC (4.7-6.1) M/uL Hgb (14.0-18.0) g/dL Hct (42-52) % MCV (80-100) fL MCH (25-34) pg MCHC (32-36) g/dL RDW Std Deviation (36.4-46.3) fL RDW Coeff of [place] (11.5-14.5) % Plt Count (130-400) K/uL MPV (7.4-10.4) fL Immature Gran % (Auto) % Neut % (Auto) % Lymph % (Auto) % Garza % (Auto) % Eos % (Auto) % Baso % (Auto) % Immature Gran # (Auto) (0.00-0.02) K/uL Neut # (Auto) (1.4-6.5) K/uL Lymph # (Auto) (1.2-3.4) K/uL Garza # (Auto) (0.11-0.59) K/uL Eos # (Auto) (0-0.5) K/uL Baso # (Auto) (0-0.2) K/uL PT (9.0-12.0) Seconds INR (0.9-1.1) APTT (21.0-31.0) Seconds PTT Ratio Sodium (136-145) mmol/L Potassium (3.5-5.1) mmol/L Chloride (98-107) mmol/L Carbon Dioxide (21-32) mmol/L Anion Gap (3-11) BUN (7-18) mg/dl Creatinine (0.6-1.4) mg/dl Est Cr Clr Drug Dosing ml/min Est GFR ( Amer) Est GFR (Non-Af Amer) BUN/Creatinine Ratio (10-20) Glucose (70-99) mg/dl Lactate 0.8 (0.4-2.0) mmol/L Calcium (8.5-10.1) mg/dl Magnesium (1.8-2.4) mg/dl Total Bilirubin (0.2-1) mg/dl AST (15-37) U/L ALT (12-78) U/L Alkaline Phosphatase (45-117) U/L Total Creatine Kinase (39-308) U/L CK-MB (CK-2) (0.5-3.6) ng/ml CK/CKMB % Calc (0-3.0) Troponin I (0-0.045) ng/ml C-Reactive Protein (0-0.29) mg/dl Total Protein (6.4-8.2) gm/dl Albumin (3.4-5.0) gm/dl Globulin (2.5-4.0) gm/dl Albumin/Globulin Ratio (0.9-2) Procalcitonin < 0.05 (0-0.5) ng/ml Urine Color Yellow Urine Appearance Clear (Clear) Urine pH 6.0 (4.5-7.5) Ur Specific Eure 1.017 (1.000-1.030) Urine Protein Trace H (Negative) Urine Glucose (UA) Trace H (Negative) Urine Ketones 1+ H (Negative) Urine Blood Negative (Negative) Urine Nitrite Negative (Negative) Urine Bilirubin Negative (Negative) Urine Urobilinogen Negative (Negative) Ur Leukocyte Esterase Negative (Negative) Urine WBC (Auto) 1-5 (0-5) /hpf Urine RBC (Auto) 0-4 (0-4) /hpf U Hyaline Cast (Auto) 0 (0-5) /lpf U Epithel Cells (Auto) 5-10 H (0-5) /lpf Urine Bacteria (Auto) Negative (Negative) Influenza Type A (PCR) (Neg) Influenza Type B (PCR) (Neg) 06/24/18 06/24/18 06/24/18 Range/Units 00:11 05:26 05:26 WBC 9.91 (4.8-10.8) K/uL RBC 3.11 L (4.7-6.1) M/uL Hgb 9.7 L (14.0-18.0) g/dL Hct 29.8 L (42-52) % MCV 95.8 (80-100) fL MCH 31.2 (25-34) pg MCHC 32.6 (32-36) g/dL RDW Std Deviation 66.4 H (36.4-46.3) fL RDW Coeff of [place] 19.1 H (11.5-14.5) % Plt Count 152 (130-400) K/uL MPV 10.9 H (7.4-10.4) fL Immature Gran % (Auto) 0.3 % Neut % (Auto) 83.0 % Lymph % (Auto) 6.6 % Garza % (Auto) 8.8 % Eos % (Auto) 1.1 % Baso % (Auto) 0.2 % Immature Gran # (Auto) 0.03 H (0.00-0.02) K/uL Neut # (Auto) 8.23 H (1.4-6.5) K/uL Lymph # (Auto) 0.65 L (1.2-3.4) K/uL Garza # (Auto) 0.87 H (0.11-0.59) K/uL Eos # (Auto) 0.11 (0-0.5) K/uL Baso # (Auto) 0.02 (0-0.2) K/uL PT 18.8 H (9.0-12.0) Seconds INR 1.9 H (0.9-1.1) APTT (21.0-31.0) Seconds PTT Ratio Sodium (136-145) mmol/L Potassium (3.5-5.1) mmol/L Chloride (98-107) mmol/L Carbon Dioxide (21-32) mmol/L Anion Gap (3-11) BUN (7-18) mg/dl Creatinine (0.6-1.4) mg/dl Est Cr Clr Drug Dosing ml/min Est GFR ( Amer) Est GFR (Non-Af Amer) BUN/Creatinine Ratio (10-20) Glucose (70-99) mg/dl Lactate (0.4-2.0) mmol/L Calcium (8.5-10.1) mg/dl Magnesium (1.8-2.4) mg/dl Total Bilirubin (0.2-1) mg/dl AST (15-37) U/L ALT (12-78) U/L Alkaline Phosphatase (45-117) U/L Total Creatine Kinase (39-308) U/L CK-MB (CK-2) (0.5-3.6) ng/ml CK/CKMB % Calc (0-3.0) Troponin I (0-0.045) ng/ml C-Reactive Protein (0-0.29) mg/dl Total Protein (6.4-8.2) gm/dl Albumin (3.4-5.0) gm/dl Globulin (2.5-4.0) gm/dl Albumin/Globulin Ratio (0.9-2) Procalcitonin (0-0.5) ng/ml Urine Color Urine Appearance (Clear) Urine pH (4.5-7.5) Ur Specific Eure (1.000-1.030) Urine Protein (Negative) Urine Glucose (UA) (Negative) Urine Ketones (Negative) Urine Blood (Negative) Urine Nitrite (Negative) Urine Bilirubin (Negative) Urine Urobilinogen (Negative) Ur Leukocyte Esterase (Negative) Urine WBC (Auto) (0-5) /hpf Urine RBC (Auto) (0-4) /hpf U Hyaline Cast (Auto) (0-5) /lpf U Epithel Cells (Auto) (0-5) /lpf Urine Bacteria (Auto) (Negative) Influenza Type A (PCR) Neg for Influ A (Neg) Influenza Type B (PCR) Neg for Influ B (Neg) Administered Medications Levothyroxine Sodium (Synthroid) 150 mcg PO DAILYBB CAMILA Stop: 07/24/18 06:29 Last Admin: 06/24/18 05:21 Dose: 150 mcg Documented by: [id number] Discontinued Medications Acetaminophen (Tylenol) 650 mg PO NOW STA Stop: 06/23/18 22:58 Last Admin: 06/23/18 23:39 Dose: 650 mg Documented by: [id number] Hydromorphone HCl (Dilaudid) 1 mg IV NOW STA Stop: 06/24/18 00:15 Last Admin: 06/24/18 00:23 Dose: 1 mg Documented by: [id number] Aztreonam 2,000 mg/ Dextrose 110 mls @ 100 mls/hr IV NOW STA Stop: 06/24/18 00:24 Last Infusion: 06/24/18 01:06 Dose: 0 mls/hr Documented by: [id number] Admin: 06/23/18 23:39 Dose: 100 mls/hr Documented by: [id number] Vancomycin HCl 2,500 mg/ (Sodium Chloride) 550 mls @ 200 mls/hr IV NOW ONE Stop: 06/24/18 02:58 Last Infusion: 06/24/18 04:10 Dose: 0 mls/hr Documented by: [id number] Admin: 06/24/18 01:06 Dose: 200 mls/hr Documented by: [id number] Blood Pressure Blood Pressure Findings: Low blood pressure Blood Pressure Disposition: further management by hospitalist Discharge Plan Visit Data *Final* Discharge Date/Time: 06/24/18 02:11 Chief Complaint: Illness Stated Complaint: ILLNESS, SOB, LVAD PT ED Provider: Russ Jones Discharge Problem: Fever, Generalized body aches, Weakness Patient Disposition: Admitted As Inpatient Discharge Instructions Interventions: ED Discharge Assessment Last Done: 06/24/18 02:11 Discharge Problem: Fever Qualifiers: Fever type: unspecified Qualified Code(s): R50.9 - Fever, unspecified The scribe's documentation has been prepared under my direction and personally reviewed by me in its entirety. I confirm that the note above accurately reflects all work, treatment, procedures, and medical decision making performed by me.
[2018-06-24 05:54] LABS: INR 1.9 (0.9-1.1); Prothrombin Time 18.8 Seconds (9.0-12.0)
[2018-06-24 06:00] LABS: BUN Creatinine Ratio 12.4 (10-20); Calcium 7.9 mg/dl (8.5-10.1); Creatinine Clr Calc Pharmacy 87.6 ml/min; Est GFR (African American) 80.4; Est GFR (Non-African American) 69.4; Magnesium 2.2 mg/dl (1.8-2.4); Potassium 3.8 mmol/L (3.5-5.1)
[2018-06-24] MEDS ORDERED: LEVOTHYROXINE SODIUM 150 MCG TABLET PO SCH (06:30)
[2018-06-24] MEDS: FERROUS SULFATE 325 MG TAB PO SCH ×2 (08:12→21:19)
[2018-06-24] MEDS: MAGNESIUM OXIDE 400 MG TAB PO SCH ×3 (08:13→21:21)
[2018-06-24] MEDS: CARVEDILOL 12.5 MG TAB PO SCH ×2 (08:13→21:17)
[2018-06-24] MEDS: GABAPENTIN 600 MG TAB PO SCH ×3 (08:13→21:16)
[2018-06-24] MEDS: POTASSIUM CHLORIDE 10 MEQ TABCR PO SCH ×3 (08:13→21:20)
[2018-06-24] MEDS: INSULIN ASPART 100 UNITS/ML 3 ML PEN SC SCH ×4 (08:22→21:22)
[2018-06-24] MEDS ORDERED: INSULIN DETEMIR FLEXPEN/FLEX TOUCH 100 UNITS/ML 3ML SQ SCH ×2 (09:00→22:30)
[2018-06-24] MEDS ORDERED: TORSEMIDE 20 MG TAB PO SCH (09:00)
[2018-06-24] MEDS ORDERED: ASPIRIN 81 MG ECTAB PO SCH (09:00)
[2018-06-24] MEDS ORDERED: FOLIC ACID 1 MG TAB PO SCH (09:00)
[2018-06-24] MEDS ORDERED: AMLODIPINE BESYLATE 5 MG TAB PO SCH (09:00)
[2018-06-24] MEDS ORDERED: cefTRIAXone SODIUM 2,000 MG in DEXTROSE 5% 50 ML IV SCH (09:00)
[2018-06-24] MEDS ORDERED: AMIODARONE 200 MG TAB PO SCH (09:00)
[2018-06-24] MEDS ORDERED: ALLOPURINOL 100 MG TAB PO SCH (09:00)
[2018-06-24] MEDS ORDERED: SPIRONOLACTONE 25 MG TAB PO SCH (09:00)
[2018-06-24] MEDS ORDERED: DAPTOmycin 500 MG VIAL IV SCH (09:00)
[2018-06-24] MEDS ORDERED: DAPTOmycin 1,200 MG in SYRINGE 0 ML IV SCH (10:00)
[2018-06-24] MEDS ORDERED: DOBUTamine 500MG / 250ML D5W IV ONE (13:01)
[2018-06-24 14:32] LABS: Troponin I 0.027 ng/ml (0-0.045)
--- NOTE | 2018-06-24 14:54 | Discharge Summary ---
Date of Service June 24, 2018 Principal Diagnosis chronic LVAD infection /acute illness /sepsis PT IS TRANSFERRED TO [facility] ACCEPTING PHYSICIAN DR FREDY GAXIOLA Discharge Exam GENERAL:in distress, diaphoretic , restless HEENT: Sclera nonicteric, Normal oral mucosa, neck: Lungs: diminished no wheeze or rales Cardiovascular: Regular S1 and S2, tachycardic Abdomen: Soft, nontender, bowel sounds active, no hepatosplenomegaly Extremities: No rash or deformity, normal joint, Neuro: No focal neurological deficit, no dysarthria, no facial droop Psych: Alert awake /very anxious diaphoretic Skin: No rash LYMPH NODES: No cervical lymphadenopathy Discharge Data Allergies Allergy/AdvReac Type Severity Reaction Status Date / Time heparin Allergy Severe Heparin Verified 06/23/18 09:40 Induced Thrombocytopenia enoxaparin [From Lovenox] Allergy Heparin Verified 06/23/18 09:40 induced thrombocytopenia Consultations 06/24/18 00:30 ED Decision to Admit Stat 06/24/18 02:15 Consult Case Management - Discharge Planning Routine 06/24/18 08:00 Consult Infectious Diseases Routine 06/24/18 13:51 Consult [facility] Routine 06/24/18 14:09 Consult Cardiology Routine Hospital Course (1) Fever: presented with fever /tachycardia /elevated C reactive protein blood cultures ordered cont Empiric Abx ID eval (2) HTN (hypertension): BP border line low given 500 mg IV fluid bolus in ED cont Amiodarone /beta brandon will hold Norvasc /Hydralazine (3) 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): on Daptomycin /Rocephin repeat blood cultures ordered pt follows with ID at [facility] [place] (4) 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 (5) Dilated cardiomyopathy: severe Cardiomyopahty on LVAD follows with Cardiology Dr Fredy Gaxiola at [place] (6) Chronic systolic CHF (congestive heart failure): Current Inpatient Medications On LVAD will be transferred to [facility] Accepting Physician Dr Fredy Gaxiola Acetaminophen (Tylenol) 650 mg PO Q4H PRN PRN Reason: Pain or Fever Stop: 07/24/18 02:14 Allopurinol (Zyloprim) 100 mg PO DAILY [facility] Stop: 07/24/18 08:59 Last Admin: 06/24/18 08:13 Dose: 100 mg Documented by: Amiodarone HCl (Cordarone) 200 mg PO DAILY [facility] Stop: 07/24/18 08:59 Last Admin: 06/24/18 08:14 Dose: 200 mg Documented by: Amlodipine Besylate (Norvasc) 10 mg PO DAILY [facility] Stop: 07/24/18 08:59 Last Admin: 06/24/18 08:12 Dose: 10 mg Documented by: Aspirin (Ecotrin Ectab) 81 mg PO DAILY [facility] Stop: 07/24/18 08:59 Last Admin: 06/24/18 08:12 Dose: 81 mg Documented by: Carvedilol (Coreg) 12.5 mg PO BID [facility] Stop: 07/24/18 08:59 Last Admin: 06/24/18 08:13 Dose: 12.5 mg Documented by: Dextrose (Dextrose 50%) 25 - 50 ml IV UD PRN; Protocol PRN Reason: Hypoglycemia Protocol Stop: 07/24/18 02:44 Ferrous Sulfate (Feosol) 325 mg PO BID [facility] Stop: 07/24/18 08:59 Last Admin: 06/24/18 08:12 Dose: 325 mg Documented by: Folic Acid (Folvite) 1 mg PO DAILY [facility] Stop: 07/24/18 08:59 Last Admin: 06/24/18 08:12 Dose: 1 mg Documented by: Gabapentin (Neurontin) 600 mg PO TID [facility] Stop: 07/24/18 08:59 Last Admin: 06/24/18 14:03 Dose: 600 mg Documented by: Glucagon (Glucagen) 1 mg SQ UD PRN; Protocol PRN Reason: Hypoglycemia Protocol Stop: 07/24/18 02:44 Glucose (Glucose 40%) 15 - 30 gm PO UD PRN; Protocol PRN Reason: Hypoglycemia Protocol Stop: 07/24/18 02:44 Glucose (Dex4 Glucose) 4 - 8 tabs PO UD PRN; Protocol PRN Reason: Hypoglycemia Protocol Stop: 07/24/18 02:44 Hydromorphone HCl (Dilaudid) 0.5 mg IV Q3H PRN PRN Reason: Pain Stop: 07/08/18 02:14 Ceftriaxone Sodium 2,000 mg/ (Dextrose) 70 mls @ 100 mls/hr IV DAILY [facility]; P rotocol Stop: 07/24/18 08:59 Last Infusion: 06/24/18 09:01 Dose: Infused Documented by: Daptomycin 1,200 mg/ Syringe 24 mls @ 0 mls/min IV DAILY@1000 [facility]; Protocol Stop: 07/24/18 09:59 Last Admin: 06/24/18 10:18 Dose: 1,200 mls/min Documented by: Insulin Aspart (Novolog Flexpen) 0 units SC ACHS [facility] Stop: 07/24/18 07:29 Last Admin: 06/24/18 14:01 Dose: 10 units Documented by: Insulin Detemir (Levemir Flextouch) 25 units SQ BID [facility] Stop: 07/24/18 08:59 Last Admin: 06/24/18 08:24 Dose: 25 units Documented by: Levothyroxine Sodium (Synthroid) 150 mcg PO DAILYBB [facility] Stop: 07/24/18 06:29 Last Admin: 06/24/18 05:21 Dose: 150 mcg Documented by: Magnesium Oxide (Mag-Ox) 400 mg PO TID [facility] Stop: 07/24/18 08:59 Last Admin: 06/24/18 14:03 Dose: 400 mg Documented by: Miscellaneous (Carbohydrates For Hypoglycemia) 15 - 30 gm PO UD PRN PRN Reason: Hypoglycemia Treatment Stop: 07/24/18 02:44 Nitroglycerin (Nitrostat) 0.4 mg SL UD PRN PRN Reason: Chest Pain Stop: 07/24/18 02:14 Ondansetron HCl (Zofran) 4 mg IV Q6H PRN PRN Reason: Nausea Stop: 07/24/18 02:14 Potassium Chloride (Klor-Con M10) 20 meq PO TID [facility] Stop: 07/24/18 08:59 Last Admin: 06/24/18 14:03 Dose: 20 meq Documented by: Pravastatin Sodium (Pravachol) 40 mg PO QPM [facility] Stop: 07/24/18 20:59 Spironolactone (Aldactone) 50 mg PO DAILY [facility] Stop: 07/24/18 08:59 Last Admin: 06/24/18 08:12 Dose: 50 mg Documented by: Tamsulosin HCl (Flomax) 0.4 mg PO QPM [facility] Stop: 07/24/18 20:59 Torsemide (Demadex) 20 mg PO DAILY [facility] Stop: 07/24/18 08:59 Last Admin: 06/24/18 08:13 Dose: 20 mg Documented by: Venlafaxine HCl (Effexor Extended Release) 150 mg PO HS [facility] Stop: 07/24/18 20:59 Warfarin Sodium (Coumadin) 5 mg PO Q2D@1600 [facility]; Protocol Stop: 07/25/18 15:59 Warfarin Sodium (Coumadin) 10 mg PO Q2D@1600 [facility] Stop: 07/24/18 15:59 Total Time Total Time Spent Total Time Spent (In Minutes): 40 mins Total Time Includes: Examination of the Patient, Discharge Planning, Medication Reconciliation and Communication With Other Providers Discharge Plan Discharge Items Patient Disposition: Transfer Acute Care Hospital Reason For Visit: ILLNESS Discharge Diagnosis: CHRONIC INFECTED LVAD /ACUTE INFECTION Discharge Goals: Decrease discomfort and Diagnostic testing Activity: As commented below Activity Comment: BEDREST TILL FURTHER CARDIAC EVAL IN [place] Non-emergency contact: Primary Care Provider Call non-emergency contact if: you have any medication questions Follow-up/Referrals: Graham Rojas MD [Primary Care Provider] - Diet: Heart Healthy Addtl Provider Instructions: PT IS TRANSFERRED TO [facility] ACCEPTING PHYSICIAN DR FREDY GAXIOLA Prescriptions: Continued torsemide 20 mg tablet 20 mg PO DAILY RF: 0 carvedilol 12.5 mg tablet 12.5 mg PO BID RF: 0 amiodarone 200 mg tablet 200 mg PO DAILY RF: 0 aspirin 81 mg Tablet,Delayed Release (Dr/Ec) 81 mg PO DAILY RF: 0 ferrous sulfate 325 mg (65 mg iron) Tablet 325 mg PO BID RF: 0 potassium chloride 10 mEq tablet extended release 20 meq PO TID RF: 0 levothyroxine 150 mcg tablet 150 mcg PO DAILY RF: 0 folic acid 1 mg Tablet 1 mg PO DAILY RF: 0 spironolactone 50 mg tablet 50 mg PO DAILY RF: 0 insulin aspart U-100 100 unit/mL insulin pen 15 units subcut TIDM RF: 0 insulin detemir U-100 100 unit/mL (3 mL) insulin pen 25 units subcut BID RF: 0 magnesium oxide 400 mg magnesium Tablet 400 mg PO TID RF: 0 warfarin 10 mg Tablet 10 mg PO Q OTHER DAY RF: 0 warfarin 10 mg Tablet 5 mg PO Q OTHER DAY RF: 0 Discontinued allopurinol 100 mg tablet 100 m PO DAILY RF: 0 amlodipine 10 mg tablet 10 mg PO DAILY RF: 0 gabapentin 600 mg tablet 600 mg PO TID RF: 0 pravastatin 40 mg tablet 40 mg PO QPM RF: 0 venlafaxine 150 mg capsule,extended release 24hr 150 mg PO HS RF: 0 tamsulosin 0.4 mg capsule 0.4 mg PO QPM RF: 0 hydralazine 50 mg tablet 50 mg PO BID RF: 0 Stand-Alone Forms: [facility] Discharge Orders: Discharge Order (Routine); Ordered 06/24/18 Ordered By: Indigo Galicia Admission Data Admit Date/Time: 06/24/18 01:20 Attending Provider: Indigo Galicia Admit Provider: Jean-Pierre Vega Primary Care Provider: Graham Rojas Other Providers: Jean-Pierre Vega ; Kym Davison Service: Telemetry
[2018-06-24] MEDS ORDERED: WARFARIN SOD 10 MG TAB PO SCH (16:00)
[2018-06-24] MEDS ORDERED: VENLAFAXINE HCL XR 150 MG CAPXR PO SCH (21:00)
[2018-06-24] MEDS ORDERED: TAMSULOSIN HCL 0.4 MG CAP PO SCH (21:00)
[2018-06-24] MEDS ORDERED: PRAVASTATIN SOD 40 MG TAB PO SCH (21:00)
[2018-06-24] MEDS ORDERED: Nursing to Pharmacy Communication ONE (22:28)
[2018-06-25] MEDS ORDERED: WARFARIN SOD 5 MG TAB PO SCH (16:00)
== END 2018-06-24 22:20 | disposition short-term general hospital (02) | DRG 872 ==
LOC: ED 22:45 → 2E 06-24 01:20

== ENCOUNTER 2021-10-06 16:45 | Inpatient (IN) ==
[2021-10-06] MEDS ORDERED: ALBUT/IPRATROP 3MG/0.5MG NEB 3 ML VIAL NEB ONE (17:28)
[2021-10-06] MEDS ORDERED: dexAMETHasone**PF** 10 MG/ML VIAL IV ONE (17:28)
--- NOTE | 2021-10-06 17:32 | Emergency Department Note ---
Impression & Plan COVID-19, Acute respiratory distress, Diffuse wheezing, Presence of combination internal cardiac defibrillator (ICD) and pacemaker, DM type 2 (diabetes mellitus, type 2) ED Provider Note Name: MARY WEEKS Age: 70 Sex: M Arrives Via: Ambulance Informant: Patient, EMS ED Provider: Russ Jones MD Chief Complaint: Shortness of breath Impression: As per impressions above Medical Decision Makin-year-old gentleman with a history of dilated cardiomyopathy who has an indwelling left ventricular assist device, as well as a history of type 2 diabet es, hyperlipidemia, CKD, hypothyroidism, GERD, HIT, BPH, CVA, depression, hypertension amongst other medical issues who is on warfarin for his LVAD and previous DVTs. He arrives with 2 days of worsening shortness of breath and cough and a positive home COVID test. On arrival he has diffuse wheezing and very tight lung sounds and is in significant distress. He was immediately given 10 mg of Decadron along with an hour-long nebulizer was ordered. His vital reveal no fever, excellent oxygen saturation and does have an underlying paced rhythm noted though no pulse given his LVAD. He was initially negative on the anterior nasal COVID test however a bio fire pcr was obtained which is positive for COVID consistent with the symptoms. I do believe his primary issue is COVID at this time. His chest x-ray is not overly concerning there is no clear evidence of significant effusion or congestive heart failure. His BNP is normal. He does not have significant edema in his legs. Following his neb he actually looks quite comfortable he is breathing without difficulty and his oxygen is good. He has some mild continued wheezing on expiration, lungs are no longer tight. Labs do show some mild hyperglycemia and given his history with getting IV steroids I am concerned that he will become further hypoglycemic as per the reason for monitoring in hospital. I do not feel he is septic at this time he has no current fever and his labs are reassuring. Reviewed the case with Dr. Nargis Haque heart failure team who knows the patient. He notes that if hospitalist is comfortable appear monitoring him it would be reasonable to keep him at this facility. There he did note that if any concerns or worsening we can transfer him for further evaluation and management. I discussed this with the patient he is on board with staying here if possible. He has multiple batteries for his LVAD with him and each last 10 hours. Reviewed the case with on-call hospitalist Dr. Moss and she will come further evaluate the patient. Prior Medical Record and Triage/Nursing Notes reviewed by Me Additional history obtained from chart Differentials:Reactive airway disease, pneumonia, pneumothorax, COPD, CHF, infections, cardiac ischemia, pulmonary embolism, musculoskeletal, gastrointestinal, as well as other pathologies. Vital Signs: reviewed and remarkable for no significant abnormalities Interventions: DuoNeb 1 hour nebulizer, Decadron 10 mg IV Labs:Reviewed and remarkable for positive COVID-19 Imaging:Radiologist interpretation reviewed by me: 1 view chest x-ray no infiltrate, effusion Cardiac/Tele Monitoring: Cardiac Monitoring: An Order was placed for continuous cardiac monitoring. The monitor shows a rate of 75 with a AV paced rhythm. Consults:Dr Barillas [facility] HF team. Dr Moss hospitalist Plan: Disposition:Hospitalization. Condition: Good History of Present Illness:70-year-old gentleman arrives for evaluation of shortness of breath. Patient is a long cardiac history and follows with [facility] for an LVAD. Patient notes worsening shortness of breath and weakness starting about 2 days ago. Associated with cough, congestion, or generalized weakness. At that point his checked him with a home COVID test and was positive. Symptoms have worsened over the last 48 hours. He states he is having trouble getting his breath. Patient notes he is too weak to get up out of bed. Due to worsening symptoms 911 was called and is brought to the ER by ambulance. Patient states he has not had a true fever but notes his temperature was up to 99 degrees earlier in the day which is abnormal for him. He denies any syncope, chest pain, headache, neck pain, abdominal pain, nausea, vomiting, back pain, leg swelling, calf pain symptoms. He is on Coumadin and states he has had no recent bleeding. Any exertion makes symptoms worse rest makes them slightly better. ROS: See above HPI for pertinent positives & negatives. A total of 10 systems reviewed and were otherwise negative. Past Medical History:See Below Past Surgical History:See Below Family History:See Below Social History:See Below Home Medications:See Below Allergies:See Below Vitals:Blood Pressure: na, Pulse na, RR 17, T 36.9C, O2 94% on RA Physical Exam: GENERAL: Patient is chronically unwell appearing and in mild distress. EYES: No scleral icterus, unremarkable pupils. ENT: Mucous membranes moist, no nasal congestion. NECK: No masses appreciated, nomeningismus, trachea is midline. RESPIRATORY: Diffuse wheezing and severely tight lung sounds, patient periodically coughing, patient dyspneic/tachypneic CARDIOVASCULAR: Mechanical hum noted over heart. GASTROINTESTINAL: Abdomen soft, non-tender, no peritonitis.Bowel sounds positive.No masses appreciated. BACK: No midline tenderness, no CVA tenderness EXTREMITIES: Normal motion all extremities, no cyanosis, no edema. NEUROLOGIC: Alert and oriented, no acute motor or sensory deficits, no focal weakness, cranial nerves grossly intact. SKIN: No rash, no jaundice, no diaphoresis. PSYCH: Appropriate GCS: 15 ED Course: Times/Reassessments: Patient arrived in significant respiratory distress with difficulty catching his breath. He was given an hour-long nebulizer along with 10 mg IV Decadron. He tolerated this quite well and was vastly improved following the nebulizer. He did well for several hours without worsening however in the setting of LVAD and his diabetes he was agreeable to hospitalization. He is agreeable to staying at this facility and feels he is batteries able to last him well over the next day or 2. Patient stable throughout with good respiratory drive and satting appropriately. Russ Jones MD Past Med/Surg History Medical History (Updated 10/07/21 @ 08:15 by Russ Jones MD) Anemia Blood clotting disorder Blood dyscrasia vitamin d deficiency BPH (benign prostatic hyperplasia) CHF (congestive heart failure) Chronic systolic CHF (congestive heart failure) CKD (chronic kidney disease), stage III Coag negative Staphylococcus bacteremia Currently is being treated daily with IV antibiotics CVA (cerebral vascular accident) Depression Diabetes mellitus, type 2 uses insulin Dilated cardiomyopathy DM type 2 (diabetes mellitus, type 2) DVT (deep venous thrombosis) GERD (gastroesophageal reflux disease) GI bleed Gout Gout Heart disease HIT (heparin-induced thrombocytopenia) HTN (hypertension) Hx of acute myocardial infarction denies - states he has never had Hx of Aguilera's palsy Hx of TIA (transient ischemic attack) and stroke 01/16/2017 Seen in [facility] Ed and transfered to [facility] Hx: UTI (urinary tract infection) Hypercholesteremia Hyperlipidemia Hypothyroidism Hypothyroidism 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 pocket infections with MRDO, on life-long IV antibiotics Jejunal ulcer LVAD (left ventricular assist device) present hx cardiomyopathy and heart failure LVAD (left ventricular assist device) present Male genitourinary symptoms enlarged prostate 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 - [facility] Prostatitis denies Seasonal allergies Thrombophlebitis currently has one in right subclavian vein UTI (urinary tract infection) Surgical History H/O tooth extraction complete tooth extraction due to recurrent LVAD infections History of left ventricular assist device History of left ventricular assist device (LVAD) LVAD replaced June 2018 History of tooth extraction Hx of colonoscopy Family History Father Hypertension Stroke Social History Smoking Status: Never smoker Tobacco Type: Cigarettes Do You Dip or Chew Tobacco: No; Hx Alcohol Use: No Hx Substance Use: No Preferred Language: Indonesian Communication Ability: Effective 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: No Beliefs That Will Affect Care: None marital status: Current Living Situation: Spouse current occupational status: retired Other Information That Helps Us Care for You: No Feels Safe at Home: Yes Safety Concerns: Feels Safe At This Time Assistive Devices: Wheelchair Assistive Devices Comment: LVAD Allergies Allergies Allergy/AdvReac Type Severity Reaction Status Date / Time baclofen Allergy Unknown Unknown Verified 10/06/21 19:55 enoxaparin [From Lovenox] AdvReac Severe Heparin Verified 10/06/21 19:55 induced thrombocytopenia heparin AdvReac Severe Heparin Verified 10/06/21 19:55 Induced Thrombocytopenia Home Meds Home Medications Medication Instructions Recorded Confirmed amiodarone 200 mg tablet 200 mg PO QAM 01/27/18 10/06/21 aspirin 81 mg tablet,delayed 81 mg PO QAM 01/27/18 10/06/21 release folic acid 1 mg tablet 1 mg PO QAM 01/27/18 10/06/21 levothyroxine 150 mcg tablet 150 mcg PO DAILYBB 01/27/18 10/06/21 magnesium oxide 400 mg PO TID 01/27/18 10/06/21 albuterol sulfate 90 mcg/actuation 2 puff inhalation Q4 PRN Shortness 08/18/18 10/06/21 aerosol inhaler Of Breath Or Wheezing pravastatin 40 mg tablet 40 mg PO HS 08/18/18 10/06/21 venlafaxine 150 mg 150 mg PO HS 08/18/18 10/06/21 capsule,extended release 24 hr (Effexor XR) amlodipine 5 mg tablet 5 mg PO QAM 10/07/18 10/06/21 doxycycline monohydrate 100 mg 100 mg PO BID 12/17/19 10/06/21 tablet insulin lispro 100 unit/mL 15 unit subcut TIDM 12/17/19 10/06/21 subcutaneous pen (Humalog KwikPen (U-100) Insulin) omeprazole 40 mg capsule,delayed 40 mg PO QAM 12/17/19 10/06/21 release spironolactone 25 mg tablet 25 mg PO DAILY 12/17/19 10/06/21 tamsulosin 0.4 mg capsule (Flomax) 0.4 mg PO DAILY 12/17/19 10/06/21 warfarin 5 mg tablet (Jantoven) See Rx Instructions .Route .COMPLEX 12/17/19 10/06/21 carvedilol 25 mg tablet 25 mg PO BIDM 03/23/20 10/06/21 ferrous sulfate 325 mg (65 mg 325 mg PO BID 03/23/20 10/06/21 iron) tablet (Feosol) finasteride 5 mg tablet 5 mg PO QAM 03/23/20 10/06/21 acetaminophen 500 mg tablet 500 mg PO Q6H PRN Pain 04/17/20 10/06/21 (Tylenol Extra Strength) allopurinol 300 mg tablet 300 mg PO QAM 12/04/20 10/06/21 cholecalciferol (vitamin D3) 1,250 1,250 mcg PO .Q14D 12/04/20 10/06/21 mcg (50,000 unit) capsule diclofenac sodium 1 % topical gel 4 g topical QID PRN Pain 12/04/20 10/06/21 torsemide 20 mg tablet 20 mg PO 4XWK 12/04/20 10/06/21 fluticasone propionate 50 2 spray intranasal DAILY PRN 10/06/21 10/06/21 mcg/actuation nasal Congestion spray,suspension gabapentin 400 mg capsule 400 mg PO TID 10/06/21 10/06/21 insulin glargine 100 unit/mL (3 15 unit subcut BID 10/06/21 10/06/21 mL) subcutaneous pen lactulose 10 gram/15 mL oral 20 g PO DAILY PRN Constipation 10/06/21 10/06/21 solution lisinopril 20 mg tablet 20 mg PO HS 10/06/21 10/06/21 oxycodone 5 mg tablet 5 mg PO Q4H PRN Pain 10/06/21 10/06/21 potassium chloride 10 mEq 20 meq PO QID 10/06/21 10/06/21 tablet,extended release torsemide 100 mg tablet 50 mg PO 3XWK 10/06/21 10/06/21 Results & Data (ED) Vital Signs Vital Signs - 24 hr 10/06/21 16:53 10/06/21 16:59 10/06/21 18:48 Temperature 36.9 C Temperature Source Oral Pulse Rate 73 Pulse Rate [Apical] 70 Pulse Rhythm [Apical] Pulse Strength Normal Pulse Strength [Apical] Respiratory Rate 17 18 Respiratory Effort / Characteristics Non-Labored Spontaneous Non-Labored Spontaneous Non-Labored Spontaneous Respiratory Depth Normal Normal Respiratory Pattern Regular Regular Pulse Oximetry 94 94 Oxygen Delivery Method Room Air Room Air Room Air Sepsis Recent Fever Within 48 Hours No Sepsis New/Unexplained Change in Mental Status No Sepsis Action Taken by Nursing No Action Required 10/06/21 18:53 10/06/21 19:11 10/06/21 21:39 Temperature Temperature Source Pulse Rate 72 Pulse Rate [Apical] 71 Pulse Rhythm [Apical] Regular Pulse Strength Pulse Strength [Apical] Normal Respiratory Rate 18 14 Respiratory Effort / Characteristics Non-Labored Spontaneous Respiratory Depth Normal Respiratory Pattern Regular Pulse Oximetry 99 93 Oxygen Delivery Method Room Air Room Air Room Air Sepsis Recent Fever Within 48 Hours Sepsis New/Unexplained Change in Mental Status Sepsis Action Taken by Nursing 10/06/21 21:45 10/06/21 22:00 10/06/21 22:15 Temperature Temperature Source Pulse Rate 71 71 71 Pulse Rate [Apical] Pulse Rhythm [Apical] Pulse Strength Pulse Strength [Apical] Respiratory Rate 15 16 21 Respiratory Effort / Characteristics Respiratory Depth Respiratory Pattern Pulse Oximetry 91 97 94 Oxygen Delivery Method Room Air Room Air Room Air Sepsis Recent Fever Within 48 Hours Sepsis New/Unexplained Change in Mental Status Sepsis Action Taken by Nursing 10/06/21 22:30 10/06/21 22:45 Temperature Temperature Source Pulse Rate 71 71 Pulse Rate [Apical] Pulse Rhythm [Apical] Pulse Strength Pulse Strength [Apical] Respiratory Rate 16 20 Respiratory Effort / Characteristics Respiratory Depth Respiratory Pattern Pulse Oximetry 91 94 Oxygen Delivery Method Room Air Room Air Sepsis Recent Fever Within 48 Hours Sepsis New/Unexplained Change in Mental Status Sepsis Action Taken by Nursing Laboratory Data Result diagrams: 10/06/21 17:10 10/07/21 05:39 Lab Results 10/06/21 10/06/21 10/06/21 Range/Units 17:10 17:10 17:10 WBC 7.76 (4.8-10.8) K/ul RBC 4.76 (4.63-6.08) M/uL Hgb 14.9 (14.0-18.0) g/dl Hct 43.8 (40.1-51.0) % MCV 92.0 (80.0-100.0) fL MCH 31.3 (25.0-34.0) pg MCHC 34.0 (32.0-36.0) g/dL RDW Std Deviation 47.2 H (36.4-46.3) fL RDW Coeff of [place] 14.0 (11.5-14.5) % Plt Count 248 (130-400) K/uL MPV 11.3 (9.4-12.4) fL Immature Gran % (Auto) 1.2 % Neut % (Auto) 77.2 % Lymph % (Auto) 13.9 % [place] % (Auto) 5.8 % Eos % (Auto) 1.3 % Baso % (Auto) 0.6 % Neut # (Auto) 5.99 (1.4-6.5) K/uL Lymph # (Auto) 1.08 L (1.2-3.4) K/uL [place] # (Auto) 0.45 (0.24-0.82) K/uL Eos # (Auto) 0.10 (0-0.50) K/uL Baso # (Auto) 0.05 (0-0.2) K/uL Immature Gran # (Auto) 0.09 H (0.00-0.02) K/uL PT (9.0-12.0) Seconds INR (0.9-1.1) VBG pH (7.36-7.41) VBG pCO2 (38-50) mmHg VBG pO2 mmHg VBG HCO3 mmol/L VBG O2 Saturation % VBG Base Excess mEq/L Sodium 137 (136-145) mmol/L Potassium 3.7 (3.5-5.1) mmol/L Chloride 97 L (98-107) mmol/L Carbon Dioxide 31 (21-32) mmol/L Anion Gap 9 (3-11) BUN 14 (6-23) mg/dl Creatinine 1.23 (0.6-1.4) mg/dl Est Cr Clr Drug Dosing 70.7 ml/min Est GFR ( Amer) 68.0 ml/min Est GFR (Non-Af Amer) 58.7 ml/min BUN/Creatinine Ratio 11.4 (10-20) Glucose 230 H (70-99(Fasting)) mg/dl Lactate (0.4-2.0) mmol/L Calcium 8.7 (8.5-10.1) mg/dl Magnesium 2.0 (1.7-2.4) mg/dl Total Bilirubin 0.5 (0.2-1.0) mg/dl Direct Bilirubin 0.1 (0-0.2) mg/dl AST 41 H (13-39) U/L ALT 49 (7-52) U/L Alkaline Phosphatase 69 (34-104) U/L Troponin I High Sens 23.1 H D (0-20) pg/ml B-Natriuretic Peptide (0-100) pg/ml Total Protein 7.3 (6.0-8.3) gm/dl Albumin 4.0 (3.4-5.0) gm/dl Lipase 38 (11-82) U/L Procalcitonin < 0.05 (0-0.5) ng/ml Adenovirus (PCR) (NotDetected) B. pertussis DNA (PCR) (NotDetected) B.parapertussis DNA PCR (NotDetected) C. pneumoniae DNA (PCR) (NotDetected) Coronavirus OC43 (PCR) (NotDetected) Coronavirus HKU1 (PCR) (NotDetected) Coronavirus 229E (PCR) (NotDetected) SARS-CoV-2 (PCR) (NotDetected) Coronavirus NL63 (PCR) (NotDetected) Human Metapneumovir PCR (NotDetected) Influenza Type A (PCR) (NotDetected) Influenza Type B (PCR) (NotDetected) M. pneumoniae (PCR) (NotDetected) Parainfluenza 1 (PCR) (NotDetected) Parainfluenza 2 (PCR) (NotDetected) Parainfluenza 3 (PCR) (NotDetected) Parainfluenza 4 (PCR) (NotDetected) RSV (PCR) (NotDetected) Entero/Rhino (PCR) (NotDetected) SARS-CoV-2, RNA, NAAT (NEGATIVE) 10/06/21 10/06/21 10/06/21 Range/Units 17:10 18:06 19:04 WBC (4.8-10.8) K/ul RBC (4.63-6.08) M/uL Hgb (14.0-18.0) g/dl Hct (40.1-51.0) % MCV (80.0-100.0) fL MCH (25.0-34.0) pg MCHC (32.0-36.0) g/dL RDW Std Deviation (36.4-46.3) fL RDW Coeff of [place] (11.5-14.5) % Plt Count (130-400) K/uL MPV (9.4-12.4) fL Immature Gran % (Auto) % Neut % (Auto) % Lymph % (Auto) % [place] % (Auto) % Eos % (Auto) % Baso % (Auto) % Neut # (Auto) (1.4-6.5) K/uL Lymph # (Auto) (1.2-3.4) K/uL [place] # (Auto) (0.24-0.82) K/uL Eos # (Auto) (0-0.50) K/uL Baso # (Auto) (0-0.2) K/uL Immature Gran # (Auto) (0.00-0.02) K/uL PT 31.2 H (9.0-12.0) Seconds INR 3.1 H (0.9-1.1) VBG pH (7.36-7.41) VBG pCO2 (38-50) mmHg VBG pO2 mmHg VBG HCO3 mmol/L VBG O2 Saturation % VBG Base Excess mEq/L Sodium (136-145) mmol/L Potassium (3.5-5.1) mmol/L Chloride (98-107) mmol/L Carbon Dioxide (21-32) mmol/L Anion Gap (3-11) BUN (6-23) mg/dl Creatinine (0.6-1.4) mg/dl Est Cr Clr Drug Dosing ml/min Est GFR ( Amer) ml/min Est GFR (Non-Af Amer) ml/min BUN/Creatinine Ratio (10-20) Glucose (70-99(Fasting)) mg/dl Lactate (0.4-2.0) mmol/L Calcium (8.5-10.1) mg/dl Magnesium (1.7-2.4) mg/dl Total Bilirubin (0.2-1.0) mg/dl Direct Bilirubin (0-0.2) mg/dl AST (13-39) U/L ALT (7-52) U/L Alkaline Phosphatase (34-104) U/L Troponin I High Sens (0-20) pg/ml B-Natriuretic Peptide (0-100) pg/ml Total Protein (6.0-8.3) gm/dl Albumin (3.4-5.0) gm/dl Lipase (11-82) U/L Procalcitonin (0-0.5) ng/ml Adenovirus (PCR) Not Detected (NotDetected) B. pertussis DNA (PCR) Not Detected (NotDetected) B.parapertussis DNA PCR Not Detected (NotDetected) C. pneumoniae DNA (PCR) Not Detected (NotDetected) Coronavirus OC43 (PCR) Not Detected (NotDetected) Coronavirus HKU1 (PCR) Not Detected (NotDetected) Coronavirus 229E (PCR) Not Detected (NotDetected) SARS-CoV-2 (PCR) DETECTED A* (NotDetected) Coronavirus NL63 (PCR) Not Detected (NotDetected) Human Metapneumovir PCR Not Detected (NotDetected) Influenza Type A (PCR) Not Detected (NotDetected) Influenza Type B (PCR) Not Detected (NotDetected) M. pneumoniae (PCR) Not Detected (NotDetected) Parainfluenza 1 (PCR) Not Detected (NotDetected) Parainfluenza 2 (PCR) Not Detected (NotDetected) Parainfluenza 3 (PCR) Not Detected (NotDetected) Parainfluenza 4 (PCR) Not Detected (NotDetected) RSV (PCR) Not Detected (NotDetected) Entero/Rhino (PCR) Not Detected (NotDetected) SARS-CoV-2, RNA, NAAT NEGATIVE (NEGATIVE) 10/06/21 10/06/21 10/06/21 Range/Units 20:06 20:06 20:06 WBC (4.8-10.8) K/ul RBC (4.63-6.08) M/uL Hgb (14.0-18.0) g/dl Hct (40.1-51.0) % MCV (80.0-100.0) fL MCH (25.0-34.0) pg MCHC (32.0-36.0) g/dL RDW Std Deviation (36.4-46.3) fL RDW Coeff of [place] (11.5-14.5) % Plt Count (130-400) K/uL MPV (9.4-12.4) fL Immature Gran % (Auto) % Neut % (Auto) % Lymph % (Auto) % [place] % (Auto) % Eos % (Auto) % Baso % (Auto) % Neut # (Auto) (1.4-6.5) K/uL Lymph # (Auto) (1.2-3.4) K/uL [place] # (Auto) (0.24-0.82) K/uL Eos # (Auto) (0-0.50) K/uL Baso # (Auto) (0-0.2) K/uL Immature Gran # (Auto) (0.00-0.02) K/uL PT (9.0-12.0) Seconds INR (0.9-1.1) VBG pH 7.48 H (7.36-7.41) VBG pCO2 55 H (38-50) mmHg VBG pO2 41 mmHg VBG HCO3 41 mmol/L VBG O2 Saturation 72.0 % VBG Base Excess 14.9 mEq/L Sodium (136-145) mmol/L Potassium (3.5-5.1) mmol/L Chloride (98-107) mmol/L Carbon Dioxide (21-32) mmol/L Anion Gap (3-11) BUN (6-23) mg/dl Creatinine (0.6-1.4) mg/dl Est Cr Clr Drug Dosing ml/min Est GFR ( Amer) ml/min Est GFR (Non-Af Amer) ml/min BUN/Creatinine Ratio (10-20) Glucose (70-99(Fasting)) mg/dl Lactate 1.2 (0.4-2.0) mmol/L Calcium (8.5-10.1) mg/dl Magnesium (1.7-2.4) mg/dl Total Bilirubin (0.2-1.0) mg/dl Direct Bilirubin (0-0.2) mg/dl AST (13-39) U/L ALT (7-52) U/L Alkaline Phosphatase (34-104) U/L Troponin I High Sens (0-20) pg/ml B-Natriuretic Peptide 62 (0-100) pg/ml Total Protein (6.0-8.3) gm/dl Albumin (3.4-5.0) gm/dl Lipase (11-82) U/L Procalcitonin (0-0.5) ng/ml Adenovirus (PCR) (NotDetected) B. pertussis DNA (PCR) (NotDetected) B.parapertussis DNA PCR (NotDetected) C. pneumoniae DNA (PCR) (NotDetected) Coronavirus OC43 (PCR) (NotDetected) Coronavirus HKU1 (PCR) (NotDetected) Coronavirus 229E (PCR) (NotDetected) SARS-CoV-2 (PCR) (NotDetected) Coronavirus NL63 (PCR) (NotDetected) Human Metapneumovir PCR (NotDetected) Influenza Type A (PCR) (NotDetected) Influenza Type B (PCR) (NotDetected) M. pneumoniae (PCR) (NotDetected) Parainfluenza 1 (PCR) (NotDetected) Parainfluenza 2 (PCR) (NotDetected) Parainfluenza 3 (PCR) (NotDetected) Parainfluenza 4 (PCR) (NotDetected) RSV (PCR) (NotDetected) Entero/Rhino (PCR) (NotDetected) SARS-CoV-2, RNA, NAAT (NEGATIVE) Administered Medications Carvedilol (Carvedilol 25 Mg Tab) 25 mg PO BIDM [facility] Stop: 11/06/21 07:59 Last Admin: 10/07/21 07:56 Dose: 25 mg Documented By: JLT Levothyroxine Sodium (Levothyroxine Sodium 150 Mcg Tablet) 150 mcg PO DAILYBB CAMILA Stop: 11/06/21 06:29 Last Admin: 10/07/21 06:47 Dose: 150 mcg Documented By: MT Discontinued Medications Albuterol (Albut/Ipratrop 3mg/0.5mg Neb 3 Ml Vial) 12 ml NEB ONE ONE; Protocol Stop: 10/06/21 17:29 Last Admin: 10/06/21 18:47 Dose: 12 ml Documented By: EM Dexamethasone Sodium Phosphate (DexamethasonePf 10 Mg/Ml Vial) 10 mg IV NOW ONE Stop: 10/06/21 17:29 Last Admin: 10/06/21 19:01 Dose: 10 mg Documented By: CDV Guaifenesin/Codeine Phosphate (Guaifenesin/Codeine 100mg/10mg 5ml Udc) 10 ml PO NOW STA Stop: 10/07/21 00:23 Last Admin: 10/07/21 02:21 Dose: 10 ml Documented By: PORSHA Imaging Data Radiologist's Impression: Chest X-Ray 10/06/21 17:28 SINGLE VIEW CHEST CLINICAL HISTORY: Covid. Dyspnea. FINDINGS: 2 AP, portable, upright chest radiographs are compared to study dated 09/05/2021. The patient is status post midline sternotomy. A left ventricular assist device is again noted. A 3-lead cardiac AICD is unchanged in position and partially obscures left mid chest. The heart is enlarged noting atherosclerotic calcification of the thoracic aorta. The pulmonary vasculature is noncongested. Chronic interstitial thickening is similar to previous. The lungs and pleural spaces are clear. No pneumothorax is seen. The skeletal structures are osteopenic. The bony thorax is grossly intact. IMPRESSION: 1. Cardiomegaly with an AICD and left ventricular assist device. There is no radiographic evidence of congestive failure. 2. The lungs are clear. ACT 112: Negative or not required by law. Electronically signed by: Juaquin Neff M.D. 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
[2021-10-06 17:48] LABS: Basophils # (auto) 0.05 K/uL (0-0.2); Basophils % (auto) 0.6 %; Eosinophils % (auto) 1.3 %; Hematocrit (blood only) 43.8 % (40.1-51.0); Hemoglobin 14.9 g/dl (14.0-18.0); Immature Granulocytes # (auto) 0.09 K/uL (0.00-0.02); Immature Granulocytes % (auto) 1.2 %; Lymphocytes # (auto) 1.08 K/uL (1.2-3.4); Lymphocytes % (auto) 13.9 %; Mean Corpuscular Hemoglobin 31.3 pg (25.0-34.0); Mean Platelet Volume 11.3 fL (9.4-12.4); Monocytes # (auto) 0.45 K/uL (0.24-0.82); Monocytes % (auto) 5.8 %; Neutrophils # (auto) 5.99 K/uL (1.4-6.5); Neutrophils % (auto) 77.2 %; Platelet Count 248 K/uL (130-400); RDW Standard Deviation 47.2 fL (36.4-46.3); Red Blood Count 4.76 M/uL (4.63-6.08); White Blood Count 7.76 K/ul (4.8-10.8)
[2021-10-06 18:09] LABS: BUN Creatinine Ratio 11.4 (10-20); Bilirubin Direct 0.1 mg/dl (0-0.2); Bilirubin,Total 0.5 mg/dl (0.2-1.0); Calcium 8.7 mg/dl (8.5-10.1); Creatinine Clr Calc Pharmacy 70.7 ml/min; Est GFR (Non-African American) 58.7 ml/min; Potassium 3.7 mmol/L (3.5-5.1); Total Protein 7.3 gm/dl (6.0-8.3)
--- NOTE | 2021-10-06 18:25 | XRay Report ---
SINGLE VIEW CHEST CLINICAL HISTORY: Covid. Dyspnea. FINDINGS: 2 AP, portable, upright chest radiographs are compared to study dated 09/05/2021. The patien t is status post midline sternotomy. A left ventricular assist device is again noted. A 3-lead cardia c AICD is unchanged in position and partially obscures left mid chest. The heart is enlarged noting a therosclerotic calcification of the thoracic aorta. The pulmonary vasculature is noncongested. Chroni c interstitial thickening is similar to previous. The lungs and pleural spaces are clear. No pneumoth orax is seen. The skeletal structures are osteopenic. The bony thorax is grossly intact. IMPRESSION: 1. Cardiomegaly with an AICD and left ventricular assist device. There is no radiographic evidence of congestive failure. 2. The lungs are clear. ACT 112: Negative or not required by law. Electronically signed by: Juaquin Neff M.D. 10/06/2021 6:24 PM
[2021-10-06 18:31] LABS: Troponin I High Sensitivity 23.1 pg/ml (0-20)
[2021-10-06 19:51] LABS: INR 3.1 (0.9-1.1); Prothrombin Time 31.2 Seconds (9.0-12.0)
[2021-10-06 20:06] LABS: Adenovirus PCR Not Detected (NotDetected); Bordetella parapertussis PCR Not Detected (NotDetected); Bordetella pertussis PCR Not Detected (NotDetected); Chlamydia pneumoniae PCR Not Detected (NotDetected); Coronavirus 229E PCR Not Detected (NotDetected); Coronavirus HKU1 PCR Not Detected (NotDetected); Coronavirus NL63 PCR Not Detected (NotDetected); Coronavirus OC43PCR Not Detected (NotDetected); Human Metapneumovirus PCR Not Detected (NotDetected); Influenza A PCR Not Detected (NotDetected); Influenza B PCR Not Detected (NotDetected); Mycoplasma pneumoniae PCR Not Detected (NotDetected); Parainfluenza Virus 1 PCR Not Detected (NotDetected); Parainfluenza Virus 2 PCR Not Detected (NotDetected); Parainfluenza Virus 3 PCR Not Detected (NotDetected); Parainfluenza Virus 4 PCR Not Detected (NotDetected); Respiratory Syncytial VirusPCR Not Detected (NotDetected); Rhinovirus/Enterovirus PCR Not Detected (NotDetected)
[2021-10-06 20:33] LABS: Base Excess VBG 14.9 mEq/L; HCO3 VBG 41 mmol/L; PCO2 VBG 55 mmHg (38-50); PO2 VBG 41 mmHg; pH VBG 7.48 (7.36-7.41)
[2021-10-06 20:55] LABS: Coronavirus CoV-2 (COVID19)PCR DETECTED (NotDetected)
--- NOTE | 2021-10-06 23:20 | History & Physical Report ---
Date of Service October 06, 2021 Assessment & Plan (1) Acute respiratory distress: Plan: severe coughing-cont Robitussin AC, decadron, albuterol nebulizer therapy. May consider benzonatate or other support medication for his severe cough. Although he is not hypoxic and therefore does not qualify for COVID-specific medications, he apparently had bronchospasm and has a high risk of progressing to pneumonia. Therefore continue Decadron at this time. Consider remdesivir if patient becomes worse. (2) COVID-19: Plan: plan as above. Isolation precautions (3) LVAD (left ventricular assist device) present: Plan: LVAD present, patient reports feeling well prior to coming down with symptoms two days ago. (4) HTN (hypertension): Plan: Chronic, controlled,Continue home lisinopril, spironolactone, torsemide, amlodipine, carvedilol. (5) Depression: Plan: Chronic, stable. Continue venlafaxine per home regimen. (6) Hypothyroidism: Plan: TSH pending, chronic, stable, continue home levothyroxine. (7) CKD (chronic kidney disease), stage III: Plan: Creatinine 1.2 which is around his baseline. Continue to renally dose meds as needed and avoid nephrotoxic substances. (8) Gout: Plan: Chronic, stable, continue allopurinol per home regimen. (9) DM type 2 (diabetes mellitus, type 2): Plan: Chronic, stable, continue basal bolus insulin. A1c pending as there has not been one updated in the last year both inpatient and outpatient records. (10) DVT prophylaxis: Plan: Warfarin Full code Disposition-admit to medicine. If patient gets worse consider transfer to [facility] where patient gets his cardiology care. DO [facility] History of Present Illness Chief Complaint: SOB Primary Care Provider: Graham Rojas MD 70 yo M with LVAD in place presents with SOB and wheezing. Positive for covid which is his second infection with novel coronavirus. received a 1 hr neb in the ER with improvement ER doc touched base with [facility] cardiology who was fine with him staying here for observation coughing x 2 days which is significant +fevers/chills lots of coughing! SOB 2/2 coughing no chest pain no abd pain, diarrhea, urinary issues Euvolemic on exam and no swelling nonsmoker, no ETOH use uncertain use of doxycycline which is on his home med list. Was held and should be verified with his in the morning. Allergies Allergy/AdvReac Type Severity Reaction Status Date / Time baclofen Allergy Unknown Unknown Verified 10/06/21 19:55 enoxaparin [From Lovenox] AdvReac Severe Heparin Verified 10/06/21 19:55 induced thrombocytopenia heparin AdvReac Severe Heparin Verified 10/06/21 19:55 Induced Thrombocytopenia Home Medications Medication Instructions Recorded Confirmed Type amiodarone 200 mg tablet 200 mg PO QAM 01/27/18 10/06/21 History aspirin 81 mg tablet,delayed 81 mg PO QAM 01/27/18 10/06/21 History release folic acid 1 mg tablet 1 mg PO QAM 01/27/18 10/06/21 History levothyroxine 150 mcg tablet 150 mcg PO DAILYBB 01/27/18 10/06/21 History magnesium oxide 400 mg PO TID 01/27/18 10/06/21 History albuterol sulfate 90 mcg/actuation 2 puff inhalation Q4 PRN Shortness 08/18/18 10/06/21 History aerosol inhaler Of Breath Or Wheezing pravastatin 40 mg tablet 40 mg PO HS 08/18/18 10/06/21 History venlafaxine 150 mg 150 mg PO HS 08/18/18 10/06/21 History capsule,extended release 24 hr (Effexor XR) amlodipine 5 mg tablet 5 mg PO QAM 10/07/18 10/06/21 History doxycycline monohydrate 100 mg 100 mg PO BID 12/17/19 10/06/21 History tablet insulin lispro 100 unit/mL 15 unit subcut TIDM 12/17/19 10/06/21 History subcutaneous pen (Humalog KwikPen (U-100) Insulin) omeprazole 40 mg capsule,delayed 40 mg PO QAM 12/17/19 10/06/21 History release spironolactone 25 mg tablet 25 mg PO DAILY 12/17/19 10/06/21 History tamsulosin 0.4 mg capsule (Flomax) 0.4 mg PO DAILY 12/17/19 10/06/21 History warfarin 5 mg tablet (Jantoven) See Rx Instructions .Route .COMPLEX 12/17/19 10/06/21 History carvedilol 25 mg tablet 25 mg PO BIDM 03/23/20 10/06/21 History ferrous sulfate 325 mg (65 mg 325 mg PO BID 03/23/20 10/06/21 History iron) tablet (Feosol) finasteride 5 mg tablet 5 mg PO QAM 03/23/20 10/06/21 History acetaminophen 500 mg tablet 500 mg PO Q6H PRN Pain 04/17/20 10/06/21 History (Tylenol Extra Strength) allopurinol 300 mg tablet 300 mg PO QAM 12/04/20 10/06/21 History cholecalciferol (vitamin D3) 1,250 1,250 mcg PO .Q14D 12/04/20 10/06/21 History mcg (50,000 unit) capsule diclofenac sodium 1 % topical gel 4 g topical QID PRN Pain 12/04/20 10/06/21 History torsemide 20 mg tablet 20 mg PO 4XWK 12/04/20 10/06/21 History fluticasone propionate 50 2 spray intranasal DAILY PRN 10/06/21 10/06/21 History mcg/actuation nasal Congestion spray,suspension gabapentin 400 mg capsule 400 mg PO TID 10/06/21 10/06/21 History insulin glargine 100 unit/mL (3 15 unit subcut BID 10/06/21 10/06/21 History mL) subcutaneous pen lactulose 10 gram/15 mL oral 20 g PO DAILY PRN Constipation 10/06/21 10/06/21 History solution lisinopril 20 mg tablet 20 mg PO HS 10/06/21 10/06/21 History oxycodone 5 mg tablet 5 mg PO Q4H PRN Pain 10/06/21 10/06/21 History potassium chloride 10 mEq 20 meq PO QID 10/06/21 10/06/21 History tablet,extended release torsemide 100 mg tablet 50 mg PO 3XWK 10/06/21 10/06/21 History Past Med/Surg History Medical History Anemia Blood clotting disorder Blood dyscrasia vitamin d deficiency BPH (benign prostatic hyperplasia) CHF (congestive heart failure) Chronic systolic CHF (congestive heart failure) CKD (chronic kidney disease), stage III Coag negative Staphylococcus bacteremia Currently is being treated daily with IV antibiotics CVA (cerebral vascular accident) Depression Diabetes mellitus, type 2 uses insulin Dilated cardiomyopathy DM type 2 (diabetes mellitus, type 2) DVT (deep venous thrombosis) GERD (gastroesophageal reflux disease) GI bleed Gout Gout Heart disease HIT (heparin-induced thrombocytopenia) HTN (hypertension) Hx of acute myocardial infarction denies - states he has never had Hx of Aguilera's palsy Hx of TIA (transient ischemic attack) and stroke 01/16/2017 Seen in [facility] and transfered to [facility] Hx: UTI (urinary tract infection) Hypercholesteremia Hyperlipidemia Hypothyroidism Hypothyroidism 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 pocket infections with MRDO, on life-long IV antibiotics Jejunal ulcer LVAD (left ventricular assist device) present hx cardiomyopathy and heart failure LVAD (left ventricular assist device) present Male genitourinary symptoms enlarged prostate 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 - [facility] Prostatitis denies Seasonal allergies Thrombophlebitis currently has one in right subclavian vein UTI (urinary tract infection) Surgical History H/O tooth extraction complete tooth extraction due to recurrent LVAD infections History of left ventricular assist device History of left ventricular assist device (LVAD) LVAD replaced June 2018 History of tooth extraction Hx of colonoscopy Family History Father Hypertension Stroke Social History Smoking Status: Never smoker Tobacco Type: Cigarettes Do You Dip or Chew Tobacco: No; Hx Alcohol Use: No Hx Substance Use: No Preferred Language: Ukrainian Communication Ability: Effective [employer] Technician Required: No Beliefs That Will Affect Care: None marital status: Current Living Situation: Spouse current occupational status: retired Other Information That Helps Us Care for You: No Feels Safe at Home: Yes Safety Concerns: Feels Safe At This Time Assistive Devices: Wheelchair Assistive Devices Comment: LVAD Review of Systems Review of Systems: All systems were reviewed and negative except as indicated above. Physical Exam Physical Exam: CONSTITUTIONAL: WNWD, vitals as above, generally ill- appearing, significant coughing EYES: normal conjunctivae, no scleral icterus ENT: external ear and nose normal, MMM NECK: trachea midline, RESPIRATORY: clear to auscultation bilaterally, no crackles, rales or wheezes, normal respiratory effort except if coughing CARDIOVASCULAR: regular rate and rhythm, S1 and 2 heard without murmurs, gallops or rubs, no JVD, no peripheral edema CHEST: inspection of chest was normal, GASTROINTESTINAL: normal bowel sounds, soft, nontender, ND, no guarding, +LVAD MUSCULOSKELETAL: generalized weakness, head is normocephalic and atraumatic SKIN: warm and dry NEUROLOGIC: CN 2-12 grossly intact, no sensory deficit, normal cognition, normal speech, no tremor PSYCHIATRIC: alert cooperative and oriented to person, place and time. Results & Data Results & Data ([facility]) Vital Signs (Past 12 Hours) Vital Signs Temp Pulse Pulse Resp Pulse Ox O2 Del Method 10/06/21 22:45 71 20 94 Room Air 10/06/21 22:30 71 16 91 Room Air 10/06/21 22:15 71 21 94 Room Air 10/06/21 22:00 71 16 97 Room Air 10/06/21 21:45 71 15 91 Room Air 10/06/21 21:39 72 14 93 Room Air 10/06/21 19:11 Room Air 10/06/21 18:53 71 18 99 Room Air 10/06/21 18:48 70 18 94 Room Air 10/06/21 16:59 Room Air 10/06/21 16:53 36.9 C 73 17 94 Room Air Laboratory Results Short CBC 10/06/21 Range/Units 17:10 WBC 7.76 (4.8-10.8) K/ul Hgb 14.9 (14.0-18.0) g/dl Hct 43.8 (40.1-51.0) % Plt Count 248 (130-400) K/uL BMP 10/06/21 17:10 Sodium 137 Potassium 3.7 Chloride 97 L Carbon Dioxide 31 BUN 14 Creatinine 1.23 Glucose 230 H Calcium 8.7 Liver Function 10/06/21 Range/Units 17:10 Total Bilirubin 0.5 (0.2-1.0) mg/dl Direct Bilirubin 0.1 (0-0.2) mg/dl AST 41 H (13-39) U/L ALT 49 (7-52) U/L Alkaline Phosphatase 69 (34-104) U/L Albumin 4.0 (3.4-5.0) gm/dl Diagnostic Findings Chest X-Ray 10/06/21 17:28 SINGLE VIEW CHEST CLINICAL HISTORY: Covid. Dyspnea. FINDINGS: 2 AP, portable, upright chest radiographs are compared to study dated 09/05/2021. The patient is status post midline sternotomy. A left ventricular assist device is again noted. A 3-lead cardiac AICD is unchanged in position and partially obscures left mid chest. The heart is enlarged noting atherosclerotic calcification of the thoracic aorta. The pulmonary vasculature is noncongested. Chronic interstitial thickening is similar to previous. The lungs and pleural spaces are clear. No pneumothorax is seen. The skeletal structures are osteopeni c. The bony thorax is grossly intact. IMPRESSION: 1. Cardiomegaly with an AICD and left ventricular assist device. There is no radiographic evidence of congestive failure. 2. The lungs are clear. ACT 112: Negative or not required by law. Electronically signed by: Juaquin Neff M.D. 10/06/2021 6:24 PM
[2021-10-06] MEDS ORDERED: POLYETHYLENE (MIRALAX) 17 GM PACK PO PRN (23:57)
[2021-10-06] MEDS ORDERED: ACETAMINOPHEN 325 MG TAB PO PRN (23:57)
[2021-10-07] MEDS ORDERED: guaiFENesin/CODEINE 100MG/10MG 5ML UDC PO STA (00:22)
[2021-10-07] MEDS ORDERED: ALBUTEROL 0.083% NEBU SOLN 3 ML VIAL NEB PRN (00:35)
[2021-10-07] MEDS ORDERED: DEXTROSE 50% 50 ML SYRINGE IV PRN (00:39)
[2021-10-07] MEDS ORDERED: GLUCAGON FOR INJ 1 MG VIAL SQ PRN (00:39)
[2021-10-07] MEDS ORDERED: GLUCOSE 10 TAB/TUBE PO PRN (00:39)
[2021-10-07] MEDS ORDERED: GLUCOSE 40% GEL 15 GM TUBE PO PRN (00:39)
[2021-10-07] MEDS ORDERED: CARBOHYDRATES FOR HYPOGLYCEMIA PO PRN (00:39)
[2021-10-07] MEDS ORDERED: FLUTICASONE PROPIONATE NA SPR 16 GM BTL NAE PRN (00:40)
[2021-10-07] MEDS ORDERED: oxyCODONE HCL IR 5 MG TAB (IMMEDIATE RELEASE) PO PRN (00:40)
[2021-10-07 06:21] LABS: Anion Gap 10 (3-11); BUN Creatinine Ratio 14.1 (10-20); Blood Urea Nitrogen 20 mg/dl (6-23); C Reactive Protein < 0.50 mg/dl (0-0.5); Calcium 8.9 mg/dl (8.5-10.1); Carbon Dioxide 30 mmol/L (21-32); Chloride 95 mmol/L (98-107); Creatinine Clr Calc Pharmacy 61.2 ml/min; Est GFR (African American) 57.2 ml/min; Est GFR (Non-African American) 49.3 ml/min; Glucose 370 mg/dl (70-99(Fasting)); Potassium 4.5 mmol/L (3.5-5.1); Sodium 135 mmol/L (136-145)
[2021-10-07] MEDS: LEVOTHYROXINE SODIUM 150 MCG TABLET PO SCH (06:47)
[2021-10-07 06:52] LABS: Thyroid Stimulating Hormone 5.248 uIu/ml (0.300-4.500)
[2021-10-07 07:04] LABS: Estimated Average Glucose 189 mg/dl; Hemoglobin A1C 8.2 % (4.5-5.6)
[2021-10-07] MEDS: carvediloL 25 MG TAB PO SCH ×2 (07:56→17:23)
[2021-10-07] MEDS ORDERED: PHARMACY GLYCEMIC MGMT CONSULT PRN (08:26)
[2021-10-07 08:37] LABS: T4 Free Thyroxine 1.42 ng/dl (0.61-1.60)
--- NOTE | 2021-10-07 08:45 | Pharmacy Report ---
Pharmacy Glycemic Short Note 2 - Date of Service October 07, 2021 - Glycemic Short BSG Results (Last 24 hours): 10/06/21 10/07/21 10/07/21 17:10 05:39 07:50 Glucose 230 H 370 H* POC Glucose 347 H* OUTPATIENT ANTIDIABETIC REGIMEN: * Lantus 15 units SC BID * Humalog 15 units SC TIDM HbA1c: 8.2% (10/07/21) ASSESSMENT: * GEORGES is a 70 year old male, admitted last evening for acute respiratory distress (positive for COVID-19) * Pertinent PMH includes CHF w/ presence of LVAD, T2DM (managed with insulin), CKD, HTN, hyperlipidemia, and hx of CVA * Ordered dexamethasone 10 mg IV x 1 yesterday, changed to 6 mg PO daily starting today * Pharmacy consulted for glycemic management this morning due to BSG of 370 mg/dL * Will use aggressive weight-based stress of 3 dosing of Lantus/Novolog for now in light of steroid-induced hyperglycemia * Will give slightly reduce Lantus dose today due to patient hesitancy with originally ordered dose of 50 units * Lunch BSG of 343 mg/dL, will give 10 unit IV regular insulin bolus PLAN FOR INPATIENT GLYCEMIC CONTROL: * Basal insulin * Lantus 40 units SQ x 1 this morning * Reassess in AM * Bolus insulin * NovoLog per scale ACHS or Q6hrs while NPO * Goal Range: Low 110 mg/dL - High 140 mg/dL * Correction Factor: 15 mg/dL/unit * Nutritional / Prandial insulin per carb ratio of 1 unit per 5 grams CHO consumed
[2021-10-07] MEDS ORDERED: LANTUS PER UNIT CHARGE SQ SCH ×3 (09:00)
[2021-10-07] MEDS: INSULIN ASPART PER UNIT SC SCH ×4 (09:48→21:00)
[2021-10-07] MEDS ORDERED: LANTUS PER UNIT CHARGE SQ ONE ×2 (10:00→21:00)
[2021-10-07] MEDS: FINASTERIDE 5 MG TAB PO SCH (11:29)
[2021-10-07] MEDS: FOLIC ACID 1 MG TAB PO SCH (11:29)
[2021-10-07] MEDS: GABAPENTIN 400 MG CAP PO SCH ×3 (11:29→21:09)
[2021-10-07] MEDS: dexAMETHasone 4 MG TAB PO SCH (11:29)
[2021-10-07] MEDS: AMIODARONE 200 MG TAB PO SCH (11:29)
[2021-10-07] MEDS: MAGNESIUM OXIDE 400 MG TAB PO SCH ×3 (11:29→21:10)
[2021-10-07] MEDS: amLODIPine BESYLATE 5 MG TAB PO SCH (11:29)
[2021-10-07] MEDS: allopurinoL 300 MG TAB PO SCH (11:29)
[2021-10-07] MEDS: ASPIRIN 81 MG ECTAB PO SCH (11:29)
[2021-10-07] MEDS: PANTOprazole 40 MG TAB PO SCH (11:29)
[2021-10-07] MEDS: TORSEMIDE 20 MG TAB PO SCH (11:30)
[2021-10-07] MEDS: POTASSIUM CHLORIDE CRTAB 20 MEQ TABCR PO SCH ×4 (11:30→21:15)
[2021-10-07] MEDS ORDERED: INSULIN HUMAN REGULAR PER UNIT 10 UNITS in SYRINGE 9.9 ML IV ONE (11:30)
[2021-10-07] MEDS: SPIRONOLACTONE 25 MG TAB PO SCH (11:30)
[2021-10-07] MEDS: TAMSULOSIN HCL 0.4 MG CAP PO SCH (11:30)
[2021-10-07] MEDS: LEVALBUTEROL TARTRATE 15 GM HFA.AER.AD INH SCH ×3 (11:33→19:51)
[2021-10-07 13:42] LABS: Hematocrit (blood only) 44.5 % (40.1-51.0); Hemoglobin 14.7 g/dl (14.0-18.0); Mean Corpuscular Hemoglobin 31.6 pg (25.0-34.0); Mean Corpuscular Volume 95.7 fL (80.0-100.0); Mean Platelet Volume 11.5 fL (9.4-12.4); Platelet Count 257 K/uL (130-400); RDW Coefficient of Variation 13.8 % (11.5-14.5); RDW Standard Deviation 48.8 fL (36.4-46.3); Red Blood Count 4.65 M/uL (4.63-6.08); White Blood Count 10.53 K/ul (4.8-10.8)
--- NOTE | 2021-10-07 15:51 | Hospitalist Progress Note ---
Date of Service October 07, 2021 Assessment & Plan (1) Acute respiratory distress: Plan: severe coughing-cont Robitussin AC, decadron, albuterol nebulizer therapy. May consider benzonatate or other support medication for his severe cough. Although he is not hypoxic and therefore does not qualify for COVID-specific medications, he apparently had bronchospasm and has a high risk of progressing to pneumonia. Therefore continue Decadron at this time. Consider remdesivir if patient becomes worse. (2) COVID-19: Plan: plan as above. Isolation precautions 10/07 Acute Hypoxic Respiratory Failure secondary to Covid 19 Infection, Acute Bronchitis currently remains on 2 L nasal cannula CXR: no pneumonia wheezing resolved continue Decadron 6mg po daily start Remdesivir IV daily monitor LFTs and renal function start Xopenex Inh QID Incentive spirometry already on Coumadin INR 3.1 (3) LVAD (left ventricular assist device) present: Plan: LVAD present, patient reports feeling well prior to coming down with symptoms two days ago. -- no signs of volume overload continue Torsemide, Spironolactone , Amiodarone (4) HTN (hypertension): Plan: Chronic, controlled,Continue home lisinopril, spironolactone, torsemide, amlodipine, carvedilol. (5) Depression: Plan: Chronic, stable. Continue venlafaxine per home regimen. (6) Hypothyroidism: Plan: chronic, continue home levothyroxine. TSH elevated check T4 (7) CKD (chronic kidney disease), stage III: Plan: Creatinine 1.2 which is around his baseline. crea 1.4 monitor while on Remdesivir (8) Gout: Plan: Chronic, stable, continue allopurinol per home regimen. (9) DM type 2 (diabetes mellitus, type 2): Plan: Chronic, stable, continue basal bolus insulin. A1c 8.2 (10) DVT prophylaxis: Plan: Warfarin Full code Disposition: pending tried to call patient's - no answer will try again later Admission and Anticipated Discharge Date Admission Date: October 06, 2021 Subjective ff up for covid 19 infection, etc spoke with patient over the phone around 1pm states his breathing and cough is better otherwise no other symptoms agreeable with initiation of Remdesivir seen resting in bed, sitting up not in distress reports some abdominal discomfort, diarrhea no nausea/vomiting breathing is ok no chest pain no other symptoms Review of Systems Review of Systems: all noted and negative except for above Physical Exam Physical Exam: General- oriented x 3, not in distress, speaks in sentences with no effort or accessory muscle use Head- atraumatic Eyes- PERRL, EOMI, anicteric ENT- oropharynx clear Neck- supple, no JVD, no adenopathy, no thyromegaly; carotids +2/2, no bruits appreciated Lungs- clear to auscultation bilaterally, no rales/wheezes Heart- normal rate, regular rhythm; no murmur, no gallop, no rub appreciated Abdomen- normal bowel sounds, nondistended, soft, nontender, no masses or hepatosplenomegaly Extremities- no pretibial edema, no calf tenderness; peripheral pulses intact Neuro- alert, oriented x 3; CN 2-12 grossly intact; motor 5/5 bilaterally;sensation 100% on all extremities; no other gross focal neurologic deficits Skin- warm & dry Results & Data Results & Data ([facility]) Vital Signs (Past 12 Hours) Vital Signs Temp Pulse Pulse Resp BP Pulse Ox O2 Del Method 10/07/21 15:25 80 20 96 Room Air 10/07/21 11:33 75 18 98 Nasal Cannula 10/07/21 11:00 36.9 C 78 18 99/99 L 96 Room Air 10/07/21 09:17 78 10/07/21 09:13 37.1 C 78 14 104/104 H 94 Nasal Cannula 10/07/21 09:09 Nasal Cannula 10/07/21 08:03 36.8 C 77 22 95 Nasal Cannula 10/07/21 08:00 Nasal Cannula 10/07/21 06:00 85 20 96 Nasal Cannula 10/07/21 04:11 83 20 93 Nasal Cannula O2 Flow Rate 10/07/21 15:25 10/07/21 11:33 2 10/07/21 11:00 2 10/07/21 09:17 10/07/21 09:13 2 10/07/21 09:09 2 10/07/21 08:03 2 10/07/21 08:00 2 10/07/21 06:00 2 10/07/21 04:11 2 all noted and reviewed including below (1) DM type 2 (diabetes mellitus, type 2) Diabetes mellitus complication status: without complication Diabetes mellitus mcc insulin use: with oil heaterman use Qualified Code(s): E11.9 - Type 2 diabetes mellitus without complications; Z79.4 - intermission coordinator (current) use of insulin
[2021-10-07] MEDS ORDERED: REMDESIVIR 200 MG in SODIUM CHLORIDE 0.9% 210 ML IV ONE (16:00)
[2021-10-07] MEDS ORDERED: dexAMETHasone 1 MG TAB PO SCH (17:00)
[2021-10-07] MEDS: WARFARIN SOD 5 MG TAB PO SCH (17:23)
[2021-10-07] MEDS: PRAVASTATIN SOD 40 MG TAB PO SCH (21:08)
[2021-10-07] MEDS: lisinopril 20 MG TAB PO SCH (21:08)
[2021-10-07] MEDS: VENLAFAXINE HCL XR 150 MG CAPXR PO SCH (21:09)
--- NOTE | 2021-10-07 21:42 | Electrocardiogram Report ---
Test Reason : Blood Pressure : / mmHG Vent. Rate : 070 BPM Atrial Rate : 040 BPM P-R Int : 166 ms QRS Dur : 156 ms QT Int : 582 ms P-R-T Axes : 103 233 055 degrees QTc Int : 628 ms Poor data quality, interpretation may be adversely affected AV dual-paced rhythm Abnormal ECG When compared with ECG of 05-SEP-2021 16:23, Vent. rate has decreased BY 24 BPM Confirmed by Juan Pablo Chacko ([id number]) on 10/07/2021 9:42:16 PM Referred By: REFERRED SELF Confirmed By:Juan Pablo Chacko
[2021-10-08] MEDS ORDERED: INSULIN ASPART PER UNIT SC ONE (00:30)
[2021-10-08] MEDS: LEVOTHYROXINE SODIUM 150 MCG TABLET PO SCH (06:15)
[2021-10-08 06:33] LABS: INR 3.1 (0.9-1.1); Prothrombin Time 30.7 Seconds (9.0-12.0)
[2021-10-08 07:08] LABS: Albumin Globulin Ratio 1.3 (0.9-2); Albumin Level 3.7 gm/dl (3.4-5.0); BUN Creatinine Ratio 20.3 (10-20); Bilirubin,Total 0.4 mg/dl (0.2-1.0); Calcium 8.7 mg/dl (8.5-10.1); Creatinine Clr Calc Pharmacy 49.1 ml/min; Est GFR (African American) 43.8 ml/min; Est GFR (Non-African American) 37.8 ml/min; Globulin 2.8 gm/dl (2.5-4.0); Potassium 3.7 mmol/L (3.5-5.1); Total Protein 6.5 gm/dl (6.0-8.3)
[2021-10-08] MEDS: LEVALBUTEROL TARTRATE 15 GM HFA.AER.AD INH SCH ×4 (07:25→18:53)
[2021-10-08] MEDS: INSULIN ASPART PER UNIT SC SCH ×4 (08:33→20:37)
[2021-10-08] MEDS: LANTUS PER UNIT CHARGE SQ SCH (08:33)
--- NOTE | 2021-10-08 08:43 | Pharmacy Report ---
Pharmacy Glycemic Short Note 2 - Date of Service October 08, 2021 - Glycemic Short BSG Results (Last 24 hours): 10/07/21 10/07/21 10/07/21 09:35 11:11 16:04 Glucose POC Glucose 324 H* 343 H* 151 H 10/07/21 10/07/21 10/08/21 20:05 23:50 05:43 Glucose 172 H POC Glucose 266 H 187 H 10/08/21 07:49 Glucose POC Glucose 209 H OUTPATIENT ANTIDIABETIC REGIMEN: * Lantus 15 units SC BID * Humalog 15 units SC TIDM HbA1c: 8.2% (10/07/21) ASSESSMENT: 10/08/21 * BSGs unsurprisingly elevated yesterday in light of uncovered steroid on 10/06/21 * Patient received 123 units of insulin (55 units of Lantus, 58 units of prandial/correctional Novolog, and 10 units of IV regular insulin) * Will increase AM dose of Lantus to be given with dexamethasone and continue scaled dose at HS to allow for more insulin if needed * Tightened Novolog parameters last night and will continue 10/07/21: * LW is a 70 year old male, admitted last evening for acute respiratory distress (positive for COVID-19) * Pertinent PMH includes CHF w/ presence of LVAD, T2DM (managed with insulin), CKD, HTN, hyperlipidemia, and hx of CVA * Ordered dexamethasone 10 mg IV x 1 yesterday, changed to 6 mg PO daily starting today * Pharmacy consulted for glycemic management this morning due to BSG of 370 mg/dL * Will use aggressive weight-based stress of 3 dosing of Lantus/Novolog for now in light of steroid-induced hyperglycemia * Will give slightly reduce Lantus dose today due to patient hesitancy with originally ordered dose of 50 units * Lunch BSG of 343 mg/dL, will give 10 unit IV regular insulin bolus PLAN FOR INPATIENT GLYCEMIC CONTROL: * Basal insulin * Lantus 50 units SC qAM * Lantus scale HS to provide 0-15 units (see EHR for details) * Bolus insulin * NovoLog per scale ACHS or Q6hrs while NPO * Goal Range: Low 110 mg/dL - High 140 mg/dL * Correction Factor: 12 mg/dL/unit * Nutritional / Prandial insulin per carb ratio of 1 unit per 4 grams CHO consumed
[2021-10-08] MEDS: dexAMETHasone 4 MG TAB PO SCH (08:47)
[2021-10-08] MEDS: PANTOprazole 40 MG TAB PO SCH (08:48)
[2021-10-08] MEDS: ASPIRIN 81 MG ECTAB PO SCH (08:48)
[2021-10-08] MEDS: GABAPENTIN 400 MG CAP PO SCH ×3 (08:48→20:45)
[2021-10-08] MEDS: FOLIC ACID 1 MG TAB PO SCH (08:48)
[2021-10-08] MEDS: FINASTERIDE 5 MG TAB PO SCH (08:48)
[2021-10-08] MEDS: MAGNESIUM OXIDE 400 MG TAB PO SCH ×3 (08:48→20:45)
[2021-10-08] MEDS: allopurinoL 300 MG TAB PO SCH (08:48)
[2021-10-08] MEDS: AMIODARONE 200 MG TAB PO SCH (08:48)
[2021-10-08] MEDS: TAMSULOSIN HCL 0.4 MG CAP PO SCH (08:48)
[2021-10-08] MEDS: carvediloL 25 MG TAB PO SCH ×2 (08:49→17:06)
[2021-10-08] MEDS: POTASSIUM CHLORIDE CRTAB 20 MEQ TABCR PO SCH ×4 (08:50→20:43)
[2021-10-08] MEDS ORDERED: TORSEMIDE 20 MG TAB PO SCH (09:00)
--- NOTE | 2021-10-08 10:38 | Hospitalist Progress Note ---
Date of Service October 08, 2021 Assessment & Plan (1) Acute respiratory distress: Plan: severe coughing-cont Robitussin AC, decadron, albuterol nebulizer therapy. May consider benzonatate or other support medication for his severe cough. Although he is not hypoxic and therefore does not qualify for COVID-specific medications, he apparently had bronchospasm and has a high risk of progressing to pneumonia. Therefore continue Decadron at this time. Consider remdesivir if patient becomes worse. (2) COVID-19: Plan: plan as above. Isolation precautions 10/08 Acute Hypoxic Respiratory Failure secondary to Covid 19 Infection, Acute Bronchitis currently still remains on 2 L nasal cannula CXR: no pneumonia (+) faint wheeze BL today continue Decadron 6mg po daily Day 2 Remdesivir IV daily monitor LFTs and renal function--> cre 1.7, monitor, LFTs ok Xopenex Inh QID continue Incentive spirometry already on Coumadin INR 3.1 (3) LVAD (left ventricular assist device) present: Plan: LVAD present, patient reports feeling well prior to coming down with symptoms two days ago. -- no signs of volume overload crea increased to 1.7, patient appears on the dry side--> hold Torsemide, Spironolactone today -- continue Amiodarone (4) HTN (hypertension): Plan: Chronic, hold spironolactone, torsemide. amlodipine, as patient on the dry side today controlled,Continue home lisinopril, carvedilol. (5) Depression: Plan: Chronic, stable. Continue venlafaxine per home regimen. (6) Hypothyroidism: Plan: chronic, continue home levothyroxine. TSH elevated check T4 (7) CKD (chronic kidney disease), stage III: Plan: Creatinine 1.2 which is around his baseline. crea 1.4, now 1.7 likely pre renal from diarrhea encouraged oral fluid intake monitor while on Remdesivir (8) Gout: Plan: Chronic, stable, continue allopurinol per home regimen. (9) DM type 2 (diabetes mellitus, type 2): Plan: Chronic, stable, continue basal bolus insulin. A1c 8.2 (10) DVT prophylaxis: Plan: Warfarin Full code Disposition: pending lives at home with his Admission and Anticipated Discharge Date Admission Date: October 06, 2021 Subjective ff up for COVID 19 infection, etc seen resting in bed, comfortable watching TV states he feels somewhat better today breathing is ok still has cough - dry no chest pain, dyspnea, palpitations, dizziness diarrhea resolved appetite is good no other symptoms Review of Systems Review of Systems: all noted and negative except for above Physical Exam Physical Exam: General- oriented x 3, not in distress, speaks in sentences with no effort or accessory muscle use Dry oral mucosa Eyes- anicteric Neck- no JVD Lungs- faint wheeze BL no crackles Heart- normal rate, regular rhythm; no murmurs Abdomen- normal bowel sounds, nondistended, soft, nontender Extremities- no pretibial edema, no calf tenderness Neuro- alert, oriented x 3; no gross focal neurologic deficits Skin- warm & dry Results & Data Results & Data ([facility]) Vital Signs (Past 12 Hours) Vital Signs Temp Pulse Pulse Resp BP Pulse Ox O2 Del Method 10/08/21 08:00 70 10/08/21 08:00 36.9 C 71 16 80/80 L 95 Nasal Cannula 10/08/21 07:26 70 20 97 Nasal Cannula 10/08/21 04:30 36.5 C 80 16 88/88 L 95 Nasal Cannula 10/08/21 00:00 36.7 C 70 18 70/70 L 96 Nasal Cannula O2 Flow Rate 10/08/21 08:00 10/08/21 08:00 2 10/08/21 07:26 2 10/08/21 04:30 2 10/08/21 00:00 2 all noted and reviewed including below (1) DM type 2 (diabetes mellitus, type 2) Diabetes mellitus complication status: without complication Diabetes mellitus mcc insulin use: with mcc use Qualified Code(s): E11.9 - Type 2 diabetes mellitus without complications; Z79.4 - USP (current) use of insulin
[2021-10-08] MEDS: WARFARIN SOD 5 MG TAB PO SCH (17:06)
[2021-10-08] MEDS: REMDESIVIR 100 MG in SODIUM CHLORIDE 0.9% 230 ML IV SCH (20:41)
[2021-10-08] MEDS: PRAVASTATIN SOD 40 MG TAB PO SCH (20:45)
[2021-10-08] MEDS: lisinopril 20 MG TAB PO SCH (20:46)
[2021-10-08] MEDS: VENLAFAXINE HCL XR 150 MG CAPXR PO SCH (20:46)
[2021-10-08] MEDS ORDERED: LANTUS PER UNIT CHARGE SQ ONE (21:00)
[2021-10-09] MEDS: LEVOTHYROXINE SODIUM 150 MCG TABLET PO SCH (05:38)
[2021-10-09] MEDS: LEVALBUTEROL TARTRATE 15 GM HFA.AER.AD INH SCH ×4 (07:09→19:31)
[2021-10-09] MEDS: LANTUS PER UNIT CHARGE SQ SCH (08:17)
[2021-10-09] MEDS: INSULIN ASPART PER UNIT SC SCH ×4 (08:17→20:20)
[2021-10-09] MEDS: AMIODARONE 200 MG TAB PO SCH (08:24)
[2021-10-09] MEDS: FOLIC ACID 1 MG TAB PO SCH (08:25)
[2021-10-09] MEDS: ASPIRIN 81 MG ECTAB PO SCH (08:25)
[2021-10-09] MEDS: GABAPENTIN 400 MG CAP PO SCH ×3 (08:25→20:14)
[2021-10-09] MEDS: dexAMETHasone 4 MG TAB PO SCH (08:25)
[2021-10-09] MEDS: carvediloL 25 MG TAB PO SCH ×2 (08:25→17:12)
[2021-10-09] MEDS: TAMSULOSIN HCL 0.4 MG CAP PO SCH (08:26)
[2021-10-09] MEDS: FINASTERIDE 5 MG TAB PO SCH (08:26)
[2021-10-09] MEDS: allopurinoL 300 MG TAB PO SCH (08:26)
[2021-10-09] MEDS: PANTOprazole 40 MG TAB PO SCH (08:26)
[2021-10-09] MEDS: MAGNESIUM OXIDE 400 MG TAB PO SCH ×3 (08:26→20:12)
[2021-10-09] MEDS: POTASSIUM CHLORIDE CRTAB 20 MEQ TABCR PO SCH ×4 (08:27→20:16)
[2021-10-09 08:42] LABS: INR 2.8 (0.9-1.1)
[2021-10-09 08:48] LABS: Albumin Globulin Ratio 1.3 (0.9-2); Albumin Level 3.9 gm/dl (3.4-5.0); BUN Creatinine Ratio 21.7 (10-20); Bilirubin,Total 0.5 mg/dl (0.2-1.0); Calcium 8.8 mg/dl (8.5-10.1); Creatinine Clr Calc Pharmacy 67.3 ml/min; Est GFR (African American) 64.2 ml/min; Est GFR (Non-African American) 55.4 ml/min; Globulin 2.9 gm/dl (2.5-4.0); Potassium 4.2 mmol/L (3.5-5.1); Total Protein 6.8 gm/dl (6.0-8.3)
--- NOTE | 2021-10-09 11:00 | Hospitalist Progress Note ---
Date of Service October 09, 2021 Assessment & Plan (1) Acute respiratory distress: Plan: severe coughing-cont Robitussin AC, decadron, albuterol nebulizer therapy. May consider benzonatate or other support medication for his severe cough. Although he is not hypoxic and therefore does not qualify for COVID-specific medications, he apparently had bronchospasm and has a high risk of progressing to pneumonia. Therefore continue Decadron at this time. Consider remdesivir if patient becomes worse. (2) COVID-19: Plan: plan as above. Isolation precautions 10/09 Acute Hypoxic Respiratory Failure secondary to Covid 19 Infection, Acute Bronchitis currently still remains on 2 L nasal cannula CXR: no pneumonia (+) faint wheeze BL today continue Decadron 6mg po daily Day 3/5 Remdesivir IV daily monitor LFTs and renal function--> cre 1.2, monitor, LFTs ok Xopenex Inh QID PRN guaif/codeine repeat CXR today continue Incentive spirometry already on Coumadin INR 2.8 (3) LVAD (left ventricular assist device) present: Plan: LVAD present, patient reports feeling well prior to coming down with symptoms two days ago. -- no signs of volume overload crea improved to 1.2 -- continue Amiodarone, Torsemide, Spironolactone (4) HTN (hypertension): Plan: Chronic, continue spironolactone, torsemide, amlodipine controlled,Continue home lisinopril, carvedilol. (5) Depression: Plan: Chronic, stable. Continue venlafaxine per home regimen. (6) Hypothyroidism: Plan: chronic, continue home levothyroxine. TSH elevated check T4: normal at 1.4 (7) CKD (chronic kidney disease), stage III: Plan: Creatinine 1.2 which is around his baseline. crea 1.4, now 1.2 likely pre renal from diarrhea encouraged oral fluid intake monitor while on Remdesivir (8) Gout: Plan: Chronic, stable, continue allopurinol per home regimen. (9) DM type 2 (diabetes mellitus, type 2): Plan: Chronic, stable, continue basal bolus insulin. A1c 8.2 (10) DVT prophylaxis: Plan: Warfarin Full code Disposition: pending lives at home with his Admission and Anticipated Discharge Date Admission Date: October 06, 2021 Subjective ff up for COVID 19 infection, etc seen resting in bed, comfortable sitting up doing puzzles states he feels improved today still has dry cough, but getting less breathing continues to improve no chest pain, dyspnea, palpitations, dizziness no other symptoms Review of Systems Review of Systems: all noted and negative except for above Physical Exam Physical Exam: General- oriented x 3, not in distress, speaks in sentences with no effort or accessory muscle use Eyes- anicteric Neck- no JVD Lungs-mild rhonchi at the bases Heart- normal rate, regular rhythm; no murmurs Abdomen- normal bowel sounds, nondistended, soft, nontender Extremities- no pretibial edema, no calf tenderness Neuro- alert, oriented x 3; no gross focal neurologic deficits Skin- warm & dry Results & Data Results & Data ([facility]) Vital Signs (Past 12 Hours) Vital Signs Temp Pulse Pulse Resp BP Pulse Ox O2 Del Method 10/09/21 10:45 70 18 93 Room Air 10/09/21 08:00 70 10/09/21 07:00 36.7 C 70 16 90/90 L 97 Nasal Cannula 10/09/21 07:09 84 16 90 Nasal Cannula 10/09/21 05:00 70 16 80/80 L 93 Nasal Cannula 10/09/21 00:00 36.8 C 70 20 80/80 L 94 Nasal Cannula O2 Flow Rate 10/09/21 10:45 10/09/21 08:00 10/09/21 07:00 2 10/09/21 07:09 2 10/09/21 05:00 2 10/09/21 00:00 2 all noted and reviewed including below (1) DM type 2 (diabetes mellitus, type 2) Diabetes mellitus complication status: without complication Diabetes mellitus intermediate teacher insulin use: with intermediate teacher use Qualified Code(s): E11.9 - Type 2 diabetes mellitus without complications; Z79.4 - [facility] (current) use of insulin
[2021-10-09] MEDS: TORSEMIDE 10 MG TAB PO SCH (12:49)
[2021-10-09] MEDS: WARFARIN SOD 5 MG TAB PO SCH (17:12)
--- NOTE | 2021-10-09 19:01 | XRay Report ---
SINGLE VIEW CHEST CLINICAL HISTORY: Covid. FINDINGS: 2 AP, portable, upright chest radiographs are compared to study dated 10/06/2021. The patien t is status post midline sternotomy. A left ventricular assist device is again noted. A 3-lead cardia c AICD is unchanged in position and partially obscures left mid chest. The heart is enlarged noting a therosclerotic calcification of the thoracic aorta. The pulmonary vasculature is noncongested. Chroni c interstitial thickening is similar to previous. The lungs and pleural spaces are clear. No pneumoth orax is seen. The skeletal structures are osteopenic. The bony thorax is grossly intact. IMPRESSION: 1. Cardiomegaly with an AICD and left ventricular assist device. There is no radiographic evidence of congestive failure. 2. The lungs are clear. ACT 112: Negative or not required by law. Electronically signed by: Juaquin Neff M.D. 10/09/2021 6:59 PM
[2021-10-09] MEDS: REMDESIVIR 100 MG in SODIUM CHLORIDE 0.9% 230 ML IV SCH (20:08)
[2021-10-09] MEDS: PRAVASTATIN SOD 40 MG TAB PO SCH (20:12)
[2021-10-09] MEDS: VENLAFAXINE HCL XR 150 MG CAPXR PO SCH (20:12)
[2021-10-09] MEDS: lisinopril 20 MG TAB PO SCH (20:13)
[2021-10-09] MEDS ORDERED: LANTUS PER UNIT CHARGE SQ ONE (21:00)
[2021-10-10] MEDS ORDERED: INSULIN ASPART PER UNIT SC SCH
[2021-10-10] MEDS: LEVOTHYROXINE SODIUM 150 MCG TABLET PO SCH (06:25)
[2021-10-10] MEDS: LEVALBUTEROL TARTRATE 15 GM HFA.AER.AD INH SCH (07:08)
[2021-10-10] MEDS ORDERED: LEVALBUTEROL TARTRATE 15 GM HFA.AER.AD INH PRN (07:52)
[2021-10-10] MEDS: INSULIN ASPART PER UNIT SC SCH ×4 (08:32→21:49)
[2021-10-10] MEDS: LANTUS PER UNIT CHARGE SQ SCH ×2 (08:34→21:48)
[2021-10-10] MEDS: carvediloL 25 MG TAB PO SCH ×2 (08:43→17:11)
[2021-10-10] MEDS: dexAMETHasone 4 MG TAB PO SCH (08:43)
[2021-10-10] MEDS: SPIRONOLACTONE 25 MG TAB PO SCH (08:43)
[2021-10-10] MEDS: PANTOprazole 40 MG TAB PO SCH (08:43)
[2021-10-10] MEDS: TORSEMIDE 20 MG TAB PO SCH (08:43)
[2021-10-10] MEDS: allopurinoL 300 MG TAB PO SCH (08:44)
[2021-10-10] MEDS: amLODIPine BESYLATE 5 MG TAB PO SCH (08:44)
[2021-10-10] MEDS: GABAPENTIN 400 MG CAP PO SCH ×3 (08:44→21:18)
[2021-10-10] MEDS: MAGNESIUM OXIDE 400 MG TAB PO SCH ×3 (08:44→21:19)
[2021-10-10] MEDS: TAMSULOSIN HCL 0.4 MG CAP PO SCH (08:44)
[2021-10-10] MEDS: FINASTERIDE 5 MG TAB PO SCH (08:44)
[2021-10-10] MEDS: POTASSIUM CHLORIDE CRTAB 20 MEQ TABCR PO SCH ×4 (08:45→21:30)
[2021-10-10] MEDS: FOLIC ACID 1 MG TAB PO SCH (08:45)
[2021-10-10] MEDS: AMIODARONE 200 MG TAB PO SCH (08:45)
[2021-10-10] MEDS: ASPIRIN 81 MG ECTAB PO SCH (08:45)
[2021-10-10 09:02] LABS: INR 2.6 (0.9-1.1); Prothrombin Time 26.3 Seconds (9.0-12.0)
[2021-10-10 09:09] LABS: Albumin Globulin Ratio 1.3 (0.9-2); Albumin Level 3.8 gm/dl (3.4-5.0); BUN Creatinine Ratio 28.2 (10-20); Bilirubin,Total 0.4 mg/dl (0.2-1.0); Calcium 8.8 mg/dl (8.5-10.1); Creatinine Clr Calc Pharmacy 66.3 ml/min; Est GFR (Non-African American) 54.4 ml/min; Globulin 2.9 gm/dl (2.5-4.0); Potassium 3.6 mmol/L (3.5-5.1); Total Protein 6.7 gm/dl (6.0-8.3)
[2021-10-10] MEDS: WARFARIN SOD 5 MG TAB PO SCH (17:10)
--- NOTE | 2021-10-10 17:33 | Hospitalist Progress Note ---
Date of Service October 10, 2021 Delayed entry Date of service as above Assessment & Plan (1) Acute respiratory distress: Plan: severe coughing-cont Robitussin AC, decadron, albuterol nebulizer therapy. May consider benzonatate or other support medication for his severe cough. Although he is not hypoxic and therefore does not qualify for COVID-specific medications, he apparently had bronchospasm and has a high risk of progressing to pneumonia. Therefore continue Decadron at this time. Consider remdesivir if patient becomes worse. (2) COVID-19: Plan: plan as above. Isolation precautions 10/11 Acute Hypoxic Respiratory Failure secondary to Covid 19 Infection, Acute Bronchitis currently still remains on 2 L nasal cannula CXR: no pneumonia (+) Very faint wheeze BL today continue Decadron 6mg po daily Day 4/5 Remdesivir IV daily monitor LFTs and renal function--> cre 1.2, monitor, LFTs ok Xopenex Inh QID PRN guaif/codeine repeat CXR: No fluid or infiltrates continue Incentive spirometry already on Coumadin INR 2.6 (3) LVAD (left ventricular assist device) present: Plan: LVAD present, patient reports feeling well prior to coming down with symptoms two days ago. -- no signs of volume overload crea improved to 1.2 -- continue Amiodarone, Torsemide, Spironolactone (4) HTN (hypertension): Plan: Chronic, continue spironolactone, torsemide, amlodipine controlled,Continue home lisinopril, carvedilol. (5) Depression: Plan: Chronic, stable. Continue venlafaxine per home regimen. (6) Hypothyroidism: Plan: chronic, continue home levothyroxine. TSH elevated check T4: normal at 1.4 (7) CKD (chronic kidney disease), stage III: Plan: Creatinine 1.2 which is around his baseline. crea 1.4, now 1.2 likely pre renal from diarrhea encouraged oral fluid intake monitor while on Remdesivir (8) Gout: Plan: Chronic, stable, continue allopurinol per home regimen. (9) DM type 2 (diabetes mellitus, type 2): Plan: Chronic, stable, continue basal bolus insulin. A1c 8.2 (10) DVT prophylaxis: Plan: Warfarin Full code Disposition: pending lives at home with his Admission and Anticipated Discharge Date Admission Date: October 06, 2021 Subjective Follow-up for COVID-19, etc. Seen resting in bed, sitting up, not in distress States he continues to feel improved Breathing is improving Still has dry cough No chest pain, palpitations, dizziness No other symptom Review of Systems Review of Systems: all noted and negative except for above Physical Exam Physical Exam: General- oriented x 3, not in distress, speaks in sentences with no effort or accessory muscle use Eyes- anicteric Neck- no JVD Lungs-very faint wheeze bilaterally No crackles or wheezing Heart- normal rate, regular rhythm; no murmurs Abdomen- normal bowel sounds, nondistended, soft, nontender Extremities- no pretibial edema, no calf tenderness Neuro- alert, oriented x 3; no gross focal neurologic deficits Skin- warm & dry Results & Data Results & Data ([facility] [place]) Vital Signs (Past 12 Hours) Vital Signs Temp Pulse Pulse Resp BP Pulse Ox O2 Del Method 10/10/21 08:00 Room Air 10/10/21 07:00 70 10/10/21 07:00 37.1 C 70 16 84/84 L 96 Room Air 10/10/21 07:09 59 L 18 94 Room Air all noted and reviewed including below (1) DM type 2 (diabetes mellitus, type 2) Diabetes mellitus complication status: without complication Diabetes mellitus vermin exterminator insulin use: with vermin exterminator use Qualified Code(s): E11.9 - Type 2 diabetes mellitus without complications; Z79.4 - [facility] (current) use of insulin
[2021-10-10] MEDS: REMDESIVIR 100 MG in SODIUM CHLORIDE 0.9% 230 ML IV SCH (21:14)
[2021-10-10] MEDS: VENLAFAXINE HCL XR 150 MG CAPXR PO SCH (21:19)
[2021-10-10] MEDS: PRAVASTATIN SOD 40 MG TAB PO SCH (21:19)
[2021-10-10] MEDS: lisinopril 20 MG TAB PO SCH (21:19)
[2021-10-11] MEDS: LEVOTHYROXINE SODIUM 150 MCG TABLET PO SCH (05:49)
[2021-10-11 08:03] LABS: INR 2.6 (0.9-1.1)
[2021-10-11] MEDS: FOLIC ACID 1 MG TAB PO SCH (08:07)
[2021-10-11] MEDS: carvediloL 25 MG TAB PO SCH ×2 (08:07→17:50)
[2021-10-11] MEDS: amLODIPine BESYLATE 5 MG TAB PO SCH (08:08)
[2021-10-11] MEDS: FINASTERIDE 5 MG TAB PO SCH (08:08)
[2021-10-11] MEDS: PANTOprazole 40 MG TAB PO SCH (08:08)
[2021-10-11] MEDS: MAGNESIUM OXIDE 400 MG TAB PO SCH ×3 (08:08→21:02)
[2021-10-11] MEDS: GABAPENTIN 400 MG CAP PO SCH ×3 (08:08→21:02)
[2021-10-11] MEDS: SPIRONOLACTONE 25 MG TAB PO SCH (08:09)
[2021-10-11] MEDS: allopurinoL 300 MG TAB PO SCH (08:09)
[2021-10-11] MEDS: TAMSULOSIN HCL 0.4 MG CAP PO SCH (08:09)
[2021-10-11] MEDS: ASPIRIN 81 MG ECTAB PO SCH (08:09)
[2021-10-11] MEDS: AMIODARONE 200 MG TAB PO SCH (08:09)
[2021-10-11 08:12] LABS: Albumin Globulin Ratio 1.4 (0.9-2); Albumin Level 3.7 gm/dl (3.4-5.0); Bilirubin,Total 0.4 mg/dl (0.2-1.0); Calcium 8.6 mg/dl (8.5-10.1); Creatinine Clr Calc Pharmacy 57.9 ml/min; Est GFR (African American) 53.5 ml/min; Est GFR (Non-African American) 46.2 ml/min; Globulin 2.7 gm/dl (2.5-4.0); Potassium 3.3 mmol/L (3.5-5.1); Total Protein 6.4 gm/dl (6.0-8.3)
[2021-10-11] MEDS: INSULIN ASPART PER UNIT SC SCH ×4 (08:40→21:15)
[2021-10-11] MEDS: LANTUS PER UNIT CHARGE SQ SCH ×2 (08:41→21:15)
[2021-10-11] MEDS: POTASSIUM CHLORIDE CRTAB 20 MEQ TABCR PO SCH ×4 (08:42→21:03)
[2021-10-11] MEDS: dexAMETHasone 4 MG TAB PO SCH (09:02)
[2021-10-11] MEDS: TORSEMIDE 10 MG TAB PO SCH (09:10)
[2021-10-11] MEDS ORDERED: SODIUM CHLOR 7% 4 ML NEB NEB SCH (10:10)
[2021-10-11] MEDS: guaiFENesin 600 MG TABCR PO SCH ×2 (12:30→21:02)
--- NOTE | 2021-10-11 13:30 | Pharmacy Report ---
Pharmacy Glycemic Short Note 2 - Date of Service October 11, 2021 - Glycemic Short BSG Results (Last 24 hours): 10/10/21 10/10/21 10/11/21 16:58 20:27 07:30 Glucose POC Glucose 205 H 157 H 71 10/11/21 10/11/21 10/11/21 07:35 11:57 11:57 Glucose 72 POC Glucose 286 H 266 H OUTPATIENT ANTIDIABETIC REGIMEN: * Lantus 15 units SC BID * Humalog 15 units SC TIDM * HbA1c: 8.2% (10/07/21) ASSESSMENT: 10/11/21: * Fasting BSG was below goal this morning, so evening Lantus dose reduced. * Consider tighter carb coverage with breakfast only, as pre-lunch BSG tends to be elevated. * Pt continues to receive DXM 6mg PO daily, which is certainly increasing his insulin requirements. Will continue to follow closely and adjust regimen if/when steroids are stopped in order to avoid hypoglycemia. 10/08 * BSGs unsurprisingly elevated yesterday in light of uncovered steroid on 10/06/21 * Patient received 123 units of insulin (55 units of Lantus, 58 units of prandial/correctional Novolog, and 10 units of IV regular insulin) * Will increase AM dose of Lantus to be given with dexamethasone and continue scaled dose at HS to allow for more insulin if needed * Tightened Novolog parameters last night and will continue 10/07 * LW is a 70 year old male, admitted last evening for acute respiratory distress (positive for COVID-19) * Pertinent PMH includes CHF w/ presence of LVAD, T2DM (managed with insulin), CKD, HTN, hyperlipidemia, and hx of CVA * Ordered dexamethasone 10 mg IV x 1 yesterday, changed to 6 mg PO daily starting today * Pharmacy consulted for glycemic management this morning due to BSG of 370 mg/dL * Will use aggressive weight-based stress of 3 dosing of Lantus/Novolog for now in light of steroid-induced hyperglycemia * Will give slightly reduced Lantus dose today due to patient hesitancy with originally ordered dose of 50 units * Lunch BSG of 343 mg/dL, will give 10 unit IV regular insulin bolus PLAN FOR INPATIENT GLYCEMIC CONTROL: * Basal insulin * Lantus 50 units SC qAM * Lantus scale HS to provide 10-15 units (see EHR for details) * Bolus insulin * NovoLog per scale ACHS or Q6hrs while NPO * Goal Range: Low 110 mg/dL - High 140 mg/dL * Correction Factor: 8 mg/dL/unit * Nutritional / Prandial insulin per carb ratio of 1 unit per 3 grams CHO consumed
[2021-10-11] MEDS: WARFARIN SOD 5 MG TAB PO SCH (18:24)
--- NOTE | 2021-10-11 18:31 | Hospitalist Progress Note ---
Date of Service October 11, 2021 Assessment & Plan (1) Acute respiratory distress: Plan: severe coughing-cont Robitussin AC, decadron, albuterol nebulizer therapy. May consider benzonatate or other support medication for his severe cough. Although he is not hypoxic and therefore does not qualify for COVID-specific medications, he apparently had bronchospasm and has a high risk of progressing to pneumonia. Therefore continue Decadron at this time. Consider remdesivir if patient becomes worse. (2) COVID-19: Plan: plan as above. Isolation precautions 10/11 Acute Hypoxic Respiratory Failure secondary to Covid 19 Infection, Acute Bronchitis Weaned off oxygen supplement CXR: no pneumonia (+) Very faint wheeze BL today continue Decadron 6mg po daily Day 07/22 Remdesivir IV daily monitor LFTs and renal function--> cre 1.5, monitor, LFTs ok Xopenex Inh QID PRN guaif/codeine repeat CXR: No fluid or infiltrates continue Incentive spirometry already on Coumadin INR 2.6 (3) LVAD (left ventricular assist device) present: Plan: LVAD present, patient reports feeling well prior to coming down with symptoms two days ago. -- no signs of volume overload crea 1.5 -- continue Amiodarone, Torsemide, Spironolactone (4) HTN (hypertension): Plan: Chronic, continue spironolactone, torsemide, amlodipine controlled,Continue home lisinopril, carvedilol. (5) Depression: Plan: Chronic, stable. Continue venlafaxine per home regimen. (6) Hypothyroidism: Plan: chronic, continue home levothyroxine. TSH elevated T4: normal at 1.4 (7) CKD (chronic kidney disease), stage III: Plan: Creatinine 1.2 which is around his baseline. crea 1.4, now 1.5 likely pre renal from diarrhea encouraged oral fluid intake monitor while on Remdesivir (8) Gout: Plan: Chronic, stable, continue allopurinol per home regimen. (9) DM type 2 (diabetes mellitus, type 2): Plan: Chronic, stable, continue basal bolus insulin. A1c 8.2 (10) DVT prophylaxis: Plan: Warfarin inr 2.6 Full code Disposition: pending lives at home with his Admission and Anticipated Discharge Date Admission Date: October 06, 2021 Subjective Follow-up for COVID-19, etc. Seen sitting up in bed, to request pulses Good spirits States he feels improved overall Breathing is much better Still has dry cough No chest pain, dizziness, nausea vomiting, fevers or chills, abdominal pain No other symptoms appetite is good Review of Systems Review of Systems: all noted and negative except for above Physical Exam Physical Exam: General- oriented x 3, not in distress, speaks in sentences with no effort or accessory muscle use Eyes- anicteric Neck- no JVD Lungs-faint wheeze bilaterally, good air entry bilaterally Heart- normal rate, regular rhythm; no murmurs Abdomen- normal bowel sounds, nondistended, soft, nontender Extremities- no pretibial edema, no calf tenderness Neuro- alert, oriented x 3; no gross focal neurologic deficits Skin- warm & dry Results & Data Results & Data ([facility]) Vital Signs (Past 12 Hours) Vital Signs Pulse Pulse Resp BP Pulse Ox O2 Del Method 10/11/21 10:56 88 16 97 Room Air 10/11/21 08:00 70 10/11/21 08:00 Room Air 10/11/21 08:00 92/92 L all noted and reviewed including below (1) DM type 2 (diabetes mellitus, type 2) Diabetes mellitus complication status: without complication Diabetes mellitus fdc insulin use: with fdc use Qualified Code(s): E11.9 - Type 2 diabetes mellitus without complications; Z79.4 - terminal gauger (current) use of insulin
[2021-10-11] MEDS: REMDESIVIR 100 MG in SODIUM CHLORIDE 0.9% 230 ML IV SCH (20:58)
[2021-10-11] MEDS: VENLAFAXINE HCL XR 150 MG CAPXR PO SCH (21:02)
[2021-10-11] MEDS: lisinopril 20 MG TAB PO SCH (21:02)
[2021-10-11] MEDS: PRAVASTATIN SOD 40 MG TAB PO SCH (22:50)
[2021-10-12] MEDS: LEVOTHYROXINE SODIUM 150 MCG TABLET PO SCH (06:02)
[2021-10-12 08:51] LABS: INR 2.5 (0.9-1.1); Prothrombin Time 25.5 Seconds (9.0-12.0)
[2021-10-12] MEDS: amLODIPine BESYLATE 5 MG TAB PO SCH (08:53)
[2021-10-12] MEDS: guaiFENesin 600 MG TABCR PO SCH ×2 (08:53→20:01)
[2021-10-12] MEDS: FOLIC ACID 1 MG TAB PO SCH (08:53)
[2021-10-12] MEDS: AMIODARONE 200 MG TAB PO SCH (08:54)
[2021-10-12] MEDS: TORSEMIDE 20 MG TAB PO SCH (08:54)
[2021-10-12] MEDS: TAMSULOSIN HCL 0.4 MG CAP PO SCH (08:54)
[2021-10-12] MEDS: carvediloL 25 MG TAB PO SCH ×2 (08:54→17:14)
[2021-10-12] MEDS: dexAMETHasone 4 MG TAB PO SCH (08:54)
[2021-10-12] MEDS: SPIRONOLACTONE 25 MG TAB PO SCH (08:54)
[2021-10-12] MEDS: ASPIRIN 81 MG ECTAB PO SCH (08:54)
[2021-10-12] MEDS: PANTOprazole 40 MG TAB PO SCH (08:54)
[2021-10-12] MEDS: MAGNESIUM OXIDE 400 MG TAB PO SCH ×3 (08:54→20:01)
[2021-10-12] MEDS: allopurinoL 300 MG TAB PO SCH (08:54)
[2021-10-12] MEDS: GABAPENTIN 400 MG CAP PO SCH ×3 (08:55→20:00)
[2021-10-12 09:04] LABS: Albumin Globulin Ratio 1.4 (0.9-2); BUN Creatinine Ratio 28.2 (10-20); Bilirubin,Total 0.5 mg/dl (0.2-1.0); Calcium 8.8 mg/dl (8.5-10.1); Creatinine Clr Calc Pharmacy 55.9 ml/min; Globulin 2.9 gm/dl (2.5-4.0); Potassium 3.7 mmol/L (3.5-5.1); Total Protein 6.9 gm/dl (6.0-8.3)
[2021-10-12] MEDS: INSULIN ASPART PER UNIT SC SCH ×4 (09:06→20:54)
[2021-10-12] MEDS: LANTUS PER UNIT CHARGE SQ SCH ×2 (09:07→20:57)
[2021-10-12] MEDS: INSULIN HUMAN NPH SC SCH (09:40)
[2021-10-12] MEDS: POTASSIUM CHLORIDE CRTAB 20 MEQ TABCR PO SCH ×4 (09:44→20:00)
[2021-10-12] MEDS: FINASTERIDE 5 MG TAB PO SCH (12:05)
--- NOTE | 2021-10-12 14:31 | Pharmacy Report ---
Pharmacy Glycemic Short Note 2 - Date of Service October 12, 2021 - Glycemic Short BSG Results (Last 24 hours): 10/11/21 10/11/21 10/12/21 16:44 20:27 08:05 Glucose POC Glucose 229 H 119 H 270 H 10/12/21 10/12/21 10/12/21 08:11 11:40 11:41 Glucose 234 H POC Glucose 268 H 261 H OUTPATIENT ANTIDIABETIC REGIMEN: * Lantus 15 units SC BID * Humalog 15 units SC TIDM * HbA1c: 8.2% (10/07/21) ASSESSMENT: 10/12/21: * BSGs remain labile, despite several adjustments to regimen. * Looking at the BSG trend (well controlled in AM and HS, elevated at lunch/dinner), will re-work insulin regimen today. * Lantus 15 units SQ BID resumed this morning (home dose) * NPH 35 units (~0.3units/kg) daily with PO dexamethasone * No change to Novolog at this time * Will trial this new regimen to see if we can achieve better control while on steroids! 10/11 * Fasting BSG was below goal this morning, so evening Lantus dose reduced. * Consider tighter carb coverage with breakfast only, as pre-lunch BSG tends to be elevated. * Pt continues to receive DXM 6mg PO daily, which is certainly increasing his insulin requirements. Will continue to follow closely and adjust regimen if/when steroids are stopped in order to avoid hypoglycemia. 10/08 * BSGs unsurprisingly elevated yesterday in light of uncovered steroid on 10/06/21 * Patient received 123 units of insulin (55 units of Lantus, 58 units of prandial/correctional Novolog, and 10 units of IV regular insulin) * Will increase AM dose of Lantus to be given with dexamethasone and continue scaled dose at HS to allow for more insulin if needed * Tightened Novolog parameters last night and will continue 10/07 * LW is a 70 year old male, admitted last evening for acute respiratory distress (positive for COVID-19) * Pertinent PMH includes CHF w/ presence of LVAD, T2DM (managed with insulin), CKD, HTN, hyperlipidemia, and hx of CVA * Ordered dexamethasone 10 mg IV x 1 yesterday, changed to 6 mg PO daily starting today * Pharmacy consulted for glycemic management this morning due to BSG of 370 mg/dL * Will use aggressive weight-based stress of 3 dosing of Lantus/Novolog for now in light of steroid-induced hyperglycemia * Will give slightly reduced Lantus dose today due to patient hesitancy with originally ordered dose of 50 units * Lunch BSG of 343 mg/dL, will give 10 unit IV regular insulin bolus PLAN FOR INPATIENT GLYCEMIC CONTROL: * Basal insulin * Lantus 15 units SC BID * NPH 35 units SQ daily with dexamethasone * Bolus insulin * NovoLog per scale ACHS or Q6hrs while NPO * Goal Range: Low 110 mg/dL - High 140 mg/dL * Correction Factor: 8 mg/dL/unit * Nutritional / Prandial insulin per carb ratio of 1 unit per 3 grams CHO consumed
[2021-10-12] MEDS: WARFARIN SOD 5 MG TAB PO SCH (15:14)
--- NOTE | 2021-10-12 18:45 | Hospitalist Progress Note ---
Date of Service October 12, 2021 Assessment & Plan (1) Acute respiratory distress: Plan: severe coughing-cont Robitussin AC, decadron, albuterol nebulizer therapy. May consider benzonatate or other support medication for his severe cough. Although he is not hypoxic and therefore does not qualify for COVID-specific medications, he apparently had bronchospasm and has a high risk of progressing to pneumonia. Therefore continue Decadron at this time. Consider remdesivir if patient becomes worse. (2) COVID-19: Plan: plan as above. Isolation precautions 10/12 Acute Hypoxic Respiratory Failure secondary to Covid 19 Infection, Acute Bronchitis Weaned off oxygen supplement CXR: no pneumonia Wheezing has resolved continue Decadron 6mg po daily Completed day 07/22 Remdesivir IV daily monitor LFTs and renal function--> cre 1.5, monitor, LFTs ok Xopenex Inh QID PRN guaif/codeine repeat CXR: No fluid or infiltrates continue Incentive spirometry already on Coumadin INR 2.5 (3) LVAD (left ventricular assist device) present: Plan: LVAD present, patient reports feeling well prior to coming down with symptoms two days ago. -- no signs of volume overload crea 1.5 -- continue Amiodarone, Torsemide, Spironolactone (4) HTN (hypertension): Plan: Chronic, continue spironolactone, torsemide, amlodipine controlled,Continue home lisinopril, carvedilol. (5) Depression: Plan: Chronic, stable. Continue venlafaxine per home regimen. (6) Hypothyroidism: Plan: chronic, continue home levothyroxine. TSH elevated T4: normal at 1.4 (7) CKD (chronic kidney disease), stage III: Plan: Creatinine 1.2 which is around his baseline. crea 1.4, now 1.5 likely pre renal from diarrhea encouraged oral fluid intake monitor while on Remdesivir (8) Gout: Plan: Chronic, stable, continue allopurinol per home regimen. (9) DM type 2 (diabetes mellitus, type 2): Plan: Chronic, stable, continue basal bolus insulin. A1c 8.2 (10) DVT prophylaxis: Plan: Warfarin inr 2.6 Full code Disposition: pending lives at home with his Admission and Anticipated Discharge Date Admission Date: October 06, 2021 Subjective Follow-up for COVID-19 infection, etc. Sitting up in bed, comfortable, not in distress Doing puzzles States he continues to feel better overall Cough has improved now No shortness of breath No chest pain No other symptoms Review of Systems Review of Systems: all noted and negative except for above Physical Exam Physical Exam: General- oriented x 3, not in distress, speaks in sentences with no effort or accessory muscle use Eyes- anicteric Neck- no JVD Lungs- clear breath sounds bilaterally, no wheezing noted Heart- normal rate, regular rhythm; no murmurs Abdomen- normal bowel sounds, nondistended, soft, nontender Extremities- no pretibial edema, no calf tenderness Neuro- alert, oriented x 3; no gross focal neurologic deficits Skin- warm & dry Results & Data Results & Data ([facility]) Vital Signs (Past 12 Hours) Vital Signs Temp Pulse Pulse Resp BP Pulse Ox O2 Del Method 10/12/21 15:00 71 10/12/21 15:12 36.2 C L 70 18 80/80 L 94 Room Air 10/12/21 11:55 36.4 C L 78 18 84/84 L 10/12/21 10:00 Room Air 10/12/21 08:49 36.4 C L 79 18 80/80 L 93 Room Air 10/12/21 07:00 70 (1) DM type 2 (diabetes mellitus, type 2) Diabetes mellitus complication status: without complication Diabetes mellitus termite exterminator helper insulin use: with termite exterminator helper use Qualified Code(s): E11.9 - Type 2 d iabetes mellitus without complications; Z79.4 - long term care social worker (current) use of insulin
[2021-10-12] MEDS: VENLAFAXINE HCL XR 150 MG CAPXR PO SCH (20:00)
[2021-10-12] MEDS: lisinopril 20 MG TAB PO SCH (20:00)
[2021-10-12] MEDS: PRAVASTATIN SOD 40 MG TAB PO SCH (20:01)
[2021-10-13] MEDS: LEVOTHYROXINE SODIUM 150 MCG TABLET PO SCH (06:07)
[2021-10-13 09:08] LABS: Albumin Globulin Ratio 1.4 (0.9-2); Albumin Level 3.7 gm/dl (3.4-5.0); BUN Creatinine Ratio 34.1 (10-20); Bilirubin,Total 0.5 mg/dl (0.2-1.0); Calcium 8.8 mg/dl (8.5-10.1); Creatinine Clr Calc Pharmacy 65.9 ml/min; Est GFR (African American) 62.5 ml/min; Est GFR (Non-African American) 53.9 ml/min; Globulin 2.6 gm/dl (2.5-4.0); Total Protein 6.3 gm/dl (6.0-8.3)
[2021-10-13] MEDS: INSULIN ASPART PER UNIT SC SCH ×2 (09:10→12:36)
[2021-10-13] MEDS: dexAMETHasone 4 MG TAB PO SCH (10:14)
[2021-10-13] MEDS: GABAPENTIN 400 MG CAP PO SCH ×2 (10:15→12:44)
[2021-10-13] MEDS: guaiFENesin 600 MG TABCR PO SCH (10:15)
[2021-10-13] MEDS: AMIODARONE 200 MG TAB PO SCH (10:15)
[2021-10-13] MEDS: SPIRONOLACTONE 25 MG TAB PO SCH (10:15)
[2021-10-13] MEDS: FOLIC ACID 1 MG TAB PO SCH (10:16)
[2021-10-13] MEDS: allopurinoL 300 MG TAB PO SCH (10:16)
[2021-10-13] MEDS: PANTOprazole 40 MG TAB PO SCH (10:16)
[2021-10-13] MEDS: MAGNESIUM OXIDE 400 MG TAB PO SCH ×2 (10:16→12:45)
[2021-10-13] MEDS: amLODIPine BESYLATE 5 MG TAB PO SCH (10:16)
[2021-10-13] MEDS: ASPIRIN 81 MG ECTAB PO SCH (10:16)
[2021-10-13] MEDS: TAMSULOSIN HCL 0.4 MG CAP PO SCH (10:16)
[2021-10-13] MEDS: carvediloL 25 MG TAB PO SCH (10:17)
[2021-10-13] MEDS: FINASTERIDE 5 MG TAB PO SCH (10:17)
[2021-10-13] MEDS: TORSEMIDE 10 MG TAB PO SCH (10:17)
[2021-10-13] MEDS: INSULIN HUMAN NPH SC SCH (10:30)
[2021-10-13] MEDS: LANTUS PER UNIT CHARGE SQ SCH (10:30)
[2021-10-13] MEDS: POTASSIUM CHLORIDE CRTAB 20 MEQ TABCR PO SCH ×2 (10:34→12:45)
--- NOTE | 2021-10-13 12:42 | Hospitalist Progress Note ---
Date of Service October 13, 2021 Assessment & Plan (1) Acute respiratory distress: (2) COVID-19: (3) LVAD (left ventricular assist device) present: (4) HTN (hypertension): (5) Depression: (6) Hypothyroidism: (7) CKD (chronic kidney disease), stage III: (8) Gout: (9) DM type 2 (diabetes mellitus, type 2): (10) DVT prophylaxis: Plan: (1) Acute respiratory distress: Plan: severe coughing-cont Robitussin AC, decadron, albuterol nebulizer therapy. May consider benzonatate or other support medication for his severe cough. Although he is not hypoxic and therefore does not qualify for COVID-specific medications, he apparently had bronchospasm and has a high risk of progressing to pneumonia. Therefore continue Decadron at this time. Consider remdesivir if patient becomes worse. (2) COVID-19: Plan: plan as above. Isolation precautions 10/13 Acute Hypoxic Respiratory Failure secondary to Covid 19 Infection, Acute Bronchitis Weaned off oxygen supplement CXR: no pneumonia Wheezing has resolved Given Decadron 6mg po daily x7 days Completed day 07/22 Remdesivir IV daily monitor LFTs and renal function--> cre 1.3, monitor, LFTs ok Xopenex Inh QID PRN guaif/codeine repeat CXR: No fluid or infiltrates Home isolation for another 3 days continue Incentive spirometry already on Coumadin INR 2.5 (3) LVAD (left ventricular assist device) present: Plan: LVAD present, patient reports feeling well prior to coming down with symptoms two days ago. -- no signs of volume overload crea 1.3 -- continue Amiodarone, Torsemide, Spironolactone (4) HTN (hypertension): Plan: Chronic, continue spironolactone, torsemide, amlodipine controlled,Continue home lisinopril, carvedilol. (5) Depression: Plan: Chronic, stable. Continue venlafaxine per home regimen. (6) Hypothyroidism: Plan: chronic, continue home levothyroxine. TSH elevated T4: normal at 1.4 Follow-up as outpatient (7) CKD (chronic kidney disease), stage III: Plan: crea 1.3 likely pre renal from diarrhea encouraged oral fluid intake monitor while on Remdesivir (8) Gout: Plan: Chronic, stable, continue allopurinol per home regimen. (9) DM type 2 (diabetes mellitus, type 2): Plan: Chronic, stable, continue basal bolus insulin. A1c 8.2 (10) DVT prophylaxis: Plan: Warfarin inr 2.5 Full code Disposition: Discharge to home Follow-up with PCP in 1 week Admission and Anticipated Discharge Date Admission Date: October 06, 2021 Subjective Follow-up for COVID-19 infection, etc. Seen sitting up in bed, doing crossword puzzles In good spirits, comfortable States he feels fine overall Feels better overall, breathing is okay Less dry cough no chest pain, dyspnea, palpitations, dizziness No other symptoms Review of Systems Review of Systems: all noted and negative except for above Physical Exam Physical Exam: General- oriented x 3, not in distress, speaks in sentences with no effort or accessory muscle use Eyes- anicteric Neck- no JVD Lungs- clear BS bilaterally, no rales/wheezes Heart- normal rate, regular rhythm; no murmurs Abdomen- normal bowel sounds, nondistended, soft, nontender Extremities- no pretibial edema, no calf tenderness Neuro- alert, oriented x 3; no gross focal neurologic deficits Skin- warm & dry Results & Data Results & Data ([facility]) Vital Signs (Past 12 Hours) Vital Signs Pulse BP 10/13/21 08:00 130/130 H 10/13/21 07:58 70 all noted and reviewed including below (1) DM type 2 (diabetes mellitus, type 2) Diabetes mellitus complication status: without complication Diabetes mellitus group home insulin use: with group home use Qualified Code(s): E11.9 - Type 2 diabetes mellitus without complications; Z79.4 - [employer] (current) use of insulin
--- NOTE | 2021-10-13 12:55 | Discharge Summary ---
Date of Service October 13, 2021 Discharge Data Allergies Allergy/AdvReac Type Severity Reaction Status Date / Time baclofen Allergy Unknown Unknown Verified 10/06/21 19:55 enoxaparin [From Lovenox] AdvReac Severe Heparin Verified 10/06/21 19:55 induced thrombocytopenia heparin AdvReac Severe Heparin Verified 10/06/21 19:55 Induced Thrombocytopenia Consultations 10/06/21 22:15 ED Decision to Admit Stat Hospital Course (1) Acute respiratory distress: (2) COVID-19: (3) LVAD (left ventricular assist device) present: (4) HTN (hypertension): (5) Depression: (6) Hypothyroidism: (7) CKD (chronic kidney disease), stage III: (8) Gout: (9) DM type 2 (diabetes mellitus, type 2): (10) DVT prophylaxis: (1) Acute respiratory distress: Plan: severe coughing-cont Robitussin AC, decadron, albuterol nebulizer therapy. May consider benzonatate or other support medication for his severe cough. Although he is not hypoxic and therefore does not qualify for COVID-specific medications, he apparently had bronchospasm and has a high risk of progressing to pneumonia. Therefore continue Decadron at this time. Consider remdesivir if patient becomes worse. (2) COVID-19: Plan: plan as above. Isolation precautions 10/13 Acute Hypoxic Respiratory Failure secondary to Covid 19 Infection, Acute Bronchitis Weaned off oxygen supplement CXR: no pneumonia Wheezing has resolved Given Decadron 6mg po daily x7 days Completed day 5/ Remdesivir IV daily monitor LFTs and renal function--> cre 1.3, monitor, LFTs ok Xopenex Inh QID PRN guaif/codeine repeat CXR: No fluid or infiltrates Home isolation for another 3 days continue Incentive spirometry already on Coumadin INR 2.5 (3) LVAD (left ventricular assist device) present: Plan: LVAD present, patient reports feeling well prior to coming down with symptoms two days ago. -- no signs of volume overload crea 1.3 -- continue Amiodarone, Torsemide, Spironolactone (4) HTN (hypertension): Plan: Chronic, continue spironolactone, torsemide, amlodipine controlled,Continue home lisinopril, carvedilol. (5) Depression: Plan: Chronic, stable. Continue venlafaxine per home regimen. (6) Hypothyroidism: Plan: chronic, continue home levothyroxine. TSH elevated T4: normal at 1.4 Follow-up as outpatient (7) CKD (chronic kidney disease), stage III: Plan: crea 1.3 likely pre renal from diarrhea encouraged oral fluid intake monitor while on Remdesivir (8) Gout: Plan: Chronic, stable, continue allopurinol per home regimen. (9) DM type 2 (diabetes mellitus, type 2): Plan: Chronic, stable, continue basal bolus insulin. A1c 8.2 (10) DVT prophylaxis: Plan: Warfarin inr 2.5 Full code Disposition: Discharge to home Follow-up with PCP in 1 week Discharge Plan Discharge Items Reason For Visit: SOB Discharge Diagnosis: COVID-19 INFECTION, ACUTE BRONCHITIS Activity: Resume your previous activity Activity Comment: Resume activity gradually as tolerated Lifting: Wait until after follow-up appointment Exercise/Sports: Wait until after follow-up appointment Driving/Machine Use: No driving until reevaluated and allowed by primary care physician Non-emergency contact: Primary Care Provider Call non-emergency contact if: you have any medication questions, your symptoms worsen, your pain is not controlled, your pain is worsening, your pain is unusual for you, your pain is concerning for you and you have a fever Follow-up/Referrals: Graham Rojas MD [Primary Care Provider] - (Date & Time 10/18/2021 4:00 PM Provider Alvaro Patel PA-C Department General Internal Medicine [facility] ) Diet: Carb Consistent or DM2 and Heart Healthy Addtl Attending Provider Instructions: PLEASE REFER TO YOUR NEW MEDICATION LIST AND FOLLOW INSTRUCTIONS CAREFULLY. YOUR NEW MEDICATIONS INCLUDE: Guaifenesin with codeine-as needed for severe coughing spells Continue to use incentive spirometry every 2-3 hours at home for the next week. Please continue home isolation for the next 3 days. PLEASE CALL YOUR PRIMARY CARE PHYSICIAN OR RETURN TO THE ER IF WITH WORSENING OF SYMPTOMS, INCLUDING Shortness of breath, wheezing, cough, fevers or chills, chest pain. FOLLOW UP WITH PRIMARY CARE PHYSICIAN OUTLINED ABOVE. Home Isolation COVID-19 Instructions The following information about Home Isolation is from the CDC Website: https://www.cdc.gov/coronavirus/2019-ncov/hcp/pemkmeng-vcomeax-ylqigt.html Stay home except to get medical care People who are mildly ill with COVID-19 are able to isolate at home during their illness. You should restrict activities outside your home, except for getting medical care. Do not go to work, school, or public areas. Avoid using public transportation, ride-sharing, or taxis. Separate yourself from other people and animals in your home People: As much as possible, you should stay in a specific room and away from other people in your home. Also, you should use a separate bathroom, if available. Animals: You should restrict contact with pets and other animals while you are sick with COVID-19, just like you would around other people. Although there have not been reports of pets or other animals becoming sick with COVID-19, it is still recommended that people sick with COVID-19 limit contact with animals until more information is known about the virus. When possible, have another member of your household care for your animals while you are sick. If you are sick with COVID-19, avoid contact with your pet, including petting, snuggling, being kissed or licked, and sharing food. If you must care for your pet or be around animals while you are sick, wash your hands before and after you interact with pets and wear a face mask. Call ahead before visiting your doctor If you have a medical appointment, call the healthcare provider and tell them that you have or may have COVID-19. This will help the healthcare providers office take steps to keep other people from getting infected or exposed. Wear a face mask You should wear a face mask when you are around other people (e.g., sharing a room or vehicle) or pets and before you enter a healthcare providers office. If you are not able to wear a face mask (for example, because it causes trouble breathing), then people who live with you should not stay in the same room with you, or they should wear a face mask if they enter your room. Cover your coughs and sneezes Cover your mouth and nose with a tissue when you cough or sneeze. Throw used tissues in a lined trash can. Immediately wash your hands with soap and water for at least 20 seconds or, if soap and water are not available, clean your hands with an alcohol-based hand swimming professor that contains at least 60% alcohol. Clean your hands often Wash your hands often with soap and water for at least 20 seconds, especially after blowing your nose, coughing, or sneezing; going to the bathroom; and before eating or preparing food. If soap and water are not readily available, use an alcohol-based hand swimming professor with at least 60% alcohol, covering all surfaces of your hands and rubbing them together until they feel dry. Soap and water are the best option if hands are visibly dirty. Avoid touching your eyes, nose, and mouth with unwashed hands. Avoid sharing personal household items You should not share dishes, drinking glasses, cups, eating utensils, towels, or bedding with other people or pets in your home. After using these items, they should be washed thoroughly with soap and water. Clean all high-touch surfaces everyday High touch surfaces include counters, tabletops, doorknobs, bathroom fixtures, toilets, phones, keyboards, tablets, and bedside tables. Also, clean any surfaces that may have blood, stool, or body fluids on them. Use a household cleaning spray or wipe, according to the label instructions. Labels contain instructions for safe and effective use of the cleaning product including preca utions you should take when applying the product, such as wearing gloves and making sure you have good ventilation during use of the product. Monitor your symptoms Seek prompt medical attention if your illness is worsening (e.g., difficulty breathing).Beforeseeking care, call your healthcare provider and tell them that you have, or are being evaluated for, COVID-19. Put on a face mask before you enter the facility. These steps will help the healthcare providers office to keep other people in the office or waiting room from getting infected or exposed. Ask your healthcare provider to call the local or state health department. Persons who are placed under active monitoring or facilitated self- monitoring should follow instructions provided by their local health department or occupational health professionals, as appropriate. When working with your local health department check their available hours. If you have a medical emergency and need to call 911, notify the dispatch personnel that you have, or are being evaluated for COVID-19. If possible, put on a face mask before emergency medical services arrive. Discontinuing home isolation Patients with confirmed COVID-19 should remain under home isolation precautions until the risk of secondary transmission to others is thought to be low. The decision to discontinue home isolation precautions should be made on a [id number] basis, in consultation with healthcare providers and state and local health departments. Pending Studies at Discharge: No Stand-Alone Forms: My [facility], Smoking Cessation Medications and DC Order Prescriptions: New codeine-guaifenesin 10-100 mg/5 mL Liquid 10 ml PO Q6H PRN (Reason: cough) Qty: 100 0RF guaifenesin [Mucinex] 600 mg Tablet Extended Release 12hr 600 mg PO Q12 3 Days Qty: 6 0RF Continued omeprazole 40 mg capsule,delayed release(DR/EC) 40 mg PO QAM spironolactone 25 mg Tablet 25 mg PO DAILY tamsulosin [Flomax] 0.4 mg Capsule 0.4 mg PO DAILY warfarin [Jantoven] 5 mg tablet See Rx Instructions .ROUTE .COMPLEX Rx Instructions: TAKES 7.5 MG ON FRIDAYS ONLY, THEN 5 MG ALL OTHER DAYS. ;OR UD BY ANTICOAGULATION CLINIC insulin lispro [Humalog KwikPen Insulin] 100 unit/mL insulin pen 15 unit SUBCUT TIDM Rx Instructions: TAKE 15 UNITS PLUS SLIDING SCALE WITH MEALS UP TO 50 UNITS A DAY. acetaminophen [Tylenol Extra Strength] 500 mg Tablet 500 mg PO Q6H PRN (Reason: Pain) amiodarone 200 mg tablet 200 mg PO QAM aspirin 81 mg Tablet,Delayed Release (Dr/Ec) 81 mg PO QAM levothyroxine 150 mcg tablet 150 mcg PO DAILYBB Rx Instructions: Take first thing in the morning at least 30 minutes prior to breakfast or other medications folic acid 1 mg Tablet 1 mg PO QAM magnesium oxide 400 mg magnesium Tablet 400 mg PO TID albuterol sulfate 90 mcg/actuation Hfa Aerosol Inhaler 2 puff INHALATION Q4 PRN (Reason: Shortness Of Breath Or Wheezing) pravastatin 40 mg Tablet 40 mg PO HS venlafaxine [Effexor XR] 150 mg Capsule,Extended Release 24hr 150 mg PO HS amlodipine 5 mg Tablet 5 mg PO QAM carvedilol 25 mg tablet 25 mg PO BIDM Rx Instructions: Take with morning and evening meals ferrous sulfate [Feosol] 325 mg (65 mg iron) Tablet 325 mg PO BID finasteride 5 mg tablet 5 mg PO QAM torsemide 20 mg tablet 20 mg PO [id number] Rx Instructions: TAKES ON MONDAY, MONDAY, MONDAY & SATURDAYS. allopurinol 300 mg tablet 300 mg PO QAM cholecalciferol (vitamin D3) 1,250 mcg (50,000 unit) capsule 1,250 mcg PO .Q14D diclofenac sodium 1 % gel 4 g TOPICAL QID PRN (Reason: Pain) Rx Instructions: Apply to Knees and Hips lisinopril 20 mg tablet 20 mg PO HS gabapentin 400 mg capsule 400 mg PO TID potassium chloride 10 mEq tablet extended release 20 meq PO QID torsemide 100 mg Tablet 50 mg PO 3XWK Rx Instructions: TAKES ON MONDAY, MONDAY & FRIDAYS. fluticasone propionate [Flonase] 50 mcg/actuation Perry,Suspension 2 spray INTRANASAL DAILY PRN (Reason: Congestion) Rx Instructions: administer into each nostril oxycodone 5 mg tablet 5 mg PO Q4H PRN (Reason: Pain) lactulose 10 gram/15 mL Solution 20 g PO DAILY PRN (Reason: Constipation) insulin glargine 100 unit/mL (3 mL) Insulin Pen 15 unit SUBCUT BID Discontinued doxycycline monohydrate 100 mg tablet 100 mg PO BID Krames/Other Patient Handouts: Managing Type 2 Diabetes Admission Data Admit Date/Time: 10/06/21 23:23 Attending Provider: Jyoti Ortiz Admit Provider: Megan Moss Primary Care Provider: Graham Rojas Other Providers: Megan Moss ; Tripp Healy [facility]
--- NOTE | 2021-10-15 15:27 | Communication Note ---
Date of Service: October 15, 2021 I called Mrs. Claros regarding the concern expressed for the discontinuation of her 's doxycycline. I left a message on her vmail explaining that we looked into the sequence of events and have walked away with some larios learning points. I thanked her for her feedback and left the office number should she have any further questions or concerns. Megan Moss, DO
== END 2021-10-13 15:20 | disposition home health service (06) | DRG 177 ==
LOC: ED 16:45 → EDINP 23:23 → SUATTDRO 23:23 → 2S 10-07 01:30

== ENCOUNTER 2022-03-14 15:01 | Inpatient (IN) ==
--- NOTE | 2022-03-14 15:26 | Emergency Department Note ---
Impression & Plan Pneumonia, Hypoxia ED Provider Note NAME: MARY WEEKS AGE: 71 SEX: M : 1950 ARRIVES VIA: Ambulance INFORMANT: Patient, EMS, significant other ED PROVIDER(S): Simon Schuster DO CHIEF COMPLAINT: Generalized illness HPI: The patient is a 71-year-old male who presented to the emergency department for an evaluation of generalized illness fever and difficulty breathing. The history is obtained from the prehospital personnel as well as the patient's significant other. I am familiar with the patient as I have cared for him on many occasions. He has an LVAD which has been in for approximately 10 years. He has had complications with this LVAD. Most recently he was in rehab because he had some orthopedic surgery. He returned home recently and his significant other noted he was starting to run a low-grade fever as well as having a cough. The patient himself denies having any chest pain. He states his weight has been good and he is not had any lower extremity swelling greater than usual. His LVAD is working well. He has been taking his Coumadin. He denies having any recent trauma. He denies having any rectal bleeding. He does claim that he is getting very short of breath with any exertion. The patient is not recent been seen by his doctor after being treated in rehab. ROS: See above HPI for pertinent positives & negatives. A total of 10 systems reviewed and were otherwise negative. PAST MEDICAL HISTORY: See Below PAST SURGICAL HISTORY: See Below FAMILY HISTORY: See Below SOCIAL HISTORY: See Below HOME MEDICATIONS: See Below ALLERGIES: See Below VITALS: See Below PHYSICAL EXAMINATION: GENERAL: Patient is awake and alert. He is nonanxious appearing. EYES: The conjunctivae are clear. The pupils are round and reactive. EARS, NOSE, MOUTH AND THROAT: The nose is without any evidence of any deformity. Mucous membranes are dry. NECK: The neck is nontender and supple. RESPIRATORY: Diminished breath sounds are noted. Rhonchi were noted throughout. CARDIOVASCULAR: The hum of the LVAD is noted. GASTROINTESTINAL: The abdomen is soft and nondistended. The LVAD is noted with lines running into the right lower quadrant. There is no erythema. MUSCULOSKELETAL/EXTREMITIES: There is no evidence of gross deformity full range of motion is noted in the hips and shoulders. SKIN: Skin is warm and dry. There is no significant pedal edema NEUROLOGIC: Patient is awake alert and oriented x3 MEDICAL DECISION MAKING: The patient is a 71-year-old male who presented to the emergency department by ambulance. I am familiar with the patient and I have taken care of him multiple times. He is a very nice gentleman who has a LVAD. He has had the LVAD for approximately 10 years. He does take blood thinners. Recently he was in rehab and got out. He went home and started having difficulty breathing over the last 24 hours. The patient states that when he exerts himself he gets very short of breath. He was found to have signs of pneumonia. He does report a fever. The patient was treated with IV antibiotics in the emergency department. I discussed this condition with the on-call [facility] hospitalist group. Triage Nursing notes reviewed. Prior medical records reviewed Vital Signs: reviewed and remarkable for no significant abnormalities Differential diagnosis: Reactive airway disease, pneumonia, pneumothorax, COPD, CHF, infections, cardiac ischemia, pulmonary embolism, musculoskeletal, gastrointestinal, as well as other pathologies. ER treatment provided: See below Diagnostics interpreted by me: ECG: EKG was obtained in the emergency department. My interpretation is dual-chamber pacemaker at 71 bpm. A left bundle branch block mostly was noted. There was no alatna beats. This was compared to a tracing from December 31, 2021. No changes were noted. Cardiac Monitoring: An order was placed for continuous cardiac monitoring. The monitor shows a rate of 60 bpm with paced rhythm. Laboratory studies: As stated above and show below. Imaging studies: See below Consultation(s): I discussed this case with Margaret who is on-call for the [facility] hospitalist group. Past Med/Surg History Medical History (Updated 03/14/22 @ 22:58 by Simon Schuster DO) Anemia Blood clotting disorder Blood dyscrasia vitamin d deficiency BPH (benign prostatic hyperplasia) CHF (congestive heart failure) Chronic systolic CHF (congestive heart failure) CKD (chronic kidney disease), stage III Coag negative Staphylococcus bacteremia Currently is being treated daily with IV antibiotics CVA (cerebral vascular accident) Depression Diabetes mellitus, type 2 uses insulin Dilated cardiomyopathy DM type 2 (diabetes mellitus, type 2) DVT (deep venous thrombosis) GERD (gastroesophageal reflux disease) GI bleed Gout Gout Heart disease HIT (heparin-induced thrombocytopenia) HTN (hypertension) Hx of acute myocardial infarction denies - states he has never had Hx of Aguilera's palsy Hx of TIA (transient ischemic attack) and stroke 01/16/2017 Seen in [facility] Ed and transfered to [facility] Hx: UTI (urinary tract infection) Hypercholesteremia Hyperlipidemia Hypothyroidism Hypothyroidism 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 pocket infections with MRDO, on life-long IV antibiotics Jejunal ulcer LVAD (left ventricular assist device) present hx cardiomyopathy and heart failure LVAD (left ventricular assist device) present Male genitourinary symptoms enlarged prostate 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 - [facility] Prostatitis denies Seasonal allergies Thrombophlebitis currently has one in right subclavian vein UTI (urinary tract infection) Surgical History H/O tooth extraction complete tooth extraction due to recurrent LVAD infections History of left ventricular assist device History of left ventricular assist device (LVAD) LVAD replaced June 2018 History of tooth extraction Hx of colonoscopy Family History Father Hypertension Stroke Social History Smoking Status: Former smoker Tobacco Type: Cigarettes Second Hand Exposure: Yes; Do You Dip or Chew Tobacco: No; Tobacco Cessation Education Requested by Patient: No Hx Alcohol Use: No Hx Substance Use: No Preferred Language: Frisian Communication Ability: Effective Director Utilization Management Required: No Beliefs That Will Affect Care: None marital status: Current Living Situation: Spouse current occupational status: retired Other Information That Helps Us Care for You: No Feels Safe at Home: Yes Safety Concerns: Feels Safe At This Time Assistive Devices: Walker Assistive Devices Comment: LVAD Allergies Allergies Allergy/AdvReac Type Severity Reaction Status Date / Time baclofen Allergy Unknown Unknown Verified 10/06/21 19:55 enoxaparin [From Lovenox] AdvReac Severe Heparin Verified 10/06/21 19:55 induced thrombocytopenia heparin AdvReac Severe Heparin Verified 10/06/21 19:55 Induced Thrombocytopenia Home Meds Home Medications Medication Instructions Recorded Confirmed amiodarone 200 mg tablet 200 mg PO QAM 01/27/18 03/14/22 aspirin 81 mg tablet,delayed 81 mg PO QAM 01/27/18 03/14/22 release folic acid 1 mg tablet 1 mg PO QAM 01/27/18 03/14/22 levothyroxine 150 mcg tablet 150 mcg PO DAILYBB 01/27/18 03/14/22 pravastatin 40 mg tablet 40 mg PO HS 08/18/18 03/14/22 venlafaxine 150 mg 150 mg PO HS 08/18/18 03/14/22 capsule,extended release 24 hr (Effexor XR) amlodipine 5 mg tablet 5 mg PO QAM 10/07/18 03/14/22 omeprazole 40 mg capsule,delayed 40 mg PO QAM 12/17/19 03/14/22 release spironolactone 25 mg tablet 25 mg PO QDL 12/17/19 03/14/22 tamsulosin 0.4 mg capsule (Flomax) 0.4 mg PO DAILY 12/17/19 03/14/22 warfarin 5 mg tablet (Jantoven) 5 mg PO SUTUWETHSA 12/17/19 03/14/22 ferrous sulfate 325 mg (65 mg 325 mg PO Q2D 03/23/20 03/14/22 iron) tablet (Feosol) finasteride 5 mg tablet 5 mg PO QAM 03/23/20 03/14/22 allopurinol 300 mg tablet 300 mg PO QAM 12/04/20 03/14/22 torsemide 20 mg tablet 40 mg PO DAILY 12/04/20 03/14/22 fluticasone propionate 50 2 spray intranasal DAILY PRN 10/06/21 03/14/22 mcg/actuation nasal Congestion spray,suspension gabapentin 400 mg capsule 400 mg PO QID 10/06/21 03/14/22 insulin glargine 100 unit/mL (3 15 unit subcut BID 10/06/21 03/14/22 mL) subcutaneous pen lisinopril 20 mg tablet 20 mg PO HS 10/06/21 03/14/22 oxycodone 5 mg tablet 5 mg PO Q8H PRN Pain 10/06/21 03/14/22 benzonatate 100 mg capsule 100 mg PO Q8H PRN Cough 03/14/22 03/14/22 carvedilol 12.5 mg tablet 12.5 mg PO BID 03/14/22 03/14/22 cholecalciferol (vitamin D3) 125 125 mcg PO DAILY 03/14/22 03/14/22 mcg (5,000 unit) tablet doxycycline monohydrate 100 mg 100 mg PO BID 03/14/22 03/14/22 capsule insulin lispro 100 unit/mL 15 unit subcut TIDM 03/14/22 03/14/22 subcutaneous pen (Humalog KwikPen (U-100) Insulin) magnesium chloride 64 mg 64 mg PO DAILY 03/14/22 03/14/22 tablet,extended release ondansetron 4 mg disintegrating 4 mg PO Q6H PRN Nausea 03/14/22 03/14/22 tablet potassium chloride 20 mEq 40 meq PO BID 03/14/22 03/14/22 tablet,extended release warfarin 5 mg tablet 7.5 mg PO MOFR 03/14/22 03/14/22 Results & Data (ED) Vital Signs Vital Signs - 24 hr 03/14/22 15:29 Temperature 36.5 C Temperature Source Oral Pulse Rate 71 Respiratory Rate 16 Sepsis Recent Fever Within 48 Hours No Sepsis New/Unexplained Change in Mental Status No Sepsis Action Taken by Nursing No Action Required Home Medications Current Medication List: was personally reviewed by me Laboratory Data Attestation: I reviewed the patient's lab results. Result diagrams: 03/15/22 03:53 03/15/22 03:53 Lab Results 03/14/22 03/14/22 03/14/22 Range/Units 15:36 15:58 15:58 WBC 9.55 (4.8-10.8) K/ul RBC 3.82 L (4.63-6.08) M/uL Hgb 11.4 L (14.0-18.0) g/dl Hct 35.5 L (40.1-51.0) % MCV 92.9 (80.0-100.0) fL MCH 29.8 (25.0-34.0) pg MCHC 32.1 (32.0-36.0) g/dL RDW Std Deviation 52.2 H (36.4-46.3) fL RDW Coeff of [place] 15.4 H (11.5-14.5) % Plt Count 184 (130-400) K/uL MPV 11.7 (9.4-12.4) fL Immature Gran % (Auto) 0.4 % Neut % (Auto) 85.8 % Lymph % (Auto) 6.4 % Colbert % (Auto) 5.5 % Eos % (Auto) 1.6 % Baso % (Auto) 0.3 % Neut # (Auto) 8.19 H (1.4-6.5) K/uL Lymph # (Auto) 0.61 L (1.2-3.4) K/uL Colbert # (Auto) 0.53 (0.24-0.82) K/uL Eos # (Auto) 0.15 (0-0.50) K/uL Baso # (Auto) 0.03 (0-0.2) K/uL Immature Gran # (Auto) 0.04 H (0.00-0.02) K/uL PT 22.4 H (9.0-12.0) Seconds INR 2.2 H (0.9-1.1) APTT 36.8 H (21.0-31.0) Seconds PTT Ratio 1.3 VBG pH (7.36-7.41) VBG pCO2 (38-50) mmHg VBG pO2 mmHg VBG HCO3 mmol/L VBG O2 Saturation % VBG Base Excess mEq/L Sodium (136-145) mmol/L Potassium (3.5-5.1) mmol/L Chloride (98-107) mmol/L Carbon Dioxide (21-32) mmol/L Anion Gap (3-11) BUN (6-23) mg/dl Creatinine (0.6-1.4) mg/dl Est Cr Clr Drug Dosing ml/min Est GFR ( Amer) ml/min Est GFR (Non-Af Amer) ml/min BUN/Creatinine Ratio (10-20) Glucose (70-99(Fasting)) mg/dl Lactate (0.4-2.0) mmol/L Calcium (8.5-10.1) mg/dl Magnesium (1.7-2.4) mg/dl Total Bilirubin (0.2-1.0) mg/dl Direct Bilirubin (0-0.2) mg/dl AST (13-39) U/L ALT (7-52) U/L Alkaline Phosphatase (34-104) U/L Troponin I High Sens (0-20) pg/ml B-Natriuretic Peptide (0-100) pg/ml Total Protein (6.0-8.3) gm/dl Albumin (3.4-5.0) gm/dl Procalcitonin (0-0.5) ng/ml SARS-CoV-2 (PCR) NEGATIVE (Negative) Influenza Type A (PCR) Negative (Neg) Influenza Type B (PCR) Negative (Neg) RSV (RT-PCR) Negative (Neg) 03/14/22 03/14/22 03/14/22 Range/Units 15:58 15:58 15:58 WBC (4.8-10.8) K/ul RBC (4.63-6.08) M/uL Hgb (14.0-18.0) g/dl Hct (40.1-51.0) % MCV (80.0-100.0) fL MCH (25.0-34.0) pg MCHC (32.0-36.0) g/dL RDW Std Deviation (36.4-46.3) fL RDW Coeff of [place] (11.5-14.5) % Plt Count (130-400) K/uL MPV (9.4-12.4) fL Immature Gran % (Auto) % Neut % (Auto) % Lymph % (Auto) % Colbert % (Auto) % Eos % (Auto) % Baso % (Auto) % Neut # (Auto) (1.4-6.5) K/uL Lymph # (Auto) (1.2-3.4) K/uL Colbert # (Auto) (0.24-0.82) K/uL Eos # (Auto) (0-0.50) K/uL Baso # (Auto) (0-0.2) K/uL Immature Gran # (Auto) (0.00-0.02) K/uL PT (9.0-12.0) Seconds INR (0.9-1.1) APTT (21.0-31.0) Seconds PTT Ratio VBG pH (7.36-7.41) VBG pCO2 (38-50) mmHg VBG pO2 mmHg VBG HCO3 mmol/L VBG O2 Saturation % VBG Base Excess mEq/L Sodium 137 (136-145) mmol/L Potassium 4.8 (3.5-5.1) mmol/L Chloride 99 (98-107) mmol/L Carbon Dioxide 31 (21-32) mmol/L Anion Gap 7 (3-11) BUN 18 (6-23) mg/dl Creatinine 0.93 (0.6-1.4) mg/dl Est Cr Clr Drug Dosing 90.7 ml/min Est GFR ( Amer) 94.7 ml/min Est GFR (Non-Af Amer) 81.7 ml/min BUN/Creatinine Ratio 19.4 (10-20) Glucose 260 H (70-99(Fasting)) mg/dl Lactate 1.1 (0.4-2.0) mmol/L Calcium 9.2 (8.5-10.1) mg/dl Magnesium 2.0 (1.7-2.4) mg/dl Total Bilirubin 0.9 (0.2-1.0) mg/dl Direct Bilirubin 0.2 (0-0.2) mg/dl AST 66 H (13-39) U/L ALT 133 H (7-52) U/L Alkaline Phosphatase 105 H (34-104) U/L Troponin I High Sens 28.9 H (0-20) pg/ml B-Natriuretic Peptide (0-100) pg/ml Total Protein 6.9 (6.0-8.3) gm/dl Albumin 3.7 (3.4-5.0) gm/dl Procalcitonin 0.06 (0-0.5) ng/ml SARS-CoV-2 (PCR) (Negative) Influenza Type A (PCR) (Neg) Influenza Type B (PCR) (Neg) RSV (RT-PCR) (Neg) 03/14/22 03/14/22 Range/Units 15:58 15:58 WBC (4.8-10.8) K/ul RBC (4.63-6.08) M/uL Hgb (14.0-18.0) g/dl Hct (40.1-51.0) % MCV (80.0-100.0) fL MCH (25.0-34.0) pg MCHC (32.0-36.0) g/dL RDW Std Deviation (36.4-46.3) fL RDW Coeff of [place] (11.5-14.5) % Plt Count (130-400) K/uL MPV (9.4-12.4) fL Immature Gran % (Auto) % Neut % (Auto) % Lymph % (Auto) % Colbert % (Auto) % Eos % (Auto) % Baso % (Auto) % Neut # (Auto) (1.4-6.5) K/uL Lymph # (Auto) (1.2-3.4) K/uL Colbert # (Auto) (0.24-0.82) K/uL Eos # (Auto) (0-0.50) K/uL Baso # (Auto) (0-0.2) K/uL Immature Gran # (Auto) (0.00-0.02) K/uL PT (9.0-12.0) Seconds INR (0.9-1.1) APTT (21.0-31.0) Seconds PTT Ratio VBG pH 7.43 H (7.36-7.41) VBG pCO2 50 (38-50) mmHg VBG pO2 53 mmHg VBG HCO3 33 mmol/L VBG O2 Saturation 86.5 % VBG Base Excess 7.5 mEq/L Sodium (136-145) mmol/L Potassium (3.5-5.1) mmol/L Chloride (98-107) mmol/L Carbon Dioxide (21-32) mmol/L Anion Gap (3-11) BUN (6-23) mg/dl Creatinine (0.6-1.4) mg/dl Est Cr Clr Drug Dosing ml/min Est GFR ( Amer) ml/min Est GFR (Non-Af Amer) ml/min BUN/Creatinine Ratio (10-20) Glucose (70-99(Fasting)) mg/dl Lactate (0.4-2.0) mmol/L Calcium (8.5-10.1) mg/dl Magnesium (1.7-2.4) mg/dl Total Bilirubin (0.2-1.0) mg/dl Direct Bilirubin (0-0.2) mg/dl AST (13-39) U/L ALT (7-52) U/L Alkaline Phosphatase (34-104) U/L Troponin I High Sens (0-20) pg/ml B-Natriuretic Peptide 331 H (0-100) pg/ml Total Protein (6.0-8.3) gm/dl Albumin (3.4-5.0) gm/dl Procalcitonin (0-0.5) ng/ml SARS-CoV-2 (PCR) (Negative) Influenza Type A (PCR) (Neg) Influenza Type B (PCR) (Neg) RSV (RT-PCR) (Neg) Administered Medications Allopurinol (Allopurinol 300 Mg Tab) 300 mg PO QAM [facility] Stop: 04/14/22 08:59 Last Admin: 03/15/22 09:19 Dose: 300 mg Documented By: MAXINE Amiodarone HCl (Am[facility]arone 200 Mg Tab) [facility] [place]: 04/14/22 08:59 Last Admin: 03/15/22 09:19 Dose: 200 mg Documented By: MAXINE Amlodipine Besylate (Amlodipine Besylate 5 Mg Tab) [facility] [place]: 04/14/22 08:59 Last Admin: 03/15/22 09:19 Dose: 5 mg Documented By: MAXINE Aspirin (Aspirin 81 Mg Ectab) [facility] [place]: 04/14/22 08:59 Last Admin: 03/15/22 09:19 Dose: 81 mg Documented By: MAXINE Carvedilol (Carvedilol 12.5 Mg Tab) 12.5 mg PO BID [facility] Stop: 04/13/22 21:52 Last Admin: 03/15/22 09:19 Dose: 12.5 mg Documented By: Admin: 03/14/22 22:56 Dose: 12.5 mg Documented By: ALVARADO Doxycycline Hyclate (Doxycycline Hyclate 100 Mg Cap) 100 mg PO BID [facility] Stop: 03/21/22 21:52 Last Admin: 03/15/22 09:18 Dose: 100 mg Documented By: Admin: 03/14/22 22:59 Dose: 100 mg Documented By: ALVARADO Ferrous Sulfate (Ferrous Sulfate 325 Mg Tab) 325 mg PO Q48H [facility] Stop: 04/14/22 08:59 Last Admin: 03/15/22 09:19 Dose: 325 mg Documented By: MAXINE Finasteride (Finasteride 5 Mg Tab) 5 mg PO QAM [facility] Stop: 04/14/22 08:59 Last Admin: 03/15/22 09:19 Dose: 5 mg Documented By: MAXINE Folic Acid (Folic Acid 1 Mg Tab) 1 mg PO QAM [facility] Stop: 04/14/22 08:59 Last Admin: 03/15/22 09:19 Dose: 1 mg Documented By: MAXINE Gabapentin (Gabapentin 400 Mg Cap) 400 mg PO QID [facility] Stop: 04/13/22 21:52 Last Admin: 03/15/22 09:18 Dose: 400 mg Documented By: Admin: 03/14/22 22:57 Dose: 400 mg Documented By: ALVARADO Piperacillin Sod/Tazobactam (Sod 3.375 gm/ Dextrose) 115 mls @ 28.75 mls/hr IV Q8H [facility]; Protocol Stop: 03/22/22 01:59 Last Infusion: 03/15/22 07:00 Dose: 0 mls/hr Documented By: Admin: 03/15/22 02:48 Dose: 28.9 mls/hr Documented By: ALVARADO Piperacillin Sod/Tazobactam (Sod 3.375 gm/ Dextrose) 115 mls @ 230 mls/hr IV ONE [facility]; Protocol Stop: 03/21/22 19:44 Last Infusion: 03/14/22 21:30 Dose: 0 mls/hr Documented By: Admin: 03/14/22 20:48 Dose: 230 mls/hr Documented By: MORENO Insulin Aspart (Insulin Aspart Per Unit) 0 units SC ACHS [facility] Stop: 04/13/22 21:52 Last Admin: 03/15/22 09:32 Dose: 18 units Documented By: MAXINE Co-signed By: Admin: 03/14/22 22:42 Dose: 6 units Documented By: ALVARADO Co-signed By: JOSE FRANCISCO Insulin Glargine (Lantus Per Unit Charge) 15 units SQ BID [facility] Stop: 04/13/22 21:52 Last Admin: 03/15/22 09:33 Dose: 15 units Documented By: MAXINE Co-signed By: Admin: 03/14/22 22:49 Dose: 15 units Documented By: ALVARADO Co-signed By: JOSE FRANCISCO Levothyroxine Sodium (Levothyroxine Sodium 150 Mcg Tablet) 150 mcg PO DAILYBB [facility] Stop: 04/14/22 06:29 Last Admin: 03/15/22 08:07 Dose: 150 mcg Documented By: MAXINE Lisinopril (Lisinopril 20 Mg Tab) 20 mg PO HS [facility] Stop: 04/13/22 21:52 Last Admin: 03/14/22 22:56 Dose: 20 mg Documented By: ALVARADO Magnesium Chloride (Magnesium Chloride W/Calcium 64mg Delayed Rel Tab) 64 mg PO DAILY [facility] Stop: 04/14/22 08:59 Last Admin: 03/15/22 09:18 Dose: 64 mg Documented By: MAXINE Pantoprazole Sodium (Pantoprazole 40 Mg Tab) 40 mg PO QAM [facility] Stop: 04/14/22 08:59 Last Admin: 03/15/22 09:19 Dose: 40 mg Documented By: MAXINE Potassium Chloride (Potassium Chloride Crtab 20 Meq Tabcr) 40 meq PO BID [facility] Stop: 04/13/22 21:52 Last Admin: 03/15/22 09:18 Dose: 40 meq Documented By: Admin: 03/14/22 22:59 Dose: 40 meq Documented By: ALVARADO Pravastatin Sodium (Pravastatin Sod 40 Mg Tab) 40 mg PO HS [facility] Stop: 04/13/22 21:52 Last Admin: 03/14/22 22:55 Dose: 40 mg Documented By: ALVARADO Tamsulosin HCl (Tamsulosin Hcl 0.4 Mg Cap) 0.4 mg PO DAILY [facility] Stop: 04/14/22 08:59 Last Admin: 03/15/22 09:18 Dose: 0.4 mg Documented By: MAXINE Torsemide (Torsemide 20 Mg Tab) 40 mg PO DAILY [facility] Stop: 04/14/22 08:59 Last Admin: 03/15/22 09:18 Dose: 40 mg Documented By: MAXINE Venlafaxine HCl (Venlafaxine Hcl Xr 150 Mg Capxr) 150 mg PO HS [facility] Stop: 04/13/22 21:52 Last Admin: 03/14/22 22:55 Dose: 150 mg Documented By: ALVARADO Warfarin Sodium (Warfarin Sod 7.5 Mg Tab) 7.5 mg PO MoFr@1600 [facility] Stop: 04/13/22 21:52 Last Admin: 03/14/22 23:16 Dose: 7.5 mg Documented By: ALVARADO Discontinued Medications Furosemide (Furosemide 40 Mg/4 Ml Vial) 40 mg IV ONE ONE Stop: 03/14/22 19:22 Last Admin: 03/14/22 19:45 Dose: 40 mg Documented By: MORENO Ceftriaxone Sodium (Rocephin) 2,000 mg in 70 mls @ 140 mls/hr IV NOW STA Stop: 03/14/22 17:15 Last Infusion: 03/14/22 18:13 Dose: 0 mls/hr Documented By: Admin: 03/14/22 17:17 Dose: 140 mls/hr Documented By: KT Imaging Data Radiologist's Impression: Chest X-Ray 03/14/22 15:09 SINGLE VIEW CHEST CLINICAL HISTORY: Sepsis. FINDINGS: 2 AP, portable, upright chest radiographs are compared to study dated 12/31/2021. The patient is status post midline sternotomy. A left ventricular assist device is in place. A cardiac AICD partially obscures the left mid chest. The heart is enlarged. There is pulmonary vascular congestion. Asymmetric airspace opacities are seen in the left upper lobe. Trace pleural effusions are suspected. No pneumothorax is seen. The skeletal structures are osteopenic. The bony thorax is grossly intact. IMPRESSION: 1. Cardiomegaly, AICD, and left ventricular assist device. There is evidence of congestive failure. 2. There are asymmetric left upper lobe airspace opacities. This could represent asymmetric pulmonary edema and/or pneumonia. Clinical correlation will be essential and radiographic follow-up to resolution is recommended. 3. Trace pleural effusions. ACT 112: Negative or not required by law. Electronically signed by: Juaquin Neff M.D. 03/14/2022 4:06 PM Discharge Plan Visit Data Chief Complaint: Illness ED Provider: Simon Schuster Discharge Problem: Pneumonia, Hypoxia Patient Disposition: Admitted As Inpatient Discharge Instructions Interventions: ED Discharge Assessment Last Done: 03/14/22 21:29 : Pneumonia Qualifiers: Pneumonia type: due to unspecified organism Laterality: unspecified laterality Lung location: unspecified part of lung Qualified Code(s): J18.9 - Pneumonia, unspecified organism
--- NOTE | 2022-03-14 16:07 | XRay Report ---
SINGLE VIEW CHEST CLINICAL HISTORY: Sepsis. FINDINGS: 2 AP, portable, upright chest radiographs are compared to study dated 12/31/2021. The patie nt is status post midline sternotomy. A left ventricular assist device is in place. A cardiac AICD pa rtially obscures the left mid chest. The heart is enlarged. There is pulmonary vascular congestion. A symmetric airspace opacities are seen in the left upper lobe. Trace pleural effusions are suspected. No pneumothorax is seen. The skeletal structures are osteopenic. The bony thorax is grossly intact. IMPRESSION: 1. Cardiomegaly, AICD, and left ventricular assist device. There is evidence of congestive failure. 2. There are asymmetric left upper lobe airspace opacities. This could represent asymmetric pulmonary edema and/or pneumonia. Clinical correlation will be essential and radiographic follow-up to resolut ion is recommended. 3. Trace pleural effusions. ACT 112: Negative or not required by law. Electronically signed by: Juaquin Neff M.D. 03/14/2022 4:06 PM
[2022-03-14 16:11] LABS: Basophils # (auto) 0.03 K/uL (0-0.2); Basophils % (auto) 0.3 %; Eosinophils # (auto) 0.15 K/uL (0-0.50); Eosinophils % (auto) 1.6 %; Hematocrit (blood only) 35.5 % (40.1-51.0); Hemoglobin 11.4 g/dl (14.0-18.0); Immature Granulocytes # (auto) 0.04 K/uL (0.00-0.02); Immature Granulocytes % (auto) 0.4 %; Lymphocytes # (auto) 0.61 K/uL (1.2-3.4); Lymphocytes % (auto) 6.4 %; Mean Corpuscular Hemoglobin 29.8 pg (25.0-34.0); Mean Corpuscular Hgb Conc 32.1 g/dL (32.0-36.0); Mean Corpuscular Volume 92.9 fL (80.0-100.0); Mean Platelet Volume 11.7 fL (9.4-12.4); Monocytes # (auto) 0.53 K/uL (0.24-0.82); Monocytes % (auto) 5.5 %; Neutrophils # (auto) 8.19 K/uL (1.4-6.5); Neutrophils % (auto) 85.8 %; Platelet Count 184 K/uL (130-400); RDW Coefficient of Variation 15.4 % (11.5-14.5); RDW Standard Deviation 52.2 fL (36.4-46.3); Red Blood Count 3.82 M/uL (4.63-6.08); White Blood Count 9.55 K/ul (4.8-10.8)
[2022-03-14 16:18] LABS: Base Excess VBG 7.5 mEq/L; HCO3 VBG 33 mmol/L; Oxygen Saturation VBG 86.5 %; PCO2 VBG 50 mmHg (38-50); PO2 VBG 53 mmHg; pH VBG 7.43 (7.36-7.41)
[2022-03-14 16:29] LABS: INR 2.2 (0.9-1.1); Partial Thromboplastin Ratio 1.3; Partial Thromboplastin Time 36.8 Seconds (21.0-31.0); Prothrombin Time 22.4 Seconds (9.0-12.0)
[2022-03-14 16:41] LABS: Influenza A virus by PCR Negative (Neg); Influenza B virus by PCR Negative (Neg); RSV by PCR Negative (Neg); SARS CoV2 RNA(COVID-19) Ceph NEGATIVE (Negative)
[2022-03-14 16:46] LABS: Troponin I High Sensitivity 28.9 pg/ml (0-20)
[2022-03-14] MEDS ORDERED: cefTRIAXone SODIUM 2,000 MG/70 ML BAG IV STA (16:46)
[2022-03-14 16:49] LABS: Albumin Level 3.7 gm/dl (3.4-5.0); BUN Creatinine Ratio 19.4 (10-20); Bilirubin Direct 0.2 mg/dl (0-0.2); Bilirubin,Total 0.9 mg/dl (0.2-1.0); Calcium 9.2 mg/dl (8.5-10.1); Creatinine Clr Calc Pharmacy 90.7 ml/min; Est GFR (African American) 94.7 ml/min; Est GFR (Non-African American) 81.7 ml/min; Potassium 4.8 mmol/L (3.5-5.1); Total Protein 6.9 gm/dl (6.0-8.3)
--- NOTE | 2022-03-14 18:39 | History & Physical Report ---
Date of Service March 14, 2022 Assessment & Plan (1) AMS (altered mental status): Plan: Admit to telemetry Patient presenting from home with reported lethargy, altered mental status, fever. Recently discharged from rehab after suffering right hip and right humerus fractures 12/2021 s/p ORIFs of both. Possible acute on chronic systolic CHF and/or pneumonia History of dilated cardiomyopathy s/p LVAD CXR shows signs of CHF and possible pneumonia. Mildly elevated proBNP. Reported increasing abdominal fullness. Will give Lasix 40 mg IV x 1 dose tonight, resume home torsemide and spironolactone tomorrow. Cardiology consult S/p ceftriaxone in the ED. Given recent hospitalization and use of antibiotics, will broaden to IV Zosyn. Check MRSA nasal swab and if positive will add Vanco. History of recurrent LVAD line infections, on chronic doxycycline, will continue. Noted negative procalcitonin Also reported dysuria, follow UA and culture (2) LVAD (left ventricular assist device) present: (3) Chronic systolic CHF (congestive heart failure): (4) HTN (hypertension): Plan: Continue home cardiac medications including amiodarone, carvedilol, amlodipine, lisinopril Diuresis as above On Coumadin, INR 2.2 (5) DM type 2 (diabetes mellitus, type 2): Plan: Hgb A1c 5.4 01/2022 Lantus and NovoLog per protocol while hospitalized (6) History of DVT (deep vein thrombosis): (7) History of pulmonary embolism: Plan: On Coumadin (8) DVT prophylaxis: Plan: On Coumadin, INR 2.2 History of Present Illness Chief Complaint: Lethargy, Fever Primary Care Provider: Graham Rojas MD 71-year-old male with PMH DM type II, CKD stage III, HLD, hypothyroidism, dilated cardiomyopathy s/p LVAD placement, GERD, BPH, history of pulmonary embolism and DVT on Coumadin, 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 Patient recently discharged from [facility] where patient was admitted after suffering right hip and right distal humerus fractures s/p ORIF of both. While at rehab, patient's reports that patient was treated for UTI and possible right elbow infection. Patient was also noted to have a cough and congestion and was treated with Mucinex. Patient has been home for about 2 weeks. Over the past few days, notes increasing generalized weakness and lethargy. She also reports that she feels that the patient is retaining fluid in his abdomen. Patient's had a very poor appetite. Urine output also has significantly decreased and urine is very concentrated. Patient reports dysuria. There is also reported fever. No chest pain or shortness of breath. Patient denies palpitations. No cough or sputum production. Denies lightheadedness, dizziness, diaphoresis, syncopal events. In the ED, CXR shows signs of CHF and possible pneumonia. proBNP mildly elevated 331. Patient was given IV ceftriaxone. Allergies Allergy/AdvReac Type Severity Reaction Status Date / Time baclofen Allergy Unknown Unknown Verified 10/06/21 19:55 enoxaparin [From Lovenox] AdvReac Severe Heparin Verified 10/06/21 19:55 induced thrombocytopenia heparin AdvReac Severe Heparin Verified 10/06/21 19:55 Induced Thrombocytopenia Home Medications Medication Instructions Recorded Confirmed Type amiodarone 200 mg tablet 200 mg PO QAM 01/27/18 03/14/22 History aspirin 81 mg tablet,delayed 81 mg PO QAM 01/27/18 03/14/22 History release folic acid 1 mg tablet 1 mg PO QAM 01/27/18 03/14/22 History levothyroxine 150 mcg tablet 150 mcg PO DAILYBB 01/27/18 03/14/22 History pravastatin 40 mg tablet 40 mg PO HS 08/18/18 03/14/22 History venlafaxine 150 mg 150 mg PO HS 08/18/18 03/14/22 History capsule,extended release 24 hr (Effexor XR) amlodipine 5 mg tablet 5 mg PO QAM 10/07/18 03/14/22 History omeprazole 40 mg capsule,delayed 40 mg PO QAM 12/17/19 03/14/22 History release spironolactone 25 mg tablet 25 mg PO QDL 12/17/19 03/14/22 History tamsulosin 0.4 mg capsule (Flomax) 0.4 mg PO DAILY 12/17/19 03/14/22 History warfarin 5 mg tablet (Jantoven) 5 mg PO SUTUWETHSA 12/17/19 03/14/22 History ferrous sulfate 325 mg (65 mg 325 mg PO Q2D 03/23/20 03/14/22 History iron) tablet (Feosol) finasteride 5 mg tablet 5 mg PO QAM 03/23/20 03/14/22 History allopurinol 300 mg tablet 300 mg PO QAM 12/04/20 03/14/22 History torsemide 20 mg tablet 40 mg PO DAILY 12/04/20 03/14/22 History fluticasone propionate 50 2 spray intranasal DAILY PRN 10/06/21 03/14/22 History mcg/actuation nasal Congestion spray,suspension gabapentin 400 mg capsule 400 mg PO QID 10/06/21 03/14/22 History insulin glargine 100 unit/mL (3 15 unit subcut BID 10/06/21 03/14/22 History mL) subcutaneous pen lisinopril 20 mg tablet 20 mg PO HS 10/06/21 03/14/22 History oxycodone 5 mg tablet 5 mg PO Q8H PRN Pain 10/06/21 03/14/22 History benzonatate 100 mg capsule 100 mg PO Q8H PRN Cough 03/14/22 03/14/22 History carvedilol 12.5 mg tablet 12.5 mg PO BID 03/14/22 03/14/22 History cholecalciferol (vitamin D3) 125 125 mcg PO DAILY 03/14/22 03/14/22 History mcg (5,000 unit) tablet doxycycline monohydrate 100 mg 100 mg PO BID 03/14/22 03/14/22 History capsule insulin lispro 100 unit/mL 15 unit subcut TIDM 03/14/22 03/14/22 History subcutaneous pen (Humalog KwikPen (U-100) Insulin) magnesium chloride 64 mg 64 mg PO DAILY 03/14/22 03/14/22 History tablet,extended release ondansetron 4 mg disintegrating 4 mg PO Q6H PRN Nausea 03/14/22 03/14/22 History tablet potassium chloride 20 mEq 40 meq PO BID 03/14/22 03/14/22 History tablet,extended release warfarin 5 mg tablet 7.5 mg PO MOFR 03/14/22 03/14/22 History Past Med/Surg History Medical History (Updated 03/14/22 @ 20:08 by NERY Dumont) Anemia Blood clotting disorder Blood dyscrasia vitamin d deficiency BPH (benign prostatic hyperplasia) CHF (congestive heart failure) Chronic systolic CHF (congestive heart failure) CKD (chronic kidney disease), stage III Coag negative Staphylococcus bacteremia Currently is being treated daily with IV antibiotics CVA (cerebral vascular accident) Depression Diabetes mellitus, type 2 uses insulin Dilated cardiomyopathy DM type 2 (diabetes mellitus, type 2) DVT (deep venous thrombosis) GERD (gastroesophageal reflux disease) GI bleed Gout Gout Heart disease HIT (heparin-induced thrombocytopenia) HTN (hypertension) Hx of acute myocardial infarction denies - states he has never had Hx of Aguilera's palsy Hx of TIA (transient ischemic attack) and stroke 01/16/2017 Seen in [facility] and transfered to [facility] Hx: UTI (urinary tract infection) Hypercholesteremia Hyperlipidemia Hypothyroidism Hypothyroidism 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 pocket infections with MRDO, on life-long IV antibiotics Jejunal ulcer LVAD (left ventricular assist device) present hx cardiomyopathy and heart failure LVAD (left ventricular assist device) present Male genitourinary symptoms enlarged prostate 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 - [facility] Prostatitis denies Seasonal allergies Thrombophlebitis currently has one in right subclavian vein UTI (urinary tract infection) Surgical History H/O tooth extraction complete tooth extraction due to recurrent LVAD infections History of left ventricular assist device History of left ventricular assist device (LVAD) LVAD replaced June 2018 History of tooth extraction Hx of colonoscopy Family History Father Hypertension Stroke Social History Smoking Status: Former smoker Tobacco Type: Cigarettes Second Hand Exposure: Yes; Do You Dip or Chew Tobacco: No; Tobacco Cessation Education Requested by Patient: No Hx Alcohol Use: No Hx Substance Use: No Preferred Language: Danish Communication Ability: Effective Corporate Law Specialist Required: No Beliefs That Will Affect Care: None marital status: Current Living Situation: Spouse current occupational status: retired Other Information That Helps Us Care for You: No Feels Safe at Home: Yes Safety Concerns: Feels Safe At This Time Assistive Devices: Walker Assistive Devices Comment: LVAD Review of Systems Review of Systems: ROS per HPI, all other systems reviewed and negative Physical Exam Physical Exam: please refer to Dr. Lombardo's addendum for physical exam Results & Data Results & Data ([facility]) Vital Signs (Past 12 Hours) Vital Signs Temp Pulse Resp 03/14/22 15:29 36.5 C 71 16 Laboratory Results Short CBC 03/14/22 Range/Units 15:58 WBC 9.55 (4.8-10.8) K/ul Hgb 11.4 L (14.0-18.0) g/dl Hct 35.5 L (40.1-51.0) % Plt Count 184 (130-400) K/uL BMP 03/14/22 15:58 Sodium 137 Potassium 4.8 Chloride 99 Carbon Dioxide 31 BUN 18 Creatinine 0.93 Glucose 260 H Calcium 9.2 Liver Function 03/14/22 Range/Units 15:58 Total Bilirubin 0.9 (0.2-1.0) mg/dl Direct Bilirubin 0.2 (0-0.2) mg/dl AST 66 H (13-39) U/L ALT 133 H (7-52) U/L Alkaline Phosphatase 105 H (34-104) U/L Albumin 3.7 (3.4-5.0) gm/dl Diagnostic Findings Chest X-Ray 03/14/22 15:09 SINGLE VIEW CHEST CLINICAL HISTORY: Sepsis. FINDINGS: 2 AP, portable, upright chest radiographs are compared to study dated 12/31/2021. The patient is status post midline sternotomy. A left ventricular assist device is in place. A cardiac AICD partially obscures the left mid chest. The heart is enlarged. There is pulmonary vascular congestion. Asymmetric airspace opacities are seen in the left upper lobe. Trace pleural effusions are suspected. No pneumothorax is seen. The skeletal structures are osteopenic. The bony thorax is grossly intact. IMPRESSION: 1. Cardiomegaly, AICD, and left ventricular assist device. There is evidence of congestive failure. 2. There are asymmetric left upper lobe airspace opacities. This could represent asymmetric pulmonary edema and/or pneumonia. Clinical correlation will be essential and radiographic follow-up to resolution is recommended. 3. Trace pleural effusions. ACT 112: Negative or not required by law. Electronically signed by: Juaquin Neff M.D. 03/14/2022 4:06 PM Code Status & VTE Plan VTE Prophylaxis Plan VTE Prophylaxis will be ordered: No Supervising Physician Co-Signing Physician Notes Date of Service: March 14, 2022 History and physical exam performed by tn History notable for 71year old man with LVAD and other medical problems who presented with increasing weakness, fever, cough, dysuria over the past days to a week. All history provided by who was at bedside Recently hospitalized at [facility] after a fall and managed for RLE fractures and ?fracture in RUE, discharged to rehab, had possible infection of right elbow joint at rehab which was managed with IV antibiotics 4 weeks. Reportedly started having cough at rehab before he was discharged on March 05. He has been getting increasingly weak, anorexic, poor urination, dysuria over the past few days reported a temp of 101 at home. Still coughing. Reports feeling increased girth like 'he has more fluid'. Has RLE edema which he stated was worse after recent surgery, improved but stated it looks a bit more today Physical exam General: No acute distress, obese Eyes: PERRL, conjunctivae normal, not pale, anicteric sclerae, EOM intact bilaterally ENMT: External ear and nose normal, oropharynx normal Respiratory: Normal respiratory effort, no respiratory distress, lungs clear to auscultation Cardiovascular: Humming of LVAD Gastrointestinal (Abdomen): Abdomen is not distended, soft, non-tender to palpation, no guarding, no palpable hepatosplenomegaly, normal bowel sounds. LVAD inline site Musculoskeletal: +RLE edema. Limited movement of RUE. Power is 3+ in RLE and 4+ in LLE Genitourinary: No CVA tenderness Neurologic: Alert and oriented x 3, No focal weakness, sensation grossly intact Psychiatric: Alert and oriented x 3, euthymic affect Labs notable for hemoglobin of 11.4, INR 2.2, lactate of 1.1, AST of 66, ALT of 133, alkaline phosphatase of 105, troponin of 28.9, BNP of 33 1 [Was 61 in September] Chest x-ray noted cardiomegaly LVAD, evidence of congestive heart failure, asymmetric left upper lobe airspace opacity. Possible pneumonia Considering reports of recent hospitalization, procedure, antibiotics; will use zosyn for now Get MRSA screen. If possible, add vancomycin Continue chronic doxycycline Follow up blood cultures Reported dysuria. Get UA and UCx Considering history and XR findings, possible congestive failure Give IV lasix and monitor Card consult PT/OT - NWB for RUE per , WBAT for RLE Other plans as detailed by Margaret GABRIEL (1) DM type 2 (diabetes mellitus, type 2) Diabetes mellitus complication status: without complication Diabetes mellitus retirement insulin use: with retirement use Qualified Code(s): E11.9 - Type 2 diabetes mellitus without complications; Z79.4 - detention (current) use of insulin
[2022-03-14] MEDS ORDERED: FUROSEMIDE 40 MG/4 ML VIAL IV ONE (19:21)
[2022-03-14] MEDS ORDERED: PIPERACILLIN/TAZOBACTAM 3.375 GM in DEXTROSE 5% 100 ML IV SCH (19:45)
--- NOTE | 2022-03-14 19:47 | Communication Note ---
Date of Service: March 14, 2022 History and physical exam performed by me History notable for 71year old man with LVAD and other medical problems who presented with increasing weakness, fever, cough, dysuria over the past days to a week. All history provided by who was at bedside Recently hospitalized at [facility] after a fall and managed for RLE fractures and ?fracture in RUE, discharged to rehab, had possible infection of right elbow joint at rehab which was managed with IV antibiotics 4 weeks. Reportedly started having cough at rehab before he was discharged on March 05. He has been getting increasingly weak, anorexic, poor urination, dysuria over the past few days reported a temp of 101 at home. Still coughing. Reports feeling increased girth like 'he has more fluid'. Has RLE edema which he stated was worse after recent surgery, improved but stated it looks a bit more today Physical exam General: No acute distress, obese Eyes: PERRL, conjunctivae normal, not pale, anicteric sclerae, EOM intact bilaterally ENMT: External ear and nose normal, oropharynx normal Respiratory: Normal respiratory effort, no respiratory distress, lungs cl ear to auscultation Cardiovascular: Humming of LVAD Gastrointestinal (Abdomen): Abdomen is not distended, soft, non-tender to palpation, no guarding, no palpable hepatosplenomegaly, normal bowel sounds. LVAD inline site Musculoskeletal: +RLE edema. Limited movement of RUE. Power is 3+ in RLE and 4+ in LLE Genitourinary: No CVA tenderness Neurologic: Alert and oriented x 3, No focal weakness, sensation grossly intact Psychiatric: Alert and oriented x 3, euthymic affect Labs notable for hemoglobin of 11.4, INR 2.2, lactate of 1.1, AST of 66, ALT of 133, alkaline phosphatase of 105, troponin of 28.9, BNP of 33 1 [Was 61 in September] Chest x-ray noted cardiomegaly LVAD, evidence of congestive heart failure, asymmetric left upper lobe airspace opacity. Possible pneumonia Considering reports of recent hospitalization, procedure, antibiotics; will use zosyn for now Get MRSA screen. If possible, add vancomycin Continue chronic doxycycline Follow up blood cultures Reported dysuria. Get UA and UCx Considering history and XR findings, possible congestive failure Give IV lasix and monitor Card consult PT/OT - NWB for RUE per , WBAT for RLE Other plans as detailed by Margaret GABRIEL
[2022-03-14 20:27] LABS: Appearance Urine Clear (Clear); Bacteria Urine Automated Negative (Negative); Bilirubin Urine Negative (Negative); Blood Urine Negative (Negative); Cast Urine Automated 0 /lpf (0-5); Color Urine Yellow; Glucose Urine UA Trace (Negative); Ketones Urine Negative (Negative); Leukocyte Esterase Urine 1+ (Negative); Nitrite Urine Negative (Negative); Protein Urine 1+ (Negative); RBC Urine Automated 0-4 /hpf (0-4); Specific Gravity Urine 1.015 (1.000-1.030); Urobilinogen Urine Negative (Negative); pH Urine 6.5 (4.5-7.5)
[2022-03-14] MEDS ORDERED: GLUCOSE 10 TAB/TUBE PO PRN (21:53)
[2022-03-14] MEDS ORDERED: GLUCAGON FOR INJ 1 MG VIAL SQ PRN (21:53)
[2022-03-14] MEDS ORDERED: GLUCOSE 40% GEL 15 GM TUBE PO PRN (21:53)
[2022-03-14] MEDS ORDERED: PRAVASTATIN SOD 40 MG TAB PO SCH (21:53)
[2022-03-14] MEDS ORDERED: lisinopril 20 MG TAB PO SCH (21:53)
[2022-03-14] MEDS ORDERED: WARFARIN SOD 7.5 MG TAB PO SCH (21:53)
[2022-03-14] MEDS ORDERED: ACETAMINOPHEN 325 MG TAB PO PRN (21:53)
[2022-03-14] MEDS ORDERED: CARBOHYDRATES FOR HYPOGLYCEMIA PO PRN (21:53)
[2022-03-14] MEDS ORDERED: VENLAFAXINE HCL XR 150 MG CAPXR PO SCH (21:53)
[2022-03-14] MEDS ORDERED: oxyCODONE HCL IR 5 MG TAB (IMMEDIATE RELEASE) PO PRN (21:53)
[2022-03-14] MEDS ORDERED: DEXTROSE 50% 50 ML SYRINGE IV PRN (21:53)
[2022-03-14] MEDS: INSULIN ASPART PER UNIT SC SCH (22:42)
[2022-03-14] MEDS: LANTUS PER UNIT CHARGE SQ SCH (22:49)
[2022-03-14] MEDS: carvediloL 12.5 MG TAB PO SCH (22:56)
[2022-03-14] MEDS: GABAPENTIN 400 MG CAP PO SCH (22:57)
[2022-03-14] MEDS: DOXYCYCLINE HYCLATE 100 MG CAP PO SCH (22:59)
[2022-03-14] MEDS: POTASSIUM CHLORIDE CRTAB 20 MEQ TABCR PO SCH (22:59)
[2022-03-15] MEDS: PIPERACILLIN/TAZOBACTAM 3.375 GM in DEXTROSE 5% 100 ML IV SCH ×2 (02:48→11:06)
[2022-03-15 04:06] LABS: Hematocrit (blood only) 33.6 % (40.1-51.0); Hemoglobin 10.8 g/dl (14.0-18.0); Mean Corpuscular Hemoglobin 29.9 pg (25.0-34.0); Mean Corpuscular Hgb Conc 32.1 g/dL (32.0-36.0); Mean Corpuscular Volume 93.1 fL (80.0-100.0); Platelet Count 188 K/uL (130-400); RDW Coefficient of Variation 15.4 % (11.5-14.5); RDW Standard Deviation 51.8 fL (36.4-46.3); Red Blood Count 3.61 M/uL (4.63-6.08)
[2022-03-15 04:21] LABS: INR 2.5 (0.9-1.1)
[2022-03-15 05:16] LABS: BUN Creatinine Ratio 19.1 (10-20); Calcium 8.5 mg/dl (8.5-10.1); Creatinine Clr Calc Pharmacy 90.1 ml/min; Est GFR (African American) 93.5 ml/min; Est GFR (Non-African American) 80.7 ml/min; Potassium 3.8 mmol/L (3.5-5.1)
[2022-03-15] MEDS ORDERED: LEVOTHYROXINE SODIUM 150 MCG TABLET PO SCH (06:30)
[2022-03-15] MEDS ORDERED: FERROUS SULFATE 325 MG TAB PO SCH (09:00)
[2022-03-15] MEDS ORDERED: allopurinoL 300 MG TAB PO SCH (09:00)
[2022-03-15] MEDS ORDERED: AMIODARONE 200 MG TAB PO SCH (09:00)
[2022-03-15] MEDS ORDERED: ASPIRIN 81 MG ECTAB PO SCH (09:00)
[2022-03-15] MEDS ORDERED: TORSEMIDE 20 MG TAB PO SCH (09:00)
[2022-03-15] MEDS ORDERED: FINASTERIDE 5 MG TAB PO SCH (09:00)
[2022-03-15] MEDS ORDERED: PANTOprazole 40 MG TAB PO SCH (09:00)
[2022-03-15] MEDS ORDERED: FOLIC ACID 1 MG TAB PO SCH (09:00)
[2022-03-15] MEDS ORDERED: MAGNESIUM CHLORIDE W/CALCIUM 64MG DELAYED REL TAB PO SCH (09:00)
[2022-03-15] MEDS ORDERED: TAMSULOSIN HCL 0.4 MG CAP PO SCH (09:00)
[2022-03-15] MEDS ORDERED: amLODIPine BESYLATE 5 MG TAB PO SCH (09:00)
[2022-03-15] MEDS: GABAPENTIN 400 MG CAP PO SCH ×2 (09:18→13:45)
[2022-03-15] MEDS: DOXYCYCLINE HYCLATE 100 MG CAP PO SCH (09:18)
[2022-03-15] MEDS: POTASSIUM CHLORIDE CRTAB 20 MEQ TABCR PO SCH (09:18)
[2022-03-15] MEDS: carvediloL 12.5 MG TAB PO SCH (09:19)
[2022-03-15] MEDS: INSULIN ASPART PER UNIT SC SCH ×2 (09:32→12:57)
[2022-03-15] MEDS: LANTUS PER UNIT CHARGE SQ SCH (09:33)
[2022-03-15] MEDS ORDERED: DAPTOmycin 550 MG in SYRINGE 0 ML IV SCH (10:30)
--- NOTE | 2022-03-15 11:06 | Hospitalist Progress Note ---
Date of Service March 15, 2022 Assessment & Plan (1) AMS (altered mental status): Plan: Possible acute on chronic systolic CHF with evidence of pneumonia History of dilated cardiomyopathy s/p LVAD H/o LVAD drive line infection - Patient presenting from home with reported lethargy, altered mental status, fever. Recently discharged from rehab after suffering right hip and right humerus fractures 12/2021 s/p ORIFs of both. - CXR shows signs of CHF and possible pneumonia. Mildly elevated proBNP. Reported increasing abdominal fullness. - s/p 40mg IV lasix with good response - continue home torsemide today - S/p ceftriaxone in the ED. Given recent hospitalization and use of antibiotics, started on zosyn. Concern for LVAD drive line infection, empirically started on dapto - blood cultures drawn - Cardiology consulted and recommend transfer to [place] due to LVAD expertise and history of LVAD drive line infection - accepted by Dr. Mendoza for transfer 03/15/2022 - Noted negative procalcitonin - Admit to telemetry (2) LVAD (left ventricular assist device) present: Plan: - noted - see above (3) UTI (urinary tract infection): Plan: - reported dysuria - positive UA - follow culture - on zosyn as above (4) Chronic systolic CHF (congestive heart failure): Plan: - s/p IV lasix as above - not on O2 - monitor for now - transfer as above (5) HTN (hypertension): Plan: Continue home cardiac medications including amiodarone, carvedilol, amlodipine, lisinopril Diuresis as above (6) DM type 2 (diabetes mellitus, type 2): Plan: Hgb A1c 5.4 01/2022 Lantus and NovoLog per protocol while hospitalized (7) History of DVT (deep vein thrombosis): Plan: On Coumadin - daily INR while inpatient (8) History of pulmonary embolism: Plan: On Coumadin - dialy INR while inpatient (9) DVT prophylaxis: Plan: coumadin Admission and Anticipated Discharge Date Admission Date: March 14, 2022 Subjective Patient with DM2, CKD, HLD, hypothyroidism, HFrEF s/p LVAD with h/o drive line infection, GERD, BPH, h/o DVT/PE on Coumadin presented with lethargy and fever from home. Found to have likely UTI, possible pneumonia, and volume overload. Given IV lasix in ED, started on abx with zosyn and continued on doxycycline. Concern for drive line infection given history and presentation, started on daptomycin as well. Cardiology consulted and given history and lack of experience with LVAD at [facility], [facility] accepted for transfer for further management. PEnding bed and transport as of 03/15/2022. Patient feels better today. Denies chest pain, has some shortness of breath and cough. Denied abdominal pain, n/v/d. Dysuria symptoms somewhat improved but still present. appetitie is ok. Review of Systems Review of Systems: ROS per HPI, all other systems reviewed and negative Physical Exam Physical Exam: General: No acute distress, obese Eyes: PERRL, conjunctivae normal, not pale, anicteric sclerae, EOM intact bilaterally ENMT: External ear and nose normal, oropharynx normal Respiratory: Normal respiratory effort, no respiratory distress, difficult to auscultate with humming of LVAD Cardiovascular: Humming of LVAD Gastrointestinal (Abdomen): Abdomen is not distended, soft, non-tender to palpation, no guarding, no palpable hepatosplenomegaly, normal bowel sounds. LVAD inline site Musculoskeletal: +RLE edema. Limited movement of RUE. Lower is 2+ in RLE and 0 in LLE Genitourinary: No CVA tenderness Neurologic: Alert and oriented x 3, No focal weakness, sensation grossly intact Psychiatric: Alert and oriented x 3, euthymic affect Results & Data Results & Data ([facility]) Vital Signs (Past 12 Hours) Vital Signs Temp Pulse Resp Pulse Ox O2 Del Method 03/15/22 08:00 36.8 C 60 20 Room Air 03/15/22 04:40 37.1 C 72 18 Room Air 03/15/22 01:40 37 C 68 18 91 Room Air Diagnostic Findings Laboratory Results WBC 7.70 K/ul (4.8-10.8) 03/15/22 03:53 RBC 3.61 M/uL (4.63-6.08) L 03/15/22 03:53 Hgb 10.8 g/dl (14.0-18.0) L 03/15/22 03:53 Hct 33.6 % (40.1-51.0) L 03/15/22 03:53 MCV 93.1 fL (80.0-100.0) 03/15/22 03:53 MCH 29.9 pg (25.0-34.0) 03/15/22 03:53 MCHC 32.1 g/dL (32.0-36.0) 03/15/22 03:53 RDW Std Deviation 51.8 fL (36.4-46.3) H 03/15/22 03:53 RDW Coeff of [place] 15.4 % (11.5-14.5) H 03/15/22 03:53 Plt Count 188 K/uL (130-400) 03/15/22 03:53 MPV 11.0 fL (9.4-12.4) 03/15/22 03:53 Immature Gran % (Auto) 0.4 % 03/14/22 15:58 Neut % (Auto) 85.8 % 03/14/22 15:58 Lymph % (Auto) 6.4 % 03/14/22 15:58 [place] % (Auto) 5.5 % 03/14/22 15:58 Eos % (Auto) 1.6 % 03/14/22 15:58 Baso % (Auto) 0.3 % 03/14/22 15:58 Neut # (Auto) 8.19 K/uL (1.4-6.5) H 03/14/22 15:58 Lymph # (Auto) 0.61 K/uL (1.2-3.4) L 03/14/22 15:58 [place] # (Auto) 0.53 K/uL (0.24-0.82) 03/14/22 15:58 Eos # (Auto) 0.15 K/uL (0-0.50) 03/14/22 15:58 Baso # (Auto) 0.03 K/uL (0-0.2) 03/14/22 15:58 Immature Gran # (Auto) 0.04 K/uL (0.00-0.02) H 03/14/22 15:58 PT 25.0 Seconds (9.0-12.0) H 03/15/22 03:53 INR 2.5 (0.9-1.1) H 03/15/22 03:53 APTT 36.8 Seconds (21.0-31.0) H 03/14/22 15:58 PTT Ratio 1.3 03/14/22 15:58 VBG pH 7.43 (7.36-7.41) H 03/14/22 15:58 VBG pCO2 50 mmHg (38-50) 03/14/22 15:58 VBG pO2 53 mmHg 03/14/22 15:58 VBG HCO3 33 mmol/L 03/14/22 15:58 VBG O2 Saturation 86.5 % 03/14/22 15:58 VBG Base Excess 7.5 mEq/L 03/14/22 15:58 Sodium 137 mmol/L (136-145) 03/15/22 03:53 Potassium 3.8 mmol/L (3.5-5.1) D 03/15/22 03:53 Chloride 98 mmol/L (98-107) 03/15/22 03:53 Carbon Dioxide 33 mmol/L (21-32) H 03/15/22 03:53 Anion Gap 6 (3-11) 03/15/22 03:53 BUN 18 mg/dl (6-23) 03/15/22 03:53 Creatinine 0.94 mg/dl (0.6-1.4) 03/15/22 03:53 Est Cr Clr Drug Dosing 90.1 ml/min 03/15/22 03:53 Est GFR ( Amer) 93.5 ml/min 03/15/22 03:53 Est GFR (Non-Af Amer) 80.7 ml/min 03/15/22 03:53 BUN/Creatinine Ratio 19.1 (10-20) 03/15/22 03:53 Glucose 255 mg/dl (70-99(Fasting)) H 03/15/22 03:53 POC Glucose 254 mg/dl (70-99) H 03/15/22 07:49 Lactate 1.1 mmol/L (0.4-2.0) 03/14/22 15:58 Calcium 8.5 mg/dl (8.5-10.1) 03/15/22 03:53 Magnesium 2.0 mg/dl (1.7-2.4) 03/14/22 15:58 Total Bilirubin 0.9 mg/dl (0.2-1.0) 03/14/22 15:58 Direct Bilirubin 0.2 mg/dl (0-0.2) 03/14/22 15:58 AST 66 U/L (13-39) H 03/14/22 15:58 ALT 133 U/L (7-52) H 03/14/22 15:58 Alkaline Phosphatase 105 U/L (34-104) H 03/14/22 15:58 Troponin I High Sens 27.0 pg/ml (0-20) H 03/15/22 03:53 B-Natriuretic Peptide 331 pg/ml (0-100) H 03/14/22 15:58 Total Protein 6.9 gm/dl (6.0-8.3) 03/14/22 15:58 Albumin 3.7 gm/dl (3.4-5.0) 03/14/22 15:58 Procalcitonin 0.06 ng/ml (0-0.5) 03/14/22 15:58 Urine Color Yellow 03/14/22 20:14 Urine Appearance Clear (Clear) 03/14/22 20:14 Urine pH 6.5 (4.5-7.5) 03/14/22 20:14 Ur Specific [place] 1.015 (1.000-1.030) 03/14/22 20:14 Urine Protein 1+ (Negative) H 03/14/22 20:14 Urine Glucose (UA) Trace (Negative) H 03/14/22 20:14 Urine Ketones Negative (Negative) 03/14/22 20:14 Urine Blood Negative (Negative) 03/14/22 20:14 Urine Nitrite Negative (Negative) 03/14/22 20:14 Urine Bilirubin Negative (Negative) 03/14/22 20:14 Urine Urobilinogen Negative (Negative) 03/14/22 20:14 Ur Leukocyte Esterase 1+ (Negative) H 03/14/22 20:14 Urine WBC (Auto) 10-30 /hpf (0-5) H 03/14/22 20:14 Urine RBC (Auto) 0-4 /hpf (0-4) 03/14/22 20:14 U Hyaline Cast (Auto) 0 /lpf (0-5) 03/14/22 20:14 U Epithel Cells (Auto) 10-20 /lpf (0-5) H 03/14/22 20:14 Urine Bacteria (Auto) Negative (Negative) 03/14/22 20:14 Nasal Screen MRSA (PCR) Negative (Negative) 03/14/22 20:14 SARS-CoV-2 (PCR) NEGATIVE (Negative) 03/14/22 15:36 Influenza Type A (PCR) Negative (Neg) 03/14/22 15:36 Influenza Type B (PCR) Negative (Neg) 03/14/22 15:36 RSV (RT-PCR) Negative (Neg) 03/14/22 15:36 Impressions Chest X-Ray 03/14/22 15:09 SINGLE VIEW CHEST CLINICAL HISTORY: Sepsis. FINDINGS: 2 AP, portable, upright chest radiographs are compared to study dated 12/31/2021. The patient is status post midline sternotomy. A left ventricular assist device is in place. A cardiac AICD partially obscures the left mid chest. The heart is enlarged. There is pulmonary vascular congestion. Asymmetric airspace opacities are seen in the left upper lobe. Trace pleural effusions are suspected. No pneumothorax is seen. The skeletal structures are osteopenic. The bony thorax is grossly intact. IMPRESSION: 1. Cardiomegaly, AICD, and left ventricular assist device. There is evidence of congestive failure. 2. There are asymmetric left upper lobe airspace opacities. This could represent asymmetric pulmonary edema and/or pneumonia. Clinical correlation will be essential and radiographic follow-up to resolution is recommended. 3. Trace pleural effusions. ACT 112: Negative or not required by law. Electronically signed by: Juaquin Neff M.D. 03/14/2022 4:06 PM Medications Administered Current Inpatient Medications Acetaminophen (Acetaminophen 325 Mg Tab) 650 mg PO Q4H PRN PRN Reason: Pain or Fever Stop: 04/13/22 21:52 Allopurinol (Allopurinol 300 Mg Tab) [facility] [place] Stop: 04/14/22 08:59 Last Admin: 03/15/22 09:19 Dose: 300 mg Amiodarone HCl (Amiodarone 200 Mg Tab) 200 [facility] [place] Stop: 04/14/22 08:59 Last Admin: 03/15/22 09:19 Dose: 200 mg Amlodipine Besylate (Amlodipine Besylate 5 Mg Tab) 5 [facility] [place] Stop: 04/14/22 08:59 Last Admin: 03/15/22 09:19 Dose: 5 mg Aspirin (Aspirin 81 Mg Ectab) 81 mg [facility] [place] Stop: 04/14/22 08:59 Last Admin: 03/15/22 09:19 Dose: 81 mg Carvedilol (Carvedilol 12.5 Mg Tab) 12.5 mg PO BID [facility] Stop: 04/13/22 21:52 Last Admin: 03/15/22 09:19 Dose: 12.5 mg Dextrose (Dextrose 50% 50 Ml Syringe) 25 - 50 ml IV UD PRN; Protocol PRN Reason: Hypoglycemia Protocol Stop: 04/13/22 21:52 Doxycycline Hyclate (Doxycycline Hyclate 100 Mg Cap) 100 mg PO BID [facility] Stop: 03/21/22 21:52 Last Admin: 03/15/22 09:18 Dose: 100 mg Ferrous Sulfate (Ferrous Sulfate 325 Mg Tab) 325 mg PO Q48H [facility] Stop: 04/14/22 08:59 Last Admin: 03/15/22 09:19 Dose: 325 mg Finasteride (Finasteride 5 Mg Tab) 5 mg PO QAM [facility] Stop: 04/14/22 08:59 Last Admin: 03/15/22 09:19 Dose: 5 mg Folic Acid (Folic Acid 1 Mg Tab) 1 mg PO QAM [facility] Stop: 04/14/22 08:59 Last Admin: 03/15/22 09:19 Dose: 1 mg Gabapentin (Gabapentin 400 Mg Cap) 400 mg PO QID [facility] Stop: 04/13/22 21:52 Last Admin: 03/15/22 09:18 Dose: 400 mg Glucagon (Glucagon For Inj 1 Mg Vial) 1 mg SQ UD PRN; Protocol PRN Reason: Hypoglycemia Protocol Stop: 04/13/22 21:52 Glucose (Glucose 40% Gel 15 Gm Tube) 15 - 30 gm PO UD PRN; Protocol PRN Reason: Hypoglycemia Protocol Stop: 04/13/22 21:52 Glucose (Glucose 10 Tab/Tube) 4 - 8 tab PO UD PRN; Protocol PRN Reason: Hypoglycemia Treatment Stop: 04/13/22 21:52 Piperacillin Sod/Tazobactam (Sod 3.375 gm/ Dextrose) 115 mls @ 28.75 mls/hr IV Q8H [facility]; Protocol Stop: 03/22/22 01:59 Last Infusion: 03/15/22 07:00 Dose: Infused Piperacillin Sod/Tazobactam (Sod 3.375 gm/ Dextrose) 115 mls @ 230 mls/hr IV ONE [facility]; Protocol Stop: 03/21/22 19:44 Last Infusion: 03/14/22 21:30 Dose: Infused Daptomycin 550 mg/ Syringe 11 mls @ 5.5 mls/min IV Q24H [facility]; Protocol Stop: 03/17/22 10:29 Insulin Aspart (Insulin Aspart Per Unit) 0 units SC ACHS [facility] Stop: 04/13/22 21:52 Last Admin: 03/15/22 09:32 Dose: 18 units Insulin Glargine (Lantus Per Unit Charge) 15 units SQ BID [facility] Stop: 04/13/22 21:52 Last Admin: 03/15/22 09:33 Dose: 15 units Levothyroxine Sodium (Levothyroxine Sodium 150 Mcg Tablet) 150 mcg PO DAILYBB [facility] Stop: 04/14/22 06:29 Last Admin: 03/15/22 08:07 Dose: 150 mcg Lisinopril (Lisinopril 20 Mg Tab) 20 mg PO HS [facility] Stop: 04/13/22 21:52 Last Admin: 03/14/22 22:56 Dose: 20 mg Magnesium Chloride (Magnesium Chloride W/Calcium 64mg Delayed Rel Tab) 64 mg PO DAILY [facility] Stop: 04/14/22 08:59 Last Admin: 03/15/22 09:18 Dose: 64 mg Miscellaneous (Carbohydrates For Hypoglycemia ) 15 - 30 gm PO UD PRN PRN Reason: Hypoglycemia Protocol Stop: 04/13/22 21:52 Oxycodone HCl (Oxycodone Hcl Ir 5 Mg Tab (Immediate Release)) 5 mg PO Q8H PRN PRN Reason: Pain Stop: 03/28/22 21:52 Pantoprazole Sodium (Pantoprazole 40 Mg Tab) 40 mg PO QAM [facility] Stop: 04/14/22 08:59 Last Admin: 03/15/22 09:19 Dose: 40 mg Potassium Chloride (Potassium Chloride Crtab 20 Meq Tabcr) 40 meq PO BID [facility] Stop: 04/13/22 21:52 Last Admin: 03/15/22 09:18 Dose: 40 meq Pravastatin Sodium (Pravastatin Sod 40 Mg Tab) 40 mg PO HS [facility] Stop: 04/13/22 21:52 Last Admin: 03/14/22 22:55 Dose: 40 mg Spironolactone (Spironolactone 25 Mg Tab) 25 mg PO QDL [facility] Stop: 04/14/22 11:29 Tamsulosin HCl (Tamsulosin Hcl 0.4 Mg Cap) 0.4 mg PO DAILY [facility] Stop: 04/14/22 08:59 Last Admin: 03/15/22 09:18 Dose: 0.4 mg Torsemide (Torsemide 20 Mg Tab) 40 mg PO DAILY [facility] Stop: 04/14/22 08:59 Last Admin: 03/15/22 09:18 Dose: 40 mg Venlafaxine HCl (Venlafaxine Hcl Xr 150 Mg Capxr) 150 mg PO HS [facility] Stop: 04/13/22 21:52 Last Admin: 03/14/22 22:55 Dose: 150 mg Warfarin Sodium (Warfarin Sod 7.5 Mg Tab) 7.5 mg PO [id number] [facility] Stop: 04/13/22 21:52 Last Admin: 03/14/22 23:16 Dose: 7.5 mg Warfarin Sodium (Warfarin Sod 5 Mg Tab) 5 mg PO [email or web address] [facility] Stop: 04/14/22 15:59 (1) DM type 2 (diabetes mellitus, type 2) Diabetes mellitus complication status: without complication Diabetes mellitus exterminator termite insulin use: with exterminator termite use Qualified Code(s): E11.9 - Type 2 diabetes mellitus without complications; Z79.4 - termite treater helper (current) use of insulin
[2022-03-15] MEDS ORDERED: SPIRONOLACTONE 25 MG TAB PO SCH (11:30)
--- NOTE | 2022-03-15 11:32 | Discharge Summary ---
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 Patient recently discharged from [facility] where patient was admitted after suffering right hip and right distal humerus fractures s/p ORIF of both. While at rehab, patient's reports that patient was treated for UTI and possible right elbow infection. Patient was also noted to have a cough and congestion and was treated with Mucinex. Patient has been home for about 2 weeks. Over the past few days, notes increasing generalized weakness and lethargy. She also reports that she feels that the patient is retaining fluid in his abdomen. Patient's had a very poor appetite. Urine output also has significantly decreased and urine is very concentrated. Patient reports dysuria. There is also reported fever. No chest pain or shortness of breath. Patient denies palpitations. No cough or sputum production. Denies lightheadedness, dizziness, diaphoresis, syncopal events. In the ED, CXR shows signs of CHF and possible pneumonia. proBNP mildly elevated 331. Patient was given IV ceftriaxone. Admission Exam Per Admitting Provider General: No acute distress, obese Eyes: PERRL, conjunctivae normal, not pale, anicteric sclerae, EOM intact bilaterally ENMT: External ear and nose normal, oropharynx normal Respiratory: Normal respiratory effort, no respiratory distress, lungs clear to auscultation Cardiovascular: Humming of LVAD Gastrointestinal (Abdomen): Abdomen is not distended, soft, non-tender to palpation, no guarding, no palpable hepatosplenomegaly, normal bowel sounds. LVAD inline site Musculoskeletal: +RLE edema. Limited movement of RUE. Power is 3+ in RLE and 4+ in LLE Genitourinary: No CVA tenderness Neurologic: Alert and oriented x 3, No focal weakness, sensation grossly intact Psychiatric: Alert and oriented x 3, euthymic affect Principal Diagnosis UTI, pneumonia, CHF exacerbation - concern for drive line infection of LVAD Discharge Exam General: No acute distress, obese Eyes: PERRL, conjunctivae normal, not pale, anicteric sclerae, EOM intact bilaterally ENMT: External ear and nose normal, oropharynx normal Respiratory: Normal respiratory effort, no respiratory distress, difficult to auscultate with humming of LVAD Cardiovascular: Humming of LVAD Gastrointestinal (Abdomen): Abdomen is not distended, soft, non-tender to palpation, no guarding, no palpable hepatosplenomegaly, normal bowel sounds. LVAD inline site without drainage or erythema Musculoskeletal: +RLE edema. Limited movement of RUE. Lower is 2+ in RLE and 0 in LLE Genitourinary: No CVA tenderness Neurologic: Alert and oriented x 3, No focal weakness, sensation grossly intact Psychiatric: Alert and oriented x 3, euthymic affect Discharge Data Allergies Allergy/AdvReac Type Severity Reaction Status Date / Time baclofen Allergy Unknown Unknown Verified 10/06/21 19:55 enoxaparin [From Lovenox] AdvReac Severe Heparin Verified 10/06/21 19:55 induced thrombocytopenia heparin AdvReac Severe Heparin Verified 10/06/21 19:55 Induced Thrombocytopenia Consultations 03/14/22 18:14 ED Decision to Admit Stat 03/14/22 21:53 Consult Cardiology Routine 03/15/22 10:55 Burn CD for patient Stat Hospital Course (1) AMS (altered mental status): Possible acute on chronic systolic CHF with evidence of pneumonia History of dilated cardiomyopathy s/p LVAD H/o LVAD drive line infection - Patient presenting from home with reported lethargy, altered mental status, fever. Recently discharged from rehab after suffering right hip and right humerus fractures 12/2021 s/p ORIFs of both. - CXR shows signs of CHF and possible pneumonia. Mildly elevated proBNP. Reported increasing abdominal fullness. - s/p 40mg IV lasix with good response - continue home torsemide today - S/p ceftriaxone in the ED. Given recent hospitalization and use of antibiotics, started on zosyn. Concern for LVAD drive line infection, empirically started on dapto - blood cultures drawn - Cardiology consulted and recommend transfer to [place] due to LVAD expertise and history of LVAD drive line infection - accepted by Dr. Mendoza for transfer 03/15/2022 - Noted negative procalcitonin - Admit to telemetry (2) LVAD (left ventricular assist device) present: - noted - see above (3) UTI (urinary tract infection): - reported dysuria - positive UA - follow culture - on zosyn as above (4) Chronic systolic CHF (congestive heart failure): - s/p IV lasix as above - not on O2 - monitor for now - transfer as above (5) HTN (hypertension): Continue home cardiac medications including amiodarone, carvedilol, amlodipine, lisinopril Diuresis as above (6) DM type 2 (diabetes mellitus, type 2): Hgb A1c 5.4 01/2022 Lantus and NovoLog per protocol while hospitalized (7) History of DVT (deep vein thrombosis): On Coumadin - daily INR while inpatient (8) History of pulmonary embolism: On Coumadin - dialy INR while inpatient (9) DVT prophylaxis: coumadin Total Time Total Time Spent Total Time Spent (In Minutes): 35 Total Time Includes: Examination of the Patient, Discharge Planning and Medication Reconciliation Discharge Plan Discharge Items Patient Disposition: Transfer Acute Care Hospital Reason For Visit: PNEUMONIA, CHF Discharge Diagnosis: pneumonia, rule out LVAD drive line infection Activity: Resume your previous activity Non-emergency contact: Primary Care Provider and Sports Information Director Call non-emergency contact if: you have any medication questions and your symptoms worsen Follow-up/Referrals: Graham Rojas MD [Primary Care Provider] - Diet: Carb Consistent or DM2 and Heart Healthy Addtl Attending Provider Instructions: You were admitted for fever and lethargy, concerning for infection, pneumonia vs LVAD drive line infection, which you have had in the past. You were started on antibiotics. Because of your LVAD and concern for infection, you are being transferred to [facility] where they have expertise in LVADs. Pending Studies at Discharge: Yes Studies:: blood cultures Stand-Alone Forms: My [facility] Skilled Items Patient informed of condition?: Yes DNR: No Discharge Level of Care: Other Communicable Disease: No Discharge Prognosis: Stable Lines: Peripheral IV Urinary Catheter: Yes Medications and DC Order Prescriptions: Continued omeprazole 40 mg capsule,delayed release(DR/EC) 40 mg PO QAM spironolactone 25 mg Tablet 25 mg PO QDL tamsulosin [Flomax] 0.4 mg Capsule 0.4 mg PO DAILY warfarin [Jantoven] 5 mg tablet 5 mg PO SUTUWETHSA amiodarone 200 mg tablet 200 mg PO QAM aspirin 81 mg Tablet,Delayed Release (Dr/Ec) 81 mg PO QAM levothyroxine 150 mcg tablet 150 mcg PO DAILYBB Rx Instructions: Take first thing in the morning at least 30 minutes prior to breakfast or other medications folic acid 1 mg Tablet 1 mg PO QAM pravastatin 40 mg Tablet 40 mg PO HS venlafaxine [Effexor XR] 150 mg Capsule,Extended Release 24hr 150 mg PO HS amlodipine 5 mg Tablet 5 mg PO QAM ferrous sulfate [Feosol] 325 mg (65 mg iron) Tablet 325 mg PO Q2D finasteride 5 mg tablet 5 mg PO QAM torsemide 20 mg tablet 40 mg PO DAILY allopurinol 300 mg tablet 300 mg PO QAM lisinopril 20 mg tablet 20 mg PO HS gabapentin 400 mg capsule 400 mg PO QID fluticasone propionate 50 mcg/actuation [place],Suspension 2 spray INTRANASAL DAILY PRN (Reason: Congestion) Rx Instructions: administer into each nostril oxycodone 5 mg tablet 5 mg PO Q8H PRN (Reason: Pain) insulin glargine 100 unit/mL (3 mL) Insulin Pen 15 unit SUBCUT BID carvedilol 12.5 mg tablet 12.5 mg PO BID magnesium chloride 64 mg Tablet Extended Release 64 mg PO DAILY benzonatate 100 mg capsule 100 mg PO Q8H PRN (Reason: Cough) doxycycline monohydrate 100 mg capsule 100 mg PO BID ondansetron 4 mg tablet,disintegrating 4 mg PO Q6H PRN (Reason: Nausea) cholecalciferol (vitamin D3) 125 mcg (5,000 unit) Tablet 125 mcg PO DAILY potassium chloride 20 mEq Tablet Extended Release 40 meq PO BID warfarin 5 mg tablet 7.5 mg PO MOFR insulin lispro [Humalog KwikPen Insulin] 100 unit/mL insulin pen 15 unit SUBCUT TIDM Rx Instructions: plus sliding scale Discharge Orders: Discharge Order (Routine); Ordered 03/15/22 Ordered By: Alton Rahman Admission Data Admit Date/Time: 03/14/22 18:36 Attending Provider: Alton Rahman Admit Provider: Radha Lombardo I. Primary Care Provider: Graham Rojas Other Providers: Simon Alvarado ; Radha Lombardo I.
--- NOTE | 2022-03-15 12:48 | Electrocardiogram Report ---
Test Reason : Blood Pressure : / mmHG Vent. Rate : 071 BPM Atrial Rate : 058 BPM P-R Int : 000 ms QRS Dur : 158 ms QT Int : 478 ms P-R-T Axes : 000 161 156 degrees QTc Int : 519 ms AV dual-paced rhythm Abnormal ECG When compared with ECG of 31-DEC-2021 08:56, No significant change was found Confirmed by Tyler Callahan ([id number]) on 03/15/2022 12:48:23 PM Referred By: REFERRED SELF Confirmed By:Stu Callahan
[2022-03-15] MEDS ORDERED: WARFARIN SOD 5 MG TAB PO SCH (16:00)
== END 2022-03-15 17:34 | disposition short-term general hospital (02) | DRG 193 ==
LOC: ED 15:01 → 4W 18:36 → SUATTDRO 18:36 → 4W 21:29

== ENCOUNTER 2024-11-22 13:02 | Observation (INO) ==
[2024-11-22 14:21] LABS: Hematocrit (blood only) 35.8 % (42.0-52.0); Hemoglobin 11.0 g/dl (14.0-18.0); Immature Granulocytes # (auto) 0.03 K/uL (0.01-0.20); Immature Granulocytes % (auto) 0.4 %; Mean Corpuscular Hemoglobin 23.6 pg (25.0-34.0); Mean Corpuscular Volume 76.7 fL (80.0-100.0); Platelet Count 275 K/uL (130-400); RDW Standard Deviation 48.5 fL (36.4-46.3); Red Blood Count 4.67 M/uL (4.70-6.10); White Blood Count 7.96 K/ul (4.8-10.8)
[2024-11-22 14:30] LABS: Alanine Aminotransferase 29.0 U/L (7-52); Albumin Globulin Ratio 0.9 (0.9-2); Alkaline Phosphatase 185.0 U/L (34-104); Anion Gap 12.0 (3-11); Bilirubin,Total 0.9 mg/dl (0.2-1.0); Blood Urea Nitrogen 11.0 mg/dl (6-23); Calcium 9.4 mg/dl (8.6-10.3); Carbon Dioxide 25.0 mmol/L (21-32); Chloride 95.0 mmol/L (98-107); Creatinine Clr Calc Pharmacy 77.5 ml/min; Globulin 3.9 gm/dl (2.5-4.0); Glucose 281.0 mg/dl (70-99(Fasting)); Magnesium 1.8 mg/dl (1.7-2.4); Potassium 3.6 mmol/L (3.5-5.1); Sodium 132.0 mmol/L (136-145); Total Protein 7.5 gm/dl (6.0-8.3)
[2024-11-22 14:44] LABS: Thyroid Stimulating Hormone 7.836 uIu/ml (0.300-4.500)
--- NOTE | 2024-11-22 14:45 | XRay Report ---
XR chest 1V portable CLINICAL HISTORY: Weakness COMPARISON STUDY: 09/02/2024 FINDINGS: Single view AP chest demonstrates resolution of the right upper lobe infiltrate. The presen t examination demonstrates no focal airspace opacity. There is a cyst small right pleural effusion. T here is mild cardiomegaly and pulmonary vascular congestion. Median sternotomy wire sutures are noted . There is a pacemaker/defibrillator in place. The right upper quadrant stent which could be biliary or portacaval in location. IMPRESSION: No acute cardiopulmonary process. Tiny right pleural effusion versus right costophrenic angle fibrosis persists. ACT 112: Negative or not required by law. Electronically signed by: Ny Jones M.D. 11/22/2024 2:43 PM
[2024-11-22 14:54] LABS: INR 3.3 (0.9-1.1); Partial Thromboplastin Time 39 Seconds (21-31); Prothrombin Time 32.0 Seconds (9.0-12.0)
--- NOTE | 2024-11-22 14:58 | CT Scan Report ---
CT SCAN OF THE BRAIN WITHOUT IV CONTRAST CLINICAL HISTORY: Change in mental status. COMPARISON STUDY: CT of the brain dated 09/02/2024 TECHNIQUE: Unenhanced axial CT scan of the brain is performed from the vertex to the skull base. Imag es are reviewed in the axial, sagittal, coronal planes. A dose lowering technique was utilized adheri ng to the principles of ALARA. CT DOSE: 625.8 mGy.cm FINDINGS: Brain parenchyma: A focus of left frontal encephalomalacia as well as a tiny focus of high right fron bishop encephalomalacia are unchanged and consistent with remote insults. There is age-related involutio nal change noting [id number] subcortical and periventricular microangiopathic disease. There is no hemorrhage, mass effect, or evidence of acute territorial ischemia by CT criteria. White-white mat ter differentiation is preserved. No extra-axial fluid collection is seen. Ventricles, sulci, cisterns: Prominent secondary to involutional change. Intracranial vasculature: There is atherosclerotic calcification of the cavernous carotid and vertebr al arteries. Calvarium: Unremarkable. Sinuses and mastoids: The visualized paranasal sinuses are clear. There is a left mastoid effusion. T he right mastoid air cells are well pneumatized. Orbits: The bony orbits are grossly intact. Soft tissues: A 6 cm lipoma is partially visualized in the right upper neck. IMPRESSION: There is no hemorrhage, mass effect, or evidence of acute territorial ischemia by CT angella freeman. ACT 112: Negative or not required by law. Electronically signed by: Juaquin Neff M.D. 11/22/2024 2:57 PM
--- NOTE | 2024-11-22 15:15 | Emergency Department Note ---
Impression & Plan AMS (altered mental status), Pancreatic adenocarcinoma, Comfort measures only status ED Provider Note Provider: Matt Christine MD CHIEF COMPLAINT: Altered mental status HISTORY OF PRESENT ILLNESS: Patient is a 74-year-old gentleman significant past medical history of type 2 diabetes, CKD, dilated cardiopathy with CHF and an LVAD, BPH, posterior cognitive deficit, PE DVT, GI bleed, V. tach, CVA, and adenocarcinoma of the pancreas presenting here via ambulance from home. Evidently patient's mental status is declined according to home nursing. Patient himself not the best historian. Does not know who is and his birthday. Asked where his is. Reports maybe a little bit of foot pain but not really specific here. Following simple commands but continually redirects the conversation to where his is. Did reach out to the via phone. She is at work and unable to be present at this time. She reports over the past 5 days he has had decline in mental status and has been more fatigued. She reports has been trying to control his pain better as he been complaining with oral hydromorphone every 4 hours. She states that he is not eating much but she has been able to get him to take his warfarin but not his other medications. No falls were reported. She states she works during the day and is at home for multiple hours. Has been talking with her primary doctor and believes that is now time to move towards comfort measures and hospice. She just wants him to be comfortable. PAST MEDICAL HISTORY: As noted above MEDICATIONS: Reviewed home medication list SOCIAL HISTORY: Lives at home with PHYSICAL EXAM: GENERAL: alert and oriented in no acute distress on stretcher Head: normocephalic and atraumatic EYES: No injection, discharge or icterus. EOMI. NECK: Trachea midline. ENT: Mucous membranes pink and moist. LUNGS: Airway patent. No retractions. Breath sounds coarse HEART: Device thrill present with driveline in the right upper abdomen intact without bleeding or significant erythema. No chest wall tenderness ABDOMEN: Soft and non-tender, without guarding or rebound. SKIN: Acyanotic, warm, dry, without rashes EXTREMITIES: Without swelling with some chronic stasis changes of the lower extremities. NEUROLOGICAL: Moving all extremities. No aphasia. No slurred speech. Follows simple commands. EK bpm ventricular paced rhythm without clear acute ST segment elevation or depression. LVAD artifact present. Patient's laboratory studies and imaging reviewed. Differential includes Infection, dehydration, metabolic abnormality, hypo/hyperglycemia, electrolyte disturbance, anemia, hypoxia, cardiac sources, intracerebral event, toxicologic, neurologic, as well as other pathologies. IMPRESSION/MEDICAL DECISION MAKING: Patient presents report of altered mental status. Basic blood work and workup initiated. He is anticoagulated did complete a head CT without acute intracranial abnormality. Was able to get a hold the patient's via phone. She reports that she wishes for more of a comfort care measure. Seems reasonable given his multiple medical morbidities including advanced adenocarcinoma of the pancreas and his decline. Basic blood work without significant abnormality. Given some hydromorphone for pain but does not seem an extremis right now. reports that she does not contact her with updates via phone. She requested CA 19 tumor marker blood work. Otherwise she wishes for them to be made comfortable and transition to hospice. As such reach out to the hospitalist team for further care here. Patient updated that states that she is at work and will try to come and see him tomorrow. DIAGNOSIS: Pancreatic cancer, cardiomyopathy with LVAD, comfort measures DISPOSITION: Hospitalist will evaluate Past Med/Surg History Problem List (Updated 11/22/24 @ 15:39 by Matt Christine M.D.) Comfort measures only status (Acute) AMS (altered mental status) (Acute) Left ventricular assist device present (Acute) Sepsis (Acute) Abnormal LFTs AMS (altered mental status) Pancreatic adenocarcinoma (Acute) UTI (urinary tract infection) Pneumonia (Acute) LVAD (left ventricular assist device) present COVID-19 (Acute) Acute respiratory distress (Acute) Diffuse wheezing (Acute) Fever (Acute) Generalized body aches (Acute) Weakness (Acute) Pneumonia due to 2019 novel coronavirus (Acute) Subtherapeutic international normalized ratio (INR) (Acute) Syncope (Acute) HTN (hypertension) (Chronic) GI bleed Presence of combination internal cardiac defibrillator (ICD) and pacemaker (Chronic) inserted 05/2011 - [facility] H/O tooth extraction (Chronic) complete tooth extraction due to recurrent LVAD infections DVT (deep venous thrombosis) (Chronic) Depression (Chronic) 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) recurrent pump pocket infections with MRDO, on life-long IV antibiotics 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) CVA (cerebral vascular accident) (Chronic) 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) BPH (benign prostatic hyperplasia) (Chronic) Jejunal ulcer (Chronic) GERD (gastroesophageal reflux disease) (Chronic) Dilated cardiomyopathy (Chronic) Chronic systolic CHF (congestive heart failure) (Chronic) Hypothyroidism (Chronic) Gout (Chronic) Hyperlipidemia (Chronic) CKD (chronic kidney disease), stage III (Chronic) DM type 2 (diabetes mellitus, type 2) (Chronic) Medical History (Updated 11/22/24 @ 15:39 by Matt Christine M.D.) History of pulmonary embolism History of DVT (deep vein thrombosis) LVAD (left ventricular assist device) present Seasonal allergies Gout Hx: UTI (urinary tract infection) Coag negative Staphylococcus bacteremia Currently is being treated daily with IV antibiotics Hx of TIA (transient ischemic attack) and stroke 01/16/2017 Seen in [facility] Ed and transfered to [facility] [place] Hx of Aguilera's palsy Prostatitis denies Anemia Hypothyroidism Blood clotting disorder Diabetes mellitus, type 2 uses insulin Thrombophlebitis currently has one in right subclavian vein Heart disease CHF (congestive heart failure) Hypercholesteremia Blood dyscrasia vitamin d deficiency Male genitourinary symptoms enlarged prostate Hx of acute myocardial infarction denies - states he has never had LVAD (left ventricular assist device) present hx cardiomyopathy and heart failure UTI (urinary tract infection) Surgical History (Updated 10/05/24 @ 00:08 by Vidhya Foster) History of left ventricular assist device (LVAD) LVAD replaced June 2018 History of left ventricular assist device Hx of colonoscopy History of tooth extraction Family History Father Hypertension Stroke Social History Smoking Status: Former smoker Tobacco Type: Cigarettes Second Hand Exposure: Yes; Do You Dip or Chew Tobacco: No; Preferred Language: Slovak Communication Ability: Effective 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 Beliefs That Will Affect Care: None marital status: Current Living Situation: Spouse current occupational status: retired Feels Safe at Home: Yes Assistive Devices: Cane, Walker, Wheelchair and Other Allergies Allergies Allergy/AdvReac Type Severity Reaction Status Date / Time enoxaparin [From Lovenox] AdvReac Severe Heparin Verified 11/22/24 15:14 induced thrombocytopenia heparin AdvReac Severe Heparin Verified 11/22/24 15:14 Induced Thrombocytopenia baclofen AdvReac Intermediate HALLUCINATI Verified 11/22/24 15:14 ONS Home Meds Home Medications Medication Instructions Recorded Confirmed amiodarone 200 mg tablet 200 mg PO QAM 01/27/18 09/02/24 folic acid 1 mg tablet 1 mg PO QAM 01/27/18 09/02/24 pravastatin 40 mg tablet 40 mg PO HS 08/18/18 09/02/24 venlafaxine 150 mg 150 mg PO HS 08/18/18 09/02/24 capsule,extended release 24 hr (Effexor XR) spironolactone 25 mg tablet 25 mg PO QDL 12/17/19 09/02/24 tamsulosin 0.4 mg capsule (Flomax) 0.4 mg PO QAM 12/17/19 09/02/24 finasteride 5 mg tablet 5 mg PO QAM 03/23/20 09/02/24 fluticasone propionate 50 2 spray intranasal DAILY PRN 10/06/21 09/02/24 mcg/actuation nasal Congestion spray,suspension gabapentin 400 mg capsule 400 mg PO TID 10/06/21 09/02/24 cholecalciferol (vitamin D3) 125 125 mcg PO QAM 03/14/22 09/02/24 mcg (5,000 unit) tablet doxycycline monohydrate 100 mg 100 mg PO BID 03/14/22 09/02/24 capsule acetaminophen 325 mg tablet 650 mg PO Q4H PRN pain/fever 03/08/23 09/02/24 (Tylenol) dextromethorphan-guaifenesin 10 5 ml PO Q4H PRN Cough 03/08/23 09/02/24 mg-100 mg/5 mL oral syrup diclofenac sodium 1 % topical gel 4 g topical BID PRN Pain 03/08/23 09/02/24 guaifenesin 600 mg tablet, 600 mg PO Q12H PRN Cough 03/08/23 09/02/24 extended release 12 hr (Mucinex) magnesium oxide 400 mg PO TID 03/08/23 09/02/24 allopurinol 300 mg tablet 300 mg PO QAM 06/21/24 09/02/24 amlodipine 5 mg tablet 5 mg PO QAM 06/21/24 09/02/24 benzonatate 100 mg capsule 100 mg PO TID PRN Cough 06/21/24 09/02/24 carvedilol 25 mg tablet 25 mg PO BID 06/21/24 09/02/24 hydromorphone 2 mg tablet 1 mg PO Q4H PRN Severe Pain (Scale 06/21/24 09/02/24 Score 7-10) insulin glargine-yfgn 100 unit/mL 20 - 22 unit subcut HS 06/21/24 09/02/24 (3 mL) subcutaneous pen insulin lispro 100 unit/mL 10 sliding scale dose subcut 06/21/24 09/02/24 subcutaneous pen (Humalog KwikPen TIDWMEAL (U-100) Insulin) miconazole nitrate 2 % topical 1 applic topical QID 06/21/24 09/02/24 cream pantoprazole 40 mg tablet,delayed 40 mg PO DAILY 06/21/24 09/02/24 release (Protonix) sulfamethoxazole 800 1 tab PO AMHS 06/21/24 09/02/24 mg-trimethoprim 160 mg tablet torsemide 20 mg tablet 20 mg PO QAM PRN Fluid Retention 06/21/24 09/02/24 warfarin 2 mg tablet 2 - 3 mg PO DAILY 06/21/24 09/02/24 levothyroxine 175 mcg tablet 175 mcg PO DAILYBB 09/02/24 09/02/24 Results & Data (ED) Vital Signs Vital Signs - 24 hr 11/22/24 13:18 11/22/24 13:32 11/22/24 14:11 Temperature 36.8 C Temperature Source Oral Pulse Rate 90 101 H 79 Pulse Rhythm Regular Respiratory Rate 20 14 Respiratory Effort / Characteristics Non-Labored Spontaneous Respiratory Depth Normal Respiratory Pattern Regular Blood Pressure Position Lying Pulse Oximetry 100 Oxygen Delivery Method Nasal Cannula Oxygen Flow Rate 2 Sepsis Recent Fever Within 48 Hours No Sepsis New/Unexplained Change in Mental Status Yes Sepsis Action Taken by Nursing No Action Required Laboratory Data 11/22/24 13:40 11/22/24 13:40 Lab Results 11/22/24 Range/Units 13:40 WBC 7.96 (4.8-10.8) K/ul RBC 4.67 L (4.70-6.10) M/uL Hgb 11.0 L (14.0-18.0) g/dl Hct 35.8 L (42.0-52.0) % MCV 76.7 L (80.0-100.0) fL MCH 23.6 L (25.0-34.0) pg MCHC 30.7 L (32.0-36.0) g/dL RDW Std Deviation 48.5 H (36.4-46.3) fL RDW Coeff of [place] 18.0 H (11.5-14.5) % Plt Count 275 (130-400) K/uL MPV 11.4 (9.4-12.4) fL Immature Gran % (Auto) 0.4 % Neut % (Auto) 80.1 % Lymph % (Auto) 9.9 % Brule % (Auto) 7.8 % Eos % (Auto) 0.9 % Baso % (Auto) 0.9 % Neut # (Auto) 6.38 (1.40-6.50) K/uL Lymph # (Auto) 0.79 L (1.20-3.40) K/uL Brule # (Auto) 0.62 H (0.11-0.59) K/uL Eos # (Auto) 0.07 (0.00-0.50) K/uL Baso # (Auto) 0.07 (0.00-0.20) K/uL Immature Gran # (Auto) 0.03 (0.01-0.20) K/uL PT 32.0 H (9.0-12.0) Seconds INR 3.3 H (0.9-1.1) APTT 39 H (21-31) Seconds PTT Ratio 1.4 Sodium 132 L (136-145) mmol/L Potassium 3.6 (3.5-5.1) mmol/L Chloride 95 L (98-107) mmol/L Carbon Dioxide 25 (21-32) mmol/L Anion Gap 12 H (3-11) BUN 11 (6-23) mg/dl Creatinine 0.85 (0.6-1.4) mg/dl Est Cr Clr Drug Dosing 77.5 ml/min eGFR 90.62 BUN/Creatinine Ratio 12.9 (10-20) Glucose 281 H (70-99(Fasting)) mg/dl Calcium 9.4 (8.6-10.3) mg/dl Magnesium 1.8 (1.7-2.4) mg/dl Total Bilirubin 0.9 (0.2-1.0) mg/dl AST 55 H (13-39) U/L ALT 29 (7-52) U/L Alkaline Phosphatase 185 H (34-104) U/L Troponin I High Sens 19.2 (0-20) pg/ml Total Protein 7.5 (6.0-8.3) gm/dl Albumin 3.6 (3.4-5.0) gm/dl Globulin 3.9 (2.5-4.0) gm/dl Albumin/Globulin Ratio 0.9 (0.9-2) TSH 7.836 H (0.300-4.500) uIu/ml Imaging Data Radiologist's Impression: Chest X-Ray 11/22/24 14:11 XR chest 1V portable CLINICAL HISTORY: Weakness COMPARISON STUDY: 09/02/2024 FINDINGS: Single view AP chest demonstrates resolution of the right upper lobe infiltrate. The present examination demonstrates no focal airspace opacity. There is a cyst small right pleural effusion. There is mild cardiomegaly and pulmonary vascular congestion. Median sternotomy wire sutures are noted. There is a pacemaker/defibrillator in place. The right upper quadrant stent which could be biliary or portacaval in location. IMPRESSION: No acute cardiopulmonary process. Tiny right pleural effusion versus right costophrenic angle fibrosis persists. ACT 112: Negative or not required by law. Electronically signed by: Ny Jones M.D. 11/22/2024 2:[address] 11/22/24 14:15 CT SCAN OF THE BRAIN WITHOUT IV CONTRAST CLINICAL HISTORY: Change in mental status. COMPARISON STUDY: CT of the brain dated 09/02/2024 TECHNIQUE: Unenhanced axial CT scan of the brain is performed from the vertex to the skull base. Images are reviewed in the axial, sagittal, coronal planes. A dose lowering technique was utilized adhering to the principles of ALARA. CT DOSE: 625.8 mGy.cm FINDINGS: Brain parenchyma: A focus of left frontal encephalomalacia as well as a tiny focus of high right frontal encephalomalacia are unchanged and consistent with remote insults. There is age-related involutional change noting [id number] subcortical and periventricular microangiopathic disease. There is no hemorrhage, mass effect, or evidence of acute territorial ischemia by CT criteria. White-white matter differentiation is preserved. No extra-axial fluid collection is seen. Ventricles, sulci, cisterns: Prominent secondary to involutional change. Intracranial vasculature: There is atherosclerotic calcification of the cavernous carotid and vertebral arteries. Calvarium: Unremarkable. Sinuses and mastoids: The visualized paranasal sinuses are clear. There is a left mastoid effusion. The right mastoid air cells are well pneumatized. Orbits: The bony orbits are grossly intact. Soft tissues: A 6 cm lipoma is partially visualized in the right upper neck. IMPRESSION: There is no hemorrhage, mass effect, or evidence of acute territorial ischemia by CT criteria. ACT 112: Negative or not required by law. Electronically signed by: Juaquin Neff M.D. 11/22/2024 2:57 PM Discharge Plan Visit Data Chief Complaint: Altered Mental Status Stated Complaint: AMS, ILLNESS ED Provider: Matt Christine Discharge Problem: AMS (altered mental status), Pancreatic adenocarcinoma, Comfort measures only status Patient Disposition: Being Evaluated by Hospitalist Condition: Fair Forms Stand Alone Forms: My [facility] Prescriptions Prescriptions: No Action spironolactone 25 mg Tablet 25 mg PO QDL tamsulosin [Flomax] 0.4 mg Capsule 0.4 mg PO QAM amiodarone 200 mg tablet 200 mg PO QAM folic acid 1 mg Tablet 1 mg PO QAM pravastatin 40 mg Tablet 40 mg PO HS venlafaxine [Effexor XR] 150 mg Capsule,Extended Release 24hr 150 mg PO HS finasteride 5 mg tablet 5 mg PO QAM gabapentin 400 mg capsule 400 mg PO TID fluticasone propionate 50 mcg/actuation [place],Suspension 2 spray INTRANASAL DAILY PRN (Reason: Congestion) magnesium oxide 400 mg magnesium Tablet 400 mg PO TID acetaminophen [Tylenol] 325 mg Tablet 650 mg PO Q4H PRN (Reason: pain/fever) Rx Instructions: Unable to verify OTC meds at this date/time. dextromethorphan-guaifenesin 10-100 mg/5 mL Syrup 5 ml PO Q4H PRN (Reason: Cough) Rx Instructions: Unable to verify OTC meds at this date/time. diclofenac sodium 1 % Gel 4 g TOPICAL BID PRN (Reason: Pain) guaifenesin [Mucinex] 600 mg Tablet Extended Release 12hr 600 mg PO Q12H PRN (Reason: Cough) Rx Instructions: Unable to verify OTC meds at this date/time. doxycycline monohydrate 100 mg capsule 100 mg PO BID cholecalciferol (vitamin D3) 125 mcg (5,000 unit) Tablet 125 mcg PO QAM levothyroxine 175 mcg tablet 175 mcg PO DAILYBB sulfamethoxazole-trimethoprim 800-160 mg tablet 1 tab PO AMHS warfarin 2 mg tablet 2 - 3 mg PO DAILY Rx Instructions: as per yousif recomendation value favored 2.1-2.5 insulin lispro [Humalog KwikPen Insulin] 100 unit/mL insulin pen 10 sliding scale dose SUBCUT TIDWMEAL MDD 50 units daily insulin glargine-yfgn 100 unit/mL (3 mL) insulin pen 20 - 22 unit subcut HS carvedilol 25 mg tablet 25 mg PO BID torsemide 20 mg tablet 20 mg PO QAM PRN (Reason: Fluid Retention) miconazole nitrate 2 % Cream 1 applic TOPICAL QID amlodipine 5 mg tablet 5 mg PO QAM benzonatate 100 mg capsule 100 mg PO TID PRN (Reason: Cough) pantoprazole [Protonix] 40 mg Tablet,Delayed Release (Dr/Ec) 40 mg PO DAILY allopurinol 300 mg tablet 300 mg PO QAM hydromorphone 2 mg Tablet 1 mg PO Q4H PRN (Reason: Severe Pain (Scale Score 7-10)) Rx Instructions: 1/2 tablet dose Referrals Referrals: Graham Rojas MD [Primary Care Provider] -
--- NOTE | 2024-11-22 15:27 | History & Physical Report ---
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 Per 's report, the patient is wheelchair dependent, but able to perform light ADLs and house chores at home despite his condition and chronic pain issues; however, he has been declining mentally for the past 2 weeks. Perio dically not recognizing family members, fixed gaze at times, not communicating well. Decreased appetite with no food intake x 5 days with minimal oral intake of fluids. Chronic pain and on hydromorphone 4 mg PO every 4 hours. Per , patient usually is more alert with pain control, but has not been in the past 2 weeks. Patient and have refused palliative and hospice services in the past, but given patient's decline over the past 2 weeks, would like palliative consult while inpatient with comfort measures only. has POA. Altered Mental status #Comfort measures only status * Admit for observation for Palliative consult * AMS and declining functional ability x 2 weeks; pain control with sched hydromorphone 4mg at home * Palliative consult placed; spoke with Palliative team via [place] with plan for televisit 11/23/24 with present * Pain control with scheduled Hydromorphone 1 mg Q4H; additional recs following Palliative consult * Clinically dry with poor intake x 1-2 weeks-> IV fluid replacement ordered #H/O CHF s/p LVAD placement #Supratherapeutic INR * History of driveline infection with stenotrophomona; on Bactrim prophylac * LVAD present with home supplies * Continue home HF meds * INR 3.3; missed home warfarin dose x 2 days * INR ordered with AM labs * DVT prophylaxis with SCDs DVT Ppx: SCDs Code status: DNR/DNI PCP: Dr. Rojas Dispo: Admit for obs Patient seen in collaboration with Dr. Ortiz. Please see addendum.I spent a total of 70 minutes coordinating, documenting and providing care for this patient excluding time spent in the performance of separately billed services or time spent by another provider/QHP. 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 Per 's report, the patient is wheelchair dependent, but able to perform light ADLs and house chores at home despite his condition and chronic pain issues; however, he has been declining mentally for the past 2 weeks. Periodically not recognizing family members, fixed gaze at times, not communicating well. Decreased appetite and not eating x 5 days with minimal oral intake of fluids. Only had potato chips this week per patient's request; reports "potato chips" only word patient could say this week. Patient has history of pancreatic adenocarcinoma status post ERCP and palliative stent placement. Not currently receiving chemo/radiation treatments. Chronic pain concerns at home and on hydromorphone 4 mg PO every 4 hours. Per , patient usually is more alert with pain control, but has not been in the past 2 weeks. Patient and have refused palliative and hospice services in the past, but given patient's decline over the past 2 weeks, would like palliative consult while inpatient with comfort measures. has POA and feels her is not in agreement to palliative or hospice services because he "still wants to live". Multiple conversations regarding palliative and hospice services with PCP, [facility], and when at [facility] following last admission. Recent hospitalizations: * [facility] on 08/2024 with confusion and found to have UTI and pneumonia. * On 07/15/2024 patient was transferred to [facility] from [facility] ER for altered mental status and hallucinations and insomnia. In the emergency department, patient was hemodynamically stable, afebrile, with mostly stable labs. No signs of sepsis. Chest Xray showing resolution of the right upper lobe infiltrate. The present examination demonstrates no focal airspace opacity. There is a cyst small right pleural effusion. There is mild cardiomegaly and pulmonary vascular congestion. Median sternotomy wire sutures are noted. There is a pacemaker/defibrillator in place. The right upper quadrant stent which could be biliary or portacaval in location. Head CT with no evidence of hemorrhage, mass effect, or evidence of acute territorial ischemia. History obtained primarily from the patient and via hospitalization record. The patient's family was not at the bedside. I personally contacted the on the phone to discuss history of present illness External chart review obtained from [facility]. Allergies Allergy/AdvReac Type Severity Reaction Status Date / Time enoxaparin [From Lovenox] AdvReac Severe Heparin Verified 11/22/24 15:14 induced thrombocytopenia heparin AdvReac Severe Heparin Verified 11/22/24 15:14 Induced Thrombocytopenia baclofen AdvReac Intermediate HALLUCINATI Verified 11/22/24 15:14 ONS Home Medications Medication Instructions Recorded Confirmed Type amiodarone 200 mg tablet 200 mg PO QAM 01/27/18 11/22/24 History folic acid 1 mg tablet 1 mg PO QAM 01/27/18 11/22/24 History pravastatin 40 mg tablet 40 mg PO HS 08/18/18 11/22/24 History venlafaxine 150 mg 150 mg PO HS 08/18/18 11/22/24 History capsule,extended release 24 hr (Effexor XR) spironolactone 25 mg tablet 25 mg PO QDL 12/17/19 11/22/24 History fluticasone propionate 50 2 spray intranasal DAILY PRN 10/06/21 11/22/24 History mcg/actuation nasal Congestion spray,suspension gabapentin 400 mg capsule 400 mg PO TID 10/06/21 11/22/24 History cholecalciferol (vitamin D3) 125 125 mcg PO .Q2WK 03/14/22 11/22/24 History mcg (5,000 unit) tablet doxycycline monohydrate 100 mg 100 mg PO BID 03/14/22 11/22/24 History capsule diclofenac sodium 1 % topical gel 4 g topical BID PRN Pain 03/08/23 11/22/24 History guaifenesin 600 mg tablet, 1,200 mg PO Q12H PRN Cough 03/08/23 11/22/24 History extended release 12 hr (Mucinex) allopurinol 300 mg tablet 300 mg PO QAM 06/21/24 11/22/24 History amlodipine 5 mg tablet 5 mg PO QAM 06/21/24 11/22/24 History benzonatate 100 mg capsule 100 mg PO TID PRN Cough 06/21/24 11/22/24 History carvedilol 25 mg tablet 25 mg PO BID 06/21/24 11/22/24 History insulin glargine-yfgn 100 unit/mL 15 unit subcut HS 06/21/24 11/22/24 History (3 mL) subcutaneous pen insulin lispro 100 unit/mL 6 sliding scale dose subcut 06/21/24 11/22/24 History subcutaneous pen (Humalog KwikPen TIDWMEAL (U-100) Insulin) warfarin 2 mg tablet 2 mg PO DIRECTED 06/21/24 11/22/24 History albuterol sulfate 90 mcg/actuation 2 puff inhalation Q3H PRN 11/22/24 11/22/24 History aerosol inhaler Shortness Of Breath Or Wheezing colchicine 0.6 mg tablet 0.6 mg PO DAILY PRN GOUT FLARE UPS 11/22/24 11/22/24 History glucagon 0.5 mg/0.1 mL 1 mg subcut DIRECTED PRN 11/22/24 11/22/24 History subcutaneous auto-injector Hypoglycemia hydromorphone 4 mg tablet 4 mg PO Q4H PRN Severe Pain (Scale 11/22/24 11/22/24 History Score 7-10) levothyroxine 200 mcg tablet 200 mcg PO DAILYBB 11/22/24 11/22/24 History naloxone 4 mg/actuation nasal spray 4 mg intranasal DIRECTED PRN 11/22/24 11/22/24 History Opioid Overdose nystatin 100,000 unit/gram topical 1 applic topical DAILY 11/22/24 11/22/24 History powder potassium chloride 10 mEq 40 meq PO BID 11/22/24 11/22/24 History tablet,extended release promethazine 25 mg tablet 25 mg PO Q6H PRN NAUSEA/VOMITING 11/22/24 11/22/24 History valsartan 40 mg tablet 40 mg PO HS 11/22/24 11/22/24 History Past Med/Surg History Problem List (Updated 11/22/24 @ 15:39 by Matt Christine M.D.) Comfort measures only status (Acute) AMS (altered mental status) (Acute) Left ventricular assist device present (Acute) Sepsis (Acute) Abnormal LFTs AMS (altered mental status) Pancreatic adenocarcinoma (Acute) UTI (urinary tract infection) Pneumonia (Acute) LVAD (left ventricular assist device) present COVID-19 (Acute) Acute respiratory distress (Acute) Diffuse wheezing (Acute) Fever (Acute) Generalized body aches (Acute) Weakness (Acute) Pneumonia due to 2019 novel coronavirus (Acute) Subtherapeutic international normalized ratio (INR) (Acute) Syncope (Acute) HTN (hypertension) (Chronic) GI bleed Presence of combination internal cardiac defibrillator (ICD) and pacemaker (Chronic) inserted 05/2011 - [facility] H/O tooth extraction (Chronic) complete tooth extraction due to recurrent LVAD infections DVT (deep venous thrombosis) (Chronic) Depression (Chronic) 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) recurrent pump pocket infections with MRDO, on life-long IV antibiotics 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) CVA (cerebral vascular accident) (Chronic) 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) BPH (benign prostatic hyperplasia) (Chronic) Jejunal ulcer (Chronic) GERD (gastroesophageal reflux disease) (Chronic) Dilated cardiomyopathy (Chronic) Chronic systolic CHF (congestive heart failure) (Chronic) Hypothyroidism (Chronic) Gout (Chronic) Hyperlipidemia (Chronic) CKD (chronic kidney disease), stage III (Chronic) DM type 2 (diabetes mellitus, type 2) (Chronic) Medical History (Updated 11/22/24 @ 15:39 by Matt Christine M.D.) History of pulmonary embolism History of DVT (deep vein thrombosis) LVAD (left ventricular assist device) present Seasonal allergies Gout Hx: UTI (urinary tract infection) Coag negative Staphylococcus bacteremia Currently is being treated daily with IV antibiotics Hx of TIA (transient ischemic attack) and stroke 01/16/2017 Seen in [facility] Ed and transfered to [facility] Hx of Aguilera's palsy Prostatitis denies Anemia Hypothyroidism Blood clotting disorder Diabetes mellitus, type 2 uses insulin Thrombophlebitis currently has one in right subclavian vein Heart disease CHF (congestive heart failure) Hypercholesteremia Blood dyscrasia vitamin d deficiency Male genitourinary symptoms enlarged prostate Hx of acute myocardial infarction denies - states he has never had LVAD (left ventricular assist device) present hx cardiomyopathy and heart failure UTI (urinary tract infection) Surgical History (Updated 10/05/24 @ 00:08 by Background Dalibertad) History of left ventricular assist device (LVAD) LVAD replaced June 2018 History of left ventricular assist device Hx of colonoscopy History of tooth extraction Family History Father Hypertension Stroke Social History Smoking Status: Never smoker Tobacco Type: Cigarettes Second Hand Exposure: Yes; Do You Dip or Chew Tobacco: No; Hx Alcohol Use: No Hx Substance Use: No Preferred Language: Panamanian Communication Ability: Effective Apiculturist Required: No Beliefs That Will Affect Care: None marital status: Current Living Situation: Spouse current occupational status: retired Other Information That Helps Us Care for You: No Feels Safe at Home: Yes and No Is there a partner from a previous relationship who is making you feel unsafe now?: No Any Concerns about Your Family Situation: No Would You Like to Speak to Someone About Your Situation: No Safety Concerns: Feels Safe At This Time Assistive Devices: Glasses, Oxygen - Continuous and Wheelchair Review of Systems Review of Systems: Unobtainable due to cognitive status Physical Exam Physical Exam: VITALS: Reviewed. WEIGHT/BMI reviewed. GEN: Healthy appearing, well-developed, NAD. PSYCH: AOx2. Anxious. Uncertain of reason for hospitalization. HEENT -Head: NC/AT; -Eyes: PERRL, EOMI. No discharge or redn ess; -Ears: External ears are normal. -Nose: Normal nares. -Mouth and throat: Dry gums, mucosa, pal ate,. NECK: Supple, with no masses. CV: RRR, no m/r/g. LUNGS: CTAB, no w/r/c. + nonproductive cough, 4-6 LPM O2 to maintain sats >92% ABD: Soft, NT/ND, NBS, no masses or organomegaly. : N/A SKIN: Warm, well perfused. dark purple BLE, No skin rashes or abnormal lesions. catheter to RUQ intact and covered with tegaderm MSK: No deformities, Normal gait. EXT: No clubbing, cyanosis, or edema. NEURO: CN II-XII grossly intact. No focal deficits. Results & Data Results & Data Vital Signs (Past 12 Hours) Vital Signs Temp Pulse Resp Pulse Ox O2 Del Method O2 Flow Rate 11/22/24 14:11 79 14 100 Nasal Cannula 2 11/22/24 13:32 101 H 11/22/24 13:18 36.8 C 90 20 Laboratory Results Short CBC 11/22/24 Range/Units 13:40 WBC 7.96 (4.8-10.8) K/ul Hgb 11.0 L (14.0-18.0) g/dl Hct 35.8 L (42.0-52.0) % Plt Count 275 (130-400) K/uL BMP 11/22/24 13:40 Sodium 132 L Potassium 3.6 Chloride 95 L Carbon Dioxide 25 BUN 11 Creatinine 0.85 Glucose 281 H Calcium 9.4 Liver Function 11/22/24 Range/Units 13:40 Total Bilirubin 0.9 (0.2-1.0) mg/dl AST 55 H (13-39) U/L ALT 29 (7-52) U/L Alkaline Phosphatase 185 H (34-104) U/L Albumin 3.6 (3.4-5.0) gm/dl Urine 11/22/24 Range/Units 15:24 Urine Color Yellow Urine Appearance Clear (Clear) Urine pH 6.0 (4.5-7.5) Ur Specific [place] 1.020 (1.000-1.030) Urine Protein 1+ H (Negative) Urine Glucose (UA) 1+ H (Negative) Diagnostic Findings Chest X-Ray 11/22/24 14:11 XR chest 1V portable CLINICAL HISTORY: Weakness COMPARISON STUDY: 09/02/2024 FINDINGS: Single view AP chest demonstrates resolution of the right upper lobe infiltrate. The present examination demonstrates no focal airspace opacity. There is a cyst small right pleural effusion. There is mild cardiomegaly and pulmonary vascular congestion. Median sternotomy wire sutures are noted. There is a pacemaker/defibrillator in place. The right upper quadrant stent which could be biliary or portacaval in location. IMPRESSION: No acute cardiopulmonary process. Tiny right pleural effusion versus right costophrenic angle fibrosis persists. ACT 112: Negative or not required by law. Electronically signed by: Ny Jones M.D. 11/22/2024 2:[address] 11/22/24 14:15 CT SCAN OF THE BRAIN WITHOUT IV CONTRAST CLINICAL HISTORY: Change in mental status. COMPARISON STUDY: CT of the brain dated 09/02/2024 TECHNIQUE: Unenhanced axial CT scan of the brain is performed from the vertex to the skull base. Images are reviewed in the axial, sagittal, coronal planes. A dose lowering technique was utilized adhering to the principles of ALARA. CT DOSE: 625.8 mGy.cm FINDINGS: Brain parenchyma: A focus of left frontal encephalomalacia as well as a tiny focus of high right frontal encephalomalacia are unchanged and consistent with remote insults. There is age-related involutional change noting [id number] subcortical and periventricular microangiopathic disease. There is no hemorrhage, mass effect, or evidence of acute territorial ischemia by CT criteria. White-white matter differentiation is preserved. No extra-axial fluid collection is seen. Ventricles, sulci, cisterns: Prominent secondary to involutional change. Intracranial vasculature: There is atherosclerotic calcification of the cavernous carotid and vertebral arteries. Calvarium: Unremarkable. Sinuses and mastoids: The visualized paranasal sinuses are clear. There is a left mastoid effusion. The right mastoid air cells are well pneumatized. Orbits: The bony orbits are grossly intact. Soft tissues: A 6 cm lipoma is partially visualized in the right upper neck. IMPRESSION: There is no hemorrhage, mass effect, or evidence of acute territorial ischemia by CT criteria. ACT 112: Negative or not required by law. Electronically signed by: Juaquin Neff M.D. 11/22/2024 2:57 PM Supervising Physician Co-Signing Physician Notes 73 yo M w/ PMH of type 2 diabetes, CKD stage III, adenocarcinoma pancreas, hyperlipidemia, gout, hypothyroidism, dilated cardiomyopathy, chronic systolic CHF status post LVAD, GERD, BPH, cognitive deficit poststroke, infection associated with driveline of ventricular assist device, multidrug-resistant organism, major depression, DVT, PE, GI bleed, ventricular tachycardia, CVA presents with worsening mentation/increased weakness over the last several days. Pt's who is POA is aware pt has guarded prognosis and would like to discuss further care w/ palliative for comfort/hospice/other options and would like to continue noninvasive care until palliative meeting. c/w home meds, hold warfarin today as inr 3.3, manage pain, gentle ivf NSS at 65 ml/hr x 1 bag. palliative consult. On exam: pt though can answer orientation questions, has short attention span, doesn't demonstrate the insight on his current disease condition and is still some confused. LVAD in place, heart murmur noted. appears frail/weak/elderly/sick. on 5L NC O2. dark purple discoloration of ble noted. rest of the exam as above. Time spent independently: 24 min. I have seen and examined the patient and have discussed the case with the provider above. I agree with the assessment and plan as stated.
[2024-11-22 15:47] LABS: Appearance Urine Clear (Clear); Bacteria Urine Automated None Seen (None Seen); Cast Urine Automated 0-2 /lpf (0-2); Epithelial Cell Urine Auto 0-2 /hpf (0-2); Glucose Urine UA 1+ (Negative); WBC Urine Automated 21-50 /hpf (0-5)
[2024-11-22] MEDS: HYDROmorphone INJ 0.5 MG/0.5 ML SYR IV STA (16:06)
[2024-11-22] MEDS: HYDROmorphone INJ 1 MG/ML SYRINGE IV STA (17:04)
--- NOTE | 2024-11-22 17:52 | Electrocardiogram Report ---
Test Reason : Blood Pressure : */* mmHG Vent. Rate : 106 BPM Atrial Rate : 85 BPM P-R Int : * ms QRS Dur : 140 ms QT Int : 426 ms P-R-T Axes : * -6 83 degrees QTcB Int : 565 ms Poor data quality, interpretation may be adversely affected Ventricular-paced rhythm Premature ventricular complexes Abnormal ECG When compared with ECG of 02-Sep-2024 17:38, Vent. rate has increased by 4 bpm Confirmed by Tyler Callahan ([id number]) on 11/22/2024 5:51:46 PM Referred By: REFERRED SELF Confirmed By: Tyler Callahan
[2024-11-22 17:56] VITALS: TEMP 97.7
--- NOTE | 2024-11-22 18:09 | Communication Note ---
Date of Service: November 22, 2024 Palliative Medicine Mechanical Intern 445pm Contacted by primary team - pt with HMIII LVAD/[place]/[address] infection, pancreatic ca, multiple comorbidities worsening MSOF per , desired plan is comfort. She does not want transfer.. She is at work and will not be at [facility] until tomorrow. i am trying to contact LVAD discontinuation is a complex process. I am unsure we have the right resources for this but will discuss further with teams. PLease be aware that if he transitions to an active dying process through the night, the VAD will low flow alarm but this will be an expected alarm for an end of life transition. I will come in to assist with this matter once a time is determined after d/w . Please call me anytime for concerns. Thank you for allowing us to participate in the ongoing care of this patient. Please page with any additional concerns. Volodymyr Barnes DNP Director, Palliative Medicine
[2024-11-22] MEDS ORDERED: MAGNESIUM HYDROXIDE SUSP 30 ML UDC PO PRN (18:10)
[2024-11-22] MEDS ORDERED: POLYETHYLENE (MIRALAX) 17 GM PACK PO PRN (18:10)
[2024-11-22] MEDS ORDERED: ACETAMINOPHEN 325 MG TAB PO PRN (18:10)
[2024-11-22] MEDS ORDERED: ALUMINUM/MAGNESIUM SUSP 30 ML UDC PO PRN (18:10)
[2024-11-22] MEDS ORDERED: ONDANSETRON INJ 2 MG/ML 2 ML VIAL IV PRN ×2 (18:10)
[2024-11-22] MEDS: SODIUM CHLORIDE 0.9% 1,000 ML IV SCH (19:55)
[2024-11-22] MEDS ORDERED: HYDROmorphone INJ 1 MG/ML SYRINGE IV PRN (20:00)
--- NOTE | 2024-11-22 20:06 | Palliative Family Discussion ---
Date of Service November 22, 2024 Patient Directed Conference Time of Meetin-8pm Participants: Larissa Barnes DNP Patient participation: no Patient Support System: /POA Petra Other Healthcare Provider Participation: None Meeting Location: telephonic, Mrs Weeks was finishing work Advanced Directive available: pt is DNR/DNI A telephonic ACP meeting was held with /POA for MARY WEEKS. This meeting was necessary for determining the appropriate course of treatment. Topics of Discussion Topics of Discussion: 1. Mrs. Weeks provided a nicely detailed summary of the past few months: Ahsan has been in a persistent decline albeit slower than had been predicted in Jan 2024. She notes that last Jan they were told he had about a month to live - new dx pancreatic cancer, not a candidate for cancer directed therapies. She started him on an anti-angiogenic diet and, voila, he lived much longer than predicted. During [facility] admission September 2024, he was told of cancer progression - he was also having much more pain. He was on chronic opioids with Dilaudid 4mg tabs q4h which were not helping.He told her his abd had increasing pain. He tried the med q3h and still had very severe and uncontrolled pain (NB: He averaged 32mg oral dilaudid daily without relief, this is approx Dilaudid 10mg equivalent.) He began to be less engaged. Sleeping/resting more - for past 2 weeks, over 90% of day sleeping/resting. In past 2 weeks very sharp drop in appetite, not hungry, not taking much PO. Last solid food was Labor Day - liquids since then and total volume has been decreasing everyday. He continued to c/o severe pain, weakness, and lethargy. He was unable to focus for any sustained period of time, he was more withdrawn. Over the past 8 weeks he has had a steady and progressive decline. 2. Mrs. Weeks notes she has never had any discussions about EOL with an LVAD other than being told "sternly" that the controller from his HMIII has to be returned to [facility] after . We had a lengthy conversation about LVADs and end of life. I advised her to a few options: LVADs can be disconnected by conscious choice of a patient, this is a deliberate deactivation by choice vs deactivation when an LVAD pt becomes unconscious. The HMIII has specific steps for deactivation which begin at the driveline controller and move into the batteries in sequence. For patients with acute decline who transition to active , there will be a constant Low Flow alarm (the red heart will light up and alarm is screeching.) This low flow alarm cannot be silenced permanently and will require staff at bedside for repeat silencing through the dying process. 3. LVAD will NOT prolong - once respirations cease, the LVAD is not keeping a patient alive. The device can be disconnected in the absence of respirations. The motor will shut down and mechanical cardiac activity will cease. 4. We discussed the possible scenarios - he may worsen tonight and vs over next few days/week. Anticipated survival is short. Ahsan has struggled to come to terms with his mortality. He was devastated when no cancer treatment was given. Though he has outlived all survival predictions, he remains uneasy about dying. He never wants to hear the words hospice or end of life but would be receptive to a focus on comfort, QOL, pain mgt etc. We spoke about scenarios of acute decline overnight vs over days to where he would become less interactive/unconscious then move to LVAD disconnect vs a conscious choice to disconnect by pt. Mrs. Weeks notes he will never be likely to choose the conscious disconnect. 5. We agreed to the following: If he acutely worsens overnight, assure comfort. NO escalation. The Low flow signal will alarm, so plan to keep staff at bedside to silence, use prn meds for aggressive symptom mgt and assure comfort/dignity through end of life - he may need palliative sedation. PRN meds ordered for predictive symptom mgt needs. I advised her that survival after LVAD deactivation at the end-of-life ranges from a few minutes to a few days. Otherwise, we will meet tomorrow at 1pm to discuss where he is at and the plan for moving to device discontinuation when he becomes unconscious, with medicat ions to assure comfort given prior to and ongoing post discontinuation. I can dc LVAD if/when this needs to happen. We will meet at 1pm tomorrow and I have asked Celia from [facility] to join us for this meeting, with hopes that we can qualify Ahsan for possible inpatient hospice AKA "GIP". I reviewed GIP criteria with Mrs Weeks and advised her that it is the hospice medical biller who m akes the decision about whether or not a patient qualifies for GIP. 6. Mrs. Weeks asked for his pacer to have magnet applied, she wants both pacer and ICD deactivated. 7. Mrs. Weeks clearly and firmly reaffirms she does not desire any transfer to higher level of care, does not want transfer to [facility] and desires comfort care at [facility] which is local to them and familiar, and allows for friends and family to visit, this promoting his comfort. 8. When we discussed additional cultural or baptist needs she noted pt is Mandaen and draws comfort for driss.I have asked electrical prospecting observer to visit to help provide additional support. Other Content of Meetin. Opportunity given for participants to speak and ask questions. 2. Participants were assured of attention to patient comfort. 3. Reassurance provided. 4. Support was provided for informed, good-driss decisions. 5. Emotions expressed by family were acknowledged and addressed. 6. Follow-up: Meeting 11/23 at 1pm 7. Plan of Care: Ahsan is on comfort care. No escalation. See #5 above. Mrs. Weeks had some questions about the dying process - we discussed changes pt may move through in the dying process including but not limited to sleeping more, disorientation when awake, restlessness, diminished senses/inability to respond to stimulus although ability to be aware of them remains intact longer, and eva nges in body temperatures, skin changes/mottling/cyanosis, respiratory pattern changes, and oral secretions. Family verbalized understanding. The goal is to assure a peaceful . I anticipate Ahsan's process through dying will be faster. 8. We also discussed the potential for an "EOL Rally": When a person facing the end of life rallies, they seem to become "more stable" - may want to talk or even begin taking PO; this phenomenon is usually seen as a sudden burst of energy before . This period of perking up can be accompanied by such a notable change in mental clarity that is often referred to as terminal lucidity. This change in cognition and behavior goes against everything families learn about the physical signs that the end of life is near. It is important to note that evidence-based data is elusive, if nonexistent. Theories support that it may be a search for a final, strong connection. Also, as organs shut down, they can release a steroid like compound that briefly rouses the body - in the specific case of brain tumors, swelling occurs in the confined space of the skull. The edema shrinks as EOL care patients are weaned off food and drink, w aking up the brain a bit. Families and caregivers may grasp at what seems to be a turnaround in a loved ones health, however, the EOL Rally is a hallmark pre- sign. It is not uncommon for patients to show improvement before : they may want to talk while others may become restless or act as if they need to start preparing for a trip. Some patients will become more relaxed yet remain t uned in to what is going on around them, others will show signs of physical stability when, seconds before, they seemed on the verge of letting go. A rally can last for a few moments or even days. Short or long, these temporary improvements can have a profound effect on loved ones who are keeping stoner. Like a moment of clarity for someone who has dementia, a rally is one last opportunity to connect with a loved one. Each persons experience is unique and impossible to predict with total accuracy. 9. We reviewed oxygen at EOL: For patients at the end of life, oxygen delivered by a nasal cannula provides no additional symptomatic benefit for relief of refractory dyspnea in patients with life-limiting illness compared with room air: there's a point at which that the oxygen level gets so low that it's no longer compatible with life. By providing supplemental oxygen, the dying process will be unnecessarily prolonged. Please use less burdensome but more effective strategies such as comfort care meds, oscillating fan, massage, repositioning, etc. (Jan AP, Freya CF, Jese PA, et al. Effect of palliative oxygen ve rsus room air in relief of breathlessness in patients with refractory dyspnoea: a double-blind, randomised controlled trial. Lancet. 2010;376(2423):054-793. doi:10.1016/A[address]237-4504([id number]) 10. Secretions at EOL/management: I discussed with family that as the level of consciousness decreases in the dying process, patients lose their ability to swallow and clear oral secretions. As air moves over the secretions, which have pooled in the oropharynx and bronchi, the resulting turbulence produces noisy ventilation with each breath, described as gurgling or rattling noises. While there is no evidence that patients find this rattle disturbing, evidence from bereaved surveys suggests the noises can be disturbing to the patients visitors and caregivers who may fear that the patient is choking to . We recommend a combination of Non-Pharmacological and Pharmacological Treatments: * 1. Position the patient on their side or in a semi-prone position to facilitate postural drainage * 2. Communication with family and caregivers to reaffirm commitment to their loves ones care, reduce anxiety and fears. * 3. Gentle oropharyngeal suctioning is used although this can be ineffective when fluids are beyond the reach of the catheter. Avoid deep suctioning as it is very irritating. Note that frequent suctioning is disturbing to both the patient and the visitors. * 4. Reduction of fluid intake. * 5. Consider a 1-2 min Trendelenburg positioning, to move fluids up into the oropharynx for easier removal BUT note that ASPIRATION RISK WILL INCREASE. * 6. Muscarinic receptor blockers (anti-cholinergic drugs) are most often used: glycopyrrolate (Robinul), scopolamine (Transderm Scop), hyoscyamine and atropine. Of these, I prefer to using glycopyrrolate as first line treatment, because it is a quaternary amine (therefore does not cross the blood-brain barrier) which reduces the potential anti cholinergic agent associated [employer] MANAGER toxicity (sedation, delirium). * 7. Glycopyrrolate has five times the anti-secretory potency compared to atropine, while scopolamine dries/thickens secretions and causes dry mouth, which may be more distressing to the patient and detract from comfort. Thank you for allowing us to participate in the ongoing care of this patient. Please page with any additional concerns. Volodymyr Barnes DNP Director, Palliative Medicine
[2024-11-22] MEDS ORDERED: POTASSIUM CHLORIDE 10 MEQ TABCR PO SCH (21:00)
[2024-11-22] MEDS ORDERED: VENLAFAXINE HCL XR 150 MG CAPXR PO SCH (21:00)
[2024-11-22] MEDS ORDERED: GABAPENTIN 400 MG CAP PO SCH (21:00)
[2024-11-22] MEDS ORDERED: NON-FORMULARY MEDICATION (Doxycycline Monohydrate 100 mg capsule) PO SCH (21:00)
[2024-11-22] MEDS ORDERED: VALSARTAN 80 MG TAB PO SCH (21:00)
[2024-11-22] MEDS ORDERED: PRAVASTATIN SOD 40 MG TAB PO SCH (21:00)
[2024-11-22] MEDS ORDERED: DOXYCYCLINE HYCLATE 100 MG CAP PO SCH (21:00)
[2024-11-23 04:03] VITALS: BP 100/0
[2024-11-23] MEDS ORDERED: LEVOTHYROXINE SODIUM 200 MCG TABLET PO SCH (06:30)
[2024-11-23] MEDS ORDERED: AMIODARONE 200 MG TAB PO SCH (09:00)
[2024-11-23] MEDS ORDERED: FOLIC ACID 1 MG TAB PO SCH (09:00)
[2024-11-23] MEDS ORDERED: NYSTATIN POWDER 15GM BTL EXT SCH (09:00)
[2024-11-23] MEDS ORDERED: SPIRONOLACTONE 25 MG TAB PO SCH (11:30)
[2024-11-23] MEDS: HYDROmorphone INJ 1 MG/ML SYRINGE IV PRN (13:07)
[2024-11-23] MEDS: ONDANSETRON INJ 2 MG/ML 2 ML VIAL IV PRN (13:08)
[2024-11-23] MEDS: HYDROmorphone INJ 1 MG/ML SYRINGE IV SCH (13:29)
--- NOTE | 2024-11-23 14:38 | Palliative Care Consultation ---
Date of Consultation November 23, 2024 Assessment & Plan (1) Cancer related pain: Dilaudid 1mg IV Q6h on schedule PRN is not giving enough relief He would prefer something on a schedule, this is what he is accustomed to from home regimen He is also very anxious with tearfullness, panic attacks, agitation - Ativan PRN has been ordered for this (2) Dyspnea and respiratory abnormalities: see #1 sx mgt Also prn Dilaudid 1mg IV q15min prn dyspnea/pain and Dilaudid 2mg IV q1h prn very severe pain/air hunger/terminal dyspnea (3) Left ventricular assist device present: HeartMate III (4) AMS (altered mental status): (5) Advanced care planning/counseling discussion: A very detailed, lengthy and complex critical 90 min face to face ACP was held in the private family meeting room with Petra Claros/, [facility]/Phoebe White & Daryl RN We reviewed his clinical progression: progressive cancer, declining PS, anorexia,weakness, fall, inc cancer pain uncontrolled,progressing weakness, increasing cognitive deficits, spending >90% of day in resting position/bed/recliner, fixed gaze at times/'staring spells' in greater context of terminal met pancreatic cancer, CVA, HF, ICM, VT. He is no longer decisionally intact. Petra is in agreement and notes that his comprehension/cognitive capacity has been slipping for months. Petra is POA and surrogate decision maker. She and daughter have been in several discussions, all agree for [place]. Mrs Claros reiterated details of our telephonic ACP from yesterday. She knows he is no longer able to make decisions. She and family desire focus on comfort: they know his time is short. She has discussed with their PCP and feels most of her questions were answered re prognosis - reiterated overall anticipated survival is days/week, but after LVAD discontinuation, time to may be minutes/hours to a few days-there is variability patient by patient. We reviewed comfort care +/- hospice in the hospital. We reviewed options for LVAD discontinuation and reaffirmed the choices and plan of care from yesterday's ACP discussion - please see my note for full details. Reaffirmed the process for LVAD discontinuation is treated the same as other life support withdrawal scenarios with pre medication for anticipatory symptom mgt needs and ongoing symptom mgt. The device will not be stopped until we are first assured he is comfortable and at peace, especially because we know that drug distribution will fall rapidly after pump-off/deactivation. Cindy and Daryl GONCALVES reviewed hospice in the hospital - CMS criteria/requirement, scope of services, team members and how hospice interfaces with the hospital nursing and medical teams. All hospice related concerns were discussed to Petra's satisfaction. Petra would like comfort with hospice in the hospital, therefore we are going to work on getting Mr Claros moved to inpatient hospice with [facility] team. He does not like the word "hospice" so please pass on provider to provider and shift to shift that the language we use with sensitivity needs to be comfort focused, pain and symptom management, quality of life but not using the word hospice. He knows he is dying but he does not want it said over and over, he feels all the changes happening and the decline/suffering. He already knows from PCP that it is time for hospice. Special request: he needs a room with more natural sunlight - he has been an outdoorsy/wide open space kind of person his whole life and the current cramped dark space is adding to his suffering and he is becoming more despondent - updated that he will move to 206. We reaffirmed she does NOT desire transfer to LVAD center. She does NOT want transfer to [facility]. She states it is over 3 hours from their home and an unnecessary hardship on family and friends - she would not be able to be with him daily or for as long if he was that far away. She is aware hospice at home may not be feasible and LVAD disconnect [place]. We are All in agreement that when he falls unconscious, we will proceed with LVAD discontinuation, which I will do, but will need to be paged, ideally earlier when you see the declines/changes evolving so that we have some lead time to prepare for LVAD cessation which is handled like a vent withdrawal in terms of needing premedication and meds at bedside ready to be given if needed. (6) Weakness generalized: (7) AMS (altered mental status): (8) Palliative care by specialist: Introduced Palliative Medicine and explained our role in patient's care. Patient and/or family were receptive to palliative services for goals of care discussions. Reviewed we are different from hospice, a home health nurse visiting service. (9) Pancreatic adenocarcinoma: Plan ACP detailed as above Ongoing PEOPLESOFT, pain and sx mgt Page me for ANY concerns/questions - use [place] Priority page or call my cell [phone] If he acutely declines/suddenly transitions then LVAD will alarm Low-Flow, staff will need to remain at bedside to silence alarm which has limited muting for approx 1-2 min but cannot be turned off in Low-Flow alarm state. Please page me for any early changes of decline, worsening mentation, loss of consciousness, I will disconnect LVAD at that time as per family preference as as outlined in ACP discussions yesterday and today. Thank you for allowing us to participate in the ongoing care of this patient. Please page with any additional concerns. 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 His cardiac issues began mid with worsening HF. He was evaluated for Heart txp at [facility] and EF approx 4% per . He was a candidate for heart txp but insurance was not in network for [facility] and he was life flighted to [facility]. 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 left MCA stroke, +CVA. VT, PE, DVT, IDDM. Ahsan has been in a steady state of decline since mid summer. Declining PS, now PS 4. Wheelchair dependent, progressive weakness, syncope, AMS Forgetting family members Family find him often staring into space with a fixed gaze A [facility] Mental Status exam was administered by [facility] Geriatrics during his June 2024 [facility] admission with +neurocognitive deficit noted very severe progressive cancer pain unrelieved by Dilaudid 4mg PO q3h prn average daily dose 32mg PO Followed closely by long time PCP Dr Rojas. They have had numerous conversations about timing of hospice. earlier this week, Dr Rojas advised it is time for hospice. Ahsan is suffering and declining, there is no QOL improvement with aggressive medical mgt. His cancer is progressing, verified during September 2023 [place] [facility] admission. Was advised at that time to seek Palliative Med follow up or hospice locally but declined. Ahsan has a very hard time facing his mortality. he knows time is running short but does not want to talk about it, does not want it "tossed in his face" and has historically found that discussions about /dying/mortality exacerbate his anxiety, leading to panic attacks, agitation and tearfulness. Ahsan has been cared for at home by his and daughter. his Petra is POA. She is an CREDIT ASSOCIATE. She and daughter are also paid caregivers for pt, in addition to this Petra works from home approx 9 hours per day. [place] [facility] [place]. Hx obtained from extensive chart review incl OSH data and Petra, patient's . She states after discussions with PCP this week, they desire focus on QOL, comfort, symptom mgt. She knows his LVAD will need to be discontinued and notes she does not know how to do this, and also feels she should not be expected to do this either. They have never received any information or education about EOL with an LVAD or met pancreatic cancer as well as no advanced care planning discussions. Ahsan has on prior occasions been clear about wanting to have his final days in comfort, with family but he equally does not want to talk about it , hear about or have it brought up because it adds to his suffering, anxiety, causes panic attacks and makes him very agitated. Allergies Allergy/AdvReac Type Severity Reaction Status Date / Time enoxaparin [From Lovenox] AdvReac Severe Heparin Verified 11/22/24 15:14 induced thrombocytopenia heparin AdvReac Severe Heparin Verified 11/22/24 15:14 Induced Thrombocytopenia baclofen AdvReac Intermediate HALLUCINATI Verified 11/22/24 15:14 ONS Home Medications Medication Instructions Recorded Confirmed Type amiodarone 200 mg tablet 200 mg PO QAM 01/27/18 11/22/24 History folic acid 1 mg tablet 1 mg PO QAM 01/27/18 11/22/24 History pravastatin 40 mg tablet 40 mg PO HS 08/18/18 11/22/24 History venlafaxine 150 mg 150 mg PO HS 08/18/18 11/22/24 History capsule,extended release 24 hr (Effexor XR) spironolactone 25 mg tablet 25 mg PO QDL 12/17/19 11/22/24 History fluticasone propionate 50 2 spray intranasal DAILY PRN 10/06/21 11/22/24 History mcg/actuation nasal Congestion spray,suspension gabapentin 400 mg capsule 400 mg PO TID 10/06/21 11/22/24 History cholecalciferol (vitamin D3) 125 125 mcg PO .Q2WK 03/14/22 11/22/24 History mcg (5,000 unit) tablet doxycycline monohydrate 100 mg 100 mg PO BID 03/14/22 11/22/24 History capsule diclofenac sodium 1 % topical gel 4 g topical BID PRN Pain 03/08/23 11/22/24 History guaifenesin 600 mg tablet, 1,200 mg PO Q12H PRN Cough 03/08/23 11/22/24 History extended release 12 hr (Mucinex) allopurinol 300 mg tablet 300 mg PO QAM 06/21/24 11/22/24 History amlodipine 5 mg tablet 5 mg PO QAM 06/21/24 11/22/24 History benzonatate 100 mg capsule 100 mg PO TID PRN Cough 06/21/24 11/22/24 History carvedilol 25 mg tablet 25 mg PO BID 06/21/24 11/22/24 History insulin glargine-yfgn 100 unit/mL 15 unit subcut HS 06/21/24 11/22/24 History (3 mL) subcutaneous pen insulin lispro 100 unit/mL 6 sliding scale dose subcut 06/21/24 11/22/24 History subcutaneous pen (Humalog KwikPen TIDWMEAL (U-100) Insulin) warfarin 2 mg tablet 2 mg PO DIRECTED 06/21/24 11/22/24 History albuterol sulfate 90 mcg/actuation 2 puff inhalation Q3H PRN 11/22/24 11/22/24 History aerosol inhaler Shortness Of Breath Or Wheezing colchicine 0.6 mg tablet 0.6 mg PO DAILY PRN GOUT FLARE UPS 11/22/24 11/22/24 History glucagon 0.5 mg/0.1 mL 1 mg subcut DIRECTED PRN 11/22/24 11/22/24 History subcutaneous auto-injector Hypoglycemia hydromorphone 4 mg tablet 4 mg PO Q4H PRN Severe Pain (Scale 11/22/24 11/22/24 History Score 7-10) levothyroxine 200 mcg tablet 200 mcg PO DAILYBB 11/22/24 11/22/24 History naloxone 4 mg/actuation nasal spray 4 mg intranasal DIRECTED PRN 11/22/24 11/22/24 History Opioid Overdose nystatin 100,000 unit/gram topical 1 applic topical DAILY 11/22/24 11/22/24 History powder potassium chloride 10 mEq 40 meq PO BID 11/22/24 11/22/24 History tablet,extended release promethazine 25 mg tablet 25 mg PO Q6H PRN NAUSEA/VOMITING 11/22/24 11/22/24 History valsartan 40 mg tablet 40 mg PO HS 11/22/24 11/22/24 History Patient History Medical History (Updated 11/23/24 @ 14:35 by Larissa Barnes DNP) History of pulmonary embolism History of DVT (deep vein thrombosis) LVAD (left ventricular assist device) present Seasonal allergies Gout Hx: UTI (urinary tract infection) Coag negative Staphylococcus bacteremia Currently is being treated daily with IV antibiotics Hx of TIA (transient ischemic attack) and stroke 01/16/2017 Seen in [facility] and transfered [place] [facility] Hx of Aguilera's palsy Prostatitis denies Anemia Hypothyroidism Blood clotting disorder Diabetes mellitus, type 2 uses insulin Thrombophlebitis currently has one in right subclavian vein Heart disease CHF (congestive heart failure) Hypercholesteremia Blood dyscrasia vitamin d deficiency Male genitourinary symptoms enlarged prostate Hx of acute myocardial infarction denies - states he has never had LVAD (left ventricular assist device) present hx cardiomyopathy and heart failure UTI (urinary tract infection) Surgical History (Updated 10/05/24 @ 00:08 by Vidhya Foster) History of left ventricular assist device (LVAD) LVAD replaced June 2018 History of left ventricular assist device Hx of colonoscopy History of tooth extraction Family History Father Hypertension Stroke Social History Smoking Status: Never smoker Tobacco Type: Cigarettes Second Hand Exposure: Yes; Do You Dip or Chew Tobacco: No; Hx Alcohol Use: No Hx Substance Use: No Preferred Language: Divehi Communication Ability: Impaired Wrapping Machine Helper Required: No Beliefs That Will Affect Care: Presybeterian Presybeterian Beliefs: Zoroastrianism marital status: Current Living Situation: Spouse current occupational status: retired Other Information That Helps Us Care for You: No Feels Safe at Home: Yes and No Is there a partner from a previous relationship who is making you feel unsafe now?: No Any Concerns about Your Family Situation: No Would You Like to Speak to Someone About Your Situation: No Safety Concerns: Feels Safe At This Time Assistive Devices: Cane, Oxygen - Continuous, Walker and Wheelchair Review of Systems Constitutional: + fatigue, + weakness, + anorexia and + weight loss Eyes: + corrective lenses, + decreased night v ision and + loss of peripheral vision Ear, Nose, Mouth, Throat: + dry mouth, + dental caries and + loose teeth Respiratory: + cough and + dyspnea Cardiovascular: + chest pain, + chest pain at rest, + dy spnea, + orthopnea, + paroxysmal nocturnal dyspnea, + palpitations, + lightheadedness and + syncope Gastrointestinal: + abdominal pain, + early satiety, + hea rtburn, + nausea, + dysphagia, + cramping and + change in stools Genitourinary: + difficulty urinating Musculoskeletal: + back pain, + neck pain, + joint pain, + stiffness, + limited range of motion, + myalgia, + muscle weakness and + muscle atrophy Integumentary: + dry skin and + alopecia Neurologic: + gait abnormality, + unsteadiness, + fa lls, + generalized weakness, + numbness, + lack of coordination, + seizure-like activity, + syncope, + behavioral changes, + confusion and + memory loss Psychiatric: + depression, + anxiety, + panic attacks and + confusion Endocrine: + fatigue Physical Exam Constitutional: + acute distress, + ill appearing, + cac hectic, + altered mental status, + physical limitations, + frail appearing, + disheveled and + in distress Eyes: PERRL ENMT: Mouth: + dry oral mucous membranes, + poor dentition and + chipped teeth Neck: trachea midline and + facial hair Respiratory: + uses accessory muscles, + cough (bronc hitic at times), + pursed lip breathing and symmetric chest movement Cardiovascular: +mechanical/turbine hum, best over preco rdium +precordial thrill/faint obscured S1S2 unable to assess PMI Gastrointestinal (Abdomen): Driveline right abd wall connected to controller and battery pack which he prefers to wear low abd/suprapubic region, held in place with his leather belt around chest. generalized abd pain with palpation, BS diminished, mild nodularity tenderness with all palpation, pain radiating around both sides and through belly to his back Musculoskeletal: generalized weakness pain across shoulders, entire back, bony needs 1 max assist to reposition semi reclined in bed buying intern diminished Skin: pale, pineda tinted skin cool to touch BLE with venous insuff changes no pedal edema +muscle wasting Neurologic: Alert to self Unsure of name of place but accepted he was in a hospital anxious and tearful unable to answer most questions or follow commands, unable to focus on attention/reasoning assessment [facility]+ - was not sure if 1 lb > 3lb or if stone would float on water, repeatedly said "I don't know"; unable to perform serial 7s, could not draw clock or cube. limited capacity to focus, speech at times is non sensical drifts off and/or crying, asking for , says he does not know what's wrong then "i don't have long,I can't take it." Results & Data Vital Signs (Past 12 Hours) Vital Signs Pulse Pulse Resp BP O2 Del Method O2 Flow Rate 11/23/24 13:52 105 H 11/23/24 10:43 Nasal Cannula 4 11/23/24 07:51 90 11/23/24 04:00 93 H 14 100/0 L Laboratory Results 11/22/24 11/22/24 11/22/24 Range/Units 17:54 15:24 14:26 WBC (4.8-10.8) K/ul RBC (4.70-6.10) M/uL Hgb (14.0-18.0) g/dl Hct (42.0-52.0) % MCV (80.0-100.0) fL MCH (25.0-34.0) pg MCHC (32.0-36.0) g/dL RDW Std Deviation (36.4-46.3) fL RDW Coeff of [place] (11.5-14.5) % Plt Count (130-400) K/uL MPV (9.4-12.4) fL Immature Gran % (Auto) % Neut % (Auto) % Lymph % (Auto) % [place] % (Auto) % Eos % (Auto) % Baso % (Auto) % Neut # (Auto) (1.40-6.50) K/uL Lymph # (Auto) (1.20-3.40) K/uL [place] # (Auto) (0.11-0.59) K/uL Eos # (Auto) (0.00-0.50) K/uL Baso # (Auto) (0.00-0.20) K/uL Immature Gran # (Auto) (0.01-0.20) K/uL PT (9.0-12.0) Seconds INR (0.9-1.1) APTT (21-31) Seconds PTT Ratio Sodium (136-145) mmol/L Potassium (3.5-5.1) mmol/L Chloride (98-107) mmol/L Carbon Dioxide (21-32) mmol/L Anion Gap (3-11) BUN (6-23) mg/dl Creatinine (0.6-1.4) mg/dl Est Cr Clr Drug Dosing ml/min eGFR BUN/Creatinine Ratio (10-20) Glucose (70-99(Fasting)) mg/dl POC Glucose 298 H (70-99) mg/dl Calcium (8.6-10.3) mg/dl Magnesium (1.7-2.4) mg/dl Total Bilirubin (0.2-1.0) mg/dl AST (13-39) U/L ALT (7-52) U/L Alkaline Phosphatase (34-104) U/L Troponin I High Sens (0-20) pg/ml Total Protein (6.0-8.3) gm/dl Albumin (3.4-5.0) gm/dl Globulin (2.5-4.0) gm/dl Albumin/Globulin Ratio (0.9-2) CA 19-9 Antigen Pending Procalcitonin (0-0.5) ng/ml TSH (0.300-4.500) uIu/ml Urine Color Yellow Urine Appearance Clear (Clear) Urine pH 6.0 (4.5-7.5) Ur Specific [place] 1.020 (1.000-1.030) Urine Protein 1+ H (Negative) Urine Glucose (UA) 1+ H (Negative) Urine Ketones 4+ H (Negative) Urine Blood Trace H (Negative) Urine Nitrite Negative (Negative) Urine Bilirubin Negative (Negative) Urine Urobilinogen Negative (Negative) Ur Leukocyte Esterase 2+ H (Negative) Urine WBC (Auto) 21-50 H (0-5) /hpf Urine RBC (Auto) 6-10 H (0-2) /hpf U Hyaline Cast (Auto) 0-2 (0-2) /lpf U Epithel Cells (Auto) 0-2 (0-2) /hpf Urine Bacteria (Auto) None Seen (None Seen) Calcium Oxalate Crystal Present A (None Prsent) Urine Comment 11/22/24 Range/Units 13:40 WBC 7.96 (4.8-10.8) K/ul RBC 4.67 L (4.70-6.10) M/uL Hgb 11.0 L (14.0-18.0) g/dl Hct 35.8 L (42.0-52.0) % MCV 76.7 L (80.0-100.0) fL MCH 23.6 L (25.0-34.0) pg MCHC 30.7 L (32.0-36.0) g/dL RDW Std Deviation 48.5 H (36.4-46.3) fL RDW Coeff of [place] 18.0 H (11.5-14.5) % Plt Count 275 (130-400) K/uL MPV 11.4 (9.4-12.4) fL Immature Gran % (Auto) 0.4 % Neut % (Auto) 80.1 % Lymph % (Auto) 9.9 % [place] % (Auto) 7.8 % Eos % (Auto) 0.9 % Baso % (Auto) 0.9 % Neut # (Auto) 6.38 (1.40-6.50) K/uL Lymph # (Auto) 0.79 L (1.20-3.40) K/uL [place] # (Auto) 0.62 H (0.11-0.59) K/uL Eos # (Auto) 0.07 (0.00-0.50) K/uL Baso # (Auto) 0.07 (0.00-0.20) K/uL Immature Gran # (Auto) 0.03 (0.01-0.20) K/uL PT 32.0 H (9.0-12.0) Seconds INR 3.3 H (0.9-1.1) APTT 39 H (21-31) Seconds PTT Ratio 1.4 Sodium 132 L (136-145) mmol/L Potassium 3.6 (3.5-5.1) mmol/L Chloride 95 L (98-107) mmol/L Carbon Dioxide 25 (21-32) mmol/L Anion Gap 12 H (3-11) BUN 11 (6-23) mg/dl Creatinine 0.85 (0.6-1.4) mg/dl Est Cr Clr Drug Dosing 77.5 ml/min eGFR 90.62 BUN/Creatinine Ratio 12.9 (10-20) Glucose 281 H (70-99(Fasting)) mg/dl POC Glucose (70-99) mg/dl Calcium 9.4 (8.6-10.3) mg/dl Magnesium 1.8 (1.7-2.4) mg/dl Total Bilirubin 0.9 (0.2-1.0) mg/dl AST 55 H (13-39) U/L ALT 29 (7-52) U/L Alkaline Phosphatase 185 H (34-104) U/L Troponin I High Sens 19.2 (0-20) pg/ml Total Protein 7.5 (6.0-8.3) gm/dl Albumin 3.6 (3.4-5.0) gm/dl Globulin 3.9 (2.5-4.0) gm/dl Albumin/Globulin Ratio 0.9 (0.9-2) CA 19-9 Antigen Procalcitonin 0.04 (0-0.5) ng/ml TSH 7.836 H (0.300-4.500) uIu/ml Urine Color Urine Appearance (Clear) Urine pH (4.5-7.5) Ur Specific [place] (1.000-1.030) Urine Protein (Negative) Urine Glucose (UA) (Negative) Urine Ketones (Negative) Urine Blood (Negative) Urine Nitrite (Negative) Urine Bilirubin (Negative) Urine Urobilinogen (Negative) Ur Leukocyte Esterase (Negative) Urine WBC (Auto) (0-5) /hpf Urine RBC (Auto) (0-2) /hpf U Hyaline Cast (Auto) (0-2) /lpf U Epithel Cells (Auto) (0-2) /hpf Urine Bacteria (Auto) (None Seen) Calcium Oxalate Crystal (None Prsent) Urine Comment Diagnostic Findings Chest X-Ray 11/22/24 14:11 XR chest 1V portable CLINICAL HISTORY: Weakness COMPARISON STUDY: 09/02/2024 FINDINGS: Single view AP chest demonstrates resolution of the right upper lobe infiltrate. The present examination demonstrates no focal airspace opacity. There is a cyst small right pleural effusion. There is mild cardiomegaly and pulmonary vascular congestion. Median sternotomy wire sutures are noted. There is a pacemaker/defibrillator in place. The right upper quadrant stent which could be biliary or portacaval in location. IMPRESSION: No acute cardiopulmonary process. Tiny right pleural effusion versus right costophrenic angle fibrosis persists. ACT 112: Negative or not required by law. Electronically signed by: Ny Jones M.D. 11/22/2024 2:[address] 11/22/24 14:15 CT SCAN OF THE BRAIN WITHOUT IV CONTRAST CLINICAL HISTORY: Change in mental status. COMPARISON STUDY: CT of the brain dated 09/02/2024 TECHNIQUE: Unenhanced axial CT scan of the brain is performed from the vertex to the skull base. Images are reviewed in the axial, sagittal, coronal planes. A dose lowering technique was utilized adhering to the principles of ALARA. CT DOSE: 625.8 mGy.cm FINDINGS: Brain parenchyma: A focus of left frontal encephalomalacia as well as a tiny focus of high right frontal encephalomalacia are unchanged and consistent with remote insults. There is age-related involutional change noting [id number] subcortical and periventricular microangiopathic disease. There is no hemorrhage, mass effect, or evidence of acute territorial ischemia by CT criteria. White-white matter differentiation is preserved. No extra-axial fluid collection is seen. Ventricles, sulci, cisterns: Prominent secondary to involutional change. Intracranial vasculature: There is atherosclerotic calcification of the cavernou s carotid and vertebral arteries. Calvarium: Unremarkable. Sinuses and mastoids: The visualized paranasal sinuses are clear. There is a left mastoid effusion. The right mastoid air cells are well pneumatized. Orbits: The bony orbits are grossly intact. Soft tissues: A 6 cm lipoma is partially visualized in the right upper neck. IMPRESSION: There is no hemorrhage, mass effect, or evidence of acute territorial ischemia by CT criteria. ACT 112: Negative or not required by law. Electronically signed by: Juaquin Neff M.D. 11/22/2024 2:57 PM PG Care Time/CCT Total # of Minutes Spent Total Time Spent with Patient: Total time spent is greater than 50% in coordination of care (as documented) at patient's floor/unit and/or counseling patient: I spent 180 minutes overall addressing this extremely complex case: 25 min in medical data review/discussion with referring provider(s) and/or preparation for the visit incl OSH data review 25 min in direct interaction with the patient/exam 90 min in Advance Care Planning/Goals of Care discussions as detailed above in note (must be >16min) 15 min in subsequent review and synthesis of assessment and plan 25 min communicating with other providers regarding the patient's case: primary team, nursing, nursing mgt, hospice. Advanced Care Planning 90641 Advanced Care Planning 30 Min 25102 Advanced Care Planning Additional 30 [place] [address] IN/OBS CONSULT LVL 5,80M (25 - SIGNIFICANT, SEPARATELY IDENTIFIABLE ) Patient Type New Medical Decision Making High Complexity Diagnoses Cancer related pain G89.3 Dyspnea and respiratory abnormalities R06.00; R06.89 Left ventricular assist device present Z95.811 AMS (altered mental status) R41.82 Advanced care planning/counseling discussion Z71.89 Weakness generalized R53.1 Palliative care by specialist Z51.5 Pancreatic adenocarcinoma C25.9 Additional Codes Advanced Care Planning - 77482 Advanced Care Planning Additional 30 Min: 52416 Advanced Care Planning Additional 30 Min ([id number]) Advanced Care Planning - 87179 Advanced Care Planning 30 Min: 54399 Advanced Care Planning 30 Min ([id number]) Comment [id number], [id number] + additional time
[2024-11-23] MEDS: HYDROmorphone INJ 2 MG/ML SYR/VIAL IV PRN (15:34)
--- NOTE | 2024-11-23 15:51 | Hospitalist Progress Note ---
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 Per 's report, the patient is wheelchair dependent, but able to perform light ADLs and house chores at home despite his condition and chronic pain issues; however, he has been declining mentally for the past 2 weeks. Perio dically not recognizing family members, fixed gaze at times, not communicating well. Decreased appetite with no food intake x 5 days with minimal oral intake of fluids. Chronic pain and on hydromorphone 4 mg PO every 4 hours. Per , patient usually is more alert with pain control, but has not been in the past 2 weeks. Patient and have refused palliative and hospice services in the past, but given patient's decline over the past 2 weeks, would like palliative consult while inpatient with comfort measures only. has POA. Acute metabolic encephalopathy likely due to comorbidities H/O CHF s/p LVAD placement Supratherapeutic INR LVAD Chronic hyponatremia Abnormal thyroid function test Abnormal urinalysis Currently on comfort measures only Plan to be transitioned to inpatient hospice Appreciate palliative care input Very poor prognosis CODE STATUS DNI DNR (2) Comfort measures only status: (3) Chronic systolic CHF (congestive heart failure): (4) Left ventricular assist device present: (5) Subtherapeutic international normalized ratio (INR): Admission and Anticipated Discharge Date Admission Date: November 22, 2024 Subjective Patient is seen and examined at bedside Offers no specific complaints Discussed with palliative care today Currently on comfort measures only Review of Systems Review of Systems: All systems reviewed & are unremarkable except as noted in Subjective Physical Exam Physical Exam: Physical Exam: Vitals signs as noted above General Appearance:Moderately built, no apparent distress, chronic ill-appearing Head: normocephalic, Atraumatic Eyes: normal inspection, EOMI Neck: supple, Trachea midline Respiratory/Chest: Normal breath sounds, CTA, No accessory muscle use Cardiovascular: LVAD noise Abdomen/GI:Soft, Non tender, Bowel sounds present Extremities/Musculoskeletal:normal inspection, no edema, chronic venous stasis changes Neurologic/Psych:AAOX2, grossly no focal neurological deficits Skin: normal color, warm Results & Data Results & Data Vital Signs (Past 12 Hours) Vital Signs Pulse Pulse Resp BP O2 Del Method O2 Flow Rate 11/23/24 13:52 105 H 11/23/24 10:43 Nasal Cannula 4 11/23/24 07:51 90 11/23/24 04:00 93 H 14 100/0 L Laboratory Results Urine 11/22/24 Range/Units 15:24 Urine Color Yellow Urine Appearance Clear (Clear) Urine pH 6.0 (4.5-7.5) Ur Specific [place] 1.020 (1.000-1.030) Urine Protein 1+ H (Negative) Urine Glucose (UA) 1+ H (Negative)
[2024-11-24] MEDS: GLYCOPYRROLATE 0.2 MG/ML VIAL IV PRN (05:31)
[2024-11-24] MEDS: ALBUTEROL HFA 8 GM INHALER INH PRN (06:10)
[2024-11-24 06:13] VITALS: PULSE 90; RESP 18; O2SAT 99
--- NOTE | 2024-11-24 14:22 | Discharge Summary ---
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 Per 's report, the patient is wheelchair dependent, but able to perform light ADLs and house chores at home despite his condition and chronic pain issues; however, he has been declining mentally for the past 2 weeks. Periodically not recognizing family members, fixed gaze at times, not communicating well. Decreased appetite and not eating x 5 days with minimal oral intake of fluids. Only had potato chips this week per patient's request; reports "potato chips" only word patient could say this week. Patient has history of pancreatic adenocarcinoma status post ERCP and palliative stent placement. Not currently receiving chemo/radiation treatments. Chronic pain concerns at home and on hydromorphone 4 mg PO every 4 hours. Per , patient usually is more alert with pain control, but has not been in the past 2 weeks. Patient and have refused palliative and hospice services in the past, but given patient's decline over the past 2 weeks, would like palliative consult while inpatient with comfort measures. has POA and feels her is not in agreement to palliative or hospice services because he "still wants to live". Multiple conversations regarding palliative and hospice services with PCP, [facility], and when at [facility] following last admission. Recent hospitalizations: * [facility] on 08/2024 with confusion and found to have UTI and pneumonia. * On 07/15/[address] transferred [address] [facility] from [facility] ER for altered mental status and hallucinations and insomnia. In the emergency department, patient was hemodynamically stable, afebrile, with mostly stable labs. No signs of sepsis. Chest Xray showing resolution of the right upper lobe infiltrate. The present examination demonstrates no focal airspace opacity. There is a cyst small right pleural effusion. There is mild cardiomegaly and pulmonary vascular congestion. Median sternotomy wire sutures are noted. There is a pacemaker/defibrillator in place. The right upper quadrant stent which could be biliary or portacaval in location. Head CT with no evidence of hemorrhage, mass effect, or evidence of acute territorial ischemia. History obtained primarily from the patient and via hospitalization record. The patient's family was not at the bedside. I personally contacted the on the phone to discuss history of present illness External chart review obtained from [facility]. Admission Exam Per Admitting Provider Physical Exam: Vitals signs as noted above General Appearance:Moderately built, no apparent distress, chronic ill-appearing Head: normocephalic, Atraumatic Eyes: normal inspection, EOMI Neck: supple, Trachea midline Respiratory/Chest: Normal breath sounds, CTA, No accessory muscle use Cardiovascular: LVAD noise Abdomen/GI:Soft, Non tender, Bowel sounds present Extremities/Musculoskeletal:normal inspection, no edema, chronic venous stasis changes Neurologic/Psych:AAOX2, grossly no focal neurological deficits Skin: normal color, warm Principal Diagnosis Acute metabolic encephalopathy likely due to comorbidities H/O CHF s/p LVAD placement Supratherapeutic INR LVAD Chronic hyponatremia Discharge Data Allergies Allergy/AdvReac Type Severity Reaction Status Date / Time enoxaparin [From Lovenox] AdvReac Severe Heparin Verified 11/22/24 15:14 induced thrombocytopenia heparin AdvReac Severe Heparin Verified 11/22/24 15:14 Induced Thrombocytopenia baclofen AdvReac Intermediate HALLUCINATI Verified 11/22/24 15:14 ONS Consultations 11/22/24 15:21 ED Decision to Admit Stat 11/22/24 16:34 Consult Palliative Care Routine Procedures Performed Laboratory Results WBC 7.96 K/ul (4.8-10.8) 11/22/24 13:40 RBC 4.67 M/uL (4.70-6.10) L 11/22/24 13:40 Hgb 11.0 g/dl (14.0-18.0) L 11/22/24 13:40 Hct 35.8 % (42.0-52.0) L 11/22/24 13:40 MCV 76.7 fL (80.0-100.0) L 11/22/24 13:40 MCH 23.6 pg (25.0-34.0) L 11/22/24 13:40 MCHC 30.7 g/dL (32.0-36.0) L 11/22/24 13:40 RDW Std Deviation 48.5 fL (36.4-46.3) H 11/22/24 13:40 RDW Coeff of [place] 18.0 % (11.5-14.5) H 11/22/24 13:40 Plt Count 275 K/uL (130-400) 11/22/24 13:40 MPV 11.4 fL (9.4-12.4) 11/22/24 13:40 Immature Gran % (Auto) 0.4 % 11/22/24 13:40 Neut % (Auto) 80.1 % 11/22/24 13:40 Lymph % (Auto) 9.9 % 11/22/24 13:40 [place] % (Auto) 7.8 % 11/22/24 13:40 Eos % (Auto) 0.9 % 11/22/24 13:40 Baso % (Auto) 0.9 % 11/22/24 13:40 Neut # (Auto) 6.38 K/uL (1.40-6.50) 11/22/24 13:40 Lymph # (Auto) 0.79 K/uL (1.20-3.40) L 11/22/24 13:40 [place] # (Auto) 0.62 K/uL (0.11-0.59) H 11/22/24 13:40 Eos # (Auto) 0.07 K/uL (0.00-0.50) 11/22/24 13:40 Baso # (Auto) 0.07 K/uL (0.00-0.20) 11/22/24 13:40 Immature Gran # (Auto) 0.03 K/uL (0.01-0.20) 11/22/24 13:40 PT 32.0 Seconds (9.0-12.0) H 11/22/24 13:40 INR 3.3 (0.9-1.1) H 11/22/24 13:40 APTT 39 Seconds (21-31) H 11/22/24 13:40 PTT Ratio 1.4 11/22/24 13:40 Sodium 132 mmol/L (136-145) L 11/22/24 13:40 Potassium 3.6 mmol/L (3.5-5.1) 11/22/24 13:40 Chloride 95 mmol/L (98-107) L 11/22/24 13:40 Carbon Dioxide 25 mmol/L (21-32) 11/22/24 13:40 Anion Gap 12 (3-11) H 11/22/24 13:40 BUN 11 mg/dl (6-23) 11/22/24 13:40 Creatinine 0.85 mg/dl (0.6-1.4) 11/22/24 13:40 Est Cr Clr Drug Dosing 77.5 ml/min 11/22/24 13:40 eGFR 90.62 11/22/24 13:40 BUN/Creatinine Ratio 12.9 (10-20) 11/22/24 13:40 Glucose 281 mg/dl (70-99(Fasting)) H 11/22/24 13:40 POC Glucose 298 mg/dl (70-99) H 11/22/24 17:54 Calcium 9.4 mg/dl (8.6-10.3) 11/22/24 13:40 Magnesium 1.8 mg/dl (1.7-2.4) 11/22/24 13:40 Total Bilirubin 0.9 mg/dl (0.2-1.0) 11/22/24 13:40 AST 55 U/L (13-39) H 11/22/24 13:40 ALT 29 U/L (7-52) 11/22/24 13:40 Alkaline Phosphatase 185 U/L (34-104) H 11/22/24 13:40 Troponin I High Sens 19.2 pg/ml (0-20) 11/22/24 13:40 Total Protein 7.5 gm/dl (6.0-8.3) 11/22/24 13:40 Albumin 3.6 gm/dl (3.4-5.0) 11/22/24 13:40 Globulin 3.9 gm/dl (2.5-4.0) 11/22/24 13:40 Albumin/Globulin Ratio 0.9 (0.9-2) 11/22/24 13:40 Procalcitonin 0.04 ng/ml (0-0.5) 11/22/24 13:40 TSH 7.836 uIu/ml (0.300-4.500) H 11/22/24 13:40 Urine Color Yellow 11/22/24 15:24 Urine Appearance Clear (Clear) 11/22/24 15:24 Urine pH 6.0 (4.5-7.5) 11/22/24 15:24 Ur Specific [place] 1.020 (1.000-1.030) 11/22/24 15:24 Urine Protein 1+ (Negative) H 11/22/24 15:24 Urine Glucose (UA) 1+ (Negative) H 11/22/24 15:24 Urine Ketones 4+ (Negative) H 11/22/24 15:24 Urine Blood Trace (Negative) H 11/22/24 15:24 Urine Nitrite Negative (Negative) 11/22/24 15:24 Urine Bilirubin Negative (Negative) 11/22/24 15:24 Urine Urobilinogen Negative (Negative) 11/22/24 15:24 Ur Leukocyte Esterase 2+ (Negative) H 11/22/24 15:24 Urine WBC (Auto) 21-50 /hpf (0-5) H 11/22/24 15:24 Urine RBC (Auto) 6-10 /hpf (0-2) H 11/22/24 15:24 U Hyaline Cast (Auto) 0-2 /lpf (0-2) 11/22/24 15:24 U Epithel Cells (Auto) 0-2 /hpf (0-2) 11/22/24 15:24 Urine Bacteria (Auto) None Seen (None Seen) 11/22/24 15:24 Calcium Oxalate Crystal Present (None Prsent) A 11/22/24 15:24 Urine Comment 11/22/24 15:24 Impressions Chest X-Ray 11/22/24 14:11 XR chest 1V portable CLINICAL HISTORY: Weakness COMPARISON STUDY: 09/02/2024 FINDINGS: Single view AP chest demonstrates resolution of the right upper lobe infiltrate. The present examination demonstrates no focal airspace opacity. There is a cyst small right pleural effusion. There is mild cardiomegaly and pulmonary vascular congestion. Median sternotomy wire sutures are noted. There is a pacemaker/defibrillator in place. The right upper quadrant stent which could be biliary or portacaval in location. IMPRESSION: No acute cardiopulmonary process. Tiny right pleural effusion versus right costophrenic angle fibrosis persists. ACT 112: Negative or not required by law. Electronically signed by: Ny Jones M.D. 11/22/2024 2:[address] 11/22/24 14:15 CT SCAN OF THE BRAIN WITHOUT IV CONTRAST CLINICAL HISTORY: Change in mental status. COMPARISON STUDY: CT of the brain dated 09/02/2024 TECHNIQUE: Unenhanced axial CT scan of the brain is performed from the vertex to the skull base. Images are reviewed in the axial, sagittal, coronal planes. A dose lowering technique was utilized adhering to the principles of ALARA. CT DOSE: 625.8 mGy.cm FINDINGS: Brain parenchyma: A focus of left frontal encephalomalacia as well as a tiny focus of high right frontal encephalomalacia are unchanged and consistent with remote insults. There is age-related involutional change noting [id number] subcortical and periventricular microangiopathic disease. There is no hemorrhage, mass effect, or evidence of acute territorial ischemia by CT criteria. White-white matter differentiation is preserved. No extra-axial fluid collection is seen. Ventricles, sulci, cisterns: Prominent secondary to involutional change. Intracranial vasculature: There is atherosclerotic calcification of the cavernous carotid and vertebral arteries. Calvarium: Unremarkable. Sinuses and mastoids: The visualized paranasal sinuses are clear. There is a left mastoid effusion. The right mastoid air cells are well pneumatized. Orbits: The bony orbits are grossly intact. Soft tissues: A 6 cm lipoma is partially visualized in the right upper neck. IMPRESSION: There is no hemorrhage, mass effect, or evidence of acute territo rial ischemia by CT criteria. ACT 112: Negative or not required by law. Electronically signed by: Juaquin Neff M.D. 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 Per 's report, the patient is wheelchair dependent, but able to perform li t ADLs and house chores at home despite his condition and chronic pain issues; however, he has been declining mentally for the past 2 weeks. Periodically not recognizing family members, fixed gaze at times, not communicating well. Decreased appetite with no food intake x 5 days with minimal oral intake of fluids. Chronic pain and on hydromorphone 4 mg PO every 4 hours. Per , patient usually is more alert with pain control, but has not been in the past 2 weeks. Patient and have refused palliative and hospice services in the past, but given patient's decline over the past 2 weeks, would like palliative consult while inpatient with comfort measures only. has POA. Acute metabolic encephalopathy likely due to comorbidities H/O CHF s/p LVAD placement Supratherapeutic INR LVAD Chronic hyponatremia Abnormal thyroid function test Abnormal urinalysis Currently on comfort measures only Plan to be transitioned to inpatient hospice Appreciate palliative care input Very poor prognosis Pleasant during my encounter today, no distress on exam Offers no specific complaints Denies any pain, shortness of breath Patient is planned for transition to [facility] hospice today CODE STATUS DNI DNR (2) Comfort measures only status: (3) Chronic systolic CHF (congestive heart failure): (4) Left ventricular assist device present: (5) Subtherapeutic international normalized ratio (INR): Total Time Total Time Spent Total Time Spent (In Minutes): 42 minutes Discharge Plan Discharge Items Patient Disposition: Hospice - Medical Facility Reason For Visit: ALTERED MENTAL STATUS Discharge Diagnosis: Acute metabolic encephalopathy likely due to comorbidities H/O CHF s/p LVAD placement Supratherapeutic INR LVAD Chronic hyponatremia Condition on Discharge: Fair Activity: Per Instructions section Non-emergency contact: Primary Care Provider Call non-emergency contact if: you have any medication questions and your pain is concerning for you Follow-up/Referrals: Graham Rojas MD [Primary Care Provider] - Diet: Regular Addtl Attending Provider Instructions: -- Follow-up with your hospice provider for further management Addtl Channel Development Manager Provider Instructions: Date of Service: November 24, 2024 Current Inpatient Medications Albuterol (Albuterol Hfa 8 Gm Inhaler) 2 puffs INH Q3H PRN PRN Reason: Shortness Of Breath Or Wheezing Stop: 12/22/24 16:45 Last Admin: 11/24/24 06:10 Dose: 2 puffs Glycopyrrolate (Glycopyrrolate 0.2 Mg/Ml Vial) 0.4 mg IV Q4H PRN PRN Reason: Secretions, gurgling Stop: 12/22/24 19:59 Last Admin: 11/24/24 05:31 Dose: 0.4 mg Hydromorphone HCl (Hydromorphone Inj 1 Mg/Ml Syringe) 1 mg IV Q15M PRN PRN Reason: Pain,dyspnea Stop: 12/06/24 19:59 Last Admin: 11/23/24 13:07 Dose: 1 mg Hydromorphone HCl (Hydromorphone Inj 2 Mg/Ml Syr/Vial) 2 mg IV Q1H PRN PRN Reason: Sev air hunger, sev pain Stop: 12/06/24 19:57 Last Admin: 11/24/24 05:14 Dose: 2 mg Hydromorphone HCl (Hydromorphone Inj 1 Mg/Ml Syringe) 1 mg IV Q6H CAMILA Stop: 12/07/24 12:59 Last Admin: 11/24/24 13:21 Dose: 1 mg Sodium Chloride (Nss) 1,000 mls @ 15 mls/hr IV .Q24H CAMILA Stop: 11/25/24 18:09 Last Admin: 11/23/24 15:36 Dose: 15 mls/hr Lorazepam (Lorazepam 2 Mg/1 Ml Vial) 1 mg IV Q4H PRN PRN Reason: Anxiety/Agitation,myoclonus Stop: 12/22/24 18:09 Last Admin: 11/24/24 05:39 Dose: 1 mg Ondansetron HCl (Ondansetron Inj 2 Mg/Ml 2 Ml Vial) 8 mg IV Q4H PRN PRN Reason: Nausea &/or Vomiting Stop: 12/22/24 18:09 Last Admin: 11/23/24 13:08 Dose: 8 mg Pending Studies at Discharge: No Stand-Alone Forms: My [facility] Skilled Items Patient informed of condition?: Yes DNR: Yes Discharge Level of Care: Other Communicable Disease: No Discharge Prognosis: Deteriorating Lines: Peripheral IV Urinary Catheter: No Medications and DC Order Prescriptions: Continued spironolactone 25 mg Tablet 25 mg PO QDL amiodarone 200 mg tablet 200 mg PO QAM folic acid 1 mg Tablet 1 mg PO QAM pravastatin 40 mg Tablet 40 mg PO HS venlafaxine [Effexor XR] 150 mg Capsule,Extended Release 24hr 150 mg PO HS gabapentin 400 mg capsule 400 mg PO TID fluticasone propionate 50 mcg/actuation [place],Suspension 2 spray INTRANASAL DAILY PRN (Reason: Congestion) diclofenac sodium 1 % Gel 4 g TOPICAL BID PRN (Reason: Pain) guaifenesin [Mucinex] 600 mg Tablet Extended Release 12hr 1,200 mg PO Q12H PRN (Reason: Cough) doxycycline monohydrate 100 mg capsule 100 mg PO BID cholecalciferol (vitamin D3) 125 mcg (5,000 unit) Tablet 125 mcg PO .Q2WK warfarin 2 mg tablet 2 mg PO DIRECTED Rx Instructions: JUST CHANGED 11/21/24-- & SAT TAKES 4 MG, THEN SUN, MON, MON, , & MON TAKES 2 MG. insulin lispro [Humalog KwikPen Insulin] 100 unit/mL insulin pen 6 sliding scale dose SUBCUT TIDWMEAL MDD 50 units daily Rx Instructions: 6 UNITS WITH MEALS, PLUS SLIDING SCALE DEPENDING ON BSG: BSG 100-150=6 UNITS, 151-200=8 UNITS, 201-250=10 UNITS, 251-300=12 UNITS, 301-350=14 UNITS, 351- 400=16 UNITS, 401-450=18 UNITS. insulin glargine-yfgn 100 unit/mL (3 mL) insulin pen 15 unit subcut HS carvedilol 25 mg tablet 25 mg PO BID amlodipine 5 mg tablet 5 mg PO QAM benzonatate 100 mg capsule 100 mg PO TID PRN (Reason: Cough) allopurinol 300 mg tablet 300 mg PO QAM potassium chloride 10 mEq tablet extended release 40 meq PO BID promethazine 25 mg Tablet 25 mg PO Q6H PRN (Reason: NAUSEA/VOMITING) levothyroxine 200 mcg tablet 200 mcg PO DAILYBB nystatin 100,000 unit/gram Powder 1 applic TOPICAL DAILY Rx Instructions: APPLY TO GROIN AREA albuterol sulfate 90 mcg/actuation Hfa Aerosol Inhaler 2 puff INHALATION Q3H PRN (Reason: Shortness Of Breath Or Wheezing) colchicine 0.6 mg Tablet 0.6 mg PO DAILY PRN (Reason: GOUT FLARE UPS) Rx Instructions: TAKE FOR 3 DAYS WITH A GOUT FLARE UP hydromorphone 4 mg tablet 4 mg PO Q4H PRN (Reason: Severe Pain (Scale Score 7-10)) Rx Instructions: PER PT'S , "TAKE ON THE DOT EVERY 4 HRS". valsartan 40 mg Tablet 40 mg PO HS naloxone 4 mg/actuation [place],Non-Aerosol 4 mg INTRANASAL DIRECTED PRN (Reason: Opioid Overdose) glucagon 0.5 mg/0.1 mL Auto-Injector 1 mg SUBCUT DIRECTED PRN (Reason: Hypoglycemia) Discharge Orders: Discharge Order (Routine); Ordered 11/24/24 Ordered By: Devin Jim Admission Data Admit Date/Time: 11/22/24 16:34 Attending Provider: Devin Jim Admit Provider: Jyoti Ortiz Primary Care Provider: Graham Rojas Other Providers: Karol Thomason; Larissa Barnes; Jyoti Ortiz; [facility], [facility]
== END 2024-11-24 17:05 | disposition hospice, inpatient (51) ==
LOC: 2S 13:02 → ED 13:02 → SUATTDRO 16:34 → 2S 17:17 → 2E 11-23 14:53

== ENCOUNTER 2024-11-24 16:37 | Inpatient (IN) ==
[2024-11-24] MEDS ORDERED: ACETAMINOPHEN 325 MG TAB PO PRN (17:39)
[2024-11-24] MEDS ORDERED: ONDANSETRON INJ 2 MG/ML 2 ML VIAL IV PRN ×2 (17:39→18:10)
[2024-11-24] MEDS ORDERED: POLYETHYLENE (MIRALAX) 17 GM PACK PO PRN (17:39)
[2024-11-24 17:53] VITALS: RESP 18; O2SAT 97
[2024-11-24] MEDS ORDERED: MoRPHine SULFATE 10 MG/0.5 ML UDP PO PRN (18:10)
[2024-11-24] MEDS ORDERED: HYDROmorphone INJ 0.5 MG/0.5 ML SYR IV PRN (18:10)
[2024-11-24] MEDS ORDERED: GLYCOPYRROLATE 0.2 MG/ML VIAL IV PRN (18:10)
[2024-11-24] MEDS ORDERED: ALBUTEROL HFA 8 GM INHALER INH PRN (18:37)
[2024-11-24] MEDS ORDERED: DICLOFENAC SOD 1% GEL 100 GM TUBE EXT PRN (18:37)
[2024-11-24] MEDS ORDERED: PROMETHAZINE HCL 25 MG TAB PO PRN (18:37)
[2024-11-24] MEDS ORDERED: BENZONATATE 100 MG CAPSULE PO PRN (18:37)
--- NOTE | 2024-11-24 18:37 | History & Physical Report ---
Date of Service November 24, 2024 Assessment & Plan (1) Cancer related pain: (2) Comfort measures only status: (3) Pancreatic adenocarcinoma: Plan Acute metabolic encephalopathy likely due to comorbidities H/O CHF s/p LVAD placement Supratherapeutic INR LVAD Chronic hyponatremia Abnormal thyroid function test Abnormal urinalysis Is admitted to [facility] for [facility] hospice Hospice consulted Clinically deteriorating We will give comfort medications: Morphine, Ativan, Dilaudid, glycopyrrolate as needed CODE STATUS DNI DNR Admission and Anticipated Discharge Date Admission Date: November 24, 2024 History of Present Illness Chief Complaint: [facility] hospice Primary Care Provider: Graham Rojas MD Patient is a 73-year-old male with past medical significant for type 2 diabetes, CKD stage III, adenocarcinoma pancreas, hyperlipidemia, gout, hypothyroidism, dilated cardiomyopathy, chronic systolic CHF status post LVAD, GERD, BPH, cognitive deficit poststroke, 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 Patient denies any significant pain, dyspnea currently. He and his family understands that his condition is deteriorating and agrees with current care. Allergies Allergy/AdvReac Type Severity Reaction Status Date / Time enoxaparin [From Lovenox] AdvReac Severe Heparin Verified 11/22/24 15:14 induced thrombocytopenia heparin AdvReac Severe Heparin Verified 11/22/24 15:14 Induced Thrombocytopenia baclofen AdvReac Intermediate HALLUCINATI Verified 11/22/24 15:14 ONS Home Medications Medication Instructions Recorded Confirmed Type amiodarone 200 mg tablet 200 mg PO QAM 01/27/18 11/24/24 History folic acid 1 mg tablet 1 mg PO QAM 01/27/18 11/24/24 History pravastatin 40 mg tablet 40 mg PO HS 08/18/18 11/24/24 History venlafaxine 150 mg 150 mg PO HS 08/18/18 11/24/24 History capsule,extended release 24 hr (Effexor XR) spironolactone 25 mg tablet 25 mg PO QDL 12/17/19 11/24/24 History fluticasone propionate 50 2 spray intranasal DAILY PRN 10/06/21 11/24/24 History mcg/actuation nasal Congestion spray,suspension gabapentin 400 mg capsule 400 mg PO TID 10/06/21 11/24/24 History cholecalciferol (vitamin D3) 125 125 mcg PO .Q2WK 03/14/22 11/24/24 History mcg (5,000 unit) tablet doxycycline monohydrate 100 mg 100 mg PO BID 03/14/22 11/24/24 History capsule diclofenac sodium 1 % topical gel 4 g topical BID PRN Pain 03/08/23 11/24/24 History guaifenesin 600 mg tablet, 1,200 mg PO Q12H PRN Cough 03/08/23 11/24/24 History extended release 12 hr (Mucinex) allopurinol 300 mg tablet 300 mg PO QAM 06/21/24 11/24/24 History amlodipine 5 mg tablet 5 mg PO QAM 06/21/24 11/24/24 History benzonatate 100 mg capsule 100 mg PO TID PRN Cough 06/21/24 11/24/24 History carvedilol 25 mg tablet 25 mg PO BID 06/21/24 11/24/24 History insulin glargine-yfgn 100 unit/mL 15 unit subcut HS 06/21/24 11/24/24 History (3 mL) subcutaneous pen insulin lispro 100 unit/mL 6 sliding scale dose subcut 06/21/24 11/24/24 History subcutaneous pen (Humalog KwikPen TIDWMEAL (U-100) Insulin) warfarin 2 mg tablet 2 mg PO DIRECTED 06/21/24 11/24/24 History albuterol sulfate 90 mcg/actuation 2 puff inhalation Q3H PRN 11/22/24 11/24/24 History aerosol inhaler Shortness Of Breath Or Wheezing colchicine 0.6 mg tablet 0.6 mg PO DAILY PRN GOUT FLARE UPS 11/22/24 11/24/24 History glucagon 0.5 mg/0.1 mL 1 mg subcut DIRECTED PRN 11/22/24 11/24/24 History subcutaneous auto-injector Hypoglycemia hydromorphone 4 mg tablet 4 mg PO Q4H PRN Severe Pain (Scale 11/22/24 11/24/24 History Score 7-10) levothyroxine 200 mcg tablet 200 mcg PO DAILYBB 11/22/24 11/24/24 History naloxone 4 mg/actuation nasal spray 4 mg intranasal DIRECTED PRN 11/22/24 11/24/24 History Opioid Overdose nystatin 100,000 unit/gram topical 1 applic topical DAILY 11/22/24 11/24/24 History powder potassium chloride 10 mEq 40 meq PO BID 11/22/24 11/24/24 History tablet,extended release promethazine 25 mg tablet 25 mg PO Q6H PRN NAUSEA/VOMITING 11/22/24 11/24/24 History valsartan 40 mg tablet 40 mg PO HS 11/22/24 11/24/24 History Past Med/Surg History Problem List Cancer related pain Palliative care by specialist Advanced care planning/counseling discussion Weakness generalized Dyspnea and respiratory abnormalities Comfort measures only status (Acute) AMS (altered mental status) (Acute) Left ventricular assist device present (Acute) Sepsis (Acute) Abnormal LFTs AMS (altered mental status) Pancreatic adenocarcinoma (Acute) UTI (urinary tract infection) Pneumonia (Acute) LVAD (left ventricular assist device) present COVID-19 (Acute) Acute respiratory distress (Acute) Diffuse wheezing (Acute) Fever (Acute) Generalized body aches (Acute) Weakness (Acute) Pneumonia due to 2019 novel coronavirus (Acute) Subtherapeutic international normalized ratio (INR) (Acute) Syncope (Acute) HTN (hypertension) (Chronic) GI bleed Presence of combination internal cardiac defibrillator (ICD) and pacemaker (Chronic) inserted 05/2011 - [facility] H/O tooth extraction (Chronic) complete tooth extraction due to recurrent LVAD infections DVT (deep venous thrombosis) (Chronic) Depression (Chronic) 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) recurrent pump pocket infections with MRDO, on life-long IV antibiotics 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) CVA (cerebral vascular accident) (Chronic) 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) BPH (benign prostatic hyperplasia) (Chronic) Jejunal ulcer (Chronic) GERD (gastroesophageal reflux disease) (Chronic) Dilated cardiomyopathy (Chronic) Chronic systolic CHF (congestive heart failure) (Chronic) Hypothyroidism (Chronic) Gout (Chronic) Hyperlipidemia (Chronic) CKD (chronic kidney disease), stage III (Chronic) DM type 2 (diabetes mellitus, type 2) (Chronic) Medical History History of pulmonary embolism History of DVT (deep vein thrombosis) LVAD (left ventricular assist device) present Seasonal allergies Gout Hx: UTI (urinary tract infection) Coag negative Staphylococcus bacteremia Currently is being treated daily with IV antibiotics Hx of TIA (transient ischemic attack) and stroke 01/16/2017 Seen in [facility] Ed and transfered to [facility] Hx of Aguilera's palsy Prostatitis denies Anemia Hypothyroidism Blood clotting disorder Diabetes mellitus, type 2 uses insulin Thrombophlebitis currently has one in right subclavian vein Heart disease CHF (congestive heart failure) Hypercholesteremia Blood dyscrasia vitamin d deficiency Male genitourinary symptoms enlarged prostate Hx of acute myocardial infarction denies - states he has never had LVAD (left ventricular assist device) present hx cardiomyopathy and heart failure UTI (urinary tract infection) Surgical History History of left ventricular assist device (LVAD) LVAD replaced June 2018 History of left ventricular assist device Hx of colonoscopy History of tooth extraction Family History Father Hypertension Stroke Social History Smoking Status: Never smoker Tobacco Type: Cigarettes Second Hand Exposure: Yes; Do You Dip or Chew Tobacco: No; Hx Alcohol Use: No Hx Substance Use: No Preferred Language: [place] Communication Ability: Effective Sales Person Required: No Beliefs That Will Affect Care: None marital status: Current Living Situation: Spouse current occupational status: retired Other Information That Helps Us Care for You: No Feels Safe at Home: Yes Safety Concerns: Feels Safe At This Time Assistive Devices: Glasses and Oxygen - Continuous Review of Systems Review of Systems: Other Physical Exam Physical Exam: Physical Exam: Vitals signs as noted above General Appearance:Moderately built, no apparent distress, chronic ill-appearing Head: normocephalic, Atraumatic Eyes: normal inspection, EOMI Neck: supple, Trachea midline Respiratory/Chest: Normal breath sounds, CTA, No accessory muscle use Cardiovascular: LVAD noise Abdomen/GI:Soft, Non tender, Bowel sounds present Extremities/Musculoskeletal:normal inspection, no edema, chronic venous stasis changes Neurologic/Psych:AAOX2, grossly no focal neurological deficits Skin: normal color, warm Results & Data Results & Data Vital Signs (Past 12 Hours) Vital Signs Resp Pulse Ox O2 Del Method O2 Flow Rate 11/24/24 17:23 Nasal Cannula 4 11/24/24 17:23 18 97 Nasal Cannula 4 Code Status & VTE Plan VTE Prophylaxis Plan VTE Prophylaxis will be ordered: No
--- NOTE | 2024-11-24 20:28 | Palliative Care Consultation ---
Date of Consultation November 24, 2024 Assessment & Plan (1) Cancer related pain: Scheduled dilaudid is doing a good job relieving distress (2) Dyspnea and respiratory abnormalities: intermittent/baseline dyspnea he and family are aware of prn meds available to assist (3) Palliative care by specialist: (4) Weakness generalized: (5) Comfort measures only status: (6) Left ventricular assist device present: (7) AMS (altered mental status): (8) Advanced care planning/counseling discussion: Plan Ahsan has now been admitted to inpatient hospice with [facility]. The plan of care remains unchanged - he is comfort care, inpatient hospice, and when he lapses into an unconscious states as he moves through his end of life trajectory, I will perform the LVAD discontinuation at that junction. Please priority page via [place] or call my cell for any issues: [phone]. Thank you for allowing us to participate in the ongoing care of this patient. Please page with any additional concerns. Volodyymr Barnes [facility] Director, Palliative Medicine History of Present Illness Reason for Consultation: inpatient hospice Attending Physician: Devin Jim MD History of Present Illness Ahsan is now inpatient hospice status Please see Pall Med consult note from 11/24 for full details, there are no changes today. Today he is more comfortable with scheduled pain meds and not requiring prn doses. He has been shaved and barbered - looks great! Smiling a little today Not eating great but when he wants remains on bedrest, fatigued and sleeps more often than not, lots of visitors today Allergies Allergy/AdvReac Type Severity Reaction Status Date / Time enoxaparin [From Lovenox] AdvReac Severe Heparin Verified 11/22/24 15:14 induced thrombocytopenia heparin AdvReac Severe Heparin Verified 11/22/24 15:14 Induced Thrombocytopenia baclofen AdvReac Intermediate HALLUCINATI Verified 11/22/24 15:14 ONS Home Medications Medication Instructions Recorded Confirmed Type amiodarone 200 mg tablet 200 mg PO QAM 01/27/18 11/24/24 History folic acid 1 mg tablet 1 mg PO QAM 01/27/18 11/24/24 History pravastatin 40 mg tablet 40 mg PO HS 08/18/18 11/24/24 History venlafaxine 150 mg 150 mg PO HS 08/18/18 11/24/24 History capsule,extended release 24 hr (Effexor XR) spironolactone 25 mg tablet 25 mg PO QDL 12/17/19 11/24/24 History fluticasone propionate 50 2 spray intranasal DAILY PRN 10/06/21 11/24/24 History mcg/actuation nasal Congestion spray,suspension gabapentin 400 mg capsule 400 mg PO TID 10/06/21 11/24/24 History cholecalciferol (vitamin D3) 125 125 mcg PO .Q2WK 03/14/22 11/24/24 History mcg (5,000 unit) tablet doxycycline monohydrate 100 mg 100 mg PO BID 03/14/22 11/24/24 History capsule diclofenac sodium 1 % topical gel 4 g topical BID PRN Pain 03/08/23 11/24/24 History guaifenesin 600 mg tablet, 1,200 mg PO Q12H PRN Cough 03/08/23 11/24/24 History extended release 12 hr (Mucinex) allopurinol 300 mg tablet 300 mg PO QAM 06/21/24 11/24/24 History amlodipine 5 mg tablet 5 mg PO QAM 06/21/24 11/24/24 History benzonatate 100 mg capsule 100 mg PO TID PRN Cough 06/21/24 11/24/24 History carvedilol 25 mg tablet 25 mg PO BID 06/21/24 11/24/24 History insulin glargine-yfgn 100 unit/mL 15 unit subcut HS 06/21/24 11/24/24 History (3 mL) subcutaneous pen insulin lispro 100 unit/mL 6 sliding scale dose subcut 06/21/24 11/24/24 History subcutaneous pen (Humalog KwikPen TIDWMEAL (U-100) Insulin) warfarin 2 mg tablet 2 mg PO DIRECTED 06/21/24 11/24/24 History albuterol sulfate 90 mcg/actuation 2 puff inhalation Q3H PRN 11/22/24 11/24/24 History aerosol inhaler Shortness Of Breath Or Wheezing colchicine 0.6 mg tablet 0.6 mg PO DAILY PRN GOUT FLARE UPS 11/22/24 11/24/24 History glucagon 0.5 mg/0.1 mL 1 mg subcut DIRECTED PRN 11/22/24 11/24/24 History subcutaneous auto-injector Hypoglycemia hydromorphone 4 mg tablet 4 mg PO Q4H PRN Severe Pain (Scale 11/22/24 11/24/24 History Score 7-10) levothyroxine 200 mcg tablet 200 mcg PO DAILYBB 11/22/24 11/24/24 History naloxone 4 mg/actuation nasal spray 4 mg intranasal DIRECTED PRN 11/22/24 11/24/24 History Opioid Overdose nystatin 100,000 unit/gram topical 1 applic topical DAILY 11/22/24 11/24/24 History powder potassium chloride 10 mEq 40 meq PO BID 11/22/24 11/24/24 History tablet,extended release promethazine 25 mg tablet 25 mg PO Q6H PRN NAUSEA/VOMITING 11/22/24 11/24/24 History valsartan 40 mg tablet 40 mg PO HS 11/22/24 11/24/24 History Patient History Medical History History of pulmonary embolism History of DVT (deep vein thrombosis) LVAD (left ventricular assist device) present Seasonal allergies Gout Hx: UTI (urinary tract infection) Coag negative Staphylococcus bacteremia Currently is being treated daily with IV antibiotics Hx of TIA (transient ischemic attack) and stroke 01/16/2017 Seen in [facility] Ed and transfered to [facility] Hx of Aguilera's palsy Prostatitis denies Anemia Hypothyroidism Blood clotting disorder Diabetes mellitus, type 2 uses insulin Thrombophlebitis currently has one in right subclavian vein Heart disease CHF (congestive heart failure) Hypercholesteremia Blood dyscrasia vitamin d deficiency Male genitourinary symptoms enlarged prostate Hx of acute myocardial infarction denies - states he has never had LVAD (left ventricular assist device) present hx cardiomyopathy and heart failure UTI (urinary tract infection) Surgical History History of left ventricular assist device (LVAD) LVAD replaced June 2018 History of left ventricular assist device Hx of colonoscopy History of tooth extraction Family History Father Hypertension Stroke Social History Smoking Status: Never smoker Tobacco Type: Cigarettes Second Hand Exposure: Yes; Do You Dip or Chew Tobacco: No; Hx Alcohol Use: No Hx Substance Use: No Preferred Language: Khmer Communication Ability: Effective Resaw Carriage Operator Required: No Beliefs That Will Affect Care: Spiritual marital status: Current Living Situation: Spouse current occupational status: retired Other Information That Helps Us Care for You: No Feels Safe at Home: Yes Safety Concerns: Feels Safe At This Time Assistive Devices: Cane and Wheelchair Review of Systems Review of Systems: see HPI Physical Exam Constitutional: + ill appearing, + cachectic, + physical limitations, + frail appearing, + disheveled and + in distress Eyes: PERRL ENMT: Mouth: + dry oral mucous membranes, + poor dentition and + chipped teeth Neck: trachea midline and + facial hair Respiratory: + uses accessory muscles, + cough (bronc hitic at times), + pursed lip breathing and symmetric chest movement Cardiovascular: +mechanical/turbine hum, best over preco rdium +precordial thrill/faint obscured S1S2 unable to assess PMI Gastrointestinal (Abdomen): Driveline right abd wall connected to controller and battery pack which he prefers to wear low abd/suprapubic region, held in place with his leather belt around chest. generalized abd pain with palpation, BS diminished, mild nodularity tenderness with all palpation, pain radiating around both sides and through belly to his back Musculoskeletal: generalized weakness pain across shoulders, entire back, bony needs 1 max assist to reposition semi reclined in bed stoker mechanic diminished Skin: pale, pineda tinted skin cool to touch BLE with venous insuff changes no pedal edema +muscle wasting Neurologic: Alert to self Unsure of name of place but ac anxious and tearful at times, voice waivers still has trouble staying focused, drifts off limited capacity to focus, speech at times is non sensical Results & Data Vital Signs (Past 12 Hours) Vital Signs Resp Pulse Ox O2 Del Method O2 Flow Rate 11/24/24 17:23 Nasal Cannula 4 11/24/24 17:23 18 97 Nasal Cannula 4 PG Care Time/CCT Total # of Minutes Spent Total Time Spent: 65 Total Time Spent with Patient: Total time spent is greater than 50% in coordination of care (as documented) at patient's floor/unit and/or counseling patient: [place] [address] IN/OBS CONSULT LVL 4,60M Patient Type New History Comprehensive Exam Comprehensive Medical Decision Making High Complexity Diagnoses Cancer related pain G89.3 Dyspnea and respiratory abnormalities R06.00; R06.89 Palliative care by specialist Z51.5 Weakness generalized R53.1 Comfort measures only status Z51.5 Left ventricular assist device present Z95.811 AMS (altered mental status) R41.82 Advanced care planning/counseling discussion Z71.89 Comment [id number]
[2024-11-24] MEDS: HYDROmorphone INJ 1 MG/ML SYRINGE IV SCH (20:51)
--- NOTE | 2024-11-25 16:58 | Hospitalist Progress Note ---
Date of Service November 25, 2024 Assessment & Plan (1) Cancer related pain: (2) Comfort measures only status: (3) Pancreatic adenocarcinoma: Plan Acute metabolic encephalopathy likely due to comorbidities H/O CHF s/p LVAD placement Supratherapeutic INR LVAD Chronic hyponatremia Abnormal thyroid function test Abnormal urinalysis Admitted under [facility] hospice Hospice consulted Appreciate palliative care input Continue comfort measures only No distress on exam today CODE STATUS DNI DNR Admission and Anticipated Discharge Date Admission Date: November 24, 2024 Subjective Patient is seen and examined at bedside States feeling tired but otherwise no complaints Denies any chest pain, dyspnea Currently on comfort measures only Review of Systems Review of Systems: All systems reviewed & are unremarkable except as noted in Subjective Physical Exam Physical Exam: Physical Exam: Vitals signs as noted above General Appearance:Moderately built, no apparent distress, chronic ill-appearing Head: normocephalic, Atraumatic Eyes: normal inspection, EOMI Neck: supple, Trachea midline Respiratory/Chest: Normal breath sounds, CTA, No accessory muscle use Cardiovascular: LVAD noise Abdomen/GI:Soft, Non tender, Bowel sounds present Extremities/Musculoskeletal:normal inspection, no edema, chronic venous stasis changes Neurologic/Psych:AAOX2, grossly no focal neurological deficits Skin: normal color, warm Results & Data Results & Data Vital Signs (Past 12 Hours) Vital Signs O2 Del Method O2 Flow Rate 11/25/24 09:37 Nasal Cannula 4
[2024-11-26] MEDS: HYDROmorphone INJ 0.5 MG/0.5 ML SYR IV PRN (12:22)
--- NOTE | 2024-11-26 13:30 | Palliative Care Progress Note ---
Date of Service November 26, 2024 Assessment & Plan (1) Cancer related pain: Plan: Uncontrolled and increasing rising CA 19-9 progressive cancer Dilaudid increased to 1.5mg IV q6h scheduled/Hold for RR less than 14; please document RR with each dose administration. (2) Dyspnea and respiratory abnormalities: Plan: prn meds: DIlaudid and Ativan IV (3) Advanced care planning/counseling discussion: Plan: A 30 min face to face ACP meeting was held with Mrs Claros along with [facility] surface grinder Lavinia. Ahsan is c/o increased pain now 10/27, so we agreed to increase the scheduled dose to 1.5 mg dilaudid IV q6h and see how he does. 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 also said no local SNF would accept him, last time the only option they had was near [facility] and that would be a hardship for them as it is in 3 hr from home and they would not be able to afford the costs of daily visits plus she has to work so she could not go everyday either. I told her if hospice feels he is no longer appropriate for GIP bc he is not declining then he will revert back to [facility] Admission and we can continue to work on things from there, maybe try to find a group home willing to take him in [place] areas. I told her i cannot promise this but would be happy to reach out to local SNFs and ask if this was something they'd consider, even thoughI know potential is low for them to be willing. Overall though, he is declining but perhaps not as fast as expected - his pain is rising, CA 19-9 is now nearing 50,000 (last check was around 3000) so his cancer is progressing along with increasing pain. All in all he is on the decline. it is the speed of the decline that remains less predictable. (4) Palliative care by specialist: (5) Weakness generalized: (6) Comfort measures only status: (7) AMS (altered mental status): Plan As above Thank you for allowing us to participate in the ongoing care of this patient. Please page with any additional concerns. Volodymyr Barnes DNP Director, Palliative Medicine Admission and Anticipated Discharge Date Admission Date: November 24, 2024 Subjective Ahsan remains on GIP. He reports increased pain this morning with level 8/10. Had a prn dose of dilaudid and 30 min later felt more relief around 5/10 pain level appetite diminished this morning but drinking his favorite diet orange soda over ice anticipated to arrive later this morning mild nausea dyspnea with rest and exertion, but feels relief with dilaudid Review of Systems Review of Systems: All systems reviewed & are unremarkable except as noted in Subjective Physical Exam Constitutional: + ill appearing, + cachectic, + physical limitations, + frail appearing, + disheveled and + in distress Eyes: PERRL ENMT: Mouth: + dry oral mucous membranes, + poor dentition and + chipped teeth Neck: trachea midline and + facial hair Respiratory: + uses accessory muscles, + cough (bronc hitic at times), + pursed lip breathing and symmetric chest movement Cardiovascular: +mechanical/turbine hum, best over preco rdium +precordial thrill/faint obscured S1S2 unable to assess PMI Gastrointestinal (Abdomen): Driveline right abd wall connected to controller and battery pack which he prefers to wear low abd/suprapubic region, held in place with his leather belt around chest. 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 Skin: pale, pineda tinted skin cool to touch BLE with venous insuff changes no pedal edema +muscle wasting Neurologic: Alert to self Unsure of name of place but ac anxious and tearful at times, voice waivers still has trouble staying focused, drifts off limited capacity to focus, speech at times is non sensical Results & Data Vital Signs (Past 12 Hours) Vital Signs O2 Del Method O2 Flow Rate 11/26/24 11:39 Nasal Cannula 4 Laboratory Results CA 19-9 >17214 PG Care Time/CCT Total # of Minutes Spent Total Time Spent with Patient: Total time spent is greater than 50% in coordination of care (as documented) at patient's floor/unit and/or counseling patient: I spent 105 minutes overall addressing this case: 20 min in medical data review/discussion with referring provider(s) and/or preparation for the visit - d/w nurse, hospice team and EMR 20 min in direct interaction with the patient/exam 30 min in Advance Care Planning/Goals of Care discussions as detailed above in note (must be >16min) 15 min in subsequent review and synthesis of assessment and plan 20 min communicating with other providers regarding the patient's case: Advanced Care Planning 01093 Advanced Care Planning 30 Min [place] [id number] SUB INP/OBS CARE 3/50MIN Patient Type Established History Comprehensive Exam Comprehensive Medical Decision Making High Complexity Diagnoses Cancer related pain G89.3 Dyspnea and respiratory abnormalities R06.00; R06.89 Advanced care planning/counseling discussion Z71.89 Palliative care by specialist Z51.5 Weakness generalized R53.1 Comfort measures only status Z51.5 AMS (altered mental status) R41.82 Additional Codes Advanced Care Planning - 87010 Advanced Care Planning 30 Min: 35316 Advanced Care Planning 30 Min ([id number]) Comment [id number], [id number]
--- NOTE | 2024-11-26 15:25 | Hospitalist Progress Note ---
Date of Service November 26, 2024 Assessment & Plan (1) Cancer related pain: (2) Comfort measures only status: (3) Pancreatic adenocarcinoma: Plan Acute metabolic encephalopathy likely due to comorbidities H/O CHF s/p LVAD placement Supratherapeutic INR LVAD Chronic hyponatremia Abnormal thyroid function test Abnormal urinalysis Admitted under [facility] hospice Hospice consulted Appreciate palliative care input Continue comfort measures only No distress on exam Titrate medications to help with pain control Hospice following CODE STATUS DNI DNR Admission and Anticipated Discharge Date Admission Date: November 24, 2024 Subjective Patient is seen and examined at bedside States having generalized body ache this morning Hospice is following Patient offers no other complaints Had breakfast this morning Denies any pain, dyspnea on comfort measures only Review of Systems Review of Systems: All systems reviewed & are unremarkable except as noted in Subjective Physical Exam Physical Exam: Physical Exam: Vitals signs as noted above General Appearance:Moderately built, no apparent distress, chronic ill-appearing Head: normocephalic, Atraumatic Eyes: normal inspection, EOMI Neck: supple, Trachea midline Respiratory/Chest: Normal breath sounds, CTA, No accessory muscle use Cardiovascular: LVAD noise Abdomen/GI:Soft, Non tender, Bowel sounds present Extremities/Musculoskeletal:normal inspection, no edema, chronic venous stasis changes Neurologic/Psych:AAOX2, grossly no focal neurological deficits Skin: normal color, warm Results & Data Results & Data Vital Signs (Past 12 Hours) Vital Signs O2 Del Method O2 Flow Rate 11/26/24 11:39 Nasal Cannula 4
[2024-11-26] MEDS: HYDROmorphone INJ 1 MG/ML SYRINGE IV SCH (17:31)
[2024-11-26] MEDS: HYDROmorphone INJ 2 MG/ML SYR/VIAL IV PRN (23:03)
--- NOTE | 2024-11-27 14:00 | Palliative Care Progress Note ---
Date of Service November 27, 2024 Assessment & Plan (1) Cancer related pain: Plan: Continue Dilaudid 1.5mg IV q6h and the prn Dilaudid 1 and 2mg dose options when needed Ativan for anxiety/dysonea induced (2) Dyspnea and respiratory abnormalities: (3) Weakness generalized: Plan: progressive metastatic/terminal cancer + heart failure + declining PS (4) Advanced care planning/counseling discussion: Plan: Face to face with Ahsan for 15min. He feels himself growing weaker, but his pain is much better and he feels he has been able to get some rest. Fatigue is growing, he attributes this to his cancer. He emphasizes time with his as a priority. He continues to decline, has asked for ICD/Pacer deactivation. Does not want him being shocked through the dying process. Contacted cardiology/much appreciation for Dr Callahan's guidance - he contacted [employer] rep who is able to assist with deprogramming this afternoon. (5) Palliative care by specialist: (6) Left ventricular assist device present: (7) Pancreatic adenocarcinoma: (8) Hx: UTI (urinary tract infection): Plan As above ICD/Pacer deprogrammed by [employer] today Remains on inpatient hospice Continues to slowly decline Goal of all care is comfort/relief of suffering I will discontinue LVAD once he is unconscious, in accordance with preferences identified from family meeting. Hospice and care teams aware. Thank you for allowing us to participate in the ongoing care of this patient. Please page with any additional concerns. Volodymyr Barnes DNP Director, Palliative Medicine Admission and Anticipated Discharge Date Admission Date: November 24, 2024 Subjective Ahsan remains on inpatient hospice increased pain med helping, more comfortable weaker and more tired no family present at time of my visit admits to mild nausea, eats a little and is drinking the diet orange soda he enjoys Review of Systems Review of Systems: All systems reviewed & are unremarkable except as noted in Subjective Physical Exam Constitutional: + ill appearing, + cachectic, + physical limitations, + frail appearing, + disheveled and + in distress Eyes: PERRL ENMT: Mouth: + dry oral mucous membranes, + poor dentition and + chipped teeth Neck: trachea midline and + facial hair Respiratory: + labored breathing (intermittent, with exertion/prolonged discussion), + uses accessory muscles, + cough (bronchitic at times) and symmetric chest movement Cardiovascular: +mechanical/turbine hum, best over preco rdium +precordial thrill/faint obscured S1S2 unable to assess PMI Gastrointestinal (Abdomen): Driveline right abd wall connected to controller and battery pack which he prefers to wear low abd/suprapubic region, held in place with his leather belt around thorax generalized abd pain with palpation, BS diminished, mild nodularity tenderness with all palpation, pain radiating around both sides and through belly to his back Musculoskeletal: generalized weakness pain across shoulders, entire back, bony needs 1 max assist to reposition semi reclined in bed outsole compressor diminished Skin: pale, pineda tinted skin cool to touch BLE with venous insuff changes no pedal edema +muscle wasting Neurologic: Alert to self anxious and tearful at times, voice waivers still has trouble staying focused, drifts off limited capacity to focus, speech at times is non sensical/garbled Results & Data Vital Signs (Past 12 Hours) Vital Signs O2 Del Method 11/27/24 13:32 Room Air, Nasal Cannula PG Care Time/CCT Total # of Minutes Spent Total Time Spent: 70 Total Time Spent with Patient: Total time spent is greater than 50% in coordination of care (as documented) at patient's floor/unit and/or counseling patient: I spent 70 minutes overall addressing this case: 10 min in medical data review/discussion with referring provider(s) and/or preparation for the visit 15 min in direct interaction with the patient/exam 20 min in Advance Care Planning/Goals of Care discussions as detailed above in note (must be >16min) 10 min in subsequent review and synthesis of assessment and plan 15 min communicating with other providers regarding the patient's case: Advanced Care Planning 72223 Advanced Care Planning 30 Min [place] [address] SUB INP/OBS CARE 3/50MIN Patient Type Established Medical Decision Making High Complexity Diagnoses Cancer related pain G89.3 Dyspnea and respiratory abnormalities R06.00; R06.89 Weakness generalized R53.1 Advanced care planning/counseling discussion Z71.89 Palliative care by specialist Z51.5 Left ventricular assist device present Z95.811 Pancreatic adenocarcinoma C25.9 Hx: UTI (urinary tract infection) Z87.440 Additional Codes Advanced Care Planning - 79284 Advanced Care Planning 30 Min: 42408 Advanced Care Planning 30 Min ([id number]) Comment 24902, [id number]
--- NOTE | 2024-11-27 16:31 | Hospitalist Progress Note ---
Date of Service November 27, 2024 Assessment & Plan (1) Cancer related pain: (2) Comfort measures only status: (3) Pancreatic adenocarcinoma: Plan Acute metabolic encephalopathy likely due to comorbidities H/O CHF s/p LVAD placement Supratherapeutic INR LVAD Chronic hyponatremia Abnormal thyroid function test Abnormal urinalysis Admitted under [facility] hospice Hospice consulted Appreciate palliative care input Continue comfort measures only No distress on exam Titrate medications to help with pain control Hospice following 11/27/2024 Discussed w/ palliative med - plan to deactivate icd/pacer. In contact w/ [facility] cardiology. CODE STATUS DNI DNR Admission and Anticipated Discharge Date Admission Date: November 24, 2024 Subjective Pt seen in follow up Hx of pancreatic ca Hx of LVAD - followed with [facility]ology Pt on inpt hospice. Palliative med following and discussed with - plan to deactivate icd/pacer Discussed w/ at the bedside at length Pt currently lying in bed in NAD, pt is awake, appears comfortable, says he knows he is in the hospital. Denies any significant pain, able to answer simple questions appropriately Review of Systems Review of Systems: All systems reviewed & are unremarkable except as noted in Subjective Physical Exam Physical Exam: General Appearance:Moderately built, no apparent distress, chronically ill- appearing Head: normocephalic, Atraumatic Eyes: normal inspection, EOMI Neck: supple Respiratory/Chest: Normal breath sounds, CTA, No accessory muscle use Cardiovascular: LVAD noise Abdomen/GI:Soft, Non tender, Bowel sounds present Extremities/Musculoskeletal:normal inspection, no edema, chronic venous stasis changes Neurologic/Psych: awake, alert, able to answer simple questions appropriately, moves extremities Skin: normal color, warm Results & Data Results & Data Vital Signs (Past 12 Hours) Vital Signs O2 Del Method 11/27/24 13:32 Room Air, Nasal Cannula Medications Administered Current Inpatient Medications Albuterol (Albuterol Hfa 8 Gm Inhaler) 2 puffs INH Q3H PRN PRN Reason: Shortness Of Breath Or Wheezing Stop: 12/24/24 18:36 Diclofenac Sodium (Diclofenac Sod 1% Gel 100 Gm Tube) 4 gm EXT BID PRN; Protocol PRN Reason: Pain Stop: 12/24/24 18:36 Glycopyrrolate (Glycopyrrolate 0.2 Mg/Ml Vial) 0.4 mg IV Q4H PRN PRN Reason: Rattling Secretions or Pulm Congestion Stop: 12/24/24 18:09 Hydromorphone HCl (Hydromorphone Inj 0.5 Mg/0.5 Ml Syr) 1 mg IV Q15M PRN PRN Reason: Dyspnea,pain Stop: 12/08/24 18:09 Last Admin: 11/27/24 13:18 Dose: 1 mg Hydromorphone HCl (Hydromorphone Inj 2 Mg/Ml Syr/Vial) 2 mg IV Q30M PRN PRN Reason: Sev pain,terminal air hunger Stop: 12/08/24 20:09 Last Admin: 11/27/24 08:49 Dose: 2 mg Hydromorphone HCl (Hydromorphone Inj 1 Mg/Ml Syringe) 1.5 mg IV Q6H CAMILA Stop: 12/10/24 16:29 Last Admin: 11/27/24 15:38 Dose: 1.5 mg Lorazepam (Lorazepam 2 Mg/1 Ml Vial) 1 mg IV Q4H PRN PRN Reason: Anxiety/Agitation Stop: 12/24/24 18:09 Ondansetron HCl (Ondansetron Inj 2 Mg/Ml 2 Ml Vial) 4 mg IV Q6H PRN PRN Reason: Nausea Stop: 12/24/24 17:38 Ondansetron HCl (Ondansetron Inj 2 Mg/Ml 2 Ml Vial) 4 mg IV Q4H PRN PRN Reason: Nausea &/or Vomiting Stop: 12/24/24 18:09 Polyethylene Glycol (Polyethylene (Miralax) 17 Gm Pack) 17 gm PO DAILY PRN PRN Reason: Constipation Stop: 12/24/24 17:38 Promethazine HCl (Promethazine Hcl 25 Mg Tab) 25 mg PO Q6H PRN PRN Reason: NAUSEA/VOMITING Stop: 12/24/24 18:36
--- NOTE | 2024-11-28 14:46 | Communication Note ---
Date of Service: November 28, 2024 Palliative Med Brief Note Met with pt who is noticing his growing weakness. he told her he is hungry at times but not strong enough to feed himself. She is asking we assist with this whenever she is not here. A communication order is written. She will be here tomorrow but not Monday d/t football traffic. 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 I have updated hospice of his increasing weakness and [employer] deprogramming of ICD. Thank you for allowing us to participate in the ongoing care of this patient. Please page with any additional concerns. Volodymyr Barnes DNP Director, Palliative Medicine
--- NOTE | 2024-11-28 15:52 | Hospitalist Progress Note ---
Date of Service November 28, 2024 Assessment & Plan (1) Cancer related pain: (2) Comfort measures only status: (3) Pancreatic adenocarcinoma: Plan Per previous provider w/ addendum Acute metabolic encephalopathy likely due to comorbidities H/O CHF s/p LVAD placement Supratherapeutic INR LVAD Chronic hyponatremia Abnormal thyroid function test Abnormal urinalysis Admitted under [facility] hospice Hospice consulted Appreciate palliative care input Continue comfort measures only No distress on exam Titrate medications to help with pain control Hospice following 11/27/2024 Discussed w/ palliative med - plan to deactivate icd. In contact w/ EP cardiology. 11/28 Pt continues to feel tired. icd de-activated yesterday CODE STATUS DNI DNR Admission and Anticipated Discharge Date Admission Date: November 24, 2024 Subjective Pt seen in follow up Hx of pancreatic ca Hx of LVAD - followed with [facility] [place] cardiology Pt on inpt hospice. Palliative med following and discussed with - deactivated icd yesterday Discussed w/ at the bedside at length yesterday. This AM, no family present at the bedside. Pt currently lying in bed in NAD, pt is awake, appears comfortable but very tired, also says he is tired. Denies any significant pain, able to answer simple questions appropriately Review of Systems Review of Systems: All systems reviewed & are unremarkable except as noted in Subjective Physical Exam Physical Exam: General Appearance:Moderately built, no apparent distress, chronically ill- appearing Head: normocephalic, Atraumatic Eyes: normal inspection, EOMI Respiratory/Chest: Normal breath sounds, CTA, No accessory muscle use Cardiovascular: LVAD noise Abdomen/GI:Soft, Non tender, Bowel sounds present Extremities/Musculoskeletal:normal inspection, no edema, chronic venous stasis changes Neurologic/Psych: awake, alert, able to answer simple questions appropriately, moves extremities Skin: pale Results & Data Results & Data Vital Signs (Past 12 Hours) Vital Signs O2 Del Method O2 Flow Rate 11/28/24 08:00 Nasal Cannula 4 Medications Administered Current Inpatient Medications Albuterol (Albuterol Hfa 8 Gm Inhaler) 2 puffs INH Q3H PRN PRN Reason: Shortness Of Breath Or Wheezing Stop: 12/24/24 18:36 Diclofenac Sodium (Diclofenac Sod 1% Gel 100 Gm Tube) 4 gm EXT BID PRN; Protocol PRN Reason: Pain Stop: 12/24/24 18:36 Glycopyrrolate (Glycopyrrolate 0.2 Mg/Ml Vial) 0.4 mg IV Q4H PRN PRN Reason: Rattling Secretions or Pulm Congestion Stop: 12/24/24 18:09 Hydromorphone HCl (Hydromorphone Inj 0.5 Mg/0.5 Ml Syr) 1 mg IV Q15M PRN PRN Reason: Dyspnea,pain Stop: 12/08/24 18:09 Last Admin: 11/27/24 13:18 Dose: 1 mg Hydromorphone HCl (Hydromorphone Inj 2 Mg/Ml Syr/Vial) 2 mg IV Q30M PRN PRN Reason: Sev pain,terminal air hunger Stop: 12/08/24 20:09 Last Admin: 11/28/24 13:59 Dose: 2 mg Hydromorphone HCl (Hydromorphone Inj 1 Mg/Ml Syringe) 1.5 mg IV Q6H CAMILA Stop: 12/10/24 16:29 Last Admin: 11/28/24 10:19 Dose: 1.5 mg Lorazepam (Lorazepam 2 Mg/1 Ml Vial) 1 mg IV Q4H PRN PRN Reason: Anxiety/Agitation Stop: 12/24/24 18:09 Ondansetron HCl (Ondansetron Inj 2 Mg/Ml 2 Ml Vial) 4 mg IV Q6H PRN PRN Reason: Nausea Stop: 12/24/24 17:38 Ondansetron HCl (Ondansetron Inj 2 Mg/Ml 2 Ml Vial) 4 mg IV Q4H PRN PRN Reason: Nausea &/or Vomiting Stop: 12/24/24 18:09 Polyethylene Glycol (Polyethylene (Miralax) 17 Gm Pack) 17 gm PO DAILY PRN PRN Reason: Constipation Stop: 12/24/24 17:38 Promethazine HCl (Promethazine Hcl 25 Mg Tab) 25 mg PO Q6H PRN PRN Reason: NAUSEA/VOMITING Stop: 12/24/24 18:36
--- NOTE | 2024-11-29 08:58 | Communication Note ---
Date of Service: November 29, 2024 Palliative Medicine Brief Note Ahsan is having more increased and uncontrolled pain, rating this 8/10. He is using PRN but has been too weak to ring for help. When assessed/pain med offered, he has been accepting. Discussed with nursing, will increase Dilaudid scheduled to 2mg IV q6h and continue the PRN doses without changes. He may need a Dilaudid infusion but I will wait until his is here to discuss that with the both of them, I am unsure Ahsan is comprehending all the information we will need to convey. Thank you for allowing us to participate in the ongoing care of this patient. Please page with any additional concerns. Volodymyr Barnes DNP Director, Palliative Medicine
[2024-11-29] MEDS: HYDROmorphone INJ 1 MG/ML SYRINGE IV SCH (09:16)
--- NOTE | 2024-11-29 11:34 | Hospitalist Progress Note ---
Date of Service November 29, 2024 Assessment & Plan (1) Cancer related pain: (2) Comfort measures only status: (3) Pancreatic adenocarcinoma: Plan Per previous provider w/ addendum Acute metabolic encephalopathy likely due to comorbidities H/O CHF s/p LVAD placement Supratherapeutic INR LVAD Chronic hyponatremia Abnormal thyroid function test Abnormal urinalysis Admitted under [facility] hospice Hospice consulted Appreciate palliative care input Continue comfort measures only No distress on exam Titrate medications to help with pain control Hospice following 11/27/2024 Discussed w/ palliative med - plan to deactivate icd. In contact w/ EP cardiology. 11/28 Pt continues to feel tired. icd de-activated yesterday 11/29 Pt uncomfortable today, says he hurts all over, pain meds adjusted by palliative medicine. Discussed w/ RN as well as pt may need prn dose. CODE STATUS DNI DNR Admission and Anticipated Discharge Date Admission Date: November 24, 2024 Subjective Pt seen in follow up Hx of pancreatic ca Hx of LVAD - followed with [facility] cardiology Pt on inpt hospice. Palliative med following and discussed with - deactivated icd 2 days ago Pt currently sitting up in bed and uncomfortable, says he hurts all over. Discussed with RN - palliative med already increased his pain meds but he may need a PRN dose. Review of Systems Review of Systems: All systems reviewed & are unremarkable except as noted in Subjective Physical Exam Physical Exam: General Appearance:Moderately built, no apparent distress, chronically ill- appearing Head: normocephalic, Atraumatic Eyes: normal inspection, EOMI Respiratory/Chest: Normal breath sounds, CTA, No accessory muscle use Cardiovascular: LVAD noise Abdomen/GI:Soft, Non tender, Bowel sounds present Extremities/Musculoskeletal:normal inspection, no edema, chronic venous stasis changes Neurologic/Psych: awake, alert, able to answer simple questions appropriately, moves extremities Skin: pale Results & Data Results & Data Vital Signs (Past 12 Hours) Vital Signs O2 Del Method 11/29/24 09:53 Room Air Medications Administered Current Inpatient Medications Albuterol (Albuterol Hfa 8 Gm Inhaler) 2 puffs INH Q3H PRN PRN Reason: Shortness Of Breath Or Wheezing Stop: 12/24/24 18:36 Diclofenac Sodium (Diclofenac Sod 1% Gel 100 Gm Tube) 4 gm EXT BID PRN; Protocol PRN Reason: Pain Stop: 12/24/24 18:36 Glycopyrrolate (Glycopyrrolate 0.2 Mg/Ml Vial) 0.4 mg IV Q4H PRN PRN Reason: Rattling Secretions or Pulm Congestion Stop: 12/24/24 18:09 Hydromorphone HCl (Hydromorphone Inj 0.5 Mg/0.5 Ml Syr) 1 mg IV Q15M PRN PRN Reason: Dyspnea,pain Stop: 12/08/24 18:09 Last Admin: 11/29/24 06:05 Dose: 1 mg Hydromorphone HCl (Hydromorphone Inj 2 Mg/Ml Syr/Vial) 2 mg IV Q30M PRN PRN Reason: Sev pain,terminal air hunger Stop: 12/08/24 20:09 Last Admin: 11/29/24 07:33 Dose: 2 mg Hydromorphone HCl (Hydromorphone Inj 1 Mg/Ml Syringe) 2 mg IV Q6H CAMILA Stop: 12/13/24 08:54 Last Admin: 11/29/24 09:16 Dose: 2 mg Lorazepam (Lorazepam 2 Mg/1 Ml Vial) 1 mg IV Q4H PRN PRN Reason: Anxiety/Agitation Stop: 12/24/24 18:09 Last Admin: 11/29/24 10:54 Dose: 1 mg Ondansetron HCl (Ondansetron Inj 2 Mg/Ml 2 Ml Vial) 4 mg IV Q6H PRN PRN Reason: Nausea Stop: 12/24/24 17:38 Ondansetron HCl (Ondansetron Inj 2 Mg/Ml 2 Ml Vial) 4 mg IV Q4H PRN PRN Reason: Nausea &/or Vomiting Stop: 12/24/24 18:09 Polyethylene Glycol (Polyethylene (Miralax) 17 Gm Pack) 17 gm PO DAILY PRN PRN Reason: Constipation Stop: 12/24/24 17:38 Promethazine HCl (Promethazine Hcl 25 Mg Tab) 25 mg PO Q6H PRN PRN Reason: NAUSEA/VOMITING Stop: 12/24/24 18:36
--- NOTE | 2024-11-29 12:49 | Palliative Care Progress Note ---
Date of Service November 29, 2024 Assessment & Plan (1) Cancer related pain: Plan: I have increased to Dilaudid 2mg IV q6h and the prn Dilaudid 1 and 2mg dose options when needed Ativan for anxiety/dyspnea induced (2) Dyspnea and respiratory abnormalities: (3) Weakness generalized: Plan: progressive metastatic/terminal cancer + heart failure + declining PS (4) Palliative care by specialist: (5) Left ventricular assist device present: (6) Pancreatic adenocarcinoma: Plan As above ICD/Pacer deprogrammed by [employer] Remains on inpatient hospice - I discussed his case with Marily GONCALVES [facility].He will remain GIP. he has continued daily decline, his needs are too complex and refractory for home management, he is not taking much PO and symptom relief cannot be obtained with oral meds carie in setting of LVAD. Continues to slowly decline Goal of all care is comfort/relief of suffering - control all symptoms, call me if doses are not sufficient for relief I will discontinue LVAD once he is unconscious, in accordance with preferences identified from family meeting. Hospice and care teams aware. Priority page me on tiger and call my cell please [phone] I am out of office Mon to for a conference ([facility]), I will need enough time to drive back here if device disconnection is needed after 12pm Monday. Thank you for allowing us to participate in the ongoing care of this patient. Please page with any additional concerns. Volodymyr Barnes DNP Director, Palliative Medicine Admission and Anticipated Discharge Date Admission Date: November 24, 2024 Subjective Ahsan is dwindling Increased pain, Dilaudid inc to 2mg q6h scheduled Increasing anxiety today - better with Ativan, more peaceful on follow up increasing weakness remains on GIP Review of Systems Review of Systems: All systems reviewed & are unremarkable except as noted in HPI & below Physical Exam Constitutional: + ill appearing, + cachectic, + physical limitations and + frail appearing Eyes: PERRL ENMT: Mouth: + dry oral mucous membranes, + poor dentition and + chipped teeth Neck: trachea midline Respiratory: + labored breathing (intermittent), + us es accessory muscles, + cough (bronchitic at times) and symmetric chest movement Cardiovascular: +mechanical/turbine hum, best over preco rdium +precordial thrill/faint obscured S1S2 unable to assess PMI no peripheral pulse Gastrointestinal (Abdomen): Driveline right abd wall connected to controller and battery pack which he prefers to wear low abd/suprapubic region, held in place with his leather belt around thorax generalized abd pain with palpation, BS diminished, mild nodularity tenderness with all palpation, pain radiating around both sides and through belly to his back Musculoskeletal: generalized weakness pain across shoulders, entire back, bony Skin: grayish pallor cool to touch BLE with venous insuff changes no pedal edema +muscle wasting Neurologic: Alert to self anxious and tearful at times, voice waivers still has trouble staying focused, drifts off limited capacity to focus, speech at times is non sensical/garbled Results & Data Vital Signs (Past 12 Hours) Vital Signs O2 Del Method 11/29/24 09:53 Room Air PG Care Time/CCT Total # of Minutes Spent Total Time Spent: 55 Total Time Spent with Patient: Total time spent is greater than 50% in coordination of care (as documented) at patient's floor/unit and/or counseling patient: C[place] [address] SUB INP/OBS CARE 3/50MIN Patient Type Established Medical Decision Making High Complexity Diagnoses Cancer related pain G89.3 Dyspnea and respiratory abnormalities R06.00; R06.89 Weakness generalized R53.1 Palliative care by specialist Z51.5 Left ventricular assist device present Z95.811 Pancreatic adenocarcinoma C25.9 Comment 84166
--- NOTE | 2024-11-30 07:59 | Hospitalist Progress Note ---
Date of Service November 30, 2024 Assessment & Plan (1) Cancer related pain: (2) Comfort measures only status: (3) Pancreatic adenocarcinoma: Plan Per previous provider w/ addendum Acute metabolic encephalopathy likely due to comorbidities H/O CHF s/p LVAD placement Supratherapeutic INR LVAD Chronic hyponatremia Abnormal thyroid function test Abnormal urinalysis Admitted under [facility] hospice Hospice consulted Appreciate palliative care input Continue comfort measures only No distress on exam Titrate medications to help with pain control Hospice following 11/27/2024 Discussed w/ palliative med - plan to deactivate icd. In contact w/ EP cardiology. 11/28 Pt continues to feel tired. icd de-activated yesterday 11/29 Pt uncomfortable today, says he hurts all over, pain meds adjusted by palliative medicine. Discussed w/ RN as well as pt may need prn dose. 11/30 Today pt found resting/sleeping soundly, appears very comfortable, does not awake during phys. exam. Discussed w/ RN - poor oral intake CODE STATUS DNI DNR Admission and Anticipated Discharge Date Admission Date: November 24, 2024 Subjective Pt seen in follow up Hx of pancreatic ca Hx of LVAD - followed with [facility] cardiology Pt on inpt hospice. Palliative med following closely - deactivated icd 3 days ago, pain meds increased as pt uncomfortable yesterday Pt currently lying in bed resting peacefully, pt does not wake up during physical exam, but appears comfortable. Discussed with RN, pt not eating or drinking much. Review of Systems Review of Systems: All systems reviewed & are unremarkable except as noted in Subjective Physical Exam Physical Exam: General Appearance:Moderately built, no apparent distress, chronically ill- appearing Head: normocephalic, Atraumatic Eyes: normal inspection, EOMI Respiratory/Chest: Normal breath sounds, CTA, No accessory muscle use Cardiovascular: LVAD noise Abdomen/GI:Soft, Non tender, Bowel sounds present Extremities/Musculoskeletal:normal inspection, no edema, chronic venous stasis changes Neurologic/Psych: resting/sleeping, comfortable, but does not awake during phys. exam Skin: pale Results & Data Results & Data Vital Signs (Past 12 Hours) Vital Signs O2 Del Method O2 Flow Rate 11/29/24 20:00 Nasal Cannula 4 Medications Administered Current Inpatient Medications Albuterol (Albuterol Hfa 8 Gm Inhaler) 2 puffs INH Q3H PRN PRN Reason: Shortness Of Breath Or Wheezing Stop: 12/24/24 18:36 Diclofenac Sodium (Diclofenac Sod 1% Gel 100 Gm Tube) 4 gm EXT BID PRN; Protocol PRN Reason: Pain Stop: 12/24/24 18:36 Glycopyrrolate (Glycopyrrolate 0.2 Mg/Ml Vial) 0.4 mg IV Q4H PRN PRN Reason: Rattling Secretions or Pulm Congestion Stop: 12/24/24 18:09 Hydromorphone HCl (Hydromorphone Inj 0.5 Mg/0.5 Ml Syr) 1 mg IV Q15M PRN PRN Reason: Dyspnea,pain Stop: 12/08/24 18:09 Last Admin: 11/30/24 06:39 Dose: 1 mg Hydromorphone HCl (Hydromorphone Inj 2 Mg/Ml Syr/Vial) 2 mg IV Q30M PRN PRN Reason: Sev pain,terminal air hunger Stop: 12/08/24 20:09 Last Admin: 11/29/24 17:29 Dose: 2 mg Hydromorphone HCl (Hydromorphone Inj 1 Mg/Ml Syringe) 2 mg IV Q6H CAMILA Stop: 12/13/24 08:54 Last Admin: 11/30/24 03:40 Dose: 2 mg Lorazepam (Lorazepam 2 Mg/1 Ml Vial) 1 mg IV Q4H PRN PRN Reason: Anxiety/Agitation Stop: 12/24/24 18:09 Last Admin: 11/30/24 04:25 Dose: 1 mg Ondansetron HCl (Ondansetron Inj 2 Mg/Ml 2 Ml Vial) 4 mg IV Q6H PRN PRN Reason: Nausea Stop: 12/24/24 17:38 Ondansetron HCl (Ondansetron Inj 2 Mg/Ml 2 Ml Vial) 4 mg IV Q4H PRN PRN Reason: Nausea &/or Vomiting Stop: 12/24/24 18:09 Polyethylene Glycol (Polyethylene (Miralax) 17 Gm Pack) 17 gm PO DAILY PRN PRN Reason: Constipation Stop: 12/24/24 17:38 Promethazine HCl (Promethazine Hcl 25 Mg Tab) 25 mg PO Q6H PRN PRN Reason: NAUSEA/VOMITING Stop: 12/24/24 18:36
[2024-11-30] MEDS ORDERED: STAT IV Infusion **Titration per Protocol STA (15:20)
--- NOTE | 2024-11-30 15:29 | Palliative Care Progress Note ---
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 he is unconscious . he is not awake/alert or responsive. he does grimace and moan with abd exam. Ahsan is actively dying Will begin Dilaudid infusion: Dilaudid currently 16mg IV /day = 0.7mg per hour without relief Will begin Dilaudid 1mg per hour infusion and continue Dilaudid 2mg IV q15min prn bolus for BTP pain and air hunger. Ativan has been dose adjusted to alleviate anxiety/restlessness (2) Unconscious: (3) Dyspnea and respiratory abnormalities: Plan: See #1 (4) Weakness generalized: Plan: progressive metastatic/terminal cancer + heart failure + declining PS (5) Advanced care planning/counseling discussion: Plan: Multiple calls/telephonic ACP with , Petra, totalling over 60min ACP Petra and I discussed that Ahsan is transitioning to active dying; he is unconscious. Petra is unable to come in but would like to proceed with device disconnection. She reiterates "I just want him to be without pain and go peacefully. He's suffered so long. I am here in unit and after more discussion, we agreed to the following plan: We agreed to start a Dilaudid infusion, Ativan for sedation, Robinul for secretion mgt and comfort. I offered, and Petra accepted, the opportunity to say good ye with privacy via phone call from pt room - we will leave phone by patient's ear for her to say her goodbyes. I offered, and Petra accepted, detention deputy visit, Pastor Donya Tucker arrived within 20 min to see patient and is calling Petra from the room for the EOL prayers. Petra and i agreed to EOL care with LVAD discontinuation. We agreed that once he is comfortable and a little more sedated with opioids/Ativan, we will move forward with LVAD discontinuation. She is in agreement and we are in alignment ith this EOL plan. I reviewed and discussed with Petra the changes /symptoms we may anticipate with EOL after LVAD disconnection and the plan for symptom management. We agreed the goal is to assure a peaceful and comfortable . She reaffirms again that Ahsan has suffered alot and has been in tremendous pain for several months and declining. Petra reiterates that while she is not going to be here, she remains extremely grateful for the medical and nursing teams who have helped care for Ahsan this admission and for the dignity and comfort [facility] has given him every time he came here through the years. I will disconnect LVAD once he is sedated and comfortable. (6) Palliative care by specialist: (7) Left ventricular assist device present: (8) Pancreatic adenocarcinoma: (9) Comfort measures only status: (10) AMS (altered mental status): Plan As above. 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 LVAD to be discontinued after family call, last rites and initiation of comfort drip with Dilaudid and patient appears more comfortable/sedated/not agitated and restless. Primary team, hospice, updated Case and plan fo care with meds reviewed/discussed with pharmacy. Thank you for allowing us to participate in the ongoing care of this patient. Please page with any additional concerns. Volodymyr Barnes DNP Director, Palliative Medicine Admission and Anticipated Discharge Date Admission Date: November 24, 2024 Subjective AHSAN IS DECLINING AND MOVING TO ACTIVE DYING NO ORAL INTAKE > 24 HR NO LONGER AWAKE, ALERT OR RESPONSIVE INCREASING PAIN, RESTLESSNESS, SOMETIMES AGITATED/MOANING AT TIMES HANDS RANDOMLY WAVE INTO THE AIR NO LEGIBLE SPEECH Review of Systems Review of Systems: Unobtainable due to reduced consciousness Physical Exam Physical Exam: Actively dying clark, cool skin unresponsive, grimacing with abd palpation, generalized abd pain LVAD in place +mechanical/turbine hum,best over precor dium; no PMI no gross JVD abd tender, pt grimacing with light palpation, moaning with deeper palpation, +generalized abd pain Whitney with very dark concentrated urine diffuse generalized weakness he is not awake or alert, he is unable to follow commands, he did not react to sternal rub or verbal stimuli Results & Data Vital Signs (Past 12 Hours) Vital Signs O2 Del Method O2 Flow Rate 11/30/24 08:31 Nasal Cannula 4 PG Care Time/CCT Total # of Minutes Spent Total Time Spent with Patient: Total time spent is greater than 50% in coordination of care (as documented) at patient's floor/unit and/or counseling patient: Advanced Care Planning [id number] Advanced Care Planning Additional 30 Min Coding Diagnoses Cancer related pain G89.3 Unconscious R40.20 Dyspnea and respiratory abnormalities R06.00; R06.89 Weakness generalized R53.1 Advanced care planning/counseling discussion Z71.89 Palliative care by specialist Z51.5 Left ventricular assist device present Z95.811 Pancreatic adenocarcinoma C25.9 Comfort measures only status Z51.5 AMS (altered mental status) R41.82 Additional Codes Advanced Care Planning - 21276 Advanced Care Planning Additional 30 Min: 57950 Advanced Care Planning Additional 30 Min ([id number])
[2024-11-30] MEDS: HYDROmorphone 100 MG/100 ML BAG IV SCH (15:59)
[2024-11-30] MEDS ORDERED: HYDROmorphone INJ 2 MG/ML SYR/VIAL IV PRN (16:14)
[2024-11-30] MEDS ORDERED: HALOPERIDOL LACTATE 5 MG/ML 1 ML VIAL IV PRN (16:15)
[2024-11-30] MEDS: GLYCOPYRROLATE 0.2 MG/ML VIAL IV PRN (16:32)
--- NOTE | 2024-11-30 17:18 | Palliative Care Progress Note ---
Date of Service November 30, 2024 LVAD DISCONTINUATION NOTE Assessment & Plan (1) LVAD (left ventricular assist device) present: Plan: Reason for note This note documents the planned withdrawal of mechanical circulatory support via discontinuation of the Left Ventricular Assist Device (LVAD), consistent with the patient's and family's previously expressed wishes for comfort-focused care and transition to natural . History of Present Illness (HPI) Ahsan Claros is a 74yo male with met pancreatic cancer, ICM _ HF s/p ICD + pacer, s/p LVAD x3 (2012, 2016 HeartMate II to HeartMate III, complications of infection, electrical failure, pump exchange x2 for HMIII) now with a HeartMate III (HM-III) - all done at [place]. His cardiac issues began mid with worsening HF. He was evaluated for Heart txp at [place] and EF approx 4% per . He was a candidate for heart txp but insurance was not in network for [facility] and he was life flighted to [facility]. 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 left MCA stroke, +CVA. VT, PE, DVT, IDDM. Ahsan has end-stage heart failure, status post-HM-III implantation on 2012 and then 2016 replacement. His cancer is terminal and progressive. After extensive discussions regarding the patient's deteriorating clinical condition and poor quality of life despite device support, the patient/family has elected to pursue comfort measures only, with discontinuation of the LVAD as the final step in the plan of care.He has been admitted on [facility] hospice for this admission. Decision-making capacity and consent * Patient:The patient's decision-making capacity was formally assessed on 11/23/2024. The patient was found to not have the capacity to make informed medical decisions, and his was his SDM. She is a nurse. She reaffirmed their preference to withdraw life-sustaining treatment in the context of their terminal illness, referencing their detailed prior discussions re: same issues with their PCP. Goals of care The established goals of care are focused on ensuring patient comfort and di gnity during the dying process. All disease-modifying therapies, pressors, and non-essential monitoring have been discontinued. A Do Not Resuscitate (DNR) and Do Not Intubate (DNI) order is in place and confirmed. Medication plan for comfort care Comfort care medication were initiated, see earlier Pall Med progress note. Deactivation process Myself and Dyan RN attended to patient with Pastor Naqvi present at bedside. After patient comfort was assured on Dilaudid infusion, the HeartMate III LVAD driveline was disconnected at controller after releasing the safety lock and depressing the safety lock release button on the back of the controller. Alarms were silenced. Next, battery was disconnected from power line. The device was then powered down, holding battery button for full countdown to off mode. The controller was therefore turned off and driveline was removed. Ahsan has residual wales heart function which is very weak. There are profound murmurs on exam. Respiratory effort is increased but not distressed. Within 5 minutes of device disconnection, resp effort was noted to be slowing down. Family support I personally called Mrs Claros and provided update of the above. Ahsan remains comfortable on currnet [employer] regimen. His wales heart function is present, weakly with significant murmurs. He has increased resp effort, bolus doses of Dilaudid are being used to manage distress. Mrs Claros was extremely thankful for the care he has been receiving this admission from medicine and nursing teams. Attestation This LVAD discontinuation was performed performed in accordance with patient/family wishes and extensive prior family meetings/advance care planning discussions, all of which are documented in prior notes. Hospice aware. The contract loader skidder operator will come to assist with post mortem care and speak with family. Medicine and nursing teams updated. Thank you for allowing us to participate in the ongoing care of this patient. Please page with any additional concerns. Volodymyr Barnes DNP Director, Palliative Medicine (2) Palliative care by specialist: Plan: Reason for note This note documents the planned withdrawal of mechanical circulatory support via discontinuation of the Left Ventricular Assist Device (LVAD), consistent with the patient's and family's previously expressed wishes for comfort-focused care and transition to natural . History of Present Illness (HPI) Ahsan Claros is a 74yo male with met pancreatic cancer, ICM _ HF s/p ICD + pacer, s/p LVAD x3 (2012, 2016 HeartMate II to HeartMate III, complications of infection, electrical failure, pump exchange x2 for HMIII) now with a HeartMate III (HM-III) - all done at [place]. His cardiac issues began mid 2000s with worsening HF. He was evaluated for Heart txp at [place] and EF approx 4% per . He was a candidate for heart txp but insurance was not in network for [place] and he was life flighted to [facility]. 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 left MCA stroke, +CVA. VT, PE, DVT, IDDM. Ahsan has end-stage heart failure, status post-HM-III implantation on 2012 and then 2016 replacement. His cancer is terminal and progressive. After extensive discussions regarding the patient's deteriorating clinical condition and poor quality of life despite device support, the patient/family has elected to pursue comfort measures only, with discontinuation of the LVAD as the final step in the plan of care.He has been admitted on [facility] hospice for this admission. Decision-making capacity and consent * Patient:The patient's decision-making capacity was formally assessed on . The patient was found to not have the capacity to make informed medical decisions, and his was his SDM. She is a nurse. She reaffirmed their preference to withdraw life-sustaining treatment in the context of their terminal illness, referencing their detailed prior discussions re: same issues with their PCP. Goals of care The established goals of care are focused on ensuring patient comfort and dignity during the dying process. All disease-modifying therapies, pressors, and non-essential monitoring have been discontinued. A Do Not Resuscitate (DNR) and Do Not Intubate (DNI) order is in place and confirmed. Medication plan for comfort care Comfort care medication were initiated, see earlier [facility] progress note. Deactivation process Myself and Dyan RN attended to patient with Pastor Naqvi present at bedside. After patient comfort was assured on Dilaudid infusion, the HeartMate III LVAD driveline was disconnected at controller after releasing the safety lock and depressing the safety lock release button on the back of the controller. Alarms were silenced. Next, battery was disconnected from power line. The device was then powered down, holding battery button for full countdown to off mode. The controller was therefore turned off and driveline was removed. Ahsan has residual wales heart function which is very weak. There are profound murmurs on exam. Respiratory effort is increased but not distressed. Within 5 minutes of device disconnection, resp effort was noted to be slowing down. Family support I personally called Mrs Claros and provided update of the above. Ahsan remains comfortable on currnet [employer] regimen. His wales heart function is present, weakly with significant murmurs. He has increased resp effort, bolus doses of Dilaudid are being used to manage distress. Mrs Claros was extremely thankful for the care he has been receiving this admission from medicine and nursing teams. Attestation This LVAD discontinuation was performed performed in accordance with patient/family wishes and extensive prior family meetings/advance care planning discussions, all of which are documented in prior notes. Hospice aware. The contract loader skidder operator will come to assist with post mortem care and speak with family. Medicine and nursing teams updated. Thank you for allowing us to participate in the ongoing care of this patient. Please page with any additional concerns. Volodymyr Barnes DNP Director, Palliative Medicine (3) Encounter for end of life care: (4) Advanced care planning/counseling discussion: Plan Reason for note This note documents the planned withdrawal of mechanical circulatory support via discontinuation of the Left Ventricular Assist Device (LVAD), consistent with the patient's and family's previously expressed wishes for comfort-focused care and transition to natural . History of Present Illness (HPI) Ahsan Claros is a 74yo male with met pancreatic cancer, ICM _ HF s/p ICD + pacer, s/p LVAD x3 (2012, 2016 HeartMate II to HeartMate III, complications of infection, electrical failure, pump exchange x2 for HMIII) now with a HeartMate III (HM-III) - all done at [place]. His cardiac issues began mid with worsening HF. He was evaluated for Heart txp at [place] and EF approx 4% per . He was a candidate for heart txp but insurance was not in network for [place] and he was life flighted to [facility]. 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 left MCA stroke, +CVA. VT, PE, DVT, IDDM. Ahsan has end-stage heart failure, status post-HM-III implantation on 2012 and then 2016 replacement. His cancer is terminal and progressive. After extensive discussions regarding the patient's deteriorating clinical condition and poor quality of life despite device support, the patient/family has elected to pursue comfort measures only, with discontinuation of the LVAD as the final step in the plan of care.He has been admitted on [facility] hospice for this admission. Decision-making capacity and consent * Patient:The patient's decision-making capacity was formally assessed on 11/23/2024. The patient was found to not have the capacity to make informed medical decisions, and his was his SDM. She is a nurse. She reaffirmed their preference to withdraw life-sustaining treatment in the context of their terminal illness, referencing their detailed prior discussions re: same issues with their PCP. Goals of care The established goals of care are focused on ensuring patient comfort and dignity during the dying process. All disease-modifying therapies, pressors, and non-essential monitoring have been discontinued. A Do Not Resuscitate (DNR) and Do Not Intubate (DNI) order is in place and confirmed. Medication plan for comfort care Comfort care medication were initiated, see earlier Pall [employer] progress note. Deactivation process Myself and Dyan RN attended to patient with Pastor Naqvi present at bedside. After patient comfort was assured on Dilaudid infusion, the HeartMate III LVAD driveline was disconnected at controller after releasing the safety lock and depressing the safety lock release button on the back of the controller. Alarms were silenced. Next, battery was disconnected from power line. The device was then powered down, holding battery button for full countdown to off mode. The controller was therefore turned off and driveline was removed. Ahsan has residual wales heart function which is very weak. There are profound murmurs on exam. Respiratory effort is increased but not distressed. Within 5 minutes of device disconnection, resp effort was noted to be slowing down. Family support I personally called Mrs Claros and provided update of the above. Ahsan remains comfortable on currnet [employer] regimen. His wales heart function is present, weakly with significant murmurs. He has increased resp effort, bolus doses of Dilaudid are being used to manage distress. Mrs Claros was extremely thankful for the care he has been receiving this admission from medicine and nursing teams. Attestation This LVAD discontinuation was performed performed in accordance with patient/family wishes and extensive prior family meetings/advance care planning discussions, all of which are documented in prior notes. Hospice aware. The contract loader skidder operator will come to assist with post mortem care and speak with family. Medicine and nursing teams updated. Thank you for allowing us to participate in the ongoing care of this patient. Please page with any additional concerns. Volodymyr Barnes DNP Director, Palliative Medicine Admission and Anticipated Discharge Date Admission Date: November 24, 2024 Subjective Reason for note This note documents the planned withdrawal of mechanical circulatory support via discontinuation of the Left Ventricular Assist Device (LVAD), consistent with the patient's and family's previously expressed wishes for comfort-focused care and transition to natural . History of Present Illness (HPI) Ahsan Claros is a 74yo male with met pancreatic cancer, ICM _ HF s/p ICD + pacer, s/p LVAD x3 (2012, 2016 HeartMate II to HeartMate III, complications of infection, electrical failure, pump exchange x2 for HMIII) now with a HeartMate III (HM-III) - all done at [place]. His cardiac issues began mid with worsening HF. He was evaluated for Heart txp at [place] and EF approx 4% per . He was a candidate for heart txp but insurance was not in network for [place] and he was life flighted to [facility]. 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 left MCA stroke, +CVA. VT, PE, DVT, IDDM. Ahsan has end-stage heart failure, status post-HM-III implantation on 2012 and then 2016 replacement. His cancer is terminal and progressive. After extensive discussions regarding the patient's deteriorating clinical condition and poor quality of life despite device support, the patient/family has elected to pursue comfort measures only, with discontinuation of the LVAD as the final step in the plan of care.He has been admitted on [facility] hospice for this admission. Decision-making capacity and consent * Patient:The patient's decision-making capacity was formally assessed on 11/23/2024. The patient was found to not have the capacity to make informed medical decisions, and his was his SDM. She is a nurse. She reaffirmed their preference to withdraw life-sustaining treatment in the context of their terminal illness, referencing their detailed prior discussions re: same issues with their PCP. Goals of care The established goals of care are focused on ensuring patient comfort and dignity during the dying process. All disease-modifying therapies, pressors, and non-essential monitoring have been discontinued. A Do Not Resuscitate (DNR) and Do Not Intubate (DNI) order is in place and confirmed. Medication plan for comfort care Comfort care medication were initiated, see earlier Pall Med progress note. Deactivation process Myself and Dyan RN attended to patient with Pastor Naqvi present at bedside. After patient comfort was assured on Dilaudid infusion, the HeartMate III LVAD driveline was disconnected at controller after releasing the safety lock and depressing the safety lock release button on the back of the controller. Alarms were silenced. Next, battery was disconnected from power line. The device was then powered down, holding battery button for full countdown to off mode. The controller was therefore turned off and driveline was removed. Ahsan has residual wales heart function which is very weak. There are profound murmurs on exam. Respiratory effort is increased but not distressed. Within 5 minutes of device disconnection, resp effort was noted to be slowing down. Family support I personally called Mrs Claros and provided update of the above. Ahsan remains comfortable on currnet [employer] regimen. His wales heart function is present, weakly with significant murmurs. He has increased resp effort, bolus doses of Dilaudid are being used to manage distress. Mrs Claros was extremely thankful for the care he has been receiving this admission from medicine and nursing teams. Attestation This LVAD discontinuation was performed performed in accordance with patient/family wishes and extensive prior family meetings/advance care planning discussions, all of which are documented in prior notes. Hospice aware. The contract loader skidder operator will come to assist with post mortem care and speak with family. Medicine and nursing teams updated. Thank you for allowing us to participate in the ongoing care of this patient. Please page with any additional concerns. Volodymyr Barnes DNP Director, Palliative Medicine Results & Data Vital Signs (Past 12 Hours) Vital Signs O2 Del Method O2 Flow Rate 11/30/24 08:31 Nasal Cannula 4 PG Care Time/CCT Total # of Minutes Spent Total Time Spent: 45 Total Time Spent with Patient: Total time spent is greater than 50% in coordination of care (as documented) at patient's floor/unit and/or counseling patient: [place] [address] SUB INP/OBS CARE 2/35MIN Patient Type Established Medical Decision Making High Complexity Diagnoses LVAD (left ventricular assist device) present Z95.811 Palliative care by specialist Z51.5 Encounter for end of life care Z51.5 Advanced care planning/counseling discussion Z71.89 Comment additional time, LVAD withdrawal, critical;
[2024-12-01] MEDS: HYDROmorphone BOLUS from BAG IV PRN (08:35)
--- NOTE | 2024-12-01 12:31 | Hospitalist Progress Note ---
Date of Service December 01, 2024 Assessment & Plan (1) Cancer related pain: (2) Comfort measures only status: (3) Pancreatic adenocarcinoma: Plan Per previous provider w/ addendum Acute metabolic encephalopathy likely due to comorbidities H/O CHF s/p LVAD placement Supratherapeutic INR LVAD Chronic hyponatremia Abnormal thyroid function test Abnormal urinalysis Admitted under [facility] hospice Hospice consulted Appreciate palliative care input Continue comfort measures only No distress on exam Titrate medications to help with pain control Hospice following 11/27/2024 Discussed w/ palliative med - plan to deactivate icd. In contact w/ EP cardiology. 11/28 Pt continues to feel tired. icd de-activated yesterday 11/29 Pt uncomfortable today, says he hurts all over, pain meds adjusted by palliative medicine. Discussed w/ RN as well as pt may need prn dose. 11/30 Today pt found resting/sleeping soundly, appears very comfortable, does not awake during phys. exam. Discussed w/ RN - poor oral intake 12/01 Pt resting , + gurgling today. LVAD deactivated yesterday per palliative team (see their note for more detail) CODE STATUS DNI DNR Admission and Anticipated Discharge Date Admission Date: November 24, 2024 Subjective Pt seen in follow up Hx of pancreatic ca Hx of LVAD -> now discontinued as of yesterday (11/30/2024) Pt on inpt hospice. Palliative med following closely - deactivated icd on 11/27/2024 Pt currently lying in bed, pt does not wake up during physical exam, + gurgling noted. Discussed w/ RN , and discussed w/ DR. Barnes at the bedside yesterday. Review of Systems Review of Systems: All systems reviewed & are unremarkable except as noted in Subjective Physical Exam Physical Exam: General Appearance:Moderately built, no apparent distress, chronically ill- appearing, + gurgling Head: normocephalic, Atraumatic Respiratory/Chest: No accessory muscle use Abdomen/GI:Soft, Non tender Extremities/Musculoskeletal:normal inspection, no edema, chronic venous stasis changes Neurologic/Psych:comfortable,does not awake during phys. exam Skin: pale Results & Data Results & Data Vital Signs (Past 12 Hours) Vital Signs O2 Del Method 12/01/24 11:09 Room Air Medications Administered Current Inpatient Medications Glycopyrrolate (Glycopyrrolate 0.2 Mg/Ml Vial) 0.4 mg IV Q2H PRN PRN Reason: secretions Stop: 12/30/24 15:23 Last Admin: 12/01/24 08:40 Dose: 0.4 mg Haloperidol Lactate (Haloperidol Lactate 5 Mg/Ml 1 Ml Vial) 2 mg IV Q4H PRN PRN Reason: terminal agitation/delirium Stop: 12/30/24 16:14 Hydromorphone HCl (Hydromorphone Inj 0.5 Mg/0.5 Ml Syr) 1 mg IV Q15M PRN PRN Reason: Dyspnea,pain Stop: 12/08/24 18:09 Last Admin: 12/01/24 02:36 Dose: 1 mg Hydromorphone HCl (Hydromorphone Bolus From Bag) 2 mg IV Q15M PRN PRN Reason: Comfort Care Parameters Stop: 12/14/24 15:19 Last Admin: 12/01/24 08:35 Dose: 2 mg Hydromorphone HCl (Hydromorphone Inj 2 Mg/Ml Syr/Vial) 2 mg IV Q15M PRN PRN Reason: Sev pain,terminal air hunger Stop: 12/08/24 20:09 Hydromorphone HCl (Dilaudid) 100 mg in 100 mls @ 1 mls/hr IV .Q96H CAMILA; Protocol Stop: 12/14/24 15:29 Last Titration: 11/30/24 19:06 Dose: 1 mg/hr, 1 mls/hr Lorazepam (Lorazepam 2 Mg/1 Ml Vial) 2 mg IV Q2H PRN PRN Reason: Anxiety/Agitation, seizure Stop: 12/30/24 16:13 Last Admin: 12/01/24 08:40 Dose: 2 mg Ondansetron HCl (Ondansetron Inj 2 Mg/Ml 2 Ml Vial) 4 mg IV Q4H PRN PRN Reason: Nausea &/or Vomiting Stop: 12/24/24 18:09
--- NOTE | 2024-12-01 14:58 | Communication Note ---
Date of Service: December 01, 2024 NOTE Contacted by RN at 2:25 pm that pt has passed On my exam, pt is not responsive to voice or painful stimuli. No breath sounds, no heart sounds, no carotid pulses. Pupils fixed and dilated. MD Mason
--- NOTE | 2024-12-01 15:04 | Discharge Summary ---
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 hospice based on patient/patient's family and palliative care recommendations given deteriorating terminal condition. Patient denies any significant pain, dyspnea currently. He and his family understands that his condition is deteriorating and agrees with current care. Admission Exam Per Admitting Provider General Appearance:Moderately built, no apparent distress, chronic ill-appearing Head: normocephalic, Atraumatic Eyes: normal inspection, EOMI Neck: supple, Trachea midline Respiratory/Chest: Normal breath sounds, CTA, No accessory muscle use Cardiovascular: LVAD noise Abdomen/GI:Soft, Non tender, Bowel sounds present Extremities/Musculoskeletal:normal inspection, no edema, chronic venous stasis changes Neurologic/Psych:AAOX2, grossly no focal neurological deficits Skin: normal color, warm Principal Diagnosis Pancreatic cancer LVAD (left ventricular assist device) secondary to heart failure Discharge Exam Contacted by RN at 2:25 pm that pt has passed On my exam, pt is not responsive to voice or painful stimuli. No breath sounds, no heart sounds, no carotid pulses. Pupils fixed and dilated. MD Mason Discharge Data Allergies Allergy/AdvReac Type Severity Reaction Status Date / Time enoxaparin [From Lovenox] AdvReac Severe Heparin Verified 11/22/24 15:14 induced thrombocytopenia heparin AdvReac Severe Heparin Verified 11/22/24 15:14 Induced Thrombocytopenia baclofen AdvReac Intermediate HALLUCINATI Verified 11/22/24 15:14 ONS Consultations 11/25/24 08:16 Consult Palliative Care Routine Hospital Course (1) Cancer related pain: (2) Comfort measures only status: (3) Pancreatic adenocarcinoma: Plan Acute metabolic encephalopathy likely due to comorbidities H/O CHF s/p LVAD placement Supratherapeutic INR LVAD Chronic hyponatremia Abnormal thyroid function test Abnormal urinalysis Admitted under [facility] hospice Hospice consulted Appreciate palliative care input Continued comfort measures only Titrated medications to help with pain control Hospice following 11/27/2024 Discussed w/ palliative med - plan to deactivate icd. In contact w/ EP cardiology. 11/28 Pt continues to feel tired. icd de-activated yesterday 11/29 Pt uncomfortable today, says he hurts all over, pain meds adjusted by palliative medicine. Discussed w/ RN as well as pt may need prn dose. 11/30 Today pt found resting/sleeping soundly, appears very comfortable, does not awake during phys. exam. Discussed w/ RN - poor oral intake 12/01 Pt resting , + gurgling today. LVAD deactivated yesterday per palliative team (see their note for more detail) 12/01 2:25 pm Pt pronounced . Per family services manager aware and able to visit the pt. Total Time Total Time Spent Total Time Spent (In Minutes): 25 Discharge Plan Discharge Items Patient Disposition: Reason For Visit: [facility] Follow-up/Referrals: Graham Rojas MD [Primary Care Provider] - Medications and DC Order Prescriptions: No Action spironolactone 25 mg Tablet 25 mg PO QDL amiodarone 200 mg tablet 200 mg PO QAM folic acid 1 mg Tablet 1 mg PO QAM pravastatin 40 mg Tablet 40 mg PO HS venlafaxine [Effexor XR] 150 mg Capsule,Extended Release 24hr 150 mg PO HS gabapentin 400 mg capsule 400 mg PO TID fluticasone propionate 50 mcg/actuation [place],Suspension 2 spray INTRANASAL DAILY PRN (Reason: Congestion) diclofenac sodium 1 % Gel 4 g TOPICAL BID PRN (Reason: Pain) guaifenesin [Mucinex] 600 mg Tablet Extended Release 12hr 1,200 mg PO Q12H PRN (Reason: Cough) doxycycline monohydrate 100 mg capsule 100 mg PO BID cholecalciferol (vitamin D3) 125 mcg (5,000 unit) Tablet 125 mcg PO .Q2WK warfarin 2 mg tablet 2 mg PO DIRECTED Rx Instructions: JUST CHANGED 11/21/24--TU & SAT TAKES 4 MG, THEN SUN, MON, WED, TH, & FRI TAKES 2 MG. insulin lispro [Humalog KwikPen Insulin] 100 unit/mL insulin pen 6 sliding scale dose SUBCUT TIDWMEAL MDD 50 units daily Rx Instructions: 6 UNITS WITH MEALS, PLUS SLIDING SCALE DEPENDING ON BSG: BSG 100-150=6 UNITS, 151-200=8 UNITS, 201-250=10 UNITS, 251-300=12 UNITS, 301-350=14 UNITS, 351- 400=16 UNITS, 401-450=18 UNITS. insulin glargine-yfgn 100 unit/mL (3 mL) insulin pen 15 unit subcut HS carvedilol 25 mg tablet 25 mg PO BID amlodipine 5 mg tablet 5 mg PO QAM benzonatate 100 mg capsule 100 mg PO TID PRN (Reason: Cough) allopurinol 300 mg tablet 300 mg PO QAM potassium chloride 10 mEq tablet extended release 40 meq PO BID promethazine 25 mg Tablet 25 mg PO Q6H PRN (Reason: NAUSEA/VOMITING) levothyroxine 200 mcg tablet 200 mcg PO DAILYBB nystatin 100,000 unit/gram Powder 1 applic TOPICAL DAILY Rx Instructions: APPLY TO GROIN AREA albuterol sulfate 90 mcg/actuation Hfa Aerosol Inhaler 2 puff INHALATION Q3H PRN (Reason: Shortness Of Breath Or Wheezing) colchicine 0.6 mg Tablet 0.6 mg PO DAILY PRN (Reason: GOUT FLARE UPS) Rx Instructions: TAKE FOR 3 DAYS WITH A GOUT FLARE UP hydromorphone 4 mg tablet 4 mg PO Q4H PRN (Reason: Severe Pain (Scale Score 7-10)) Rx Instructions: PER PT'S , "TAKE ON THE DOT EVERY 4 HRS". valsartan 40 mg Tablet 40 mg PO HS naloxone 4 mg/actuation [place],Non-Aerosol 4 mg INTRANASAL DIRECTED PRN (Reason: Opioid Overdose) glucagon 0.5 mg/0.1 mL Auto-Injector 1 mg SUBCUT DIRECTED PRN (Reason: Hypoglycemia) Admission Data Admit Date/Time: 11/24/24 17:05 Attending Provider: Troy Cuevas Admit Provider: Jyoti Ortiz Primary Care Provider: Graham Rojas Other Providers: Karol Thomason; Larissa Barnes; Janice,Home [facility]; Devin Jim
== END 2024-12-01 18:10 | disposition expired | DRG 947 ==
LOC: SUATTDRO 17:05 → 2E 17:05